=== PATIENT | female | born 1945 | race Caucasian/White ===

== ENCOUNTER → 2016-07-09 | Outpatient (CLI) | payer MEDICARE, MEDICAID ==
[2016-07-09 07:05] LABS: ALT 41 U/L (9-52); AST 28 U/L (14-36); Alkaline Phosphatase 75 U/L (38-126); Anion Gap 10 mmol/L; Blood Urea Nitrogen 20 mg/dL (7-17); Calcium 9.8 mg/dL (8.4-10.2); Carbon Dioxide 29 mmol/L (22-30); Chloride 101 mmol/L (98-107); Cholesterol 188 mg/dL (<200); Glucose 167 mg/dL (74-99); HDL Cholesterol 63 mg/dL (40-60); Non-African American GFR(MDRD) >60 (>60 ml/min/1.73 sqM); Potassium 4.4 mmol/L (3.5-5.1); Sodium 140 mmol/L (137-145); Total Bilirubin 1.4 mg/dL (0.2-1.3); Total Protein 7.2 g/dL (6.3-8.2); Triglycerides 125 mg/dL (<150)
== END | disposition home or self-care (01) ==
LOC: LABWHC1 06:33
PROVIDERS: ATTEND Internal Medicine Endocrinology, Diabetes & Metabolism
DX: E11.65 Type 2 diabetes mellitus with hyperglycemia (principal)
CPT/HCPCS: 36415; 80053; 80061; 82043

== ENCOUNTER → 2016-10-06 | Outpatient (CLI) | payer MEDICARE, MEDICAID ==
--- NOTE | 2016-10-08 13:04 | MM ---
Reason for exam: screening (asymptomatic). Last mammogram was performed 1 year ago. History: Patient is postmenopausal and has history of other cancer at age 65. Family history of breast cancer in sister at age 80, breast cancer in cousin, and breast cancer in cousin at age 40. Took estrogen for 15 years. Took progesterone for 15 years. Physical Findings: A clinical breast exam by your physician is recommended on an annual basis and results should be correlated with mammographic findings. MG 3D Screening Mammo W/Cad Bilateral CC and MLO view(s) were taken. Prior study comparison: October 06, 2015, bilateral MG 3d screening mammo w/cad. October 02, 2014, bilateral MG screening mammo w CAD. The breast tissue is almost entirely fat. There is no discrete abnormality including area of concern. No significant changes when compared with prior studies. ASSESSMENT: Negative, BI-RAD 1 RECOMMENDATION: Routine screening mammogram of both breasts in 1 year.
== END | disposition home or self-care (01) ==
LOC: RADMAMWWP 07:56
PROVIDERS: ATTEND Obstetrics & Gynecology
DX: Z12.31 Encounter for screening mammogram for malignant neoplasm of breast (principal); Z80.3 Family history of malignant neoplasm of breast
CPT/HCPCS: 77063; G0202

== ENCOUNTER → 2016-12-06 | Outpatient (CLI) | payer MEDICARE, MEDICAID ==
--- NOTE | 2016-12-06 20:08 | MR ---
EXAMINATION TYPE: MR cervical spine wo con DATE OF EXAM: 12/06/2016 COMPARISON: NONE HISTORY: Neck pain, headaches TECHNIQUE: Multiplanar, multisequence images of the cervical spine were acquired. C2-C3: There is posterior spondylosis and uncovertebral joint hypertrophy. Neural foramina patent. No Canal stenosis. No disc herniation. C3-C4: Degenerative disc disease and facet arthropathy with uncovertebral joint hypertrophy. Mild kristin ateral foraminal encroachment. No canal stenosis or focal herniation. C4-C5: Central left paracentral disc protrusion with uncovertebral joint hypertrophy and facet arthro casie. Mild effacement of thecal sac and canal stenosis. Mild left-sided foraminal encroachment. C5-C6: Severe degenerative disc disease with broad-based central disc protrusion or herniation greate r laterally to the right suggestive of a lateral disc herniation severe right-sided foraminal encroac hment. Mild to moderate left foraminal encroachment and moderate to severe canal stenosis. C6-C7: Mild degenerative disc disease with no disc herniation or canal stenosis. No foraminal encroac hment. Mild facet arthropathy. C7-T1: No evidence for degenerative disc disease. No disc bulge/herniation or protrusion. No Canal stenosis. Foramina are patent bilaterally. Cervical segments are intact. There is normal alignment. Cervical spinal cord is of normal signal. Craniovertebral junction relationships are within normal limits. Subcentimeter left thyroid nodule noted. Incidental note made of a left-sided nerve root sleeve diverticulum at C7-T1. 1.4 cm right par otid nodule seen. IMPRESSION: 1. Severe degenerative disc disease C5-C6 with broad-based central disc herniation extending laterall y the right. Moderate to severe canal stenosis and severe right-sided foraminal encroachment due to d isc herniation extending laterally to the right. 2. Central left paracentral disc protrusion or small herniation C4-C5 with canal stenosis and mild le ft foraminal encroachment. 3. Multilevel degenerative disc disease. 4. There is a 1.4 cm right parotid nodule. Recommend ultrasound the right parotid gland.
== END | disposition home or self-care (01) ==
LOC: RADMRIMAIN 18:28
PROVIDERS: ATTEND Physical Medicine & Rehabilitation
DX: M48.06 Spinal stenosis, lumbar region (principal); M99.73 Connective tissue and disc stenosis of intervertebral foramina of lumbar region; M50.222 Other cervical disc displacement at C5-C6 level; K11.8 Other diseases of salivary glands
CPT/HCPCS: 72141

== ENCOUNTER → 2017-01-11 | Outpatient (CLI) | payer MEDICARE, MEDICAID ==
--- NOTE | 2017-01-11 15:20 | US ---
EXAMINATION TYPE: US thyroid st tissue head/neck DATE OF EXAM: 01/11/2017 COMPARISON: NONE CLINICAL HISTORY: R22.1 Parotid mass. Right neck palpable lump x 15 years Right neck inferior to ear palpable area: 1.4 x 0.8 x 1.4cm complex vascular mass Left neck inferior to ear for comparison: appears wnl IMPRESSION: Complex vascular lesion noted at the site of clinical concern. Contrast-enhanced CT is r ecommended for further evaluation. Malignancy not excluded.
== END | disposition home or self-care (01) ==
LOC: RADUSWWP 14:06
PROVIDERS: ATTEND Family Medicine
DX: I99.8 Other disorder of circulatory system (principal); R22.1 Localized swelling, mass and lump, neck
CPT/HCPCS: 76536

== ENCOUNTER → 2017-01-26 | Outpatient (CLI) | payer MEDICARE, MEDICAID ==
[2017-01-26 11:48] LABS: Blood Urea Nitrogen 21 mg/dL (7-17); Non-African American GFR(MDRD) >60 (>60 ml/min/1.73 sqM)
--- NOTE | 2017-01-26 12:34 | CT ---
EXAMINATION TYPE: CT soft tissue neck w con DATE OF EXAM: 01/26/2017 HISTORY: Patient complains of right side parotid mass/Warthin Cyst just below ear (marked by bb) x15 years. COMPARISON: Neck ultrasound January 11, 2017. MRI cervical spine December 06, 2016. CT DLP: 287.7 mGycm. Automated Exposure Control for Dose Reduction was Utilized. TECHNIQUE: CT scan of the neck is performed with IV Contrast, patient injected with 100 mL of Omnipa que 300, axial images are obtained, coronal and sagittal reformatted images are reviewed. FINDINGS: A metallic BB is placed at level of palpable abnormality in the right neck on axial image 5 0. There is streak artifact from multiple cavitary fillings and root canal procedures in the maxillar y and mandibular teeth bilaterally making evaluation at this level suboptimal. Just superior to BB th ere is heterogeneous enhancing solid mass along superficial anterior inferior aspect of right parotid gland measuring 1.0 x 1.0 cm on axial image 51 x 1.3 cm in craniocaudal dimension on sagittal image 23. Lesion corresponds to ultrasound abnormality. Visualized portion of the lesion is fairly isointen se to remainder parotid gland on MRI. Submandibular glands are symmetric and felt unremarkable. There are scattered small subcentimeter hypodense and calcified nodules throughout the thyroid gland bilaterally. No suspicious greater than 1 cm neck adenopathy is seen. There is mild calcified plaque at right carotid bulb. There is more moderate to severe calcified plaq ue at left carotid bulb without significant focal stenosis clearly seen. Spine is straightened with moderate disc space narrowing as well as endplate sclerosis and mild to mo derate spurring at right C5-C6 level. Posterior spur disc complex effaces anterior thecal sac at this level. IMPRESSION: There is 1.3 cm heterogeneous enhancing solid lesion anterior superficial right parotid g land confirm likely reflecting neoplasm could reflect known Warthin tumor, other etiologies are not e xcluded.
== END | disposition home or self-care (01) ==
LOC: RADCTMAIN 10:35
PROVIDERS: ATTEND Family Medicine
DX: K11.9 Disease of salivary gland, unspecified (principal); E11.9 Type 2 diabetes mellitus without complications
CPT/HCPCS: 82565; 84520; 70491; 36415; Q9967

== ENCOUNTER → 2017-02-07 | Outpatient (CLI) | payer MEDICARE, MEDICAID ==
--- NOTE | 2017-02-07 15:17 | US ---
EXAMINATION TYPE: US thyroid st tissue head/neck DATE OF EXAM: 02/07/2017 COMPARISON: CT neck CLINICAL HISTORY: E04.2 Multinodular goiter. GLAND SIZE: Right Lobe: 3.9 x 1.3 x 1.1 cm Overall Parenchyma: heterogenous Left Lobe: 4.2 x 1.3 x 1.1 cm Overall Parenchyma: heterogeneous Isthmus Thickness: 0.3 cm NODULES RIGHT: # of nodules measured on right: 2 of multiple 1. 0.8 X 0.6 x 0.5 cm hypoechoic largest mixed nodule at the lower pole with well-defined margins. This nodule is wider than tall and shows no intranodular vascularity. Prior size: no prior thyroid US 2. 0.3 X 0.4 x 0.1 cm echogenic calcified nodule at the mid pole with not well-defined margins. Thi s nodule is wider than tall and shows no intranodular vascularity. LEFT: # of nodules measured on left: 2 largest of multiple 1. 1.7 X 1.3 x 0.9 cm hypoechoic mixed nodule at the upper pole with poorly defined margins; presen t with microcalcifications. This nodule is wider than tall and shows intranodular vascularity. 2. 1.1 X 1.2 x 0.9 cm hypoechoic mixed nodule at the lower pole with well-defined margins. This nod ule is wider than tall and shows no intranodular vascularity. ISTHMUS: # of nodules measured in the isthmus: 0 IMPRESSION: Multiple bilateral thyroid nodules the largest on the left measuring up to 1.7 cm. This is suspicious with microcalcifications and warrants fine-needle aspiration. Consideration could also be given to p ercutaneous fine-needle aspiration of the lower pole thyroid nodule measuring 1.1 cm. Surveillance is recommended for the remaining thyroid nodules.
== END ==
LOC: RADUSWWP 13:17
PROVIDERS: ATTEND Internal Medicine Endocrinology, Diabetes & Metabolism
DX: E04.2 Nontoxic multinodular goiter (principal)
CPT/HCPCS: 76536

== ENCOUNTER → 2017-02-08 | Outpatient (CLI) | payer MEDICARE, MEDICAID ==
[2017-02-08 07:43] LABS: Appearance,Urine Cloudy (Clear); Bacteria,Urine Rare /hpf; Bilirubin,Urine Negative (Negative); Glucose,Urine (UA) Negative (Negative); Ketones,Urine Negative (Negative); Leukocyte Esterase,Urine Large (Negative); Mucus,Urine Rare /hpf; Nitrite,Urine Negative (Negative); Particle Count 1401; Protein,Urine Negative (Negative); RBC,Urine 2 /hpf (0-5); Specific Gravity,Urine 1.015 (1.001-1.035); Squamous Epithelial Cell,Urine 1 /hpf (0-4); UA Billing (MACRO vs. MICRO) MICRO; Urobilinogen,Urine <2.0 mg/dL (<2.0); WBC,Urine 71 /hpf (0-5)
[2017-02-08 08:10] LABS: CHCM 34.2; HCT 43.4 % (34.0-46.0); HDW 2.64; HGB 14.4 gm/dL (11.4-16.0); MCH 28.3 pg (25.0-35.0); MCHC 33.2 g/dL (31.0-37.0); MCV 85.1 fL (80.0-100.0); RBC 5.09 m/uL (3.80-5.40); RDW 14.3 % (11.5-15.5); WBC 6.5 k/uL (3.8-10.6)
[2017-02-08 08:31] LABS: ALT 30 U/L (9-52); AST 22 U/L (14-36); Alkaline Phosphatase 77 U/L (38-126); Anion Gap 6 mmol/L; Blood Urea Nitrogen 17 mg/dL (7-17); Calcium 9.3 mg/dL (8.4-10.2); Carbon Dioxide 32 mmol/L (22-30); Chloride 101 mmol/L (98-107); Cholesterol 197 mg/dL (<200); Glucose 124 mg/dL (74-99); HDL Cholesterol 60 mg/dL (40-60); Non-African American GFR(MDRD) >60 (>60 ml/min/1.73 sqM); Potassium 3.8 mmol/L (3.5-5.1); Sodium 139 mmol/L (137-145); Total Bilirubin 0.8 mg/dL (0.2-1.3); Total Protein 6.6 g/dL (6.3-8.2)
[2017-02-08 14:19] LABS: Urine Creatinine 144.9 mg/dL
== END | disposition home or self-care (01) ==
LOC: LABWHC1 06:43
PROVIDERS: ATTEND Internal Medicine Interventional Cardiology
DX: E55.9 Vitamin D deficiency, unspecified (principal); E03.9 Hypothyroidism, unspecified; E78.5 Hyperlipidemia, unspecified; I10 Essential (primary) hypertension; E11.65 Type 2 diabetes mellitus with hyperglycemia; E04.2 Nontoxic multinodular goiter
CPT/HCPCS: 36415; 80053; 80061; 81001; 82043; 82306; 82570; 84439; 84443; 85027; 87086

== ENCOUNTER 2017-03-21 12:21 | Day surgery (SDC) | payer MEDICARE, MEDICAID ==
[2017-03-21 12:53] VITALS: RESP 14; TEMP 98.4
[2017-03-21 13:49] VITALS: BP 124/62; PULSE 57
--- NOTE | 2017-03-21 15:04 | US ---
EXAMINATION TYPE: US FNA thyroid DATE OF EXAM: 03/21/2017 COMPARISON: NONE HISTORY: Thyroid nodule. Maximal barrier technique was utilized. After informed consent, skin overlying the lower pole left-s ided lesion was localized with ultrasound and the overlying skin prepped and draped. Ultrasound was u tilized using sterile technique. Lidocaine was used for local anesthesia. 4 passes with a 25-gauge ne edle were made into the nodule and aspirated specimen was submitted to cytology. Following the proce dure hemostasis achieved. No immediate complication. The patient discharged in stable condition. IMPRESSION: STATUS POST ULTRASOUND GUIDED FINE NEEDLE ASPIRATION OF LOWER POLE LEFT THYROID NODULE, P ATHOLOGY IS PENDING. THIS PROCEDURE WAS PERFORMED BY THE UNDERSIGNED.
--- NOTE | 2017-03-21 15:05 | US ---
EXAMINATION TYPE: US FNA thyroid DATE OF EXAM: 03/21/2017 COMPARISON: NONE HISTORY: Thyroid nodule. Maximal barrier technique was utilized. After informed consent, skin overlying the upper pole left t hyroid lesion was localized with ultrasound and the overlying skin prepped and draped. Ultrasound was utilized using sterile technique. Lidocaine was used for local anesthesia. For passes with a 25-gaug e needle were made into the nodule and aspirated specimen was submitted to cytology. Following the p rocedure hemostasis achieved. No immediate complication. The patient discharged in stable condition . IMPRESSION: STATUS POST ULTRASOUND GUIDED FINE NEEDLE ASPIRATION OF UPPER POLE LEFT THYROID NODULE, P ATHOLOGY IS PENDING. THIS PROCEDURE WAS PERFORMED BY THE UNDERSIGNED.
== END 2017-03-21 13:55 | disposition home or self-care (01) ==
LOC: RADPROMAIN 12:21
PROVIDERS: ATTEND Family Medicine
DX: E04.1 Nontoxic single thyroid nodule (principal)
CPT/HCPCS: 10022; 76942; 88173; 88305

== ENCOUNTER → 2017-05-19 | Outpatient (CLI) | payer MEDICARE, MEDICAID ==
--- NOTE | 2017-05-19 12:00 | CT ---
EXAMINATION TYPE: CT abdomen pelvis wo con DATE OF EXAM: 05/19/2017 HISTORY: Abd pain and gross hematuria. Renal protocol. Prior on 11.12.05 and prior report. Scanned by: LJ and CS. CT DLP: 941.2 mGycm. Automated Exposure Control for Dose Reduction was Utilized. TECHNIQUE: CT scan of the abdomen and pelvis is performed without oral or IV contrast. COMPARISON: NONE FINDINGS: Within the limitations of a non-contrast study, the following observations are made. LUNG BASES: No significant abnormality is appreciated. LIVER/GB: Cholecystectomy clips are noted. Common bile duct measures 10-12 mm perhaps minimally enlar ged near janice hepatis. It measures closer to 6 to 8 mm near duodenal ampulla No intrahepatic ductal dilatation is seen. Finding likely within normal limits after cholecystectomy PANCREAS: There is nonspecific 4 mm hypodense focus in the mid to distal pancreatic body on axial sanam ge 43, too small to further characterize favor small cystic lesion. SPLEEN: There is 1.4 cm splenule in inferior splenic hilum on coronal image 41. ADRENALS: No significant abnormality is seen. KIDNEYS: No renal stones or hydronephrosis is evident bilaterally. There are scattered pelvic phlebol iths. Bladder is poorly distended and thus suboptimally evaluated. No suspicious mass, calculus, or w all thickening is clearly seen. Evaluation is noted suboptimal due to streak artifact from hip prosth esis. BOWEL: Evaluation bowel is suboptimal secondary to lack of enteric contrast. There is no suspicious s mall or large bowel dilatation seen. There are sigmoid colonic diverticulosis identified without conv incing CT evidence for acute diverticulitis. Appendix is unremarkable from base of cecum which is sli ghtly low lying in the right pelvis. GENITAL ORGANS: Uterus is surgically absent. LYMPH NODES: There is borderline right perirectal/perianal lymph node measuring 11 x 10 mm on axial i mage 145. OSSEOUS STRUCTURES: Metallic artifact right hip arthroplasty is seen, this causes streak artifact rdz iting evaluation of pelvic structures. There is moderate joint space loss and mild to moderate acetab ular spurring in the left hip. There is moderate multilevel spurring and disc space narrowing most pr ominent L4-L5 level. There is multilevel facet arthropathy in the lumbar spine. OTHER: There is fairly moderate calcified aftereffect change of the distal abdominal aorta extending into iliac branch vessels IMPRESSION: 1. No significant finding is seen to account for patient's symptoms of hematuria. 2. Sigmoid colonic diverticulosis and borderline right perirectal/perianal lymph node noted.
== END | disposition home or self-care (01) ==
LOC: RADCTMAIN 11:03
PROVIDERS: ATTEND Urology
DX: K57.30 Diverticulosis of large intestine without perforation or abscess without bleeding (principal); R59.0 Localized enlarged lymph nodes; R31.0 Gross hematuria
CPT/HCPCS: 71250; 74176

== ENCOUNTER → 2017-05-19 | Outpatient (CLI) | payer MEDICARE, MEDICAID ==
--- NOTE | 2017-05-19 11:53 | CT ---
EXAMINATION TYPE: CT chest wo con DATE OF EXAM: 05/19/2017 COMPARISON: NONE HISTORY: Chest pain. No prior. CT DLP: 695.4 mGycm. Automated Exposure Control for Dose Reduction was Utilized. TECHNIQUE: CT scan of the thorax is performed without IV contrast. FINDINGS: LUNGS: The lungs are grossly clear, there is no concerning parenchymal mass or nodule identified. T here is no pleural effusion or pneumothorax seen. The tracheobronchial tree is patent. MEDIASTINUM: Lack of IV contrast is noted to limit evaluation for mediastinal and especially hilar ad enopathy. There are no definitive greater than 1 cm hilar or mediastinal lymph nodes. No cardiomega ly or pericardial effusion is seen. Thyroid gland is overall small in size which correlates with thyr oid ultrasound February 07. Ascending aorta measures up to 3.6 cm diameter on axial image 27. There is mild calcified plaque in the visualized aorta. Adjacent main pulmonary artery measures just under 3 cm in diameter. Right pulmonary artery measures 2.3 cm in diameter. There is moderate coronary carroll ry calcification which is noted marker for coronary artery disease. OTHER: Cholecystectomy clips are present. Common bile duct measures 12 mm which is mildly dilated aft er cholecystectomy. No suspicious intrahepatic ductal dilatation is seen. There is prominent 1.6 cm s plenule in the anterior inferior splenic hilum on axial image 65. There is moderate multilevel spurri ng in the thoracolumbar spine. Slight scoliotic curvature is present on coronal images. IMPRESSION: No significant acute or chronic pulmonary process.
== END | disposition home or self-care (01) ==
LOC: RADCTMAIN 11:06
DX: R07.89 Other chest pain (principal)
CPT/HCPCS: 71250

== ENCOUNTER → 2017-05-26 | Outpatient (CLI) | payer MEDICARE, MEDICAID ==
[2017-05-26 09:54] LABS: ALT 38 U/L (9-52); AST 25 U/L (14-36); Alkaline Phosphatase 67 U/L (38-126); Anion Gap 5 mmol/L; Blood Urea Nitrogen 14 mg/dL (7-17); Calcium 9.8 mg/dL (8.4-10.2); Carbon Dioxide 33 mmol/L (22-30); Chloride 99 mmol/L (98-107); Cholesterol 153 mg/dL (<200); Creatine Kinase 66 U/L (30-135); Glucose 130 mg/dL (74-99); HDL Cholesterol 59 mg/dL (40-60); Non-African American GFR(MDRD) >60 (>60 ml/min/1.73 sqM); Potassium 4.6 mmol/L (3.5-5.1); Sodium 137 mmol/L (137-145); Total Protein 6.7 g/dL (6.3-8.2)
[2017-05-26 16:13] LABS: Urine Creatinine 142.8 mg/dL
== END | disposition home or self-care (01) ==
LOC: LAB 09:03
PROVIDERS: ATTEND Internal Medicine Interventional Cardiology
DX: E78.2 Mixed hyperlipidemia (principal); E11.65 Type 2 diabetes mellitus with hyperglycemia
CPT/HCPCS: 80053; 80061; 82043; 82550; 82570; 84443

== ENCOUNTER → 2017-10-04 | Outpatient (CLI) | payer MEDICARE, MEDICAID ==
[2017-10-04 08:41] LABS: ALT 23 U/L (9-52); AST 21 U/L (14-36); Albumin 4.2 g/dL (3.5-5.0); Alkaline Phosphatase 97 U/L (38-126); Anion Gap 10 mmol/L; Blood Urea Nitrogen 20 mg/dL (7-17); Calcium 10.2 mg/dL (8.4-10.2); Carbon Dioxide 33 mmol/L (22-30); Chloride 100 mmol/L (98-107); Cholesterol 198 mg/dL (<200); Glucose 196 mg/dL (74-99); HDL Cholesterol 67 mg/dL (40-60); LDL Cholesterol,Calculated 117 mg/dL (0-99); Potassium 4.9 mmol/L (3.5-5.1); Sodium 143 mmol/L (137-145); Total Bilirubin 0.9 mg/dL (0.2-1.3); Triglycerides 72 mg/dL (<150)
[2017-10-04 17:17] LABS: Hepatitis C IgG Antibody Non-Reactive (Non-Reactive)
[2017-10-04 17:36] LABS: Dog Dander IgE <0.10 kU/L
== END | disposition home or self-care (01) ==
LOC: LABWHC1 07:37
PROVIDERS: ATTEND Internal Medicine Interventional Cardiology
DX: J45.909 Unspecified asthma, uncomplicated (principal); R05 Cough; E78.2 Mixed hyperlipidemia; Z13.9 Encounter for screening, unspecified
CPT/HCPCS: 36415; 80053; 80061; 86003; 86803

== ENCOUNTER → 2017-10-04 | Day surgery (SDC) | payer MEDICARE, MEDICAID ==
[2017-09-30 13:47] VITALS: BMI 30.2
[~2017-10-04] MED LIST: LACTATED RINGERS 1,000 ML IV SCH; LIDOCAINE 1% 20 ML VIAL (10MG/ML) FOR IV START INTRADERMA ONE; LIDOCAINE 1% INJ 10MG/ML (20 ML MDV) ONE; PROPOFOL 10 MG/ML 20 ML VIAL IV ONE; fentaNYL (PF) 50 MCG/ML 2 ML AMP ONE
[2017-10-04 09:02] LABS: Glucose,Whole Blood 162 mg/dL (75-99)
[2017-10-04 09:15] VITALS: RESP 16; TEMP 98.2
[2017-10-04 09:49] VITALS: PULSE 53
--- NOTE | 2017-10-04 09:53 | P.PCN ---
Date of Procedure: 10/04/17 Procedure(s) Performed: Procedure: Esophagogastroduodenoscopy and biopsy. Preoperative diagnosis: Nausea or vomiting and epigastric pain. Postoperative diagnosis: 1. Very small sliding hiatal hernia with no obvious esophagitis or complicated reflux disease. 2. Mild antral gastritis. 3. Multiple biopsies obtained from the duodenum, antrum and esophagus. Preparation and sedation: Was provided by anesthesia. Brief clinical history: The patient is a 72-year-old female who has been troubled with abdominal bloating, nausea, vomiting and epigastric pain. There is no dysphagia, odynophagia, bleeding or Weight loss. The patient has followed in our practice for symptoms of irritable bowel and she gets regular colonoscopies because of family history of colon cancer. Her last EGD was in 2015. Last colonoscopy in 2013. This evaluation is to assess for esophagitis, complicated reflux disease or other pathology. Procedure: With the patient on her left lateral decubitus position and after informed consent and adequate sedation, I passed the Olympus-GIF 160 video upper endoscope through the cricopharyngeus down the esophagus. GE junction was around 40-41 cm from the incisors and there was a very small sliding hiatal hernia. The esophagus did not show any definite esophagitis. There were no strictures or Palacios's esophagus. The endoscope was then passed into the stomach which was insufflated with air and inspected in detail including the retroflex view in the cardia. There was some mottling and erythema in the antrum and minimal friability consistent with mild gastritis but there were no ulcers or erosions. Pyloric channel, duodenal bulb, post bulbar area and descending duodenum appeared essentially within normal limits. Because of her symptoms I obtained biopsies from the esophagus, antrum and duodenum taken before the endoscope was withdrawn. Disposition: The patient tolerated the procedure well. Plan: The patient was reassured. Will await pathology results. Further plans will be made based on her course and biopsy results.
[2017-10-04 09:58] VITALS: BP 1135/58
== END ==
LOC: ORWHC2ENDO 07:56
DX: K29.50 Unspecified chronic gastritis without bleeding (principal); K44.9 Diaphragmatic hernia without obstruction or gangrene; K20.9 Esophagitis, unspecified; K58.9 Irritable bowel syndrome, unspecified; Z80.0 Family history of malignant neoplasm of digestive organs; J45.909 Unspecified asthma, uncomplicated; I10 Essential (primary) hypertension; E11.9 Type 2 diabetes mellitus without complications; E78.5 Hyperlipidemia, unspecified; M19.90 Unspecified osteoarthritis, unspecified site; Z96.641 Presence of right artificial hip joint; Z79.4 Long term (current) use of insulin; Z79.51 Long term (current) use of inhaled steroids; Z79.899 Other long term (current) drug therapy; Z88.6 Allergy status to analgesic agent; Z88.1 Allergy status to other antibiotic agents; Z91.041 Radiographic dye allergy status; Z88.0 Allergy status to penicillin; Z91.013 Allergy to seafood; Z91.048 Other nonmedicinal substance allergy status
CPT/HCPCS: 88305; 43239; J2001; J3010; J2704

== ENCOUNTER 2017-10-19 07:00 | Day surgery (SDC) | payer MEDICAID, MEDICARE ==
[2017-10-13 13:18] VITALS: BMI 29.5
[~2017-10-19 07:00] MED LIST changes: +DEXAMETHASONE SOD PHOSPHATE 10 MG/ML 1 ML VIAL IV ONE; -LIDOCAINE 1% 20 ML VIAL (10MG/ML) FOR IV START INTRADERMA ONE; +LIDOCAINE 1% 20 ML VIAL (10MG/ML) FOR IV START INTRADERMA PRN; -LIDOCAINE 1% INJ 10MG/ML (20 ML MDV) ONE; -PROPOFOL 10 MG/ML 20 ML VIAL IV ONE; +TETRACAINE 0.5% OPHTH (PF) DROPS 4 ML BTL OP NR; -fentaNYL (PF) 50 MCG/ML 2 ML AMP ONE
[2017-10-19 07:14] VITALS: RESP 16; TEMP 97.6
[2017-10-19] MEDS: PHENYLEPHRINE 2.5% OPHTH DRP 2ML OP NR ×3 (07:25→07:37)
[2017-10-19] MEDS: CYCLOPENTOLATE 1% OPHTH SOLN 2 ML BTL OP NR ×3 (07:28→07:41)
[2017-10-19 07:34] LABS: Glucose,Whole Blood 147 mg/dL (75-99)
[2017-10-19] MEDS ORDERED: HYALURONATE SODIUM INTRAOCULAR 1 EACH SYRINGE (12MG/ML) INTRAOCULA ONE ×2 (07:58→08:12)
[2017-10-19] MEDS ORDERED: BALANCED SALT IRRIG SOLN COMB2 15 ML IRRIG.SOLN IRRIGATION ONE ×2 (07:58→08:12)
[2017-10-19] MEDS: TIMOLOL 0.5% OPHTH DROPS 5 ML BTL OP NR ×2 (07:59→08:32)
[2017-10-19] MEDS ORDERED: LIDOCAINE 1% (PF) 10MG/ML VIAL SQ ONE ×2 (07:59→08:12)
[2017-10-19] MEDS ORDERED: MOXIFLOXACIN HCL 0.5% DROPS 3 ML BTL LEFT EYE ONE ×2 (08:00→08:32)
[2017-10-19] MEDS ORDERED: ATROPINE OPHTH SOLN 1% 5ML BTL LEFT EYE ONE (08:00)
[2017-10-19] MEDS ORDERED: EPINEPHrine (PF) 0.3 ML in BALANCED SALT IRRIG SOLN COMB2 500 ML IRRIGATION ONE ×6 (08:01)
[2017-10-19] MEDS ORDERED: MIDAZOLAM 2 MG/2 ML VIAL ONE (08:02)
[2017-10-19] MEDS ORDERED: fentaNYL (PF) 50 MCG/ML 2 ML AMP ONE (08:02)
--- NOTE | 2017-10-19 08:37 | P.OP ---
Date of Procedure: 10/19/17 Preoperative Diagnosis: NS & CS Postoperative Diagnosis: same Procedure(s) Performed: PIOL, OS Implants: [id number] 20.75 Anesthesia: MAC Surgeon: Denis Boss Estimated Blood Loss (ml): 0 Pathology: none sent Condition: stable Disposition: same day Indications for Procedure: blurry vision Operative Findings: No complications
[2017-10-19 08:56] VITALS: BP 129/83; PULSE 58
--- NOTE | 2017-10-19 21:43 | OP ---
OPERATIVE REPORT DATE OF SURGERY: 10/19/17 PREOPERATIVE DIAGNOSES:: Nuclear sclerosis and cortical sclerosis. POSTOPERATIVE DIAGNOSES:: Nuclear sclerosis and cortical sclerosis. OPERATION: Phacoemulsification of cataract and Crystalens implant of the left eye. SURGEON: Dr. Denis Boss. NARRATIVE:: After obtaining the appropriate consent, the patient was brought to the operating room. There the patient was placed under cardiac monitoring, prepped and draped in the usual sterile manner. The patient was approached from the left temporal side. The 5.5 mm Glenn ring inked in gentian claudine was placed centrally on the cornea. At the 11 o'clock position, a 1.1 mm keratome was used to create a paracentesis port. Through this opening, 1% Xylocaine MPF 50/50 mix with balanced salt solution was injected into the anterior chamber. This was followed by stabilization of the anterior chamber with Amvisc viscoelastic. At the 9 o'clock position, a 2.75 mm hamlet keratome was used to create a self-scaling corneal flap incision in a Langerman fashion. Through this opening, a cystotome was introduced to begin a continuous tear capsulorrhexis which was completed using the Utrata forceps. Care was taken to ensure that the capsulorrhexis was at least the size of the iesha on the anterior cornea. Hydrodissection and hydrodelineation of the lens was accomplished with balanced salt solution. Phacoemulsification of the lens utilizing phaco chop was accomplished in 12.25 seconds at 9% power. Addition Xylocaine MPF was instilled into the anterior chamber. This was followed by removal of the remaining cortex under irrigation and aspiration along with careful polishing of the posterior capsule in a capsule vacuum mode. Additional Amvisc viscoelastic was then used to stabilize the capsular bag, and the Bausch and Lomb Crystalens AO 1 UV 20.75 diopters Crystalens intraocular lens was injected into the capsular bag without difficult. The lens was rotated 270 degrees so that the haptics resided at the 6 and 12 o'clock positions, and all remaining viscoelastic was then removed from within the capsular bag and around the anterior chamber. The eye was brought to normal intraocular pressure through the paracentesis port along with slight hydration of the incision sites. Watertight integrity was confirmed using a fluorescein strip. The patient then received 2 drops of 0.5% timolol followed by 2 drops of Vigamox and 2 drops of 1% atropine. The patient was then lightly patched and shielded in the usual manner. There was no complications from the procedure. The patient tolerated the procedure well and was returned to outpatient recovery in good condition. SUSANNE / DANIELITO: [id number] / MTDD
== END 2017-10-19 09:14 | disposition home or self-care (01) ==
LOC: OR 07:00
PROVIDERS: ATTEND Ophthalmology
DX: H25.12 Age-related nuclear cataract, left eye (principal); H25.012 Cortical age-related cataract, left eye; H04.123 Dry eye syndrome of bilateral lacrimal glands; H52.4 Presbyopia; H52.03 Hypermetropia, bilateral; H00.026 Hordeolum internum left eye, unspecified eyelid; H00.023 Hordeolum internum right eye, unspecified eyelid; I10 Essential (primary) hypertension; E11.9 Type 2 diabetes mellitus without complications; H91.90 Unspecified hearing loss, unspecified ear; J45.909 Unspecified asthma, uncomplicated; E78.5 Hyperlipidemia, unspecified; J44.9 Chronic obstructive pulmonary disease, unspecified; M54.9 Dorsalgia, unspecified; M25.561 Pain in right knee; K21.9 Gastro-esophageal reflux disease without esophagitis; K58.9 Irritable bowel syndrome, unspecified; Z96.649 Presence of unspecified artificial hip joint; Z96.652 Presence of left artificial knee joint; Z79.4 Long term (current) use of insulin; Z79.52 Long term (current) use of systemic steroids; Z79.51 Long term (current) use of inhaled steroids; Z79.899 Other long term (current) drug therapy; Z88.1 Allergy status to other antibiotic agents; Z88.0 Allergy status to penicillin; Z88.8 Allergy status to other drugs, medicaments and biological substances; Z91.09 Other allergy status, other than to drugs and biological substances; Z87.891 Personal history of nicotine dependence; Z91.041 Radiographic dye allergy status; Z91.048 Other nonmedicinal substance allergy status
CPT/HCPCS: 66984; V2632; V2788; J2250; J0171; J3010; J2001

== ENCOUNTER 2017-11-09 06:49 | Day surgery (SDC) | payer MEDICAID, MEDICARE ==
[2017-11-03 15:50] VITALS: BMI 30.2
[~2017-11-09 06:49] MED LIST changes: -DEXAMETHASONE SOD PHOSPHATE 10 MG/ML 1 ML VIAL IV ONE; +MIDAZOLAM 2 MG/2 ML VIAL IV PRN; -TETRACAINE 0.5% OPHTH (PF) DROPS 4 ML BTL OP NR; +TETRACAINE 0.5% OPHTH (PF) DROPS 4 ML BTL OP ONE; +TIMOLOL 0.5% OPHTH DROPS 5 ML BTL OP ONE
[2017-11-09 07:12] VITALS: TEMP 97
[2017-11-09] MEDS: CYCLOPENTOLATE 1% OPHTH SOLN 2 ML BTL OP ONE ×3 (07:12→07:38)
[2017-11-09] MEDS: PHENYLEPHRINE 2.5% OPHTH DRP 2ML OP NR ×3 (07:22→07:41)
[2017-11-09 07:28] LABS: Glucose,Whole Blood 137 mg/dL (75-99)
[2017-11-09] MEDS ORDERED: LIDOCAINE 1% (PF) 10MG/ML VIAL SQ ONE (09:38)
[2017-11-09] MEDS ORDERED: HYALURONATE SODIUM INTRAOCULAR 1 EACH SYRINGE (12MG/ML) INTRAOCULA ONE (09:38)
[2017-11-09] MEDS ORDERED: BALANCED SALT IRRIG SOLN COMB2 15 ML IRRIG.SOLN IRRIGATION ONE (09:38)
[2017-11-09] MEDS ORDERED: fentaNYL (PF) 50 MCG/ML 2 ML AMP ONE (09:40)
[2017-11-09] MEDS ORDERED: LACTATED RINGERS 1,000 ML IV ONE (09:40)
[2017-11-09] MEDS ORDERED: MIDAZOLAM 2 MG/2 ML VIAL ONE (09:40)
[2017-11-09] MEDS ORDERED: EPINEPHrine (PF) 0.3 ML in BALANCED SALT IRRIG SOLN COMB2 500 ML IRRIGATION ONE (09:47)
[2017-11-09] MEDS ORDERED: MOXIFLOXACIN HCL 0.5% DROPS 3 ML BTL RIGHT EYE ONE (09:48)
[2017-11-09] MEDS ORDERED: ATROPINE OPHTH SOLN 1% 5ML BTL RIGHT EYE ONE (10:15)
--- NOTE | 2017-11-09 10:17 | P.OP ---
Date of Procedure: 11/09/17 Preoperative Diagnosis: NS & CS Postoperative Diagnosis: same Procedure(s) Performed: PIOL OD Implants: AO1UV 20.75 Anesthesia: MAC Surgeon: Denis Boss Estimated Blood Loss (ml): 0 Pathology: none sent Condition: stable Disposition: same day Indications for Procedure: blurry vision Operative Findings: No complications
[2017-11-09 10:35] VITALS: BP 137/77; PULSE 59; RESP 18
--- NOTE | 2017-11-09 19:50 | OP ---
OPERATIVE REPORT DATE OF SURGERY: 09 November 2017 PROCEDURE: Phacoemulsification of cataract and intraocular lens implant of the right eye. PREOPERATIVE DIAGNOSIS:: Nuclear sclerosis and cortical sclerosis. POSTOPERATIVE DIAGNOSIS:: Nuclear sclerosis and cortical sclerosis. NARRATIVE:: After obtaining the appropriate consent, the patient was brought to the operating room. There the patient was placed under cardiac monitoring, prepped and draped in the usual sterile manner. The patient was approached from the right temporal side. The mm Glenn ring inked in gentian claudine was placed centrally on the cornea. At the 11 o'clock position, a 1.1 mm keratome was used to create a paracentesis port. Through this opening, 1% Xylocaine MPF 50/50 mix with balanced salt solution was injected into the anterior chamber. This was followed by stabilization of the anterior chamber with Amvisc viscoelastic. At the 9 o'clock position, a 2.75 mm hamlet keratome was used to create a self-scaling corneal flap incision in a Langerman fashion. Through this opening, a cystotome was introduced to begin a continuous tear capsulorrhexis which was completed using the Utrata forceps. Care was taken to ensure that the capsulorrhexis was at least the size of the iesha on the anterior cornea. Hydrodissection and hydrodelineation of the lens was accomplished with balanced salt solution. Phacoemulsification of the lens utilizing phaco chop was accomplished in 11.49 seconds at 10% power. Addition Xylocaine MPF was instilled into the anterior chamber. This was followed by removal of the remaining cortex under irrigation and aspiration along with careful polishing of the posterior capsule in a capsule vacuum mode. Additional Amvisc viscoelastic was then used to stabilize the capsular bag, and the Bausch and Lomb Crystalens AO1UV 20.75 diopter intraocular lens was injected into the capsular bag without difficult. The lens was rotated 270 degrees so that the haptics resided at the 6 and 12 o'clock positions, and all remaining viscoelastic was then removed from within the capsular bag and around the anterior chamber. The eye was brought to normal intraocular pressure through the paracentesis port along with slight hydration of the incision sites. Watertight integrity was confirmed using a fluorescein strip. The patient then received 2 drops of 0.5% timolol followed by 2 drops of Vigamox and 2 drops of 1% atropine. The patient was then lightly patched and shielded in the usual manner. There was no complications from the procedure. The patient tolerated the procedure well and was returned to outpatient recovery in good condition. MMMIGDALIA / GREGN: [id number] /
== END 2017-11-09 10:50 | disposition home or self-care (01) ==
LOC: OR 06:49
PROVIDERS: ATTEND Ophthalmology
DX: E11.36 Type 2 diabetes mellitus with diabetic cataract (principal); Z79.4 Long term (current) use of insulin; H04.123 Dry eye syndrome of bilateral lacrimal glands; H52.203 Unspecified astigmatism, bilateral; H52.4 Presbyopia; H52.03 Hypermetropia, bilateral; H00.023 Hordeolum internum right eye, unspecified eyelid; H00.026 Hordeolum internum left eye, unspecified eyelid; Z96.1 Presence of intraocular lens; I10 Essential (primary) hypertension; Z87.891 Personal history of nicotine dependence; K21.9 Gastro-esophageal reflux disease without esophagitis; Z79.52 Long term (current) use of systemic steroids; Z79.899 Other long term (current) drug therapy; Z88.1 Allergy status to other antibiotic agents; Z88.0 Allergy status to penicillin; Z88.8 Allergy status to other drugs, medicaments and biological substances; Z91.048 Other nonmedicinal substance allergy status; Z91.041 Radiographic dye allergy status
CPT/HCPCS: 66984; V2632; V2788; J2250; J0171; J3010; J2001

== ENCOUNTER → 2017-11-18 | Outpatient (CLI) | payer MEDICARE, MEDICAID ==
--- NOTE | 2017-11-18 14:45 | BD ---
EXAMINATION TYPE: Axial Bone Density DATE OF EXAM: 11/18/2017 COMPARISON: 10/04/2013 CLINICAL HISTORY: Height: 67.5 IN Weight: 212 LBS FRAX RISK QUESTIONS: Family History (Parent hip fracture): YES FATHER History of Fracture in Adulthood: YES LT TIB /FIB AGE 51; LT FOREARM AGE 57 Secondary Osteoporosis: RISK FACTORS HISTORY OF: Surgery to Hip(right): YES When: AGE 62 Active: MODERATE Postmenopausal woman: AGE 51 Take estrogen and/or progesterone medications: NOT NOW How long: AGE 50-60 MEDICATIONS: Additional Medications: VIT D, ATENOLOL, PREVASTATIN, WATER PILL FOR VEINS, GLIPIZIDE, DIABETES MEDS, LOMOTIL, EXAM MEASUREMENTS: Bone mineral densitometry was performed using the 24/7 Card System. Bone mineral density as measured about the Lumbar spine is: ----- L1-L4(G/cm2): 1.462 T Score Values are as follows: ----- L2: 2.3 ----- L3: 4.0 ----- L4: 2.3 ----- L1-L4: 2.4 Bone mineral density has: Increased 5.7% since study of: 10/14/2013 PT HAD RT HIP REPLACEMENT AGE 62 Bone mineral density about the L hip (g/cm2): 0.827 T Score values are as follows: -----L Neck: -1.5 -----L Total: -1.6 Bone mineral density has: Decreased -4.4% since study of: 10/14/2013 IMPRESSION: Osteopenia (T Score between -2.5 and -1). There is slightly increased risk of fracture and the patient may be considered for treatment. Re-Screen 2-5 years. NOTE: T-SCORE=SD OF THE YOUNG ADULT MEAN.
--- NOTE | 2017-11-22 07:59 | MM ---
Reason for exam: screening (asymptomatic). Last mammogram was performed 1 year and 1 month ago. History: Patient is postmenopausal and has history of other cancer at age 65. Family history of breast cancer in sister at age 80, breast cancer in cousin, and breast cancer in cousin at age 40. Took estrogen for 15 years. Took progesterone for 15 years. Physical Findings: A clinical breast exam by your physician is recommended on an annual basis and results should be correlated with mammographic findings. MG 3D Screening Mammo W/Cad Bilateral CC and MLO view(s) were taken. Prior study comparison: October 06, 2016, bilateral MG 3d screening mammo w/cad. October 06, 2015, bilateral MG 3d screening mammo w/cad. The breast tissue is almost entirely fat. No significant changes when compared with prior studies. ASSESSMENT: Negative, BI-RAD 1 RECOMMENDATION: Routine screening mammogram of both breasts in 1 year.
== END | disposition home or self-care (01) ==
LOC: RADMAMWWP 12:36
PROVIDERS: ATTEND Obstetrics & Gynecology
DX: Z12.31 Encounter for screening mammogram for malignant neoplasm of breast (principal); M89.9 Disorder of bone, unspecified; M85.80 Other specified disorders of bone density and structure, unspecified site; Z80.3 Family history of malignant neoplasm of breast
CPT/HCPCS: 77063; 77067; 77080

== ENCOUNTER → 2017-11-23 | Outpatient (CLI) | payer MEDICARE, MEDICAID | END | disposition home or self-care (01) | LOC: LABPAT 13:51 | PROVIDERS: ATTEND Orthopaedic Surgery | DX: Z01.812 Encounter for preprocedural laboratory examination (principal) | CPT/HCPCS: 87070 ==

== ENCOUNTER → 2017-11-23 | Outpatient (CLI) | payer MEDICARE, MEDICAID ==
[2017-11-23 14:38] LABS: Basophils % (A) 1 %; Eosinophils # (A) 0.2 k/uL (0-0.7); Eosinophils % (A) 2 %; HCT 40.4 % (34.0-46.0); HGB 13.5 gm/dL (11.4-16.0); Lymphocytes # (A) 1.7 k/uL (1.0-4.8); Lymphocytes % (A) 25 %; MCH 28.9 pg (25.0-35.0); MCHC 33.3 g/dL (31.0-37.0); MCV 86.9 fL (80.0-100.0); Mean Platelet Volume 6.9; Monocytes # (A) 0.4 k/uL (0-1.0); Monocytes % (A) 5 %; Neutrophils # (A) 4.2 k/uL (1.3-7.7); Neutrophils % (A) 65 %; Platelet Count 294 k/uL (150-450); RBC 4.65 m/uL (3.80-5.40); RDW 13.8 % (11.5-15.5); WBC 6.6 k/uL (3.8-10.6)
[2017-11-23 14:44] LABS: INR 1.1 (<1.2); Prothrombin Time 10.4 sec (9.0-12.0)
[2017-11-23 14:55] LABS: Calcium 9.5 mg/dL (8.4-10.2); Potassium 4.9 mmol/L (3.5-5.1)
== END | disposition home or self-care (01) ==
LOC: LABWHC1 13:49
PROVIDERS: ATTEND Nurse Practitioner Acute Care
DX: M25.561 Pain in right knee (principal)
CPT/HCPCS: 36415; 80048; 85025; 85610

== ENCOUNTER → 2017-12-12 | Outpatient (CLI) | payer MEDICAID, MEDICARE | END | disposition home or self-care (01) | LOC: LABPAT 09:01 | PROVIDERS: ATTEND Orthopaedic Surgery | DX: Z01.818 Encounter for other preprocedural examination (principal) | CPT/HCPCS: 93005 ==

== ENCOUNTER 2017-12-19 07:30 | Inpatient (IN) | payer MEDICAID, MEDICARE ==
[2017-12-09 15:51] VITALS: BMI 31.4
--- NOTE | 2017-12-18 13:19 | HP ---
HISTORY AND PHYSICAL REASON FOR ADMISSION: Surgery scheduled 12/19/2017. Cayla Felix is a 72-year-old patient seen with symptomatic right knee osteoarthritis. We discussed treatment options. She elected to proceed with right total knee arthroplasty. Consent regarding procedure was obtained. Medical clearance was provided by Dr. Guerrero. PAST MEDICAL HISTORY: Hyper tension, gkh-ravjwcl-kwokbepoi diabetes, hyperlipidemia. PAST SURGICAL HISTORY: Right total hip arthroplasty, hysterectomy, abdominoplasty. DAILY MEDICATIONS: Pravastatin, metoprolol. ALLERGIES: PENICILLIN, AVELOX, IODINE. SOCIAL HISTORY: Patient denies tobacco use. PHYSICAL EXAMINATION: Evaluation of the right knee range of motion is -3/4 95 degrees. Lateral tenderness, crepitus, medial lateral and patellofemoral compartments with range of motion. Pain with patellofemoral compression. Genu valgum deformity. Distal neurovascular exam intact. Painless rotation hip. RADIOGRAPHS: Right knee revealed severe lateral, moderate medial patellofemoral compartment osteoarthritis. IMPRESSION: 1. Right knee osteoarthritis. 2. Hypertension. 3. Hyperlipidemia. 4. Jgt-bymvpoo-dcfrtabqj diabetes. PLAN: Right total knee arthroplasty. Surgery scheduled for 12/19/2017. MMODL / IJN: [id number] /
[~2017-12-19 07:30] MED LIST changes: +ACETAMINOPHEN TAB 500 MG TAB PO ONE; +DEXAMETHASONE SOD PHOSPHATE 10 MG/ML 1 ML VIAL IV ONE; +MELOXICAM 7.5 MG TAB PO ONE; +ONDANSETRON 4 MG/2 ML VIAL IVP ONE; +ROPIVACAINE 1,100 MG, SODIUM CHLORIDE 0.9% 330 ML MISCELLANE PRN; -TETRACAINE 0.5% OPHTH (PF) DROPS 4 ML BTL OP ONE; -TIMOLOL 0.5% OPHTH DROPS 5 ML BTL OP ONE; +TRANEXAMIC ACID 1,000 MG in SODIUM CHLORIDE 0.9% 50 ML IVPB ONE; +ceFAZolin IN SWFI 2 GM/20 ML SYRINGE IVP ONE; +fentaNYL (PF) 50 MCG/ML 2 ML AMP IV PRN
[2017-12-19 08:14] LABS: Glucose,Whole Blood 170 mg/dL (75-99)
[2017-12-19] MEDS ORDERED: MIDAZOLAM 2 MG/2 ML VIAL ONE ×2 (08:15→10:00)
[2017-12-19] MEDS ORDERED: ONDANSETRON 4 MG/2 ML VIAL ONE (08:15)
[2017-12-19] MEDS ORDERED: MIDAZOLAM 2 MG/2 ML VIAL IV ONE (08:40)
[2017-12-19] MEDS ORDERED: TRANEXAMIC ACID 1,000 MG/10 ML VIAL ONE (10:00)
[2017-12-19] MEDS ORDERED: fentaNYL (PF) 50 MCG/ML 2 ML AMP ONE (10:00)
[2017-12-19] MEDS ORDERED: SODIUM CHLORIDE 0.9% 100 ML BAG ONE (10:00)
[2017-12-19] MEDS ORDERED: ePHEDrine SULFATE/0.9% NACL/PF 50 MG/5 ML SYRINGE IV ONE (10:00)
[2017-12-19] MEDS ORDERED: PROPOFOL 10 MG/ML 20 ML VIAL IV ONE (10:00)
--- NOTE | 2017-12-19 10:18 | P.ONQ ---
Anesthesiology Proc Note - PNB - Peripheral Nerve Block Performed Right Adductor Canal Infusion Time Out Performed: Yes Procedure Start Time: 08:40 Specifically requested for management of pain by DrJessica: Braden Benson Sedation Type: Sedate with meaningful contact maintained Preparation: Sterile Prep Position: Supine Catheter: Indwelling Needle Types: Other (see comment) (Pajunk) Needle Size: 100mm (4") Needle Gauge: 21 Technique: Ultrasound Injectate: 0.5% Ropivacaine (see comment for volume) (20cc) Blood Aspirated: No Pain Paresthesia on Injection Noted: No
[2017-12-19] MEDS ORDERED: ROPIVACAINE 246.25 MG, EPINEPHrine 0.5 MG, KETOROLAC 30 MG, cloNIDine HCL/PF 80 MCG, WA... MISCELLANE ONE ×5 (10:20)
[2017-12-19] MEDS ORDERED: ceFAZolin 3,000 MG in SODIUM CHLORIDE 0.9% IRRIGATIO 3,000 ML IRRIGATION ONE (10:35)
[2017-12-19] MEDS ORDERED: LACTATED RINGERS 1,000 ML IV ONE (11:45)
--- NOTE | 2017-12-19 12:03 | P.OP ---
Date of Procedure: 12/19/17 Preoperative Diagnosis: Right knee osteoarthritis Postoperative Diagnosis: Right knee osteoarthritis Procedure(s) Performed: Right total knee arthroplasty Implants: 1. Microport evolution MP size 5 right cemented femoral component 2. Microport evolution MP size 5 right cemented keeled tibial baseplate 3. Microport evolution size 5 right CS 12 mm polyethylene tibial insert 4. Microport advance 38 mm all polyethylene cemented patella Anesthesia: regional (Abductor canal catheter), local, spinal Surgeon: Braden Benson Tableman #1: Jeremiah Adorno Estimated Blood Loss (ml): 50 Pathology: other (Bone) Condition: stable Disposition: PACU Indications for Procedure: 72-year-old patient seen with symptomatic right knee osteoarthritis. After having treatment options discussed, she elected to proceed with total knee arthroplasty. Operative Findings: see description of procedure Description of Procedure: Patient was taken to the operative suite. Patient underwent a spinal anesthetic by the department of anesthesia. Patient was given preoperative IV intake antibiotics and TXA. A well-padded tourniquet was placed about the right lower extremity. The lower extremity was then prepped and draped in the normal sterile orthopedic fashion. The extremity was elevated, a tourniquet was insufflated to 300. A standard anterior incision was made sharply through skin. Dissection was taken down through the subcutaneous soft tissues down to the extensor mechanism. A medial arthrotomy was performed, patella was everted and knee was flexed. There was advanced osteoarthritis noted. A proximal tibial cutting guide was positioned. Proximal tibial cut was made. A distal intramedullary femoral cutting guide was positioned, distal femoral cut made. We placed the appropriate sizing guide and selected the appropriate size. A distal 4-in-1 femoral cutting block was positioned, distal femoral cuts were made. We now placed a trial femoral component into position, along with an appropriate size tibial tray and insert. We now took the knee through range of motion and had full extension good flexion and good overall soft tissue balance noted. The patella was everted and a flush cut made with patellar quad tendon. We templated the patella, appropriate drill holes were made. An appropriate trial patella was positioned, knee was taken through full range of motion with the patella tracking very nicely. The trial patella was removed. Drill holes were made through the femoral component. All trial components were removed after marking off the appropriate rotation of the tibia. Retractors were now positioned along the proximal tibia. An appropriate keel punch was made with the appropriate size tibial guide. At this point appropriate size implants were chosen and opened. The joint was irrigated copiously with pulse lavage mechanical irrigation. The deep soft tissues were infiltrated local analgesic. We mixed antibiotic methylmethacrylate. Once the methyl methacrylate was ready, the tibial component was cemented into place removing any excess methylmethacrylate. The femoral component was cemented into place removing the removing any excess methylmethacrylate. We then inserted the appropriate size polyethylene tibial insert. We made sure that it was locked into position. We took the knee into full extension, and then back in a flexion making sure we had removed any excess methylmethacrylate. The patellar component was then cemented down and secured with clamp. Excess methylmethacrylate removed. We kept the knee in full extension, patellar clamp in position until methylmethacrylate had hardened. Once it had hardened the patellar clamp was removed. The knee was taken through full range of motion. The patella tracked nicely. There was good soft tissue balancing. The tourniquet was now released. Additional hemostasis was achieved via electrocautery. A second gram of TXA was given. The wound was irrigated with pulse lavage mechanical irrigation. The superficial soft tissues were infiltrated local analgesic. The extensor mechanism was repaired with Vicryl. We checked the repair with range of motion and it was stable. The subcutaneous soft tissues were repaired with Vicryl in layers. The skin was approximated with pernio/Dermabond. Sterile dressings were applied followed by loose web roll and Arnold bandage. The patient was transferred to a bed, and taken to recovery in stable and satisfactory condition. Olivier DESAI assisted with the procedure.
[2017-12-19] MEDS ORDERED: HYDROmorphone 1 MG/ML 1 ML SYRINGE IVP PRN ×3 (12:05)
[2017-12-19] MEDS ORDERED: ONDANSETRON 4 MG/2 ML VIAL IVP PRN (12:05)
[2017-12-19] MEDS ORDERED: NALOXONE 0.4 MG/ML 1 ML VIAL IV PRN (12:05)
[2017-12-19] MEDS ORDERED: HYDROcodone/APAP 7.5-325MG 1 EACH TAB PO PRN (12:05)
[2017-12-19 12:26] LABS: Glucose,Whole Blood 173 mg/dL (75-99)
--- NOTE | 2017-12-19 12:28 | XR ---
EXAMINATION TYPE: XR knee limited RT DATE OF EXAM: 12/19/2017 COMPARISON: None HISTORY: Right knee prosthesis placement. TECHNIQUE: 2 view right knee FINDINGS: Tibial and femoral components are present. Surgical skin jerman are present. Postsurgical changes are within the knee joint space. No acute fractures are evident. IMPRESSION: 1. No acute fractures post right knee replacement.
[2017-12-19] MEDS: HYDROmorphone 0.5 MG/0.5 ML SYRINGE IVP ONE ×2 (13:04→13:12)
[2017-12-19] MEDS: HYDROcodone/APAP 7.5-325MG 1 EACH TAB PO PRN ×2 (13:30→19:32)
[2017-12-19] MEDS: traMADol 50 MG TAB PO SCH ×3 (14:18→20:47)
[2017-12-19] MEDS: LACTATED RINGERS 1,000 ML IV SCH ×2 (14:19→23:13)
[2017-12-19] MEDS ORDERED: LORATADINE 10 MG TAB PO PRN (16:35)
[2017-12-19] MEDS ORDERED: ALBUTEROL NEBULIZED 2.5 MG/3 ML INHALATION PRN (16:35)
[2017-12-19] MEDS: ceFAZolin IN SWFI 2 GM/20 ML SYRINGE IVP SCH ×2 (16:43→23:12)
[2017-12-19 17:00] LABS: Glucose,Whole Blood 219 mg/dL (75-99)
[2017-12-19] MEDS: INSULIN ASPART 100 UNIT/ML 1 ML 10 ML VIAL SQ SCH ×2 (17:22→20:55)
--- NOTE | 2017-12-19 18:19 | CONS ---
CONSULTATION REASON FOR CONSULTATION: Advice regarding diabetes mellitus and other medical illnesses requested by Dr. Benson. HISTORY OF PRESENT ILLNESS: This 72-year-old woman with a past medical history of asthma, diabetes, hypertension, hyperlipidemia, DJD, was admitted after right total knee arthroplasty by Dr. Benson. Patient complains of knee pain. No chest pain. No palpitations. No fever. No headache. No loss of consciousness. Sugars 173. PAST MEDICAL HISTORY: History of asthma, history of diabetes type 2, hypertension, hyperlipidemia, history of DJD, history of cholecystectomy. MEDICATIONS: Prior to admission include home medications are: 1. Glipizide 2.5 mg p.o. b.i.d. 2. Moduretic 2.5 mg q.a.m. 3. Zantac 150 mg p.o. b.i.d. 4. Systane 1 drop both eyes q.h.s. 5. Pravachol 10 mg q.4h p.r.n. 6. Zofran 8 mg Q b.i.d. p.r.n. 7. Lantus 12 units subcu q.a.m. 8. Lomotil 2 tablets p.o. q.h.s. 9. Vitamin D 3000 daily. 10.Cetirizine 10 mg daily p.r.n. 11.Tenormin 25 mg q.a.m. 12.Ventolin HFA 1-2 puffs q.6h p.r.n. 13.Tylenol Extra Strength p.r.n. ALLERGIES: IODINATED CONTRAST DYE, LISINOPRIL, AVELOX, PENICILLIN, SHELLFISH, CELEBREX. FAMILY HISTORY: History of cancer, leukemia. SOCIAL HISTORY: Previous history of smoking. No history of current smoking, alcohol intake. REVIEW OF SYSTEMS: ENT: No diminished hearing or vision. CARDIOVASCULAR: No angina or palpitations. Respirations: No cough. GI as mentioned. : No dysuria. central nervous system: No focal deficits. Allergy/Immunology: No asthma or hayfever. Musculoskeletal: As mentioned earlier. Hematology/Oncology : No history of anemia. Endocrine: No history of diabetes or hypothyroidism. CONSTITUTIONAL: As mentioned earlier. DERMATOLOGY: Negative. RHEUMATOLOGY: Negative. PSYCHIATRY: As mentioned earlier. PHYSICAL EXAMINATION: GENERAL: The patient is alert and oriented times three. VITAL SIGNS: Pulse 70, blood pressure 140/80, respiration 20, temp is normal. Pulse ox 95% on room air. HEENT: Conjunctivae normal. Oral mucosa moist. Neck is no jugular venous distention. No carotid bruit. No lymph node enlargement. Cardiovascular: S1-S2, no S3, no S4. RESPIRATORY: Breath sounds diminished in the bases. No rhonchi and no crackles. ABDOMEN: Soft, nontender. No mass palpable. Legs: Status post right knee arthroplasty. NERVOUS SYSTEM: Higher functions as mentioned earlier. Moves all four limbs. No focal deficits. LYMPHATICS: No lymph nodes palpable in the neck, axillae or groin. SKIN: No ulcer, rash or bleeding. LABS: Which are done previously in the computer sugars are noted. Cholesterol 117. ASSESSMENT: 1. Status post right total knee arthroplasty. 2. Diabetes type 2. 3. Asthma. 4. Hypertension. 5. Hyperlipidemia. 6. Degenerative joint disease. 7. History of skin cancer. 8. History of irritable bowel syndrome. 9. History of hernia surgery. 10.Remote history of nicotine dependence. RECOMMENDATIONS AND DISCUSSION: This 72-year-old woman who presented with multiple complex medical issues, at this time, I recommend to continue current medications, management and symptomatic treatment. I would recommend resume the home medication. Accu-Cheks a.c. and at bedtime and continue to monitor. DVT prophylaxis. Incentive spirometry. Patient may be asked to follow up with primary physician closely after discharge. Thank you Dr. Benson for letting us participate in the care of this patient. See orders for details. MMODL / IJN: [id number] / CU[facility]
[2017-12-19] MEDS: ARTIFICIAL TEARS-HYPROMELLOSE DROPS 15 ML BTL BOTH EYES SCH ×2 (19:33→20:49)
[2017-12-19] MEDS: DIPHENOX-ATROP 2.5-0.025 MG 1 EACH TAB PO SCH ×2 (19:33→20:49)
[2017-12-19] MEDS: FAMOTIDINE 20 MG TAB PO SCH (20:47)
[2017-12-19 20:54] LABS: Glucose,Whole Blood 291 mg/dL (75-99)
[2017-12-19] MEDS ORDERED: SENNOSIDES-DOCUSATE SODIUM 1 EACH TAB PO SCH (21:00)
[2017-12-20] MEDS: HYDROcodone/APAP 7.5-325MG 1 EACH TAB PO PRN ×3 (01:30→13:51)
[2017-12-20 02:31] VITALS: PULSE 61
[2017-12-20 07:19] LABS: Basophils % (A) 0 %; Eosinophils # (A) 0.1 k/uL (0-0.7); Eosinophils % (A) 1 %; HCT 37.1 % (34.0-46.0); HGB 12.4 gm/dL (11.4-16.0); Lymphocytes # (A) 1.5 k/uL (1.0-4.8); Lymphocytes % (A) 13 %; MCH 28.6 pg (25.0-35.0); MCHC 33.4 g/dL (31.0-37.0); MCV 85.5 fL (80.0-100.0); Mean Platelet Volume 7.6; Monocytes # (A) 0.8 k/uL (0-1.0); Monocytes % (A) 7 %; Neutrophils # (A) 8.8 k/uL (1.3-7.7); Neutrophils % (A) 78 %; Platelet Count 237 k/uL (150-450); RBC 4.34 m/uL (3.80-5.40); RDW 14.1 % (11.5-15.5); WBC 11.4 k/uL (3.8-10.6)
[2017-12-20 07:22] LABS: Glucose,Whole Blood 136 mg/dL (75-99)
[2017-12-20] MEDS: INSULIN ASPART 100 UNIT/ML 1 ML 10 ML VIAL SQ SCH ×2 (07:36→11:54)
[2017-12-20 07:46] VITALS: BP 124/69; RESP 17; TEMP 98.6
[2017-12-20] MEDS: DIPHENOX-ATROP 2.5-0.025 MG 1 EACH TAB PO SCH (08:55)
[2017-12-20] MEDS: ARTIFICIAL TEARS-HYPROMELLOSE DROPS 15 ML BTL BOTH EYES SCH (08:55)
[2017-12-20] MEDS: traMADol 50 MG TAB PO SCH ×2 (08:56→11:54)
[2017-12-20] MEDS: FAMOTIDINE 20 MG TAB PO SCH (08:56)
[2017-12-20] MEDS ORDERED: FAMOTIDINE 20 MG TAB PO SCH (09:00)
[2017-12-20] MEDS ORDERED: INSULIN DETEMIR 100 UNIT/ML 10 ML VIAL SQ SCH (09:00)
[2017-12-20] MEDS ORDERED: aMILoride-HCTZ 5-50 mg 1 EACH TAB PO SCH (09:00)
[2017-12-20] MEDS ORDERED: MELOXICAM 7.5 MG TAB PO SCH (09:00)
[2017-12-20] MEDS ORDERED: ATENOLOL 25 MG TAB PO SCH (09:00)
[2017-12-20] MEDS ORDERED: PRAVASTATIN SODIUM 20 MG TAB PO SCH (09:00)
[2017-12-20] MEDS ORDERED: ENOXAPARIN 30 MG/0.3 ML SYRINGE SQ SCH (09:00)
[2017-12-20] MEDS ORDERED: CHOLECALCIFEROL 1,000 UNIT TAB PO SCH (09:00)
--- NOTE | 2017-12-20 11:07 | P.PN ---
Progress Note - Text Anesthesia POD 1. Patient is status post right TKR under spinal anesthesia with a right adductor canal catheter placed for postoperative pain relief. With ropivacaine 0.2% running at 10 cc's per hour, the patient's VAS is (1, 3). Catheter site is clean dry and intact.
[2017-12-20 11:16] LABS: Glucose,Whole Blood 197 mg/dL (75-99)
--- NOTE | 2017-12-20 11:33 | PN ---
PROGRESS NOTE DATE OF SERVICE: 12/20/2017 INTERVAL HISTORY: This 72-year-old woman who was admitted after right total knee arthroplasty is improving significantly. No chest pain. No palpitations. No fever. PHYSICAL EXAMINATION: On exam, alert and oriented x3. Pulse 61, blood pressure 124/69, respiration 17, temperature 98.6, pulse ox 95% on room air. EYES: Conjunctivae normal. NECK: No jugular venous distention. CARDIOVASCULAR: S1 and S2 muffled. RESPIRATORY: Breath sounds diminished at the bases. No rhonchi, no crackles. Abdomen is soft, nontender. LEGS: Status post right knee arthroplasty. NERVOUS SYSTEM: No focal deficits. LABS: WBC 11.4. Glucose 136. ASSESSMENT: 1. Status post right total knee arthroplasty. 2. Diabetes mellitus type 2. 3. Asthma. 4. Hypertension. 5. Hyperlipidemia. 6. Degenerative joint disease. 7. History of skin cancer. 8. History of irritable bowel syndrome. 9. History of hernia surgery. 10.Remote history of nicotine dependence. RECOMMENDATIONS AND DISCUSSION: Recommend to continue current medications. Continued monitoring and symptomatic treatment. Otherwise at this time I recommend resume the home medications. Monitor closely with the primary physician in the outpatient setting. The rest of the recommendations per Orthopedic Surgery. Further recommendations to follow. MMODL / IJN: [id number] /
[2017-12-20 11:50] LABS: Hemoglobin A1C 7.3 % (4.0-6.0)
--- NOTE | 2017-12-20 13:20 | P.PN ---
Subjective Progress Note Date: 12/20/17 Principal diagnosis: Status post right total knee arthroplasty Patient seen today resting in her hospital bed, she appears comfortable. She denies any chest pain, shortness of breath, fever chills. Pain is well- controlled at this time. She's done well with ambulatory instructions. Objective - Vital Signs Vital signs: Vital Signs Temp 98.6 F 12/20/17 07:45 Pulse 61 12/20/17 07:45 Resp 17 12/20/17 07:45 BP 124/69 12/20/17 07:45 Pulse Ox 95 12/20/17 07:45 Intake & Output 12/19/17 12/20/17 12/20/17 18:59 06:59 18:59 Intake Total 1101 480 Output Total 50 Balance 1051 480 Intake: IV 1101 Intake, IV Titration 480 Amount Lactated Ringers 1,000 ml 240 @ 0 mls/hr IV .STK-MED ONE Rx#:[id number] Lactated Ringers 1,000 ml 240 @ 80 mls/hr IV .[id number] TYRON Rx#:[id number] Output: Estimated Blood Loss 50 Other: # Voids 1 - Exam Right lower extremity: Incision is clean, dry, and intact. The prineo tape is in good condition. There is minimal soft tissue swelling and ecchymosis surrounding the medial and lateral aspects of the incision. Calf is soft, no tenderness with palpation. Plantar flexion, dorsiflexion, EHL, FHL are intact. Sensory exam to light touch throughout the extremity is intact, dorsal pedis pulses 2+. - Labs CBC & Chem 7: 12/20/17 07:04 Labs: Abnormal Lab Results - Last 24 Hours (Table) 12/19/17 12/19/17 12/20/17 Range/Units 16:57 20:51 07:04 WBC 11.4 H (3.8-10.6) k/uL Neutrophils # 8.8 H (1.3-7.7) k/uL POC Glucose (mg/dL) 219 H 291 H (75-99) mg/dL 12/20/17 12/20/17 Range/Units 07:05 11:14 WBC (3.8-10.6) k/uL Neutrophils # (1.3-7.7) k/uL POC Glucose (mg/dL) 136 H 197 H (75-99) mg/dL Assessment and Plan Plan: Assessment: 1. Postop day 1 status post right total knee arthroplasty Plan: Pain control, we'll discharge home on oral medication GI and DVT prophylaxis, aspirin 325 mg twice a day for 1 month Wound care instructions discussed Home physical therapy and nursing after discharge Medical recommendations Discharge planning: Patient will be discharged home today Time with Patient: Less than 30
--- NOTE | 2017-12-20 13:25 | P.DS ---
Providers Date of admission: 12/19/17 10:11 Expected date of discharge: 12/20/17 Attending physician: Braden Benson Consults: 12/19/17 12:05 Consult Physician Routine Consulting Provider: Tom Guerrero Consult Reason/Comments: Medical management Do you want consulting provider notified?: Yes 12/19/17 13:27 Consult Physician Routine Consulting Provider: Paige Matos Consult Reason/Comments: medical managment Do you want consulting provider notified?: Yes Primary care physician: Stated None Hospital Course: Date of admission: 12/19/2017 Date of discharge: 12/20/2017 Admission diagnosis: Status post right total knee arthroplasty Discharge diagnosis: Same Attending physician: Dr. Benson Surgical procedures: Right total knee arthroplasty Brief history: Patient is a 72-year-old female with a history of primary right knee osteoarthritis. At this point patient has failed conservative treatment measures and has opted to proceed with a elective right total knee arthroplasty. Hospital course: Details of patient's surgery can be found in operative report. Patient tolerated the procedure well and was subsequently transported to orthopedic floor. Patient's orthopeidc and medical care was provided daily. Patient had daily laboratory tests performed for evaluation of overall blood counts. Patient had daily physical therapy to include strengthening range of motion as well as education with walker ambulation. Patient had daily CPM usage as part of their physical therapy program. Patient was treated with Lovenox for their postoperative DVT prophylaxis during their inpatient stay. Patient was noted to have a relatively uneventful postoperative course. Patient reported satisfactory pain control with oral pain medications by postoperative day 0. Patient showed satisfactory progress with physical therapy. Patient moved steadily through the program and had no difficulty meeting the goals by postoperative day 1. Given patient's otherwise satisfactory course and having met physical therapy goals, plan is to discharge patient home on postoperative day 1. Discharge condition/disposition: Patient will be discharged home in stable condition. Discharge medications: Instructions are given on resumption of patient's normal daily medications per primary care recommendation, in addition patient will be prescribed Newton 7.5 mg/325 mg, tramadol 50 mg, aspirin 325 mg Discharge instructions: 1. Wound care and infection precautions, keep incision dry and covered while showering, no lotions, creams, moisturizers. No soaking, tubs, pools, hottubs. Do not scrub over the incision. 2. Weight-bear as tolerated with walker / cane until follow-up. 3. Ice and elevate when necessary. Do not exceed 20 minutes per hour with ice pack. 4. Utilize compression sleeve until seen at first follow up appointment. 5. Visiting nursing care. 6. Home physical therapy including home CPM. 7. Pain meds and anticoagulants per prescription. 8. Pain medication has potential to cause constipation. Increase oral fluid and fiber intake. Contact primary care provider if you have not had a bowel movement within 48 hours after discharge 9. No anti-inflammatory medication until discussed at first post operative visit, this including Motrin, Aleve, Mobic, Diclofenac 10. Follow up in office at 2 weeks postop with Olivier Adorno PA-C 11. Follow up with your primary care doctor 7-10 days after discharge. 12. Contact [facility] with any questions, . Procedures: Right total knee arthroplasty Patient Condition at Discharge: Good Plan - Discharge Summary Discharge Rx Participant: Yes New Discharge Prescriptions: New Aspirin 325 mg PO BID #60 tab HYDROcodone/APAP 7.5-325MG [Newton 7.5] 1 - 2 each PO Q6HR PRN #56 tab PRN Reason: Pain traMADol HCl [Ultram] 50 mg PO Q6H PRN #28 tab PRN Reason: Pain No Action Diphenoxylate HCl/Atropine [Lomotil] 2 tab PO QID aMILoride-HCTZ 5-50 mg [Moduretic 5-50] 0.5 tab PO QAM Cetirizine HCl 10 mg PO DAILY PRN PRN Reason: Allergy Symptoms Insulin Glargine [Lantus] 12 unit SQ QAM Cholecalciferol (Vitamin D3) [Vitamin D3] 1,000 unit PO DAILY Atenolol [Tenormin] 25 mg PO QAM glipiZIDE [Glucotrol] 2.5 mg PO BID Pravastatin Sodium [Pravachol] 10 mg PO Q48H Albuterol Inhaler [Ventolin Hfa Inhaler] 1 - 2 puff INHALATION RT-Q6H PRN PRN Reason: Dyspnea Ranitidine HCl [Zantac] 150 mg PO BID Acetaminophen [Tylenol Extra Strength] 1,000 mg PO TID PRN PRN Reason: Pain Ondansetron [Zofran] 8 mg PO Q12H PRN PRN Reason: Nausea Propylene Glycol/Peg 400/Pf [Systane 0.3-0.4% Eye Drops] 1 dropper BOTH EYES QID Discharge Medication List Diphenoxylate HCl/Atropine [Lomotil] 2 tab PO QID 10/09/13 [History] aMILoride-HCTZ 5-50 mg [Moduretic 5-50] 0.5 tab PO QAM 10/09/13 [History] Cetirizine HCl 10 mg PO DAILY PRN 08/12/15 [History] Insulin Glargine [Lantus] 12 unit SQ QAM 03/07/17 [History] Cholecalciferol (Vitamin D3) [Vitamin D3] 1,000 unit PO DAILY 03/21/17 [History] Atenolol [Tenormin] 25 mg PO QAM 09/30/17 [History] glipiZIDE [Glucotrol] 2.5 mg PO BID 09/30/17 [History] Pravastatin Sodium [Pravachol] 10 mg PO Q48H 10/13/17 [History] Acetaminophen [Tylenol Extra Strength] 1,000 mg PO TID PRN 11/03/17 [History] Albuterol Inhaler [Ventolin Hfa Inhaler] 1 - 2 puff INHALATION RT-Q6H PRN [History] Ondansetron [Zofran] 8 mg PO Q12H PRN 11/03/17 [History] Ranitidine HCl [Zantac] 150 mg PO BID 11/03/17 [History] Propylene Glycol/Peg 400/Pf [Systane 0.3-0.4% Eye Drops] 1 dropper BOTH EYES QID 12/19/17 [History] Aspirin 325 mg PO BID #60 tab 12/20/17 [Rx] HYDROcodone/APAP 7.5-325MG [Newton 7.5] 1 - 2 each PO Q6HR PRN #56 tab 12/20/17 [ Rx] traMADol HCl [Ultram] 50 mg PO Q6H PRN #28 tab 12/20/17 [Rx] Follow up Appointment(s)/Referral(s): Tom Guerrero DO [STAFF PHYSICIAN] - 1 Week (office will call with the appointment time) Jeremiah Adorno PAC [PHYSICIAN ELECTRICAL DISCHARGE MACHINE OPERATOR] - 08/08/18 3:20 pm [facility] Visiting Nurse, [NON-STAFF] - Patient Instructions/Handouts: Knee Replacement (DC) Activity/Diet/Wound Care/Special Instructions: Orthopedic Discharge Instructions: 1. Wound care and infection precautions, keep incision dry and covered while showering, no lotions, creams, moisturizers. No soaking, pools, hot tubs. Do not scrub over incision. 2. Weight-bear as tolerated with walker / cane until follow-up. 3. Ice and elevate when necessary. Do not exceed 20 minutes per hour with ice pack. 4. Utilize compression sleeve until seen at first follow up appointment. 5. Visiting nursing care. 6. Home physical therapy including home CPM. 7. Pain meds and anticoagulants per prescription. 8. Pain medication has potential to cause constipation. Increase oral fluid and fiber intake. Contact primary care provider if you have not had a bowel movement within 48 hours after discharge. 9. No anti-inflammatory medication until discussed at first post operative visit, this including Motrin, Aleve, Mobic, Diclofenac. 10. Follow up in office at 2 weeks postop with Olivier Adorno PA-C 11. Follow up with your primary care doctor 7-10 days after discharge. 12. Contact [facility] with any questions, 13. [facility] - [phone] - will deliver to bedside before discharge. Discharge Disposition: HOME WITH HOME HEALTH SERVICES
== END 2017-12-20 15:02 | disposition home health service (06) | DRG 470 ==
LOC: 2ORMAIN 10:11 → 3SUR 12:41
PROVIDERS: ADMIT Orthopaedic Surgery; ATTEND Orthopaedic Surgery
PROC: 0SRC0J9 Replacement of Right Knee Joint with Synthetic Substitute, Cemented, Open Approach (ICD-10-PCS; principal; 2017-12-19 09:45)
DX: M17.11 Unilateral primary osteoarthritis, right knee (principal); E11.9 Type 2 diabetes mellitus without complications; E78.5 Hyperlipidemia, unspecified; I10 Essential (primary) hypertension; J45.909 Unspecified asthma, uncomplicated; K58.9 Irritable bowel syndrome, unspecified; Z79.84 Long term (current) use of oral hypoglycemic drugs; Z80.6 Family history of leukemia; Z85.828 Personal history of other malignant neoplasm of skin; Z87.891 Personal history of nicotine dependence; Z90.49 Acquired absence of other specified parts of digestive tract; Z90.710 Acquired absence of both cervix and uterus; Z96.641 Presence of right artificial hip joint; Z79.899 Other long term (current) drug therapy; M19.90 Unspecified osteoarthritis, unspecified site; Z88.8 Allergy status to other drugs, medicaments and biological substances; Z88.1 Allergy status to other antibiotic agents; Z91.041 Radiographic dye allergy status; Z88.0 Allergy status to penicillin; Z91.013 Allergy to seafood
CPT/HCPCS: 83036; 85025; 88300

== ENCOUNTER → 2018-05-10 | Outpatient (CLI) | payer MEDICARE, MEDICAID ==
[2018-05-10 08:40] LABS: HCT 44.4 % (34.0-46.0); HGB 14.5 gm/dL (11.4-16.0); MCH 27.5 pg (25.0-35.0); MCHC 32.5 g/dL (31.0-37.0); MCV 84.7 fL (80.0-100.0); Mean Platelet Volume 7.2; Platelet Count 305 k/uL (150-450); RBC 5.25 m/uL (3.80-5.40); RDW 13.8 % (11.5-15.5); WBC 8.2 k/uL (3.8-10.6)
[2018-05-10 18:04] LABS: Albumin 4.2 g/dL (3.80-4.90); Anion Gap 6.7 mmol/L (4.00-12.00); Calcium 9.8 mg/dL (8.7-10.3); Carbon Dioxide 32.3 mmol/L (21.6-31.8); Globulin 2.1 g/dL (2.1-3.7); LDL Cholesterol,Calculated 100.4 mg/dL (0.0-131.0); Total Bilirubin 0.8 mg/dL (0.3-1.2); Total Protein 6.3 g/dL (6.2-8.2); VLDL Calculation 18.6 mg/dL (5.00-40.00)
[2018-05-10 18:12] LABS: T4, Free (Free Thyroxine) 0.9 ng/dL (0.80-1.80)
== END | disposition home or self-care (01) ==
LOC: LABWHC1 07:26
PROVIDERS: ATTEND Nurse Practitioner Adult Health
DX: E03.9 Hypothyroidism, unspecified (principal); E78.5 Hyperlipidemia, unspecified; I10 Essential (primary) hypertension; E11.9 Type 2 diabetes mellitus without complications; E78.2 Mixed hyperlipidemia
CPT/HCPCS: 36415; 80053; 80061; 82043; 82570; 84439; 84443; 85027

== ENCOUNTER 2018-10-03 06:58 | Day surgery (SDC) | payer MEDICARE, MEDICAID ==
[2018-10-02 08:45] VITALS: BMI 31.4
[~2018-10-03 06:58] MED LIST changes: -ACETAMINOPHEN TAB 500 MG TAB PO ONE; -DEXAMETHASONE SOD PHOSPHATE 10 MG/ML 1 ML VIAL IV ONE; -LIDOCAINE 1% 20 ML VIAL (10MG/ML) FOR IV START INTRADERMA PRN; -MELOXICAM 7.5 MG TAB PO ONE; -MIDAZOLAM 2 MG/2 ML VIAL IV PRN; -ONDANSETRON 4 MG/2 ML VIAL IVP ONE; -ROPIVACAINE 1,100 MG, SODIUM CHLORIDE 0.9% 330 ML MISCELLANE PRN; -TRANEXAMIC ACID 1,000 MG in SODIUM CHLORIDE 0.9% 50 ML IVPB ONE; -ceFAZolin IN SWFI 2 GM/20 ML SYRINGE IVP ONE; -fentaNYL (PF) 50 MCG/ML 2 ML AMP IV PRN
[2018-10-03 07:27] VITALS: TEMP 99.2
[2018-10-03 07:31] LABS: Glucose,Whole Blood 141 mg/dL (75-99)
[2018-10-03] MEDS ORDERED: PROPOFOL 10 MG/ML 20 ML VIAL IV ONE (07:50)
[2018-10-03] MEDS ORDERED: LIDOCAINE 1% INJ 10MG/ML (20 ML MDV) ONE (07:50)
[2018-10-03] MEDS ORDERED: GLYCOPYRROLATE 0.2 MG/ML 2 ML VIAL ONE (07:50)
[2018-10-03 08:32] LABS: Glucose,Whole Blood 157 mg/dL (75-99)
[2018-10-03 09:02] VITALS: BP 146/65; PULSE 55; RESP 18
--- NOTE | 2018-10-03 09:04 | P.PCN ---
Date of Procedure: 10/03/18 Procedure(s) Performed: Procedures: 1. Esophagogastroduodenoscopy and biopsy. 2. Total colonoscopy. Preoperative diagnosis: Family history of colon cancer, change in bowel habits, history of irritable bowel syndrome nausea and vomiting. Postoperative diagnosis: 1. Small sliding hiatal hernia with no obvious esophagitis or Complicated reflux disease. 2. Mild antral gastritis. 3. Multiple biopsies obtained from the duodenum, antrum and esophagus. 4. Colonoscopy reveals diverticulosis with no evidence of acute diverticulitis, strictures, polyps or cancer. Preparation: HalfLytely prep. Sedation: Was provided by anesthesia. Brief clinical history: The patient is a 73-year-old female with family history of colon cancer and history of irritable bowel syndrome with ongoing symptoms of abdominal pains intermittent diarrhea as well as nausea and vomiting that waxes and wanes with dietary measures and treatments. This evaluation is scheduled because she was due for colonoscopy and to assess for any upper GI pathology. Procedure: With the patient on her left lateral decubitus position and after informed consent and adequate sedation, I passed the Olympus-GIF H190 video upper endoscope through the cricopharyngeus down the esophagus. GE junction was around 41 cm from the incisors and there was a small sliding hiatal hernia but no obvious esophagitis or complicated reflux disease. The endoscope was then passed into the stomach which was insufflated with air and inspected in detail including the retroflex view in the cardia. There was some mottling and erythema in the antrum but no ulcers or erosions. Pyloric channel, duodenal bulb, post bulbar area and descending duodenum appeared within normal limits. I obtained multiple biopsies from the duodenum, antrum and esophagus then the endoscope was withdrawn and I then proceeded to perform the colonoscopy. Perianal area did not show any fissures or fistulas. There were no masses felt on digital rectal examination. The Olympus CFH 190L video colonoscope was then inserted in the rectum in the usual fashion and advanced to the cecum. There were multiple diverticular orifices seen scattered in the sigmoid and few on the right side and around the hepatic flexure with no evidence of acute diverticulitis or strictures. The mucosa appeared healthy. No polyps or tumors were seen. I retroflexed the endoscope in the rectum before the endoscope was withdrawn. The patient tolerated the procedure well. Plan: The patient was reassured. She will continue on the current regimen including antispasmodics and acid suppressive therapy. We discussed dietary measures. She will follow with you as planned and I will plan a repeat colonoscopy in 5 years. Other plans based on her course and biopsy results.
== END 2018-10-03 09:25 | disposition home or self-care (01) ==
LOC: ORWHC2ENDO 06:58
DX: K29.50 Unspecified chronic gastritis without bleeding (principal); K44.9 Diaphragmatic hernia without obstruction or gangrene; K57.90 Diverticulosis of intestine, part unspecified, without perforation or abscess without bleeding; Z80.0 Family history of malignant neoplasm of digestive organs; K58.9 Irritable bowel syndrome, unspecified; I10 Essential (primary) hypertension; E78.5 Hyperlipidemia, unspecified; Z88.0 Allergy status to penicillin; Z88.8 Allergy status to other drugs, medicaments and biological substances; Z91.041 Radiographic dye allergy status; J45.909 Unspecified asthma, uncomplicated; Z85.828 Personal history of other malignant neoplasm of skin; E11.9 Type 2 diabetes mellitus without complications; K21.9 Gastro-esophageal reflux disease without esophagitis; Z79.899 Other long term (current) drug therapy; Z79.4 Long term (current) use of insulin
CPT/HCPCS: 88305; 45378; 43239; J2001; J2704

== ENCOUNTER → 2018-10-25 | Outpatient (CLI) | payer MEDICARE, MEDICAID ==
[2018-10-25 16:41] LABS: Albumin 4.3 g/dL (3.80-4.90); Albumin/Globulin Ratio 1.87 (1.60-3.17); Anion Gap 7.4 mmol/L (4.00-12.00); Carbon Dioxide 29.6 mmol/L (21.6-31.8); Globulin 2.3 g/dL (1.6-3.3); LDL Cholesterol,Calculated 94.8 mg/dL (0.0-131.0); Potassium 4.7 mmol/L (3.5-5.5); Total Bilirubin 0.7 mg/dL (0.2-1.2); Total Protein 6.6 g/dL (6.2-8.2); VLDL Calculation 18.2 mg/dL (5.00-40.00)
== END | disposition home or self-care (01) ==
LOC: LABWHC1 09:56
PROVIDERS: ATTEND Internal Medicine Interventional Cardiology
DX: E11.65 Type 2 diabetes mellitus with hyperglycemia (principal); E78.2 Mixed hyperlipidemia
CPT/HCPCS: 36415; 80053; 80061; 82043; 82570; 84443

== ENCOUNTER → 2018-11-03 | Outpatient (CLI) | payer MEDICARE, MEDICAID ==
[2018-11-03 16:08] LABS: Anion Gap 9.3 mmol/L (4.00-12.00); Calcium 9.8 mg/dL (8.7-10.3); Carbon Dioxide 28.7 mmol/L (21.6-31.8); Potassium 4.4 mmol/L (3.5-5.5)
== END ==
LOC: LABWHC1 10:44
PROVIDERS: ATTEND Family Medicine
DX: R94.4 Abnormal results of kidney function studies (principal)
CPT/HCPCS: 36415; 80048

== ENCOUNTER → 2018-11-15 | Outpatient (CLI) | payer MEDICARE, MEDICAID ==
[2018-11-15 09:10] LABS: Basophils % (A) 1 %; Eosinophils # (A) 0.3 k/uL (0-0.7); Eosinophils % (A) 5 %; HGB 13.1 gm/dL (11.4-16.0); Lymphocytes # (A) 1.6 k/uL (1.0-4.8); Lymphocytes % (A) 26 %; MCH 26.7 pg (25.0-35.0); MCHC 31.2 g/dL (31.0-37.0); MCV 85.3 fL (80.0-100.0); Mean Platelet Volume 7.3; Monocytes # (A) 0.4 k/uL (0-1.0); Monocytes % (A) 6 %; Neutrophils # (A) 3.7 k/uL (1.3-7.7); Neutrophils % (A) 60 %; Platelet Count 309 k/uL (150-450); RBC 4.92 m/uL (3.80-5.40); RDW 14.5 % (11.5-15.5); WBC 6.1 k/uL (3.8-10.6)
[2018-11-15 16:53] LABS: Amylase 35 U/L (23-121); Lipase 44 U/L (14-63)
== END | disposition home or self-care (01) ==
LOC: LABWHC1 08:07
PROVIDERS: ATTEND Family Medicine
DX: R11.2 Nausea with vomiting, unspecified (principal)
CPT/HCPCS: 36415; 82150; 83690; 85025

== ENCOUNTER → 2018-11-16 | Outpatient (CLI) | payer MEDICARE, MEDICAID | END | disposition home or self-care (01) | LOC: LABWHC1 10:09 | PROVIDERS: ATTEND Family Medicine | DX: R14.0 Abdominal distension (gaseous) (principal) | CPT/HCPCS: 82656 ==

== ENCOUNTER → 2018-11-24 | Outpatient (CLI) | payer MEDICARE, MEDICAID ==
--- NOTE | 2018-11-27 09:42 | MM ---
Reason for exam: screening (asymptomatic). Last mammogram was performed 1 year ago. History: Patient is postmenopausal and has history of other cancer at age 65. Family history of breast cancer in sister at age 80, breast cancer in cousin, and breast cancer in cousin at age 40. Took estrogen for 15 years. Took progesterone for 15 years. Physical Findings: A clinical breast exam by your physician is recommended on an annual basis and results should be correlated with mammographic findings. MG 3D Screening Mammo W/Cad Bilateral CC and MLO view(s) were taken. Prior study comparison: November 18, 2017, bilateral MG 3d screening mammo w/cad. October 06, 2016, bilateral MG 3d screening mammo w/cad. There are scattered fibroglandular densities. Benign appearing bilateral calcifications. No suspicious abnormality. No significant changes when compared with prior studies. ASSESSMENT: Benign, BI-RAD 2 RECOMMENDATION: Routine screening mammogram of both breasts in 1 year.
== END | disposition home or self-care (01) ==
LOC: RADMAMWWP 15:02
PROVIDERS: ATTEND Obstetrics & Gynecology
DX: Z12.31 Encounter for screening mammogram for malignant neoplasm of breast (principal); Z80.3 Family history of malignant neoplasm of breast
CPT/HCPCS: 77063; 77067

== ENCOUNTER → 2019-01-05 | Outpatient (CLI) | payer MEDICARE, MEDICAID ==
--- NOTE | 2019-01-05 13:33 | US ---
EXAMINATION TYPE: US thyroid st tissue head/neck DATE OF EXAM: 01/05/2019 COMPARISON: US 02/07/2017 CLINICAL HISTORY: E04.2 MULTINODULAR GOITER. GLAND SIZE: Right Lobe: 4.3 x 1.2 x 1.3 cm Overall Parenchyma: heterogenous Left Lobe: 4.3 x 0.9 x 1.1 cm Overall Parenchyma: heterogeneous Isthmus Thickness: 0.2 cm NODULES RIGHT: # of nodules measured on right: 1 1. 0.8 X 0.6 x 0.9 cm hypoechoic mixed nodule at the lower pole with well-defined margins; . This nodule is wider than tall and shows intranodular vascularity. Prior size: 0.8 x 0.5 x 0.6 cm LEFT: # of nodules measured on left: 2 1. 1.0 X 0.7 x 0.9 cm isoechoic solid nodule at the lower pole with well-defined margins; . This n odule is wider than tall and shows intranodular vascularity. Prior size: 1.1 x 0.9 x 1.2 cm 2. 1.4 X 0.9 x 1.0 cm isoechoic solid nodule at the mid pole with poorly defined margins; . This no dule is wider than tall and shows intranodular vascularity. Prior size: 1.7 x 0.8 x 1.2 cm ISTHMUS: # of nodules measured in the isthmus: 0 Bilateral neck scanned, no evidence of lymphadenopathy. Nodules as described. IMPRESSION: Overall stable bilateral thyroid nodules.
--- NOTE | 2019-01-05 13:41 | XR ---
EXAMINATION TYPE: XR humerus RT DATE OF EXAM: 01/05/2019 CLINICAL HISTORY: Right humerus pain. TECHNIQUE: Two views of the right humerus are obtained. COMPARISON: None. FINDINGS: Demineralization is present. There is no acute fracture or dislocation seen in the right h umerus. Mild to moderate narrowing right glenohumeral joint with mild spurring is present. Elbow join t is maintained. No suspicious focal lytic or destructive lesion. The overlying soft tissue appears within normal limits. IMPRESSION: As above.
== END | disposition home or self-care (01) ==
LOC: RADUSWWP 12:30
PROVIDERS: ATTEND Internal Medicine Endocrinology, Diabetes & Metabolism
DX: E04.2 Nontoxic multinodular goiter (principal); M13.811 Other specified arthritis, right shoulder; M75.81 Other shoulder lesions, right shoulder
CPT/HCPCS: 76536

== ENCOUNTER → 2019-02-09 | Outpatient (CLI) | payer MEDICARE, MEDICAID ==
--- NOTE | 2019-02-09 09:06 | MR ---
EXAMINATION TYPE: MR shoulder RT wo con DATE OF EXAM: 02/09/2019 COMPARISON: Outside right shoulder x-ray January 26, 2019 HISTORY: Pain in right shoulder per order. Pain with reduced movement for 2 months per patient. TECHNIQUE: Multiplanar, multisequence imaging of the right shoulder is performed without contrast. FINDINGS: Rotator Cuff: Increased signal distal supraspinatus and infraspinatus tendons without discrete retrac zac tear. Subscapularis tendon is intact. Rotator cuff muscle bulk is preserved. Acromioclavicular Joint: Moderate narrowing and capsular hypertrophy. No significant spurring. Distal acromion morphology unremarkable. Glenohumeral Joint: Moderate narrowing most prominent inferiorly where there is spurring from the inf erior medial humeral head. Moderate glenohumeral joint effusion. Labrum: The superior labrum shows increased signal, degenerative tear is suspected in patient of this age. Biceps Tendon: The long head of biceps is in normal location within bicipital groove. Prominent surro unding fluid is seen. There is a 7 mm oval low intensity lesion within the tendon sheath correlate wi th x-ray calcification or ossification coronal image 13. Bone marrow signal: Some tiny subchondral cystic change at level of the acromioclavicular joint noted . Other: Increased fluid subdeltoid/subacromial bursa. IMPRESSION: 1. Moderate to borderline severe glenohumeral and acromioclavicular joint degenerative changes as det dulce above. 2. Tendinopathy distal supraspinatus and infraspinatus tendons without discrete tear. 3. There is 7 mm ossific loose body suspected within bicipital tendon sheath along course of the extr acapsular portion of long head of biceps tendon. Probable adjacent tenosynovitis. 4. Mild subdeltoid/subacromial bursitis.
== END | disposition home or self-care (01) ==
LOC: RADMRIMAIN 07:24
PROVIDERS: ATTEND Orthopaedic Surgery
DX: M19.011 Primary osteoarthritis, right shoulder (principal); M67.813 Other specified disorders of tendon, right shoulder; M75.51 Bursitis of right shoulder

== ENCOUNTER → 2019-03-21 | Outpatient (CLI) | payer MEDICARE, MEDICAID ==
[2019-03-21 15:54] LABS: African American GFR (CKD) 65.2 (60.0-200.0); Albumin 4.2 g/dL (3.80-4.90); Albumin/Globulin Ratio 1.83 (1.60-3.17); Anion Gap 11.3 mmol/L (4.00-12.00); Carbon Dioxide 28.7 mmol/L (21.6-31.8); Chol/HDL Ratio 3.07; Globulin 2.3 g/dL (1.6-3.3); LDL Cholesterol,Calculated 103.6 mg/dL (0.0-131.0); Potassium 4.8 mmol/L (3.5-5.5); Total Bilirubin 0.9 mg/dL (0.2-1.2); Total Protein 6.5 g/dL (6.2-8.2); VLDL Calculation 20.4 mg/dL (5.00-40.00)
== END ==
LOC: LABWHC1 09:27
PROVIDERS: ATTEND Internal Medicine Endocrinology, Diabetes & Metabolism
DX: E11.65 Type 2 diabetes mellitus with hyperglycemia (principal)
CPT/HCPCS: 36415; 80053; 80061; 82043; 82570; 84443

== ENCOUNTER 2019-04-18 17:19 | Inpatient (IN) | payer MEDICARE, MEDICAID ==
[2019-04-18] MEDS ORDERED: SODIUM CHLORIDE 0.9% 1,000 ML IV STA (17:46)
[2019-04-18 18:16] LABS: Basophils # (A) 0.2 k/uL (0-0.2); Basophils % (A) 2 %; Eosinophils # (A) 0.3 k/uL (0-0.7); Eosinophils % (A) 4 %; HCT 40.6 % (34.0-46.0); HGB 13.4 gm/dL (11.4-16.0); Lymphocytes # (A) 1.8 k/uL (1.0-4.8); Lymphocytes % (A) 22 %; MCH 28.1 pg (25.0-35.0); MCHC 33.1 g/dL (31.0-37.0); MCV 84.9 fL (80.0-100.0); Mean Platelet Volume 7.2; Monocytes # (A) 0.5 k/uL (0-1.0); Monocytes % (A) 7 %; Neutrophils # (A) 5.1 k/uL (1.3-7.7); Neutrophils % (A) 63 %; Platelet Count 273 k/uL (150-450); RBC 4.78 m/uL (3.80-5.40); RDW 12.7 % (11.5-15.5); WBC 8.1 k/uL (3.8-10.6)
[2019-04-18 18:26] LABS: Albumin 4.2 g/dL (3.5-5.0); Calcium 9.7 mg/dL (8.4-10.2); Total Bilirubin 1.2 mg/dL (0.2-1.3); Total Protein 7.4 g/dL (6.3-8.2)
[2019-04-18 18:28] LABS: Potassium 4.1 mmol/L (3.5-5.1)
[2019-04-18 18:31] LABS: INR 0.9 (<1.2); Prothrombin Time 9.8 sec (9.0-12.0)
--- NOTE | 2019-04-18 18:38 | ED ---
Abdominal Pain HPI - General Chief Complaint: Abdominal Pain Stated Complaint: diverticulitis Time Seen by Provider: 04/18/19 17:28 Source: patient, RN notes reviewed Mode of arrival: ambulatory Limitations: no limitations - History of Present Illness Initial Comments: 73-year-old female presents emergency Department chief complaint left-sided abdominal pain. She states has been present for last few days with increasing diarrhea. She states she's never had abdominal pain like this in the past associated with her diarrhea Patient states that the pain was quite severe. Patient states that she did have an MRI yesterday of her hip and had an incide ntal finding of diverticulitis. He states that her last colonoscopy she did have known diverticulosis. She denies any rectal bleeding. Denies any dysuria, hematuria. Denies any fevers or chills. - Related Data Home Medications Medication Instructions Recorded Confirmed Diphenoxylate HCl/Atropine 4 tab PO DAILY 10/09/13 10/03/18 [Lomotil] aMILoride-HCTZ 5-50 mg [Moduretic 0.5 tab PO QAM 10/09/13 10/03/18 5-50] Insulin Glargine [Lantus] 12 - 14 unit SQ QAM 03/07/17 10/03/18 Atenolol [Tenormin] 25 mg PO QAM 09/30/17 10/03/18 glipiZIDE [Glucotrol] 5 mg PO AC-BID 09/30/17 10/03/18 Ondansetron [Zofran] 4 mg SL Q12H PRN 11/03/17 10/03/18 Acetaminophen [Tylenol Arthritis] 650 mg PO Q6H PRN 10/02/18 10/03/18 Ascorbic Acid [Vitamin C] 1,000 mg PO DAILY 10/02/18 10/03/18 Ezetimibe [Zetia] 5 mg PO DAILY 10/02/18 10/03/18 Hyoscyamine Sulfate [Hyoscyamine 0.125 mg SL Q4H PRN 10/02/18 10/03/18 Sulfate SL] Loratadine [Claritin] 10 mg PO DAILY PRN 10/02/18 10/03/18 cycloSPORINE [Restasis] 1 applicator BOTH EYES BID 10/02/18 10/03/18 Allergies Allergy/AdvReac Type Severity Reaction Status Date / Time adhesive Allergy Rash/Hives Verified 10/02/18 08:19 Iodinated Contrast Media Allergy Anaphylaxis Verified 10/02/18 08:19 [Iodinated Contrast Media - IV Dye] iodine Allergy Anaphylaxis Verified 10/02/18 08:19 lisinopril Allergy tongue Verified 10/02/18 08:19 swelling moxifloxacin HCl Allergy Rash/Hives Verified 10/02/18 08:19 [From Avelox] Penicillins Allergy Rash/Hives Verified 10/02/18 08:19 shellfish derived Allergy Rash/Hives Verified 10/02/18 08:19 celecoxib [From Celebrex] AdvReac Nausea & Verified 10/02/18 08:19 Vomiting Review of Systems ROS Statement: Those systems with pertinent positive or pertinent negative responses have been documented in the HPI. ROS Other: All systems not noted in ROS Statement are negative. Past Medical History Past Medical History: Asthma, Cancer, Diabetes Mellitus, Hyperlipidemia, Hyp ertension, Osteoarthritis (OA), Skin Disorder Additional Past Medical History / Comment(s): Skin CA, IBS, HX BLEEDING ULCERS. Hx of benign thyroid nodules, rt knee pain awaiting replacement. ABD PAIN, VOMITING 6-8 MONTHS. Diverticulitis History of Any Multi-Drug Resistant Organisms: None Reported Past Surgical History: Cholecystectomy, Hernia Repair, Hysterectomy, Joint Replacement, Tonsillectomy Additional Past Surgical History / Comment(s): ABDOMINOPLASTY. SINUS. RIGHT HIP, BETSY KNEES REPLACED, thyroid nodule bx, EGD, COLONOSCOPIES. BETSY cataracts w/ lens implants Past Anesthesia/Blood Transfusion Reactions: Motion Sickness Past Psychological History: No Psychological Hx Reported Smoking Status: Former smoker Past Alcohol Use History: None Reported Past Drug Use History: None Reported - Past Family History Mother Family Medical History: Cancer Additional Family Medical History / Comment(s): leukemia Brother(s) Family Medical History: Cancer, Deep Vein Thrombosis (DVT) Additional Family Medical History / Comment(s): colon and skin ca Sister(s) Family Medical History: Cancer Additional Family Medical History / Comment(s): breast General Exam Limitations: no limitations General appearance: alert, in no apparent distress Head exam: Present: atraumatic, normocephalic, normal inspection Eye exam: Present: normal appearance, PERRL, EOMI. Absent: scleral icterus, conjunctival injection, periorbital swelling ENT exam: Present: normal exam, normal oropharynx, mucous membranes moist Neck exam: Present: normal inspection, full ROM. Absent: tenderness, meningismus, lymphadenopathy Respiratory exam: Present: normal lung sounds bilaterally. Absent: respiratory distress, wheezes, rales, rhonchi, stridor Cardiovascular Exam: Present: regular rate, normal rhythm, normal heart sounds. Absent: systolic murmur, diastolic murmur, rubs, gallop, clicks GI/Abdominal exam: Present: soft, tenderness (Moderate left-sided abdominal pain), normal bowel sounds. Absent: distended, guarding, rebound, rigid Back exam: Absent: CVA tenderness (R), CVA tenderness (L) Neurological exam: Present: alert, oriented X3 Skin exam: Present: warm, dry, intact, normal color. Absent: rash Course Vital Signs 04/18/19 04/18/19 17:24 18:37 Temperature 99.2 F Pulse Rate 74 63 Respiratory 18 18 Rate Blood Pressure 158/79 129/75 O2 Sat by Pulse 94 L 96 Oximetry Medical Decision Making - Medical Decision Making MRI is been obtained, patient is moderately tender in the left lower quadrant symptoms are consistent with diverticulitis. Patient will be admitted for IV antibiotics, bowel rest - Lab Data Result diagrams: 04/18/19 18:00 04/18/19 18:00 Lab Results 04/18/19 04/18/19 04/18/19 Range/Units 18:00 18:00 18:00 WBC 8.1 (3.8-10.6) k/uL RBC 4.78 (3.80-5.40) m/uL Hgb 13.4 (11.4-16.0) gm/dL Hct 40.6 (34.0-46.0) % MCV 84.9 (80.0-100.0) fL MCH 28.1 (25.0-35.0) pg MCHC 33.1 (31.0-37.0) g/dL RDW 12.7 (11.5-15.5) % Plt Count 273 (150-450) k/uL Neutrophils % 63 % Lymphocytes % 22 % Monocytes % 7 % Eosinophils % 4 % Basophils % 2 % Neutrophils # 5.1 (1.3-7.7) k/uL Lymphocytes # 1.8 (1.0-4.8) k/uL Monocytes # 0.5 (0-1.0) k/uL Eosinophils # 0.3 (0-0.7) k/uL Basophils # 0.2 (0-0.2) k/uL PT (9.0-12.0) sec INR (<1.2) APTT (22.0-30.0) sec Sodium 138 (137-145) mmol/L Potassium 4.1 (3.5-5.1) mmol/L Chloride 103 (98-107) mmol/L Carbon Dioxide 26 (22-30) mmol/L Anion Gap 9 mmol/L BUN 23 H (7-17) mg/dL Creatinine 0.94 (0.52-1.04) mg/dL Est GFR (CKD-EPI)AfAm 70 (>60 ml/min/1.73 sqM) Est GFR (CKD-EPI)NonAf 61 (>60 ml/min/1.73 sqM) Glucose 139 H (74-99) mg/dL Plasma Lactic Acid Tolu 1.3 (0.7-2.0) mmol/L Calcium 9.7 (8.4-10.2) mg/dL Total Bilirubin 1.2 (0.2-1.3) mg/dL AST 32 (14-36) U/L ALT 26 (9-52) U/L Alkaline Phosphatase 78 (38-126) U/L Total Protein 7.4 (6.3-8.2) g/dL Albumin 4.2 (3.5-5.0) g/dL Amylase 33 (30-110) U/L Lipase 105 (23-300) U/L Urine Color Urine Appearance (Clear) Urine pH (5.0-8.0) Ur Specific [place] (1.001-1.035) Urine Protein (Negative) Urine Glucose (UA) (Negative) Urine Ketones (Negative) Urine Blood (Negative) Urine Nitrite (Negative) Urine Bilirubin (Negative) Urine Urobilinogen (<2.0) mg/dL Ur Leukocyte Esterase (Negative) Urine WBC (0-5) /hpf Hyaline Casts (0-2) /lpf Urine Mucus (None) /hpf 04/18/19 04/18/19 Range/Units 18:00 18:00 WBC (3.8-10.6) k/uL RBC (3.80-5.40) m/uL Hgb (11.4-16.0) gm/dL Hct (34.0-46.0) % MCV (80.0-100.0) fL MCH (25.0-35.0) pg MCHC (31.0-37.0) g/dL RDW (11.5-15.5) % Plt Count (150-450) k/uL Neutrophils % % Lymphocytes % % Monocytes % % Eosinophils % % Basophils % % Neutrophils # (1.3-7.7) k/uL Lymphocytes # (1.0-4.8) k/uL Monocytes # (0-1.0) k/uL Eosinophils # (0-0.7) k/uL Basophils # (0-0.2) k/uL PT 9.8 (9.0-12.0) sec INR 0.9 (<1.2) APTT 21.4 L (22.0-30.0) sec Sodium (137-145) mmol/L Potassium (3.5-5.1) mmol/L Chloride (98-107) mmol/L Carbon Dioxide (22-30) mmol/L Anion Gap mmol/L BUN (7-17) mg/dL Creatinine (0.52-1.04) mg/dL Est GFR (CKD-EPI)AfAm (>60 ml/min/1.73 sqM) Est GFR (CKD-EPI)NonAf (>60 ml/min/1.73 sqM) Glucose (74-99) mg/dL Plasma Lactic Acid Tolu (0.7-2.0) mmol/L Calcium (8.4-10.2) mg/dL Total Bilirubin (0.2-1.3) mg/dL AST (14-36) U/L ALT (9-52) U/L Alkaline Phosphatase (38-126) U/L Total Protein (6.3-8.2) g/dL Albumin (3.5-5.0) g/dL Amylase (30-110) U/L Lipase (23-300) U/L Urine Color Yellow Urine Appearance Clear (Clear) Urine pH 6.0 (5.0-8.0) Ur Specific [place] 1.011 (1.001-1.035) Urine Protein Negative (Negative) Urine Glucose (UA) Negative (Negative) Urine Ketones Negative (Negative) Urine Blood Negative (Negative) Urine Nitrite Negative (Negative) Urine Bilirubin Negative (Negative) Urine Urobilinogen <2.0 (<2.0) mg/dL Ur Leukocyte Esterase Trace H (Negative) Urine WBC 1 (0-5) /hpf Hyaline Casts 7 H (0-2) /lpf Urine Mucus Rare H (None) /hpf Disposition Clinical Impression: Diverticulitis Disposition: ADMITTED IP TO THIS HOSP Condition: Stable Referrals: Tom Guerrero DO [Primary Care Provider] - 1-2 days
[2019-04-18 18:42] LABS: Partial Thromboplastin Time 21.4 sec (22.0-30.0)
[2019-04-18 19:00] LABS: Appearance,Urine Clear (Clear); Bilirubin,Urine Negative (Negative); Blood,Urine Negative (Negative); Color,Urine Yellow; Glucose,Urine (UA) Negative (Negative); Hyaline Casts,Urine 7 /lpf (0-2); Ketones,Urine Negative (Negative); Leukocyte Esterase,Urine Trace (Negative); Mucus,Urine Rare /hpf; Nitrite,Urine Negative (Negative); Protein,Urine Negative (Negative); Specific Gravity,Urine 1.011 (1.001-1.035); Urobilinogen,Urine <2.0 mg/dL (<2.0)
[2019-04-18] MEDS ORDERED: metroNIDAZOLE-NS PMX 500 MG in SALINE 1 100ML.BAG IVPB STA (19:05)
[2019-04-18] MEDS ORDERED: HYDROcodone/APAP 5-325MG 1 EACH TAB PO PRN (19:06)
[2019-04-18] MEDS ORDERED: ONDANSETRON 4 MG/2 ML VIAL IVP PRN (19:06)
[2019-04-18] MEDS ORDERED: NALOXONE 0.4 MG/ML 1 ML VIAL IV PRN (19:06)
[2019-04-18] MEDS: SODIUM CHLORIDE 0.9% 1,000 ML IV SCH (19:23)
[2019-04-18 20:00] VITALS: BMI 32.1
[2019-04-19] MEDS: metroNIDAZOLE-NS PMX 500 MG in SALINE 1 100ML.BAG IVPB SCH ×3 (04:58→20:27)
[2019-04-19 07:35] LABS: Glucose,Whole Blood 94 mg/dL (75-99)
[2019-04-19] MEDS: ACETAMINOPHEN TAB 325 MG TAB PO PRN ×2 (09:02→20:26)
[2019-04-19] MEDS ORDERED: ALBUTEROL NEBULIZED 2.5 MG/3 ML INHALATION PRN (10:41)
[2019-04-19] MEDS ORDERED: NON FORMULARY DRUG (Acetaminophen [Tylenol Arthritis] 650 MG) PO PRN (10:41)
[2019-04-19] MEDS ORDERED: MELOXICAM 7.5 MG TAB PO PRN (10:41)
[2019-04-19] MEDS ORDERED: HYOSCYAMINE SULFATE 0.125 MG TAB PO PRN (10:41)
[2019-04-19] MEDS: ASCORBIC ACID 500 MG TAB PO SCH (11:08)
[2019-04-19] MEDS: SODIUM CHLORIDE 0.9% 1,000 ML IV SCH (11:09)
[2019-04-19] MEDS: DIPHENOX-ATROP 2.5-0.025 MG 1 EACH TAB PO SCH ×2 (11:09→11:54)
[2019-04-19 11:13] LABS: Glucose,Whole Blood 99 mg/dL (75-99)
[2019-04-19] MEDS: cycloSPORINE 0.05% OPHTH 0.4 ML DROPERETTE BOTH EYES SCH (11:54)
[2019-04-19] MEDS: aMILoride-HCTZ 5-50 mg 1 EACH TAB PO SCH (11:54)
[2019-04-19] MEDS: ATENOLOL 25 MG TAB PO SCH (11:54)
[2019-04-19] MEDS: ENOXAPARIN 40 MG/0.4 ML SYRINGE SQ SCH (11:55)
[2019-04-19] MEDS: CEFEPIME 2 GM in SODIUM CHLORIDE 0.9% 100 ML IVPB SCH ×2 (11:55→23:29)
[2019-04-19] MEDS: EZETIMIBE 10 MG TAB PO SCH (11:55)
[2019-04-19] MEDS: INSULIN ASPART (NovoLOG) 100 UNIT/ML VIAL SQ SCH ×3 (11:56→20:22)
[2019-04-19 17:04] LABS: Glucose,Whole Blood 100 mg/dL (75-99)
--- NOTE | 2019-04-19 19:42 | P.HPIM ---
History of Present Illness H&P Date: 04/19/19 Chief Complaint: Abdominal pain History of presenting complaint: This is a very pleasant 73-year-old patient of Dr. Guerrero. Chronic stable medical conditions include asthma, diabetes mellitus type 2, hypertension, hyperlipidemia, primary osteoarthritis irritable bowel syndrome. In September of this year she did have her age and he and a colonoscopic by Dr. Annie GARCIA. That sh owed some gastritis and diverticulosis. Patient has underlying irritable bowel syndrome and some transient abdominal cramping and diarrhea. Patient for last 3-4 days. Having increasing abdominal pain sometimes doubling over. Also been having diarrhea possibly times a day. And having abdominal cramping. No obvious fever but having chills. The same time patient had a having right hip pain and did have an MRI done ordered by Dr. De Dios from [facility] system. Patient has a prosthesis that has been wearing down. And apparently cobalt chromium is leaking from the joint into the blood system. Patient was sent in for the same. After results were sent to his family doctor Dr. Guerrero. Patient was started on IV Flagyl in the ER and put on clear liquids. Patient's at the bedside. Review of systems: GEN.: Tired EYES: None HEENT: None NECK: None RESPIRATORY: None CARDIOVASCULAR: None GASTROINTESTINAL: None GENITOURINARY: None MUSCULOSKELETAL: Joint pains LYMPHATICS: None HEMATOLOGICAL: None PSYCHIATRY: None NEUROLOGICAL: None Social history: Smoked half a pack a day for 20 years stopped in 1988. Does not drink alcohol. . Physical examination: VITAL SIGNS: 99.2, 64, 18, 158-79, 94% room air GENERAL: [BMI 32.4, sitting up not in distress. EYES: Pupils equal. Conjunctiva normal. HEENT: External appearance of nose and ears normal, oral cavity grossly normal. NECK: JVD not raised; masses not palpable. HEART: First and second heart sounds are normal; no edema. LUNGS: Respiratory rate normal; clear to auscultation. ABDOMEN: Soft, lower abdominal tenderness, no guarding or rigidity, bowel sounds present, liver spleen not palpable, no masses palpable. PSYCH: Alert and oriented x3; mood and affect normal. NEUROLOGICAL: Cranial nerves grossly intact; no facial asymmetry, power and sensation grossly intact. LYMPHATICS: No lymph nodes palpable in the axilla and neck MUSCULAR schedule: Evidence of OA especially in the hands INVESTIGATIONS, reviewed in the clinical context: MRI result reveals acute diverticulitis. No evidence of abscess reported White count 8.1 hemoglobin 10.4 pressure 4.1 creatinine 0.94 Assessment: -Acute sigmoid diverticulitis, with no evidence of fever or white count, symptomatic -Chronic irritable bowel syndrome -Avid is mellitus type II on oral hypoglycemic -Hyperlipidemia -Essential hypertension -Primary osteoarthritis -Bearing area of right hip prosthesis off cobalt and chromium being worked up by Dr. De Dios at [facility] Plan: Care was discussed in detail the patient and question of also. Patient started on clear liquid diet. Patient is on IV Flagyl will also had IV cefe pime. Other medications are to continue. GI has been consulted. Hoping patient admitted been past but tomorrow morning. Depending how she does. Past Medical History Past Medical History: Asthma, Cancer, Diabetes Mellitus, Hyperlipidemia, Hypertension, Osteoarthritis (OA), Skin Disorder Additional Past Medical History / Comment(s): Skin CA, IBS, HX BLEEDING ULCERS. Hx of benign thyroid nodules, IBS, Diverticulitis History of Any Multi-Drug Resistant Organisms: None Reported Past Surgical History: Cholecystectomy, Hernia Repair, Hysterectomy, Joint Replacement, Tonsillectomy Additional Past Surgical History / Comment(s): ABDOMINOPLASTY. SINUS surgery. RIGHT HIP replaced 2010, BETSY KNEES REPLACED (left 2012, right 2017), thyroid nodule bx, EGD, COLONOSCOPIES. BETSY cataracts w/ lens implants Past Anesthesia/Blood Transfusion Reactions: Motion Sickness Past Psychological History: No Psychological Hx Reported Smoking Status: Former smoker Past Alcohol Use History: None Reported Additional Past Alcohol Use History / Comment(s): quit approx 1988, smoked 1/2ppd, for approx 20yrs Past Drug Use History: None Reported - Past Family History Mother Family Medical History: Cancer Additional Family Medical History / Comment(s): leukemia Brother(s) Family Medical History: Cancer, Coronary Artery Disease (CAD), Deep Vein Thrombosis (DVT) Additional Family Medical History / Comment(s): colon and skin ca Sister(s) Family Medical History: Cancer Additional Family Medical History / Comment(s): breast Father Family Medical History: Myocardial Infarction (NM) Medications and Allergies Home Medications Medication Instructions Recorded Confirmed Type Diphenoxylate HCl/Atropine 4 tab PO DAILY 10/09/13 04/18/19 History [Lomotil] aMILoride-HCTZ 5-50 mg [Moduretic 0.5 tab PO DAILY 10/09/13 04/18/19 History 5-50] Atenolol [Tenormin] 25 mg PO DAILY 09/30/17 04/18/19 History glipiZIDE [Glucotrol] See Protocol PO AC-BID 09/30/17 04/18/19 History Acetaminophen [Tylenol Arthritis] 650 mg PO Q6H PRN 10/02/18 04/18/19 History Ascorbic Acid [Vitamin C] 1,000 mg PO DAILY 10/02/18 04/18/19 History Ezetimibe [Zetia] 10 mg PO DAILY 10/02/18 04/18/19 History Hyoscyamine Sulfate [Hyoscyamine 0.125 mg SL Q4H PRN 10/02/18 04/18/19 History Sulfate SL] Loratadine [Claritin] 10 mg PO DAILY PRN 10/02/18 04/18/19 History cycloSPORINE [Restasis] 1 drop BOTH EYES DAILY 10/02/18 04/18/19 History Albuterol Sulfate [Proair Hfa] 2 puff INHALATION RT-Q4H PRN 04/18/19 04/18/19 History Exenatide Microspheres [Bydureon 2 mg SQ TU 04/18/19 04/18/19 History Pen] Fluticasone Nasal [facility] [Flonase 2 sprays EA NOSTRIL DAILY PRN 04/18/19 04/18/19 History Nasal [facility]] Fluticasone/Vilanterol [Breo 1 puff INHALATION RT-DAILY 04/18/19 04/18/19 History Ellipta 200-25 Mcg INH] Insulin Glargine,Hum.rec.anlog See Protocol SQ DAILY 04/18/19 04/18/19 History [Lantus Solostar] Meloxicam [Mobic] 15 mg PO DAILY PRN 04/18/19 04/18/19 History Montelukast [Singulair] 10 mg PO HS 04/18/19 04/18/19 History Ondansetron Odt [Zofran Odt] 4 mg PO Q12HR PRN 04/18/19 04/18/19 History Allergies Allergy/AdvReac Type Severity Reaction Status Date / Time adhesive Allergy Rash/Hives Verified 04/18/19 19:57 Iodinated Contrast Media Allergy Anaphylaxis Verified 04/18/19 19:57 [Iodinated Contrast Media - IV Dye] iodine Allergy Anaphylaxis Verified 04/18/19 19:57 lisinopril Allergy Anaphylaxis Verified 04/18/19 19:57 moxifloxacin HCl Allergy Rash/Hives Verified 04/18/19 19:57 [From Avelox] Penicillins Allergy Rash/Hives Verified 04/18/19 19:57 shellfish derived Allergy Anaphylaxis Verified 04/18/19 19:57 celecoxib [From Celebrex] AdvReac Nausea & Verified 04/18/19 19:57 Vomiting Physical Exam Vitals: Vital Signs Temp Pulse Pulse Resp BP BP Pulse Ox 04/19/19 09:15 14 04/19/19 07:29 97.0 F L 63 16 124/62 94 L 04/19/19 05:06 97.9 F 62 18 117/56 95 04/18/19 22:58 98.0 F 64 16 146/71 97 04/18/19 18:37 63 18 129/75 96 04/18/19 17:24 99.2 F 74 18 158/79 94 L Intake and Output 04/18/19 04/19/19 04/19/19 22:59 06:59 14:59 Other: Voiding Method Toilet # Voids 1 1 Weight 96.615 kg Results CBC & Chem 7: 04/18/19 18:00 04/18/19 18:00 Labs: Abnormal Lab Results - Last 24 Hours (Table) 04/18/19 04/18/19 04/18/19 Range/Units 18:00 18:00 18:00 APTT 21.4 L (22.0-30.0) sec BUN 23 H (7-17) mg/dL Glucose 139 H (74-99) mg/dL Ur Leukocyte Esterase Trace H (Negative) Hyaline Casts 7 H (0-2) /lpf Urine Mucus Rare H (None) /hpf Thrombosis Risk Factor Assmnt - Choose All That Apply Any of the Below Risk Factors Present?: Yes Each Factor Represents 1 point: Obesity (BMI >25) Other Risk Factors: Yes Each Risk Factor Represents 2 Points: Age 61-74 years Each Risk Factor Represents 3 Points: Family history of DVT/PE Other congenital or acquired thrombophilia - If yes, enter type in comment: No Thrombosis Risk Factor Assessment Total Risk Factor Score: 6 Thrombosis Risk Factor Assessment Level: High Risk
[2019-04-19 20:02] LABS: Glucose,Whole Blood 103 mg/dL (75-99)
[2019-04-19] MEDS: MONTELUKAST 10 MG TAB PO SCH (20:27)
--- NOTE | 2019-04-19 21:01 | CONS ---
CONSULTATION DATE OF DICTATION: 04/19/2019 REASON FOR CONSULTATION: Acute sigmoid diverticulitis. HISTORY OF PRESENT ILLNESS: The patient is a 73-year-old pleasant white female who came into the emergency room complaining of left lower quadrant abdominal pain that started about 5 days ago. She had also noticed increasing diarrhea for the same duration. The patient was diagnosed with irritable bowel syndrome in the past and she gets intermittent episodes of diarrhea and lower abdominal cramping on and off for the last several years' duration. She did have an MRI of the right hip done at [facility] 2 days ago and the MRI showed changes in the sigmoid colon consistent with acute sigmoid diverticulitis. She was then advised to go to the emergency room and subsequently was admitted to the hospital. She is at present on IV antibiotics and doing much better. She still has some pain in the left lower quadrant area. She never had these symptoms in the past. She did have an EGD and colonoscopy done by Dr. Ramirez in September of 2018 that showed mild gastritis and sigmoid diverticulosis. She presently denies any rectal bleeding. PAST MEDICAL HISTORY: Her past medical history is significant for: 1. Irritable bowel syndrome. 2. Hypertension. 3. Diabetes mellitus. 4. Hypercholesteremia. MEDICATIONS: Medications at home include: 1. Restasis. 2. Claritin. 3. Hyoscyamine. 4. Zetia. 5. Vitamin C. 6. Tylenol Arthritis. 7. Glucotrol. 8. Tenormin. 9. Lantus. 10.Lomotil. 11.Moduretic. 12.Zofran. ALLERGIES: 1. IODINE. 2. LISINOPRIL. 3. AVELOX. 4. PENICILLIN. 5. SHELLFISH. 6. CELEBREX. PAST SURGICAL HISTORY: 1. EGD and colonoscopy in September of this year. 2. Abdominoplasty. 3. Sinus surgery. 4. Bilateral knee replacement. 5. Bilateral cataract surgery. SOCIAL HISTORY: No smoking. No alcohol use. FAMILY HISTORY: Mother had leukemia. Father had DVT. Brother had colon cancer. REVIEW OF SYSTEMS: CARDIOPULMONARY: No chest pain or shortness of breath. GENITOURINARY: No dysuria or hematuria. MUSCULOSKELETAL: Right hip pain. NEUROLOGY: Unremarkable. PSYCHIATRIC: Unremarkable. ENT/VISION: Unremarkable. CONSTITUTIONAL: No recent weight loss. No fever, chills, night sweats. HEMATOLOGY: Unremarkable. ENDOCRINE: Unremarkable. PHYSICAL EXAMINATION: Blood pressure 137/80, pulse rate 70, temperature 97.5. HEENT examination unremarkable. Conjunctivae pink. Sclerae anicteric. Oral cavity no lesions. NECK: No JVD or lymph node enlargement. CHEST: Clear to auscultation. HEART: Regular rate and rhythm. ABDOMEN: Soft. Bowel sounds are positive. There was tenderness in the left lower quadrant area. No rebound or rigidity. Bowel sounds are present. EXTREMITIES: No pedal edema. SKIN: No rashes. NEUROLOGIC: Alert and oriented x3. No focal deficits. LABS: Labs done today show WBC is 8.1, hemoglobin 13.4, platelets normal. PT/INR normal. Basic metabolic panel is within normal limits. IMPRESSION: 1. This is a lady who has been having left lower quadrant abdominal pain associated with diarrhea for the last 4 days' duration. She had routine MRI of the right hip done 2 days ago that showed evidence of sigmoid diverticulitis. The patient was hence admitted to the hospital with IV antibiotics, presently on metronidazole and cefepime, and her symptoms are gradually improving. Last colonoscopy in September of [address] Ramirez showed sigmoid diverticulosis. 2. History of diabetes mellitus and hypertension. 3. Right hip pain; considering hip replacement. RECOMMENDATIONS: 1. Continue with a clear liquid diet. 2. Continue with broad-spectrum antibiotics. 3. Tomorrow if her symptoms are improving, we can advance diet as tolerated and hopefully she can be discharged home in 1 to 2 days with outpatient followup in 2 to 3 weeks. Thank you for this consultation. MMODL / IJN: [id number] /
[2019-04-20] MEDS: LORATADINE 10 MG TAB PO PRN (03:48)
[2019-04-20] MEDS: metroNIDAZOLE-NS PMX 500 MG in SALINE 1 100ML.BAG IVPB SCH ×3 (03:48→20:41)
[2019-04-20] MEDS: SODIUM CHLORIDE 0.9% 1,000 ML IV SCH ×2 (03:49→12:45)
[2019-04-20 06:53] LABS: Glucose,Whole Blood 101 mg/dL (75-99)
[2019-04-20] MEDS: INSULIN ASPART (NovoLOG) 100 UNIT/ML VIAL SQ SCH ×4 (08:16→20:42)
[2019-04-20] MEDS: aMILoride-HCTZ 5-50 mg 1 EACH TAB PO SCH (08:34)
[2019-04-20] MEDS: cycloSPORINE 0.05% OPHTH 0.4 ML DROPERETTE BOTH EYES SCH (08:34)
[2019-04-20] MEDS: ASCORBIC ACID 500 MG TAB PO SCH (08:34)
[2019-04-20] MEDS: ATENOLOL 25 MG TAB PO SCH (08:34)
[2019-04-20] MEDS: EZETIMIBE 10 MG TAB PO SCH (08:35)
[2019-04-20] MEDS: ENOXAPARIN 40 MG/0.4 ML SYRINGE SQ SCH (08:35)
[2019-04-20] MEDS: DIPHENOX-ATROP 2.5-0.025 MG 1 EACH TAB PO SCH (08:35)
[2019-04-20 11:08] LABS: Glucose,Whole Blood 112 mg/dL (75-99)
[2019-04-20] MEDS: CEFEPIME 2 GM in SODIUM CHLORIDE 0.9% 100 ML IVPB SCH (13:38)
--- NOTE | 2019-04-20 16:23 | PN ---
PROGRESS NOTE DATE OF DICTATION: 04/20/2019 This patient is a 73-year-old pleasant white female admitted to the hospital with acute sigmoid diverticulitis. She is presently on antibiotics with cefepime and Flagyl and doing much better. The abdominal pain has significantly improved. She had 3 loose bowel movements. No bleeding. No nausea or vomiting. No fever, chills, night sweats. PHYSICAL EXAMINATION: She appears comfortable. No apparent distress. VITAL SIGNS: Stable. Blood pressure 114/58, pulse rate 69, temperature 98. HEENT examination unremarkable. Conjunctivae pink. Sclerae anicteric. Oral cavity no lesions. NECK: No JVD or lymph node enlargement. CHEST: Clear to auscultation. HEART: Regular rate and rhythm. ABDOMEN: Soft. Very minimal tenderness in the left lower quadrant area. EXTREMITIES: No pedal edema. SKIN: No rashes. NEUROLOGIC: Alert and oriented x3. No focal deficits. LABS: No labs were done from today. IMPRESSION: Acute sigmoid diverticulitis, on antibiotics with cefepime and metronidazole, and her symptoms are significantly improved. Abdominal pain is almost resolved. Patient doing better. RECOMMENDATIONS: 1. Continue with IV antibiotics. 2. Advance to a low-fiber diet. 3. If her symptoms continue to improve, she can be switched to oral antibiotics tomorrow and can be discharged home with outpatient followup in 2 weeks. Thank you for this consultation. MMCHRISTINAL / GREGN: [id number] /
[2019-04-20 17:07] LABS: Glucose,Whole Blood 120 mg/dL (75-99)
[2019-04-20 20:01] LABS: Glucose,Whole Blood 140 mg/dL (75-99)
[2019-04-20] MEDS: MONTELUKAST 10 MG TAB PO SCH (20:41)
--- NOTE | 2019-04-20 20:50 | P.PN ---
Progress Note - Text Progress Note Date: 04/20/19 Chief Complaint: Abdominal pain History of presenting complaint: This is a very pleasant 73-year-old patient of Dr. Guerrero. Chronic stable medical conditions include asthma, diabetes mellitus type 2, hypertension, hyperlipidemia, primary osteoarthritis irritable bowel syndrome. In September of this year she did have her age and he and a colonoscopic by Dr. [facility]. That showed some gastritis and diverticulosis. Patient has underlying irritable bowel syndrome and some transient abdominal cramping and diarrhea. Patient for last 3-4 days. Having increasing abdominal pain sometimes doubling over. Also been having diarrhea possibly times a day. And having abdominal cramping. No obvious fever but having chills. The same time patient had a having right hip pain and did have an MRI done ordered by Dr. De Dios from [facility]. Patient has a prosthesis that has been wearing down. And apparently cobalt chromium is leaking from the joint into the blood system. Patient was sent in for the same. After results were sent to his family doctor Dr. Guerrero. Patient was started on IV Flagyl in the ER and put on clear liquids. Patient's at the bedside. Admitted with acute diverticulitis with no fever or white count. Today-feeling better. Did tolerate a liquid diet. Abdominal pain is better. No fever no chills. Had a couple of loose stools. Up to the bathroom. Feels better. Pain much improved. Review of systems: Was done for constitutional, cardiovascular, GI, pulmonary. relevant finding as above Active Medications Acetaminophen (Tylenol Tab) 650 mg PO Q6HR PRN PRN Reason: Mild Pain or Fever > 100.5 Last Admin: 04/19/19 20:26 Dose: 650 mg Documented by: Hydrocodone Bitart/Acetaminophen ([place] 5-325) 1 each PO Q4HR PRN PRN Reason: Severe Pain Last Admin: 04/18/19 19:28 Dose: 1 each Documented by: Albuterol Sulfate (Ventolin Nebulized) 2.5 mg INHALATION RT-Q4H PRN PRN Reason: Shortness Of Breath Amiloride/HCTZ (Moduretic 5-50) 0.5 each PO DAILY [facility] Last Admin: 04/20/19 08:34 Dose: 0.5 each Documented by: Ascorbic Acid (Vitamin C) 1,000 mg PO DAILY [facility] Last Admin: 04/20/19 08:34 Dose: 1,000 mg Documented by: Atenolol (Tenormin) 25 mg PO DAILY [facility] Last Admin: 04/20/19 08:34 Dose: 25 mg Documented by: Budesonide/Formoterol Fumarate (Symbicort 160-4.5 Mcg Inhaler) 2 puff INHALATION RT-BID [facility] Cyclosporine (Restasis 0.05% Ophth Soln) 1 drops BOTH EYES DAILY [facility] Last Admin: 04/20/19 08:34 Dose: 1 drops Documented by: Diphenoxylate HCl/Atropine (Lomotil) 4 each PO DAILY [facility] Last Admin: 04/20/19 08:35 Dose: 4 each Documented by: Ezetimibe (Zetia) 10 mg PO DAILY [facility] Last Admin: 04/20/19 08:35 Dose: 10 mg Documented by: Enoxaparin Sodium (Lovenox) 40 mg SQ DAILY [facility] Last Admin: 04/20/19 08:35 Dose: 40 mg Documented by: Hyoscyamine (Levsin) 0.125 mg PO Q4H PRN PRN Reason: ABD PAIN Metronidazole 500 mg/ IV (Solution) 100 mls @ 100 mls/hr IVPB Q8H [facility] Last Admin: 04/20/19 20:41 Dose: 100 mls/hr Documented by: Sodium Chloride (Saline 0.9%) 1,000 mls @ 75 mls/hr IV .[id number] [facility] Last Admin: 04/20/19 12:45 Dose: Not Given Documented by: Cefepime HCl 2 gm/ Sodium (Chloride) 100 mls @ 200 mls/hr IVPB Q12H [facility] Last Admin: 04/20/19 13:38 Dose: 200 mls/hr Documented by: Insulin Aspart (Novolog) 0 unit SQ ACHS [facility]; Protocol Last Admin: 04/20/19 20:42 Dose: Not Given Documented by: Loratadine (Claritin) 10 mg PO DAILY PRN PRN Reason: ALLERGIES Last Admin: 04/20/19 03:48 Dose: 10 mg Documented by: Meloxicam (Mobic) 15 mg PO DAILY PRN PRN Reason: Moderate Pain Montelukast Sodium (Singulair) 10 mg PO HS [facility] Last Admin: 04/20/19 20:41 Dose: 10 mg Documented by: Naloxone HCl (Narcan) 0.2 mg IV Q2M PRN PRN Reason: Opioid Reversal Non-Formulary Medication (Exenatide Microspheres [Bydureon Pen]) 2 mg SQ TU TYRON Ondansetron HCl (Zofran) 4 mg IVP Q8HR PRN PRN Reason: Nausea And Vomiting Physical examination: VITAL SIGNS: 97.9, 72, 16, 140/66, 97% room air GENERAL: Sitting upon a chair, more comfortable EYES: Pupils equal. Conjunctiva normal. HEENT: External appearance of nose and ears normal, oral cavity grossly normal. NECK: JVD not raised; masses not palpable. HEART: First and second heart sounds are normal; no edema. LUNGS: Respiratory rate normal; clear to auscultation. ABDOMEN: Soft, minimal abdominal tenderness, no guarding or rigidity, bowel sounds present, liver spleen not palpable, no masses palpable. PSYCH: Alert and oriented x3; mood and affect normal. MUSCULAR schedule: Evidence of OA especially in the hands INVESTIGATIONS, reviewed in the clinical context: Accu-Cheks noted Previous testing MRI result reveals acute diverticulitis. No evidence of abscess reported White count 8.1 hemoglobin 10.4 pressure 4.1 creatinine 0.94 Assessment: -Acute sigmoid diverticulitis, with no evidence of fever or white count, symptomatic, clinically improving -Chronic irritable bowel syndrome -Avid is mellitus type II on oral hypoglycemic -Hyperlipidemia -Essential hypertension -Primary osteoarthritis -Bearing area of right hip prosthesis off cobalt and chromium being worked up by Dr. De Dios at [facility] Plan: Keep patient on IV cefepime and IV Flagyl for another 24 hours. Seen by GI. Advance to a low fiber diet tonight. If tolerated. 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 Care was discussed with the patient. Questions were answered.
[2019-04-20 21:42] VITALS: RESP 16
[2019-04-20] MEDS ORDERED: SYMBICORT 160-4.5 MCG INHALER INHALATION SCH (23:11)
[2019-04-21] MEDS: SYMBICORT 160-4.5 MCG INHALER INHALATION SCH (00:13)
[2019-04-21] MEDS: CEFEPIME 2 GM in SODIUM CHLORIDE 0.9% 100 ML IVPB SCH (00:14)
[2019-04-21] MEDS: ACETAMINOPHEN TAB 325 MG TAB PO PRN (00:19)
[2019-04-21] MEDS: SODIUM CHLORIDE 0.9% 1,000 ML IV SCH ×2 (01:24→06:29)
[2019-04-21] MEDS: metroNIDAZOLE-NS PMX 500 MG in SALINE 1 100ML.BAG IVPB SCH (03:33)
[2019-04-21] MEDS: LORATADINE 10 MG TAB PO PRN (03:33)
[2019-04-21 06:54] LABS: Glucose,Whole Blood 114 mg/dL (75-99)
[2019-04-21] MEDS: INSULIN ASPART (NovoLOG) 100 UNIT/ML VIAL SQ SCH (07:19)
[2019-04-21 07:42] LABS: Basophils % (A) 0 %; Eosinophils # (A) 0.5 k/uL (0-0.7); Eosinophils % (A) 8 %; HGB 12.8 gm/dL (11.4-16.0); Lymphocytes # (A) 1.6 k/uL (1.0-4.8); Lymphocytes % (A) 26 %; MCH 29.5 pg (25.0-35.0); MCHC 34.5 g/dL (31.0-37.0); MCV 85.4 fL (80.0-100.0); Mean Platelet Volume 6.2; Monocytes # (A) 0.4 k/uL (0-1.0); Monocytes % (A) 6 %; Neutrophils # (A) 3.4 k/uL (1.3-7.7); Neutrophils % (A) 57 %; Platelet Count 278 k/uL (150-450); RBC 4.33 m/uL (3.80-5.40); RDW 12.5 % (11.5-15.5)
[2019-04-21 07:46] VITALS: BP 111/79; PULSE 69; TEMP 97.4
[2019-04-21 07:54] LABS: Calcium 9.4 mg/dL (8.4-10.2); Potassium 4.4 mmol/L (3.5-5.1)
[2019-04-21] MEDS: ENOXAPARIN 40 MG/0.4 ML SYRINGE SQ SCH (08:22)
[2019-04-21] MEDS: aMILoride-HCTZ 5-50 mg 1 EACH TAB PO SCH (08:22)
[2019-04-21] MEDS: cycloSPORINE 0.05% OPHTH 0.4 ML DROPERETTE BOTH EYES SCH (08:22)
[2019-04-21] MEDS: EZETIMIBE 10 MG TAB PO SCH (08:23)
[2019-04-21] MEDS: ATENOLOL 25 MG TAB PO SCH (08:23)
[2019-04-21] MEDS: DIPHENOX-ATROP 2.5-0.025 MG 1 EACH TAB PO SCH (08:23)
[2019-04-21] MEDS: ASCORBIC ACID 500 MG TAB PO SCH (08:23)
--- NOTE | 2019-04-21 10:58 | PN ---
PROGRESS NOTE DATE OF SERVICE: 04/21/2019 Patient is a 73-year-old pleasant white female admitted to the hospital with acute sigmoid diverticulitis. She presented with left lower abdominal pain of 4 days' duration. She is on IV antibiotics and she is doing much better. Abdominal pain has resolved. She had 6 loose watery bowel movements today. She has a history of irritable bowel syndrome and has intermittent diarrhea and takes Lomotil 2 tablets 4 times daily. She denies any rectal bleeding. PHYSICAL EXAMINATION: She appears comfortable, in no apparent distress. VITAL SIGNS: Stable. Blood pressure is 132/86, pulse rate is 66 per minute and afebrile. HEENT: Unremarkable. Conjunctivae are pink. Sclerae nonicteric. Oral cavity no lesions. NECK: No JVD or lymph node enlargement. CHEST: Clear to auscultation. HEART: Regular rate and rhythm. ABDOMEN: Soft, bowel sounds are positive. No organomegaly. It was nontender. EXTREMITIES: No pedal edema. SKIN: No rashes. NEURO: Alert and oriented x3. No focal deficits. LABS: WBC is 6, hemoglobin 12, platelets normal. Basic metabolic panel is within normal limits. IMPRESSION: 1. Acute sigmoid diverticulitis. On IV antibiotics day #3 doing well. Abdominal pain has resolved. 2. History of IBS/intermittent diarrhea. RECOMMENDATIONS: 1. Change antibiotics to p.o. 2. Continue the low-fiber diet. 3. She can be discharged home today with an outpatient followup in 2 weeks. Thank you for this consultation. MMODL / IJN: [id number] /
[2019-04-21 11:00] LABS: Glucose,Whole Blood 299 mg/dL (75-99)
[2019-04-24] MEDS ORDERED: NON FORMULARY DRUG (Exenatide Microspheres [Bydureon Pen] 2 MG) SQ SCH (09:00)
== END 2019-04-21 12:01 | disposition home or self-care (01) | DRG 392 ==
LOC: EC 17:19 → 3NMEDONC 19:13
PROVIDERS: ADMIT Hospitalist; ATTEND Hospitalist
DX: K57.32 Diverticulitis of large intestine without perforation or abscess without bleeding (principal); K29.70 Gastritis, unspecified, without bleeding; J45.909 Unspecified asthma, uncomplicated; I10 Essential (primary) hypertension; E78.5 Hyperlipidemia, unspecified; M19.91 Primary osteoarthritis, unspecified site; E11.9 Type 2 diabetes mellitus without complications; E78.00 Pure hypercholesterolemia, unspecified; Z96.1 Presence of intraocular lens; Z96.641 Presence of right artificial hip joint; Z96.653 Presence of artificial knee joint, bilateral; M19.90 Unspecified osteoarthritis, unspecified site; K58.9 Irritable bowel syndrome, unspecified; Z79.4 Long term (current) use of insulin; Z79.1 Long term (current) use of non-steroidal anti-inflammatories (NSAID); Z79.899 Other long term (current) drug therapy; Z80.0 Family history of malignant neoplasm of digestive organs; Z80.6 Family history of leukemia; Z82.49 Family history of ischemic heart disease and other diseases of the circulatory system; Z87.891 Personal history of nicotine dependence; Z90.710 Acquired absence of both cervix and uterus; Z79.84 Long term (current) use of oral hypoglycemic drugs; Z88.8 Allergy status to other drugs, medicaments and biological substances; Z88.1 Allergy status to other antibiotic agents; Z91.041 Radiographic dye allergy status; Z88.0 Allergy status to penicillin; Z91.013 Allergy to seafood; Z90.89 Acquired absence of other organs; Z90.49 Acquired absence of other specified parts of digestive tract; Z80.3 Family history of malignant neoplasm of breast
CPT/HCPCS: 36415; 80048; 80053; 81001; 82150; 83605; 83690; 85025; 85610; 85730; 87040; 96361; 96365; 99284

== ENCOUNTER 2019-08-23 13:19 | Day surgery (SDC) | payer MEDICARE, MEDICAID ==
[~2019-08-23 13:19] MED LIST changes: +CLINDAMYCIN 600 MG in SODIUM CHLORIDE 0.9% IRRIGATIO 250 ML IRRIGATION ONE; +CLINDAMYCIN 900 MG in DEXTROSE 5% IN WATER 50 ML IVPB ONE; -LACTATED RINGERS 1,000 ML IV SCH
[2019-08-23 14:13] LABS: Glucose,Whole Blood 257 mg/dL (75-99)
[2019-08-23] MEDS ORDERED: INSULIN ASPART (NovoLOG) 100 UNIT/ML VIAL SQ ONE (14:14)
[2019-08-23] MEDS: SODIUM CHLORIDE 0.9% 1,000 ML IV SCH ×3 (14:15→22:16)
[2019-08-23] MEDS ORDERED: fentaNYL (PF) 50 MCG/ML 2 ML AMP ONE (14:49)
[2019-08-23] MEDS ORDERED: MIDAZOLAM 2 MG/2 ML VIAL ONE (14:49)
[2019-08-23] MEDS ORDERED: PROPOFOL 10 MG/ML 20 ML VIAL IV ONE (14:49)
[2019-08-23 14:51] LABS: Basophils % (A) 0 %; Eosinophils % (A) 0 %; HCT 40.8 % (34.0-46.0); HGB 13.4 gm/dL (11.4-16.0); Lymphocytes # (A) 0.8 k/uL (1.0-4.8); Lymphocytes % (A) 8 %; MCH 28.7 pg (25.0-35.0); MCHC 32.7 g/dL (31.0-37.0); MCV 87.6 fL (80.0-100.0); Mean Platelet Volume 8.4; Monocytes # (A) 0.3 k/uL (0-1.0); Monocytes % (A) 3 %; Neutrophils # (A) 8.6 k/uL (1.3-7.7); Neutrophils % (A) 88 %; Platelet Count 304 k/uL (150-450); RBC 4.66 m/uL (3.80-5.40); RDW 13.6 % (11.5-15.5); WBC 9.8 k/uL (3.8-10.6)
[2019-08-23 14:59] LABS: African American GFR (CKD) >90 (>60 ml/min/1.73 sqM); Anion Gap 11 mmol/L; Blood Urea Nitrogen 21 mg/dL (7-17); Calcium 9.8 mg/dL (8.4-10.2); Carbon Dioxide 24 mmol/L (22-30); Chloride 99 mmol/L (98-107); Glucose 247 mg/dL (74-99); Non-African American GFR(CKD) 81 (>60 ml/min/1.73 sqM); Potassium 4.2 mmol/L (3.5-5.1); Sodium 134 mmol/L (137-145)
[2019-08-23] MEDS ORDERED: IOPAMIDOL-250 50ML BTL IV ONE (15:10)
[2019-08-23] MEDS ORDERED: LIDOCAINE 1% INJ 10MG/ML (20 ML MDV) ONE (15:27)
[2019-08-23] MEDS ORDERED: LIDOCAINE 1% INJ 10MG/ML (20 ML MDV) SQ ONE (15:33)
[2019-08-23] MEDS ORDERED: ACETAMINOPHEN IV (For NPO) 1,000 MG in EMPTY BAG 1 BAG IVPB ONE (17:36)
[2019-08-23] MEDS ORDERED: ACETAMINOPHEN TAB 325 MG TAB PO PRN (17:36)
--- NOTE | 2019-08-23 17:41 | P.PCN ---
Preoperative Diagnosis: Diagnosis Advanced heart block, Mobitz 2 AV block Right bundle branch block Symptomatic Status post biventricular pacemaker with His bundle pacing No acute complications Patient tolerated the procedure well
--- NOTE | 2019-08-23 18:09 | P.PCN ---
Preoperative Diagnosis: Increase procedure services This was a long procedure, longer than usual mostly on account of the difficulties encountered with placement of the right ventricular lead 50 the passive lead in the RV apex. Positioning in the RV apex is difficult, radiologic appearance was suboptimal and therefore this lead was removed and a screw-in lead was placed in the RVOT septum with a Mond stylet
[2019-08-23 18:15] LABS: Glucose,Whole Blood 186 mg/dL (75-99)
[2019-08-23] MEDS ORDERED: MONTELUKAST 10 MG TAB PO SCH (21:00)
--- NOTE | 2019-08-23 21:06 | PCN ---
PROCEDURE NOTE This patient is a 74-year-old female who presented with advanced AV block with development of right bundle branch block, wide QRS, heart rates in the 30s and low 40s, symptomatic with dizziness and lightheadedness. She was brought in for permanent pacemaker implantation. However, with standard dual-chamber pacing she would require 100% RV pacing, and therefore a biventricular pacemaker was recommended. Patient was brought to the EP lab in a fasting state. Written informed consent was obtained prior to the procedure. The left shoulder area was prepped and draped as per protocol. Lidocaine 1% was used for local anesthesia. A 4 cm incision was made parallel to the deltopectoral groove and carried down to the level of the pectoralis muscle. A subfascial pocket was made. Hemostasis was assured. The left axillary vein was accessed at 3 separate points, and via appropriately sized introducer sheaths, 3 venous sheaths were placed. Since she had advanced AV block /third-degree heart block, a [employer] diagnostic EP pacing catheter was placed through one of the sheaths into the right ventricle for backup pacing. This was removed once the RV lead was successfully placed. RV lead placement was the most difficult part of the procedure. Initially a tined lead was used, and despite multiple attempts at positioning in the right ventricular apex, the lead position radiographically was suboptimal, and therefore finally this lead was removed and a screw-in lead was placed in the RVOT using a Mond Stylet, septal RVOT. This was a [employer] model #5076, 58 cm in length, and serial #[id number]. Pacing impedance 912 ohms, pacing threshold 1.25 V at 0.4 milliseconds. Ten-volt test was negative. The atrial lead was a model #4574, 53 cm in length, and serial #[id number]. The P- waves were 2.3 mV, pacing impedance 760 ohms, pacing threshold 0.5 V at 0.4 milliseconds(passive lead). The lead was stable in the right atrial appendage. The Medtronic model #3830 lead, 69 cm in length, and serial #[id number] was positioned in the His bundle area, and with pacing we were able to map the His bundle and narrow QRS with normalization of the right bundle obtained. The lead was screwed in this position and screwed in deep to obtain a threshold 2.2 V, non-selective pacing of the His bundle. Thereafter, RV basal pacing was noted with an absolute loss of capture at 0.5 V at 1 millisecond. The His lead was also in excellent stable position. All 3 sheaths were then removed and the leads were secured to the underlying pectoralis muscle using 2 non-absorbable sutures. Pocket was irrigated with antibiotic solution. Leads were connected to the generator ([employer] CRPP model #W1 TR02, serial #[id number]). The leads and the generator were then placed in the subfascial pocket and the wound was closed in 3 layers and dressed per protocol. RESULT: Successful biventricular pacemaker implantation with physiologic septal pacing, narrowing of the QRS with non-selective pacing with a QRS width of about 116 milliseconds and resolution of right bundle branch block pattern with His bundle pacing. The device is being programmed to DDD mode 60-130 bpm with preferential His bundle pacing programmed. As noted above, the TVP was removed once the RV lead was successfully placed. Patient tolerated the procedure well without any acute complications. PLAN: IV antibiotics, chest x-ray and discharge home tomorrow and follow up in the device clinic in 5 days. MMODL / IJN: [id number] /
[2019-08-23 21:10] LABS: Glucose,Whole Blood 223 mg/dL (75-99)
[2019-08-23] MEDS: CLINDAMYCIN 900 MG in DEXTROSE 5% IN WATER 50 ML IVPB SCH ×2 (22:15)
[2019-08-23] MEDS: INSULIN ASPART (NovoLOG) 100 UNIT/ML VIAL SQ SCH (22:16)
[2019-08-24] MEDS: CLINDAMYCIN 900 MG in DEXTROSE 5% IN WATER 50 ML IVPB SCH ×4 (03:16→08:57)
[2019-08-24] MEDS: HYDROcodone/APAP 5-325MG 1 EACH TAB PO PRN ×2 (03:42→08:58)
[2019-08-24] MEDS: SODIUM CHLORIDE 0.9% 1,000 ML IV SCH (05:21)
[2019-08-24 06:03] LABS: Glucose,Whole Blood 132 mg/dL (75-99)
[2019-08-24] MEDS ORDERED: INSULIN DETEMIR (LEVEMIR) 100 UNIT/ML SYR SQ SCH (07:00)
--- NOTE | 2019-08-24 07:49 | XR ---
EXAMINATION TYPE: XR chest 2V DATE OF EXAM: 08/24/2019 COMPARISON: 03/11/2011 HISTORY: Lead placement check TECHNIQUE: Frontal and lateral views of the chest are obtained. FINDINGS: New 3-lead left-sided cardiac device is seen. There are 2 ventricular leads and one atrial lead are seen. No postprocedural pneumothorax identified. No pulmonary vascular congestion or pleura l effusion. No new focal consolidation. Cardiomediastinal silhouette is upper limits normal size. Mil d degenerative change of the spine. Cholecystectomy clips are seen. IMPRESSION: New multilead left-sided cardiac device without postprocedural pneumothorax nor pulmonar y vascular congestion.
[2019-08-24] MEDS: INSULIN ASPART (NovoLOG) 100 UNIT/ML VIAL SQ SCH ×2 (08:50→12:02)
[2019-08-24] MEDS ORDERED: cycloSPORINE 0.05% OPHTH 0.4 ML DROPERETTE BOTH EYES SCH (09:00)
[2019-08-24] MEDS ORDERED: SPIRONOLACTONE 25 MG TAB PO SCH (09:00)
[2019-08-24] MEDS ORDERED: glipiZIDE 5 MG TAB PO SCH (09:00)
[2019-08-24] MEDS ORDERED: EZETIMIBE 10 MG TAB PO SCH (09:00)
[2019-08-24 11:04] LABS: HCT 41.7 % (34.0-46.0); HGB 13.7 gm/dL (11.4-16.0); MCH 28.7 pg (25.0-35.0); MCHC 32.8 g/dL (31.0-37.0); MCV 87.6 fL (80.0-100.0); Mean Platelet Volume 8.1; Platelet Count 271 k/uL (150-450); RBC 4.76 m/uL (3.80-5.40); RDW 13.7 % (11.5-15.5)
[2019-08-24 11:17] LABS: African American GFR (CKD) >90 (>60 ml/min/1.73 sqM); Anion Gap 10 mmol/L; Blood Urea Nitrogen 18 mg/dL (7-17); Calcium 9.5 mg/dL (8.4-10.2); Carbon Dioxide 23 mmol/L (22-30); Chloride 103 mmol/L (98-107); Glucose 126 mg/dL (74-99); Non-African American GFR(CKD) 84 (>60 ml/min/1.73 sqM); Potassium 3.9 mmol/L (3.5-5.1); Sodium 136 mmol/L (137-145)
--- NOTE | 2019-08-24 11:19 | P.PN ---
Subjective Progress Note Date: 08/24/19 Discharge note This is a pleasant 74-year-old female who presented with advanced AV block with development of a right bundle branch block, wide QRS, heart rate in the 30s and low 40s, symptomatic with dizziness and lightheadedness. She was brought in for permanent pacemaker implantation, however with a standard dual- chamber pacing she would require 100% RV pacing and therefore underwent implan tation of a biventricular pacemaker. She was seen and examined this morning and is overall doing well. Hemodynamically stable. A chest x-ray was performed this morning which did not reveal any evidence of a pneumothorax. Telemetry shows 100% paced rhythm. The device was interrogated and is functioning appropriately. Objective - Vital Signs Vital signs: Vital Signs Temp 97.8 F 08/24/19 07:29 Pulse 61 08/24/19 07:29 Resp 16 08/24/19 08:00 BP 151/82 08/24/19 07:29 Pulse Ox 99 08/24/19 07:29 Intake & Output 08/23/19 08/24/19 08/24/19 18:59 06:59 18:59 Intake Total 606 360 10 Output Total 1530 Balance 606 -1170 10 Weight 99.4 kg 98.8 kg Intake: IV 606 10 Invasive Line 2 10 Intake, IV Titration 100 Amount Clindamycin 900 mg In 100 Dextrose 5% in Water 50 ml @ 50 mls/hr IVPB Q6H [facility] Rx#:[id number] Oral 260 Output: Urine 1530 - Exam PHYSICAL EXAMINATION: GENERAL: 74-year-old female in no acute distress at the time of my examination HEENT: Head is atraumatic, normocephalic. Pupils equal, round. Sclera anicteric. Conjunctiva are clear. Mucous membranes of the mouth are moist. Neck is supple. There is no elevated jugular venous pressure. No carotid bruit is heard. HEART EXAMINATION: Heart S1, S2 normal. No murmur or gallop heard. CHEST EXAMINATION: Lungs are clear to auscultation and precussion. No chest wall tenderness is noted on palpation or with deep breathing. Dressing over pacemaker site is clean and dry. ABDOMEN: Soft, nontender. Bowel sounds are heard. No organomegaly noted. EXTREMITIES: 2+ peripheral pulses with no evidence of peripheral edema and no calf tenderness noted. NEUROLOGIC patient is awake, alert and oriented 3 . - Labs CBC & Chem 7: 08/24/19 10:40 08/23/19 14:20 Labs: Abnormal Lab Results - Last 24 Hours (Table) 08/23/19 08/23/19 08/23/19 Range/Units 14:08 14:20 14:20 Neutrophils # 8.6 H (1.3-7.7) k/uL Lymphocytes # 0.8 L (1.0-4.8) k/uL Sodium 134 L (137-145) mmol/L BUN 21 H (7-17) mg/dL Glucose 247 H (74-99) mg/dL POC Glucose (mg/dL) 257 H (75-99) mg/dL 08/23/19 08/23/19 08/24/19 Range/Units 18:12 21:08 06:01 Neutrophils # (1.3-7.7) k/uL Lymphocytes # (1.0-4.8) k/uL Sodium (137-145) mmol/L BUN (7-17) mg/dL Glucose (74-99) mg/dL POC Glucose (mg/dL) 186 H 223 H 132 H (75-99) mg/dL Assessment and Plan Plan: Assessment and plan #1 status post implantation of a bi-V pacemaker #2 advanced AV block with development of a right bundle branch block, wide QRS, symptomatic with dizziness and lightheadedness Plan Patient may be discharged home today. She will follow-up in the device clinic and with Dr. Butterfield in the office in one week. Patient has been educated regarding care of her site as well as activity restrictions. DNP note has been reviewed, I agree with a documented findings and plan of care. Patient was seen and examined.
[2019-08-24 11:41] LABS: Glucose,Whole Blood 118 mg/dL (75-99)
[2019-08-24 12:32] VITALS: BP 132/78; PULSE 92; RESP 17; TEMP 97.6
[2019-08-24 13:08] VITALS: BMI 33.1
--- NOTE | 2019-08-24 22:31 | P.CONS ---
History of Present Illness - Reason for Consult Consult date: 08/24/19 medical management Requesting physician: Kaylen Butterfield - Chief Complaint dizzy - History of Present Illness Consultation: This is a 74-year-old patient of Dr. Guerrero. Chronic stable medical conditions include asthma, diabetes, hyperlipidemia, hypertension, osteoarthritis, irritable bowel syndrome. Patient was found to be having disease lightheadedness. No palpitation or chest pain. Also is having low heart rates. Was discovered to have a Mobitz type II AV block. Patient underwent a biventricular permanent pacemaker by Dr. Omero Klein. Postprocedure admitted for the same. No dizziness no lightheadedness now. Symptoms greatly improved. Tolerating a diet. Review of systems: GEN.: None EYES: None HEENT: None NECK: None RESPIRATORY: None CARDIOVASCULAR: [As above GASTROINTESTINAL: None GENITOURINARY: None MUSCULOSKELETAL: Joint pains LYMPHATICS: None HEMATOLOGICAL: None PSYCHIATRY: None NEUROLOGICAL: No focal symptoms Past medical history to include: Asthma, diabetes mellitus type 2, hypertension, hyperlipidemia, primary Chao arthritis, skin cancer, irritable bowel syndrome, bleeding ulcers, benign thyroid nodules, diabetes mellitus Social history: Smoked half a pack a day for about 20 years stopped in 1988. No alcohol. . Physical examination: VITAL SIGNS: 97.8, 61, 16, 151/82, 99% on room air GENERAL: BMI 33.1, sitting up, comfortable. EYES: Pupils equal. Conjunctiva normal. HEENT: External appearance of nose and ears normal, oral cavity grossly normal. NECK: JVD not raised; masses not palpable. HEART: First and second heart sounds are normal; no edema. LUNGS: Respiratory rate normal; clear to auscultation. ABDOMEN: Soft, nontender, liver spleen not palpable, no masses palpable. PSYCH: Alert and oriented x3; mood and affect normal. -MUSCULOSKELETAL: Evidence of OA NEUROLOGICAL: Cranial nerves grossly intact; no facial asymmetry, power and sensation grossly intact. LYMPHATICS: No lymph nodes palpable in the axilla and neck INVESTIGATIONS, reviewed in the clinical context: White count and hemoglobin 13.7 potassium 3.9 and creatinine 0.7 to Chest x-ray film personally reviewed by me-reports no pneumothorax Assessment: -Biventricular permanent pacemaker placed for Mobitz type II AV block symptom atic with heart rate down to 30 -Intermittent asthma -Obesity BMI 33.1 -Diabetes mellitus type 2 -Essential hypertension -Hyperlipidemia -Primary Chao arthritis -Irritable bowel syndrome - Plan: Home medications resumed. Accu-Cheks will be followed. Care was discussed with the patient. Patient is medically stable. Thank you Dr. Butterfield Past Medical History Past Medical History: Asthma, Cancer, Diabetes Mellitus, Hyperlipidemia, Hypertension, Osteoarthritis (OA), Skin Disorder Additional Past Medical History / Comment(s): Skin CA, IBS, HX BLEEDING ULCERS. Hx of benign thyroid nodules, IBS, Diverticulitis History of Any Multi-Drug Resistant Organisms: None Reported Past Surgical History: Cholecystectomy, Hernia Repair, Hysterectomy, Joint Replacement, Tonsillectomy Additional Past Surgical History / Comment(s): ABDOMINOPLASTY. SINUS surgery. RIGHT HIP replaced 2010, BETSY KNEES REPLACED (left 2012, right 2017), thyroid nodule bx, EGD, COLONOSCOPIES. BETSY cataracts w/ lens implants Past Anesthesia/Blood Transfusion Reactions: Motion Sickness Past Psychological History: No Psychological Hx Reported Smoking Status: Never smoker Past Alcohol Use History: None Reported Additional Past Alcohol Use History / Comment(s): quit approx 1988, smoked 1/2ppd, for approx 20yrs Past Drug Use History: None Reported Additional Drug Use History / Comment(s): OCC USE - Past Family History Mother Family Medical History: Cancer Additional Family Medical History / Comment(s): leukemia Brother(s) Family Medical History: Cancer, Coronary Artery Disease (CAD), Deep Vein T hrombosis (DVT) Additional Family Medical History / Comment(s): colon and skin ca Sister(s) Family Medical History: Cancer Additional Family Medical History / Comment(s): breast Father Family Medical History: Myocardial Infarction ([place]) Medications and Allergies Home Medications Medication Instructions Recorded Confirmed Type Diphenoxylate HCl/Atropine 4 tab PO DAILY 10/09/13 08/23/19 History [Lomotil] glipiZIDE [Glucotrol] 5 mg PO DAILY 09/30/17 08/23/19 History Acetaminophen [Tylenol Arthritis] 650 mg PO Q6H PRN 10/02/18 08/23/19 History Ascorbic Acid [Vitamin C] 1,000 mg PO DAILY 10/02/18 08/23/19 History Ezetimibe [Zetia] 10 mg PO DAILY 10/02/18 08/23/19 History Hyoscyamine Sulfate [Hyoscyamine 0.125 mg SL Q4H PRN 10/02/18 08/23/19 History Sulfate SL] cycloSPORINE [Restasis] 1 drop BOTH EYES DAILY 10/02/18 08/23/19 History Albuterol Sulfate [Proair Hfa] 2 puff INHALATION RT-Q4H PRN 04/18/19 08/23/19 History Montelukast [Singulair] 10 mg PO HS 04/18/19 08/23/19 History Ondansetron Odt [Zofran ODT] 4 mg PO Q12HR PRN 04/18/19 08/23/19 History Insulin Degludec [Tresiba 20 units SQ DAILY 08/23/19 08/23/19 History Flextouch U-100] aMILoride HCL 5 mg PO DAILY 08/23/19 08/23/19 History Clindamycin HCl [Cleocin] 300 mg PO ONCE #1 cap 08/24/19 Rx Allergies Allergy/AdvReac Type Severity Reaction Status Date / Time adhesive Allergy Rash/Hives Verified 04/18/19 19:57 Iodinated Contrast Media Allergy Anaphylaxis Verified 04/18/19 19:57 [Iodinated Contrast Media - IV Dye] iodine Allergy Anaphylaxis Verified 04/18/19 19:57 lisinopril Allergy Anaphylaxis Verified 04/18/19 19:57 moxifloxacin HCl Allergy Rash/Hives Verified 04/18/19 19:57 [From Avelox] Penicillins Allergy Rash/Hives Verified 04/18/19 19:57 shellfish derived Allergy Anaphylaxis Verified 04/18/19 19:57 celecoxib [From Celebrex] AdvReac Nausea & Verified 04/18/19 19:57 Vomiting Physical Exam Vitals: Vital Signs Temp Pulse Pulse Resp BP Pulse Ox 08/24/19 08:00 16 08/24/19 07:29 97.8 F 61 16 151/82 99 08/24/19 04:00 60 16 08/24/19 00:00 60 16 08/23/19 21:45 60 136/68 08/23/19 20:45 60 134/72 08/23/19 20:00 60 16 132/69 08/23/19 19:45 60 132/69 08/23/19 19:15 97.9 F 70 132/69 08/23/19 18:45 69 144/71 08/23/19 18:30 68 146/83 08/23/19 18:15 98.1 F 69 16 125/73 96 08/23/19 18:08 98.2 F 70 18 137/73 08/23/19 18:00 97.9 F 67 16 146/76 99 08/23/19 14:01 98.2 F 43 L 16 162/71 99 Intake and Output 08/23/19 08/24/19 08/24/19 22:59 06:59 14:59 Intake Total 816 100 10 Output Total 150 1380 Balance 666 -1280 10 Intake: IV 556 10 Invasive Line 2 10 Intake, IV Titration 100 Amount Clindamycin 900 mg In 100 Dextrose 5% in Water 50 ml @ 50 mls/hr IVPB Q6H [facility] Rx#:[id number] Oral 260 Output: Urine 150 1380 Other: Weight 99.4 kg 98.8 kg Results CBC & Chem 7: 08/24/19 10:40 08/24/19 10:40 Labs: Abnormal Lab Results - Last 24 Hours (Table) 08/23/19 08/23/19 08/23/19 Range/Units 14:08 14:20 14:20 Neutrophils # 8.6 H (1.3-7.7) k/uL Lymphocytes # 0.8 L (1.0-4.8) k/uL Sodium 134 L (137-145) mmol/L BUN 21 H (7-17) mg/dL Glucose 247 H (74-99) mg/dL POC Glucose (mg/dL) 257 H (75-99) mg/dL 08/23/19 08/23/19 08/24/19 Range/Units 18:12 21:08 06:01 Neutrophils # (1.3-7.7) k/uL Lymphocytes # (1.0-4.8) k/uL Sodium (137-145) mmol/L BUN (7-17) mg/dL Glucose (74-99) mg/dL POC Glucose (mg/dL) 186 H 223 H 132 H (75-99) mg/dL
== END 2019-08-24 14:49 | disposition home or self-care (01) ==
LOC: CATHEP 13:19 → 3SCARD 17:13 → CATHEP 08-24 14:49
PROVIDERS: ATTEND Internal Medicine Clinical Cardiac Electrophysiology
DX: I44.1 Atrioventricular block, second degree (principal); I45.10 Unspecified right bundle-branch block; I10 Essential (primary) hypertension; E11.9 Type 2 diabetes mellitus without complications; E66.9 Obesity, unspecified; E78.5 Hyperlipidemia, unspecified; J45.20 Mild intermittent asthma, uncomplicated; K58.9 Irritable bowel syndrome, unspecified; M19.91 Primary osteoarthritis, unspecified site; E07.9 Disorder of thyroid, unspecified; Z68.33 Body mass index [BMI] 33.0-33.9, adult; Z79.4 Long term (current) use of insulin; Z82.49 Family history of ischemic heart disease and other diseases of the circulatory system; Z88.0 Allergy status to penicillin; Z88.6 Allergy status to analgesic agent; Z88.8 Allergy status to other drugs, medicaments and biological substances; Z87.891 Personal history of nicotine dependence; Z85.828 Personal history of other malignant neoplasm of skin; Z90.49 Acquired absence of other specified parts of digestive tract; Z98.890 Other specified postprocedural states; Z87.19 Personal history of other diseases of the digestive system; Z90.710 Acquired absence of both cervix and uterus; Z90.89 Acquired absence of other organs; Z98.84 Bariatric surgery status; Z96.641 Presence of right artificial hip joint; Z96.653 Presence of artificial knee joint, bilateral; Z98.41 Cataract extraction status, right eye; Z98.42 Cataract extraction status, left eye; Z96.1 Presence of intraocular lens; Z80.3 Family history of malignant neoplasm of breast; Z80.7 Family history of other malignant neoplasms of lymphoid, hematopoietic and related tissues; Z80.0 Family history of malignant neoplasm of digestive organs; Z80.8 Family history of malignant neoplasm of other organs or systems; Z79.2 Long term (current) use of antibiotics; Z79.899 Other long term (current) drug therapy; Z91.048 Other nonmedicinal substance allergy status; Z91.041 Radiographic dye allergy status; Z91.013 Allergy to seafood; Z88.1 Allergy status to other antibiotic agents
CPT/HCPCS: 33225; 33208; 80048 ×2; 85025; 85027; 71046; C1769 ×4; C1892; C1898 ×2; C2621; J2001; J0131; Q9966

== ENCOUNTER → 2019-12-10 | Outpatient (CLI) | payer MEDICARE, MEDICAID ==
--- NOTE | 2019-12-12 10:56 | MM ---
Reason for exam: screening (asymptomatic). Last mammogram was performed 1 year ago. History: Patient is postmenopausal and has history of other cancer at age 65. Family history of breast cancer in sister at age 80, breast cancer in cousin, and breast cancer in cousin at age 40. Took estrogen for 15 years. Took progesterone for 15 years. Physical Findings: A clinical breast exam by your physician is recommended on an annual basis and results should be correlated with mammographic findings. MG 3D Screening Mammo W/Cad Bilateral CC and MLO view(s) were taken. Prior study comparison: November 24, 2018, bilateral MG 3d screening mammo w/cad. November 18, 2017, bilateral MG 3d screening mammo w/cad. There are scattered fibroglandular densities. No significant changes when compared with prior studies. ASSESSMENT: Benign, BI-RAD 2 RECOMMENDATION: Routine screening mammogram of both breasts in 1 year.
== END | disposition home or self-care (01) ==
LOC: RADMAMWWP 13:37
PROVIDERS: ATTEND Obstetrics & Gynecology
DX: Z12.31 Encounter for screening mammogram for malignant neoplasm of breast (principal); Z80.3 Family history of malignant neoplasm of breast
CPT/HCPCS: 77063; 77067

== ENCOUNTER 2020-03-03 09:37 | Observation (INO) | payer MEDICAID, MEDICARE ==
[2020-03-03] MEDS ORDERED: IPRATROPIUM-ALBUTEROL 3 ML NEB INHALATION STA ×2 (09:59→12:20)
[2020-03-03] MEDS ORDERED: NITROGLYCERIN OINT 1 INCH/GM PACKET TOPICAL STA (09:59)
--- NOTE | 2020-03-03 10:03 | ED ---
General Adult HPI - General Chief complaint: Recheck/Abnormal Lab/Rx Stated complaint: wheezing/cough/High BP Time Seen by Provider: 03/03/20 09:40 Source: patient, RN notes reviewed, old records reviewed Mode of arrival: wheelchair Limitations: no limitations - History of Present Illness Initial comments: This is a 74-year-old female presents emergency Department complaining of yesterday having a cough and some diarrhea. Patient states she's had no diarrhea today. Patient states she also had a sore throat and a sore throat is also improved but she continues to cough and feels chest tightness she does describe a little bit of left-sided chest pain. Patient states she can hear herself wheezing as well she has a history of asthma but has not had any trouble with it for years. Patient states she did try her albuterol inhaler but it didn't help today. Patient is a diabetic with high blood pressure high cholesterol. Patient denies any smoking history. Patient states she went to her primary medical care doctor's office in because for high blood pressure and chest pain they sent her into the emergency department. - Related Data Home Medications Medication Instructions Recorded Confirmed Diphenoxylate HCl/Atropine 4 tab PO DAILY 10/09/13 03/03/20 [Lomotil] Ezetimibe [Zetia] 10 mg PO DAILY 10/02/18 03/03/20 Hyoscyamine Sulfate [Hyoscyamine 0.125 mg SL Q4H PRN 10/02/18 03/03/20 Sulfate SL] Albuterol Sulfate [Proair Hfa] 2 puff INHALATION RT-Q4H PRN 04/18/19 03/03/20 Ondansetron Odt [Zofran ODT] 4 mg PO Q12HR PRN 04/18/19 03/03/20 Acetaminophen Tab [Tylenol] 500 mg PO Q8H PRN 03/03/20 03/03/20 Ibuprofen [Motrin Ib] 400 mg PO Q8H PRN 03/03/20 03/03/20 Insulin Glargine,Hum.rec.anlog 20 - 25 units SQ DAILY 03/03/20 03/03/20 [Lantus Solostar] Sertraline [Zoloft] 50 mg PO DAILY 03/03/20 03/03/20 aMILoride-HCTZ 5-50 mg [Moduretic 0.5 tab PO DAILY 03/03/20 03/03/20 5-50] cycloSPORINE 0.05% OPHTH SOLN 1 applicator BOTH EYES BID 03/03/20 03/03/20 [Restasis] glipiZIDE [Glucotrol] 5 mg PO BID PRN 03/03/20 03/03/20 Allergies Allergy/AdvReac Type Severity Reaction Status Date / Time adhesive Allergy Rash/Hives Verified 03/03/20 09:47 Iodinated Contrast Media Allergy Anaphylaxis Verified 03/03/20 09:47 [Iodinated Contrast Media - IV Dye] iodine Allergy Anaphylaxis Verified 03/03/20 09:47 lisinopril Allergy Anaphylaxis Verified 03/03/20 09:47 moxifloxacin HCl Allergy Rash/Hives Verified 03/03/20 09:47 [From Avelox] Penicillins Allergy Rash/Hives Verified 03/03/20 09:47 shellfish derived Allergy Anaphylaxis Verified 03/03/20 09:47 celecoxib [From Celebrex] AdvReac Nausea & Verified 03/03/20 09:47 Vomiting Review of Systems ROS Statement: Those systems with pertinent positive or pertinent negative responses have been documented in the HPI. ROS Other: All systems not noted in ROS Statement are negative. Past Medical History Past Medical History: Asthma, Cancer, Diabetes Mellitus, Hyperlipidemia, Hypertension, Osteoarthritis (OA), Skin Disorder Additional Past Medical History / Comment(s): Skin CA, IBS, HX BLEEDING ULCERS. Hx of benign thyroid nodules, IBS, Diverticulitis History of Any Multi-Drug Resistant Organisms: None Reported Past Surgical History: Cholecystectomy, Hernia Repair, Hysterectomy, Joint Replacement, Pacemaker, Tonsillectomy Additional Past Surgical History / Comment(s): ABDOMINOPLASTY. SINUS surgery. RIGHT HIP replaced 2010, BETSY KNEES REPLACED (left 2012, right 2018), thyroid nodule bx, EGD, COLONOSCOPIES. BETSY cataracts w/ lens implants Past Anesthesia/Blood Transfusion Reactions: Motion Sickness Past Psychological History: No Psychological Hx Reported Smoking Status: Never smoker Past Alcohol Use History: None Reported Past Drug Use History: None Reported - Past Family History Mother Family Medical History: Cancer Additional Family Medical History / Comment(s): leukemia Brother(s) Family Medical History: Cancer, Coronary Artery Disease (CAD), Deep Vein Thrombosis (DVT) Additional Family Medical History / Comment(s): colon and skin ca Sister(s) Family Medical History: Cancer Additional Family Medical History / Comment(s): breast Father Family Medical History: Myocardial Infarction ([place]) General Exam - General Exam Comments Initial Comments: GENERAL: Patient is well-developed and well-nourished. Patient is nontoxic and well- hydrated and is in mild distress. ENT: Neck is soft and supple. No significant lymphadenopathy is noted. Oropharynx is clear. Moist mucous membranes. Neck has full range of motion without eliciting any pain. EYES: The sclera were anicteric and conjunctiva were pink and moist. Extraocular movements were intact and pupils were equal round and reactive to light. Eyelids were unremarkable. PULMONARY: Unlabored respirations. Good breath sounds bilaterally. Patient has expiratory wheezing diffusely CARDIOVASCULAR: There is a regular rate and rhythm without any murmurs gallops or rubs. ABDOMEN: Soft and nontender with normal bowel sounds. SKIN: Skin is clear with no lesions or rashes and otherwise unremarkable. NEUROLOGIC: Patient is alert and oriented x3. Cranial nerves II through XII are grossly intact. Motor and sensory are also intact. Normal speech, volume and content. Symmetrical smile. MUSCULOSKELETAL: Normal extremities with adequate strength and full range of motion. LYMPHATICS: No significant lymphadenopathy is noted PSYCHIATRIC: Normal psychiatric evaluation. Limitations: no limitations Course Vital Signs 03/03/20 03/03/20 03/03/20 09:41 10:47 11:00 Temperature 98.4 F Pulse Rate 91 72 Respiratory 18 18 18 Rate Blood Pressure 162/92 164/75 156/82 O2 Sat by Pulse 96 95 Oximetry 03/03/20 03/03/20 03/03/20 11:19 11:28 12:00 Temperature Pulse Rate 68 73 73 Respiratory 18 Rate Blood Pressure 160/73 O2 Sat by Pulse 95 Oximetry Medical Decision Making - Medical Decision Making EKG shows a paced rhythm at 74 bpm MD interval is 138 QRS is 146 QT interval 470 QTC is 521 per patient's EKG shows no ST segment elevation or depression. Chest x-ray shows no acute abnormality. Patient received nitroglycerin paste and stated she did not want the aspirin because of her history of a bleeding ulcer. Patient states the Nitropaste appear to take all the discomfort in her chest away. Patient also received 2 breathing treatments because of her wheezing and she is feeling considerably better at this time. I spoke with the depression agreed to admit the patient admitted the patient I consult to cardiology. I repeated the troponin 2. I put the patient on heparin because of the unstable angina picture and I continue the heparin on the floor. - Lab Data Result diagrams: 03/03/20 11:38 03/03/20 10:49 Lab Results 03/03/20 03/03/20 03/03/20 Range/Units 10:21 10:49 10:49 WBC (3.8-10.6) k/uL RBC (3.80-5.40) m/uL Hgb (11.4-16.0) gm/dL Hct (34.0-46.0) % MCV (80.0-100.0) fL MCH (25.0-35.0) pg MCHC (31.0-37.0) g/dL RDW (11.5-15.5) % Plt Count (150-450) k/uL Neutrophils % % Lymphocytes % % Monocytes % % Eosinophils % % Basophils % % Neutrophils # (1.3-7.7) k/uL Lymphocytes # (1.0-4.8) k/uL Monocytes # (0-1.0) k/uL Eosinophils # (0-0.7) k/uL Basophils # (0-0.2) k/uL PT 10.0 (9.0-12.0) sec INR 1.0 (<1.2) APTT 22.3 (22.0-30.0) sec Sodium 135 L (137-145) mmol/L Potassium 3.7 (3.5-5.1) mmol/L Chloride 99 (98-107) mmol/L Carbon Dioxide 28 (22-30) mmol/L Anion Gap 8 mmol/L BUN 9 (7-17) mg/dL Creatinine 0.68 (0.52-1.04) mg/dL Est GFR (CKD-EPI)AfAm >90 (>60 ml/min/1.73 sqM) Est GFR (CKD-EPI)NonAf 87 (>60 ml/min/1.73 sqM) Glucose 152 H (74-99) mg/dL POC Glucose (mg/dL) (75-99) mg/dL POC Glu Primary Care Nurse Practitioner ID Calcium 9.3 (8.4-10.2) mg/dL Magnesium 1.7 (1.6-2.3) mg/dL Total Bilirubin 1.0 (0.2-1.3) mg/dL AST 30 (14-36) U/L ALT 20 (4-34) U/L Alkaline Phosphatase 107 (38-126) U/L Troponin I (0.000-0.034) ng/mL Total Protein 6.9 (6.3-8.2) g/dL Albumin 4.1 (3.5-5.0) g/dL Group A Strep Rapid Negative (Negative) 03/03/20 03/03/20 03/03/20 Range/Units 10:49 11:38 11:48 WBC 9.7 (3.8-10.6) k/uL RBC 5.20 (3.80-5.40) m/uL Hgb 14.1 (11.4-16.0) gm/dL Hct 43.7 (34.0-46.0) % MCV 84.1 (80.0-100.0) fL MCH 27.1 (25.0-35.0) pg MCHC 32.2 (31.0-37.0) g/dL RDW 13.3 (11.5-15.5) % Plt Count 301 (150-450) k/uL Neutrophils % 78 % Lymphocytes % 11 % Monocytes % 7 % Eosinophils % 3 % Basophils % 1 % Neutrophils # 7.5 (1.3-7.7) k/uL Lymphocytes # 1.0 (1.0-4.8) k/uL Monocytes # 0.6 (0-1.0) k/uL Eosinophils # 0.3 (0-0.7) k/uL Basophils # 0.0 (0-0.2) k/uL PT (9.0-12.0) sec INR (<1.2) APTT (22.0-30.0) sec Sodium (137-145) mmol/L Potassium (3.5-5.1) mmol/L Chloride (98-107) mmol/L Carbon Dioxide (22-30) mmol/L Anion Gap mmol/L BUN (7-17) mg/dL Creatinine (0.52-1.04) mg/dL Est GFR (CKD-EPI)AfAm (>60 ml/min/1.73 sqM) Est GFR (CKD-EPI)NonAf (>60 ml/min/1.73 sqM) Glucose (74-99) mg/dL POC Glucose (mg/dL) 152 H (75-99) mg/dL POC Glu Primary Care Nurse Practitioner ID Gabbie Betancourt Calcium (8.4-10.2) mg/dL Magnesium (1.6-2.3) mg/dL Total Bilirubin (0.2-1.3) mg/dL AST (14-36) U/L ALT (4-34) U/L Alkaline Phosphatase (38-126) U/L Troponin I <0.012 (0.000-0.034) ng/mL Total Protein (6.3-8.2) g/dL Albumin (3.5-5.0) g/dL Group A Strep Rapid (Negative) Critical Care Time Critical Care Time: Yes Total Critical Care Time: 35 Disposition Clinical Impression: Unstable angina, Bronchospasm, acute Disposition: ADMITTED IP TO THIS HOSP Referrals: Tom Guerrero DO [Primary Care Provider] - 1-2 days Time of Disposition: 12:41
[2020-03-03] MEDS ORDERED: hydrALAZINE HCL 20 MG/ML 1 ML VIAL IVP STA (10:28)
[2020-03-03 11:06] LABS: ALT 20 U/L (4-34); AST 30 U/L (14-36); African American GFR (CKD) >90 (>60 ml/min/1.73 sqM); Albumin 4.1 g/dL (3.5-5.0); Alkaline Phosphatase 107 U/L (38-126); Anion Gap 8 mmol/L; Blood Urea Nitrogen 9 mg/dL (7-17); Calcium 9.3 mg/dL (8.4-10.2); Carbon Dioxide 28 mmol/L (22-30); Chloride 99 mmol/L (98-107); Glucose 152 mg/dL (74-99); Magnesium 1.7 mg/dL (1.6-2.3); Non-African American GFR(CKD) 87 (>60 ml/min/1.73 sqM); Potassium 3.7 mmol/L (3.5-5.1); Sodium 135 mmol/L (137-145); Total Protein 6.9 g/dL (6.3-8.2)
[2020-03-03 11:12] LABS: Partial Thromboplastin Time 22.3 sec (22.0-30.0)
--- NOTE | 2020-03-03 11:16 | XR ---
EXAMINATION TYPE: XR chest 2V DATE OF EXAM: 03/03/2020 COMPARISON: 08/24/2019 HISTORY: Shortness of breath TECHNIQUE: Frontal and lateral views of the chest are obtained. FINDINGS: Scattered senescent parenchymal changes noted. Hyperinflation compatible with COPD. No evidence for infiltrate. No evidence for atelectasis. Heart size is stable. Mediastinal structures are stable and grossly unremarkable. No evidence for hilar prominence. Degenerative changes dorsal spine. IMPRESSION: 1. No evidence for acute pulmonary disease.
[2020-03-03 11:50] LABS: Glucose,Whole Blood 152 mg/dL (75-99)
[2020-03-03] MEDS ORDERED: methylPREDNISolone SOD SUCCI 125 MG/2 ML VIAL IV STA (12:07)
[2020-03-03 12:18] LABS: Basophils % (A) 1 %; Eosinophils # (A) 0.3 k/uL (0-0.7); Eosinophils % (A) 3 %; HCT 43.7 % (34.0-46.0); HGB 14.1 gm/dL (11.4-16.0); Lymphocytes % (A) 11 %; MCH 27.1 pg (25.0-35.0); MCHC 32.2 g/dL (31.0-37.0); MCV 84.1 fL (80.0-100.0); Mean Platelet Volume 7.8; Monocytes # (A) 0.6 k/uL (0-1.0); Monocytes % (A) 7 %; Neutrophils # (A) 7.5 k/uL (1.3-7.7); Neutrophils % (A) 78 %; Platelet Count 301 k/uL (150-450); RDW 13.3 % (11.5-15.5); WBC 9.7 k/uL (3.8-10.6)
[2020-03-03] MEDS ORDERED: ACETAMINOPHEN TAB 500 MG TAB PO STA (12:20)
[2020-03-03] MEDS ORDERED: SODIUM CHLORIDE 0.9% 500 ML 500 ML IV ONE (12:31)
[2020-03-03] MEDS ORDERED: NITROGLYCERIN SL TABS 0.4 MG TAB SUBLINGUAL PRN (12:44)
[2020-03-03] MEDS ORDERED: HEPARIN SODIUM,PORCINE 5,000 UNIT/ML 1 ML VIAL IV ONE (12:44)
[2020-03-03] MEDS ORDERED: HEPARIN SOD,PORK IN 0.45% NACL 25,000 UNIT in 0.45% NACL 1 250ML.BAG IV SCH (12:45)
[2020-03-03] MEDS ORDERED: glipiZIDE 5 MG TAB PO PRN (13:04)
[2020-03-03] MEDS ORDERED: HYOSCYAMINE SULFATE 0.125 MG TAB PO PRN (13:04)
[2020-03-03] MEDS: AZITHROMYCIN 500 MG TAB PO SCH (14:20)
[2020-03-03] MEDS: aMILoride-HCTZ 5-50 mg 1 EACH TAB PO SCH (14:20)
[2020-03-03] MEDS: SERTRALINE 50 MG TAB PO SCH (14:20)
[2020-03-03] MEDS: EZETIMIBE 10 MG TAB PO SCH (14:21)
[2020-03-03] MEDS: INSULIN DETEMIR (LEVEMIR) 100 UNIT/ML SYR SQ SCH (14:21)
[2020-03-03] MEDS: BUDESONIDE 1 MG/2 ML NEBU INHALATION SCH ×2 (15:02→19:44)
--- NOTE | 2020-03-03 15:13 | P.HPIM ---
History of Present Illness H&P Date: 03/03/20 Chief Complaint: Cough History of presenting complaint: This is a very pleasant 74-year-old patient of Dr. Guerrero. Chronic stable medical conditions include asthma, diabetes mellitus type 2, hypertension, hyperlipidemia, primary osteoarthritis irritable bowel syndrome, pacemaker. For 3 days patient started having respiratory symptoms. Slight headache, sinus congestion, cough increasing wheezing green phlegm. Also some chest tightness. To go blood pressure at home it is slightly elevated. Rundown to the local urgent care from that she was dilated ear. No fever. Tired rundown. Given breathing treatment the ER to which she felt a bit better. Review of systems: GEN.: Tired EYES: None HEENT: Congested NECK: None RESPIRATORY: As above CARDIOVASCULAR: None GASTROINTESTINAL: Chronic intermittent diarrhea GENITOURINARY: None MUSCULOSKELETAL: Joint pains LYMPHATICS: None HEMATOLOGICAL: None PSYCHIATRY: None NEUROLOGICAL: None Past medical history to include: COPD, diabetes mellitus type 2, GERD, hypertension, osteoarthritis, abdominal aortic aneurysm, third-degree heart block-pacemaker, irritable bowel syndrome, leading peptic ulcer disease, diverticulosis, skin cancer removed, Social history: Smoked half a pack a day for 20 years stopped in 1988. Does not drink alcohol. . Physical examination: VITAL SIGNS: 98.4, 91, 18, 162/92, 96% room air GENERAL: BMI 31.2, propped up in bed, tired EYES: Pupils equal. Conjunctiva normal. HEENT: External appearance of nose and ears normal, oral cavity grossly normal. NECK: JVD not raised; masses not palpable. HEART: First and second heart sounds are normal; no edema. LUNGS: Respiratory rate increased, decreased breaths on prolonged expiration and wheezing, some crackles in the left base. ABDOMEN: Soft, no tenderness, no guarding or rigidity, bowel sounds present, liver spleen not palpable, no masses palpable. PSYCH: Alert and oriented x3; mood and affect normal. NEUROLOGICAL: Cranial nerves grossly intact; no facial asymmetry, power and sensation grossly intact. LYMPHATICS: No lymph nodes palpable in the axilla and neck MUSCULAR schedule: Evidence of OA especially in the hands INVESTIGATIONS, reviewed in the clinical context: White count 9.7 hemoglobin 14.1 platelets 301 potassium 3.7 creatinine 0.68 Group A strep rapid negative EKG tracing personally reviewed by me- paced rhythm Chest x-ray film personally reviewed by me-subtle infiltrate left lower lobe Assessment: -Possible left lobe pneumonia, could be viral but,cover for gram-negative organism, POA -Acute COPD exacerbation in an ex-smoker, POA -Chronic irritable bowel syndrome -Diabetes mellitus type II on oral hypoglycemic -Hyperlipidemia -Essential hypertension -Primary osteoarthritis -Permanent pacemaker -Obesity BMI 31.2 -Malfunction of right hip prosthesis -Chest pain with cardiac risk factors Plan: Start the patient on DuoNeb, Zithromax, ceftriaxone, IV Solu-Medrol check Accu- Cheks. Home medications to be continued. Discussed with the patient. Check pro-calcitonin. Pending COVID 19 testing. 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 History of Any Multi-Drug Resistant Organisms: None Reported Past Surgical History: Cholecystectomy, Hernia Repair, Hysterectomy, Joint Replacement, Orthopedic Surgery, Pacemaker, Tonsillectomy Additional Past Surgical History / Comment(s): 08/23/19 pacemaker, R inguinal hernia repair, abdominoplasty, sinus surgery, L foot hammer toe surgery, total R hip arhtroplasty, bilateral total knee replacements, thyroid nodules, EGD colonoscopies, skin cancer removed, bilateral cataract removals/lens implants. Past Anesthesia/Blood Transfusion Reactions: Motion Sickness Additional Past Anesthesia/Blood Transfusion Reaction / Comment(s): Pt has received blood in past. Type of Cardiac Device: Permanent Pacemaker Device Placement Date:: 08/23/19 Smoking Status: Former smoker - Past Family History Mother Family Medical History: Cancer Additional Family Medical History / Comment(s): leukemia Brother(s) Family Medical History: Coronary Artery Disease (CAD) Additional Family Medical History / Comment(s): 2 brothers have CAD/pacemakers. Sister(s) Family Medical History: Cancer Additional Family Medical History / Comment(s): One sister of breast to lung cancer. Another sister from heart disease. Father Family Medical History: Myocardial Infarction (OR) Additional Family Medical History / Comment(s): Father of a OR at the age of 70 yrs. Medications and Allergies Home Medications Medication Instructions Recorded Confirmed Type Diphenoxylate HCl/Atropine 4 tab PO DAILY 10/09/13 03/03/20 History [Lomotil] Ezetimibe [Zetia] 10 mg PO DAILY 10/02/18 03/03/20 History Hyoscyamine Sulfate [Hyoscyamine 0.125 mg SL Q4H PRN 10/02/18 03/03/20 History Sulfate SL] Albuterol Sulfate [Proair Hfa] 2 puff INHALATION RT-Q4H PRN 04/18/19 03/03/20 History Ondansetron Odt [Zofran ODT] 4 mg PO Q12HR PRN 04/18/19 03/03/20 History Acetaminophen Tab [Tylenol] 500 mg PO Q8H PRN 03/03/20 03/03/20 History Ibuprofen [Motrin Ib] 400 mg PO Q8H PRN 03/03/20 03/03/20 History Insulin Glargine,Hum.rec.anlog 20 - 25 units SQ DAILY 03/03/20 03/03/20 History [Lantus Solostar] Sertraline [Zoloft] 50 mg PO DAILY 03/03/20 03/03/20 History aMILoride-HCTZ 5-50 mg [Moduretic 0.5 tab PO DAILY 03/03/20 03/03/20 History 5-50] cycloSPORINE 0.05% OPHTH SOLN 1 applicator BOTH EYES BID 03/03/20 03/03/20 History [Restasis] glipiZIDE [Glucotrol] 5 mg PO BID PRN 03/03/20 03/03/20 History Allergies Allergy/AdvReac Type Severity Reaction Status Date / Time adhesive Allergy Rash/Hives Verified 03/03/20 09:47 Iodinated Contrast Media Allergy Anaphylaxis Verified 03/03/20 09:47 [Iodinated Contrast Media - IV Dye] iodine Allergy Anaphylaxis Verified 03/03/20 09:47 lisinopril Allergy Anaphylaxis Verified 03/03/20 09:47 moxifloxacin HCl Allergy Rash/Hives Verified 10/05/20 09:47 [From Avelox] Penicillins Allergy Rash/Hives Verified 03/03/20 09:47 shellfish derived Allergy Anaphylaxis Verified 03/03/20 09:47 celecoxib [From Celebrex] AdvReac Nausea & Verified 03/03/20 09:47 Vomiting Physical Exam Vitals: Vital Signs Temp Pulse Pulse Resp BP BP Pulse Ox 03/03/20 13:55 95 03/03/20 13:51 99.6 F 83 18 174/74 96 03/03/20 13:32 98.1 F 78 18 151/76 96 03/03/20 13:23 98.1 F 78 18 151/76 96 03/03/20 12:48 84 03/03/20 12:41 78 03/03/20 12:00 73 18 160/73 95 03/03/20 11:28 73 03/03/20 11:19 68 03/03/20 11:00 72 18 156/82 95 03/03/20 10:47 18 164/75 03/03/20 09:41 98.4 F 91 18 162/92 96 Intake and Output 03/02/20 03/03/20 03/03/20 22:59 06:59 14:59 Other: Weight 92.986 kg Results CBC & Chem 7: 03/03/20 11:38 03/03/20 10:49 Labs: Abnormal Lab Results - Last 24 Hours (Table) 03/03/20 03/03/20 Range/Units 10:49 11:48 Sodium 135 L (137-145) mmol/L Glucose 152 H (74-99) mg/dL POC Glucose (mg/dL) 152 H (75-99) mg/dL Thrombosis Risk Factor Assmnt - Choose All That Apply Any of the Below Risk Factors Present?: Yes Each Factor Represents 1 point: Obesity (BMI >25) Other Risk Factors: Yes Each Risk Factor Represents 2 Points: Age 61-74 years, Malignancy Other congenital or acquired thrombophilia - If yes, enter type in comment: No Thrombosis Risk Factor Assessment Total Risk Factor Score: 5 Thrombosis Risk Factor Assessment Level: High Risk
[2020-03-03] MEDS: IPRATROPIUM-ALBUTEROL 3 ML NEB INHALATION SCH ×2 (15:19→19:44)
[2020-03-03 16:35] LABS: Glucose,Whole Blood 362 mg/dL (75-99)
[2020-03-03] MEDS: methylPREDNISolone SOD SUCCI 40 MG/ML 1 ML VIAL IV SCH ×2 (16:43→23:40)
[2020-03-03] MEDS: INSULIN ASPART (NovoLOG) 100 UNIT/ML VIAL SQ SCH ×2 (16:52→21:48)
[2020-03-03] MEDS: NITROGLYCERIN OINT 1 INCH/GM PACKET TOPICAL SCH ×2 (18:12→23:44)
[2020-03-03 18:34] LABS: Glucose,Whole Blood 372 mg/dL (75-99)
[2020-03-03] MEDS: ACETAMINOPHEN TAB 500 MG TAB PO PRN (18:40)
[2020-03-03] MEDS ORDERED: HEPARIN SODIUM,PORCINE 5,000 UNIT/ML 1 ML VIAL IV PRN (20:23)
[2020-03-03 20:56] LABS: Glucose,Whole Blood 337 mg/dL (75-99)
[2020-03-03] MEDS: cycloSPORINE 0.05% OPHTH 0.4 ML DROPERETTE BOTH EYES SCH (21:49)
[2020-03-03] MEDS: MELATONIN 3 MG TABLET PO PRN (22:35)
[2020-03-04] MEDS: NITROGLYCERIN OINT 1 INCH/GM PACKET TOPICAL SCH (02:15)
[2020-03-04] MEDS: ACETAMINOPHEN TAB 500 MG TAB PO PRN ×3 (03:31→11:40)
[2020-03-04 06:31] LABS: Glucose,Whole Blood 203 mg/dL (75-99)
[2020-03-04] MEDS: ONDANSETRON ODT 4 MG TAB PO PRN (06:31)
[2020-03-04] MEDS: IPRATROPIUM-ALBUTEROL 3 ML NEB INHALATION SCH ×4 (07:31→19:14)
[2020-03-04] MEDS: BUDESONIDE 1 MG/2 ML NEBU INHALATION SCH ×2 (07:31→19:15)
[2020-03-04 07:57] LABS: Cholesterol 168 mg/dL (<200); HDL Cholesterol 70 mg/dL (40-60); LDL Cholesterol,Calculated 84 mg/dL (0-99); Triglycerides 72 mg/dL (<150)
[2020-03-04] MEDS: EZETIMIBE 10 MG TAB PO SCH (08:00)
[2020-03-04] MEDS: cycloSPORINE 0.05% OPHTH 0.4 ML DROPERETTE BOTH EYES SCH ×2 (08:00→21:28)
[2020-03-04] MEDS: aMILoride-HCTZ 5-50 mg 1 EACH TAB PO SCH (08:00)
[2020-03-04] MEDS: methylPREDNISolone SOD SUCCI 40 MG/ML 1 ML VIAL IV SCH ×2 (08:00→21:26)
[2020-03-04] MEDS: AZITHROMYCIN 500 MG TAB PO SCH (08:00)
[2020-03-04] MEDS: INSULIN ASPART (NovoLOG) 100 UNIT/ML VIAL SQ SCH ×4 (08:01→21:26)
[2020-03-04] MEDS: SERTRALINE 50 MG TAB PO SCH (08:01)
[2020-03-04] MEDS: DIPHENOX-ATROP 2.5-0.025 MG 1 EACH TAB PO SCH (08:01)
[2020-03-04] MEDS: INSULIN DETEMIR (LEVEMIR) 100 UNIT/ML SYR SQ SCH (08:01)
[2020-03-04] MEDS ORDERED: ASPIRIN 325 MG TAB PO SCH (09:00)
--- NOTE | 2020-03-04 10:59 | P.CRDCN ---
History of Present Illness Consult date: 03/04/20 Consult reason: chest pain Chief complaint: Sinus congestion, cough History of present illness: This is a 74-year-old female who follows regularly with Dr. Butterfield in the office. She has a documented history of hypertension, diabetes, hyperlipidemia, peripheral vascular disease, family history of premature cor onary artery disease, history of nicotine dependence, asthma, osteoarthritis and irritable bowel syndrome. Patient also has a history of being diagnosed with a complete heart block for which she underwent a permanent pacemaker implantation. She presents to the hospital on this occasion with symptoms of sinus congestion, cough, mild headache, and generalized run down feeling. Patient went to the urgent care clinic, her blood pressure was elevated at that time, she was initiated on antibiotics. Patient also complained of some atypical chest discomfort in the midepigastric area. According to the patient, she also was having 2 days of diarrhea leading up to this. Cardiology consultation was requested because of the chest discomfort. Upon review of her office notes, patient had a Lexiscan stress test performed in May of this year which was normal, she also had an echocardiogram with Doppler study performed at that time which revealed a normal ejection fraction with mild aortic regurgitation. Patient states that she also received notification from [employer] of an abnormal rhythm that was sent over to the office. At the time of my examination this morning, patient denies any chest discomfort. Continues to have mild headache with sinus congestion. Chest x-ray did not reveal any evidence for acute pulmonary disease. EKG showed a ventricular paced rhythm, a sensed with un derlying normal sinus rhythm mild ST depression noted in the anterior lateral leads. Blood pressure 165/70 with a heart rate of 90, 96% on room air. White blood cell count 9.7, hemoglobin 14.1, platelet count 301. Sodium 135, potassium 3.7, BUN 9, creatinine 0.6. Magnesium 1.7. Darnell virus negative, group A strep negative. Troponins 0.012, 0.015, 0.015. 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 History of Any Multi-Drug Resistant Organisms: None Reported Past Surgical History: Cholecystectomy, Hernia Repair, Hysterectomy, Joint Replacement, Orthopedic Surgery, Pacemaker, Tonsillectomy Additional Past Surgical History / Comment(s): 08/23/19 pacemaker, R inguinal hernia repair, abdominoplasty, sinus surgery, L foot hammer toe surgery, total R hip arhtroplasty, bilateral total knee replacements, thyroid nodules, EGD colonoscopies, skin cancer removed, bilateral cataract removals/lens implants. Past Anesthesia/Blood Transfusion Reactions: Motion Sickness Additional Past Anesthesia/Blood Transfusion Reaction / Comment(s): Pt has received blood in past. Type of Cardiac Device: Permanent Pacemaker Device Placement Date:: 08/23/19 Smoking Status: Former smoker - Past Family History Mother Family Medical History: Cancer Additional Family Medical History / Comment(s): leukemia Brother(s) Family Medical History: Coronary Artery Disease (CAD) Additional Family Medical History / Comment(s): 2 brothers have CAD/pacemakers. Sister(s) Family Medical History: Cancer Additional Family Medical History / Comment(s): One sister of breast to lung cancer. Another sister from heart disease. Father Family Medical History: Myocardial Infarction (MD) Additional Family Medical History / Comment(s): Father of a MD at the age of 70 yrs. Medications and Allergies Home Medications Medication Instructions Recorded Confirmed Type Diphenoxylate HCl/Atropine 4 tab PO DAILY 10/09/13 03/03/20 History [Lomotil] Ezetimibe [Zetia] 10 mg PO DAILY 10/02/18 03/03/20 History Hyoscyamine Sulfate [Hyoscyamine 0.125 mg SL Q4H PRN 10/02/18 03/03/20 History Sulfate SL] Albuterol Sulfate [Proair Hfa] 2 puff INHALATION RT-Q4H PRN 04/18/19 03/03/20 History Ondansetron Odt [Zofran ODT] 4 mg PO Q12HR PRN 04/18/19 03/03/20 History Acetaminophen Tab [Tylenol] 500 mg PO Q8H PRN 03/03/20 03/03/20 History Ibuprofen [Motrin Ib] 400 mg PO Q8H PRN 03/03/20 03/03/20 History Insulin Glargine,Hum.rec.anlog 20 - 25 units SQ DAILY 03/03/20 03/03/20 History [Lantus Solostar] Sertraline [Zoloft] 50 mg PO DAILY 03/03/20 03/03/20 History aMILoride-HCTZ 5-50 mg [Moduretic 0.5 tab PO DAILY 03/03/20 03/03/20 History 5-50] cycloSPORINE 0.05% OPHTH SOLN 1 applicator BOTH EYES BID 03/03/20 03/03/20 History [Restasis] glipiZIDE [Glucotrol] 5 mg PO BID PRN 03/03/20 03/03/20 History Allergies Allergy/AdvReac Type Severity Reaction Status Date / Time adhesive Allergy Rash/Hives Verified 03/03/20 09:47 Iodinated Contrast Media Allergy Anaphylaxis Verified 03/03/20 09:47 [Iodinated Contrast Media - IV Dye] iodine Allergy Anaphylaxis Verified 03/03/20 09:47 lisinopril Allergy Anaphylaxis Verified 03/03/20 09:47 moxifloxacin HCl Allergy Rash/Hives Verified 03/03/20 09:47 [From Avelox] Penicillins Allergy Rash/Hives Verified 03/03/20 09:47 shellfish derived Allergy Anaphylaxis Verified 03/03/20 09:47 celecoxib [From Celebrex] AdvReac Nausea & Verified 03/03/20 09:47 Vomiting Physical Exam Vitals: Vital Signs Temp Pulse Pulse Pulse Resp BP BP 03/04/20 09:43 111 H 03/04/20 07:58 98.5 F 89 16 165/74 03/04/20 07:52 84 03/04/20 07:34 82 03/04/20 02:44 97.8 F 80 18 140/68 03/03/20 21:00 98.1 F 51 L 18 154/74 03/03/20 20:03 79 03/03/20 19:44 79 03/03/20 15:29 85 03/03/20 15:19 85 03/03/20 15:00 83 18 03/03/20 13:55 03/03/20 13:51 99.6 F 83 18 174/74 03/03/20 13:32 98.1 F 78 18 151/76 03/03/20 13:23 98.1 F 78 18 151/76 03/03/20 12:48 84 03/03/20 12:41 78 03/03/20 12:00 73 18 160/73 03/03/20 11:28 73 03/03/20 11:19 68 03/03/20 11:00 72 18 156/82 03/03/20 10:47 18 164/75 Pulse Ox Pulse Ox 03/04/20 09:43 95 03/04/20 07:58 96 03/04/20 07:52 03/04/20 07:34 03/04/20 02:44 95 03/03/20 21:00 95 03/03/20 20:03 03/03/20 19:44 03/03/20 15:29 03/03/20 15:19 95 03/03/20 15:00 03/03/20 13:55 95 03/03/20 13:51 96 03/03/20 13:32 96 03/03/20 13:23 96 03/03/20 12:48 03/03/20 12:41 03/03/20 12:00 95 03/03/20 11:28 03/03/20 11:19 03/03/20 11:00 95 03/03/20 10:47 Intake and Output 03/03/20 03/04/20 03/04/20 22:59 06:59 14:59 Other: Voiding Method Toilet Toilet # Voids 2 1 PHYSICAL EXAMINATION: GENERAL: 74-year-old female in no acute distress at the time of my examination HEENT: Head is atraumatic, normocephalic. Pupils equal, round. Sclera anicteric. Conjunctiva are clear. Mucous membranes of the mouth are moist. Neck is supple. There is no elevated jugular venous pressure. No carotid bruit is heard. HEART EXAMINATION: Heart S1-S2 systolic ejection murmur grade 2 over 4 is heard as well as a diastolic murmur CHEST EXAMINATION: Is reveal some mild scattered wheezing throughout ABDOMEN: Soft, nontender. Bowel sounds are heard. No organomegaly noted. EXTREMITIES: 2+ peripheral pulses with no evidence of peripheral edema and no calf tenderness noted. NEUROLOGIC patient is awake, alert and oriented 3 . Results 03/03/20 11:38 03/03/20 10:49 Cardiac Enzymes 03/03/20 03/03/20 03/03/20 Range/Units 10:49 10:49 13:57 AST 30 (14-36) U/L Troponin I <0.012 0.015 (0.000-0.034) ng/mL 03/03/20 Range/Units 17:34 AST (14-36) U/L Troponin I 0.015 (0.000-0.034) ng/mL Coagulation 03/03/20 03/03/20 03/04/20 Range/Units 10:49 20:31 07:09 PT 10.0 (9.0-12.0) sec APTT 22.3 45.9 H 43.7 H (22.0-30.0) sec Lipids 03/04/20 Range/Units 07:09 Triglycerides 72 (<150) mg/dL Cholesterol 168 (<200) mg/dL HDL Cholesterol 70 H (40-60) mg/dL CBC 03/03/20 Range/Units 11:38 WBC 9.7 (3.8-10.6) k/uL RBC 5.20 (3.80-5.40) m/uL Hgb 14.1 (11.4-16.0) gm/dL Hct 43.7 (34.0-46.0) % Plt Count 301 (150-450) k/uL Comprehensive Metabolic Panel 03/03/20 Range/Units 10:49 Sodium 135 L (137-145) mmol/L Potassium 3.7 (3.5-5.1) mmol/L Chloride 99 (98-107) mmol/L Carbon Dioxide 28 (22-30) mmol/L BUN 9 (7-17) mg/dL Creatinine 0.68 (0.52-1.04) mg/dL Glucose 152 H (74-99) mg/dL Calcium 9.3 (8.4-10.2) mg/dL AST 30 (14-36) U/L ALT 20 (4-34) U/L Alkaline Phosphatase 107 (38-126) U/L Total Protein 6.9 (6.3-8.2) g/dL Albumin 4.1 (3.5-5.0) g/dL Current Medications Generic Name Dose Route Start Last Admin Trade Name Freq PRN Reason Stop Dose Admin Acetaminophen 500 mg 03/03/20 13:04 03/04/20 03:31 Acetaminophen Tab 500 Mg Tab PO 500 mg Q8H PRN Administration Fever and/ or Pain Albuterol/Ipratropium 3 ml 03/03/20 16:00 03/04/20 07:31 Ipratropium-Albuterol 3 Ml Neb INHALATION 3 ml RT-QID TYRON Administration Amiloride/HCTZ 0.5 each 03/03/20 13:15 03/04/20 08:00 Amiloride-Hctz 5-50 Mg 1 Each Tab PO 0.5 each DAILY TYRON Administration Aspirin 325 mg 03/04/20 09:00 03/04/20 08:00 Aspirin 325 Mg Tab PO 325 mg DAILY YTRON Administration Azithromycin 500 mg 03/03/20 13:15 03/04/20 08:00 Azithromycin 500 Mg Tab PO 500 mg DAILY TYRON Administration Budesonide 1 mg 03/03/20 13:15 03/04/20 07:31 Budesonide 1 Mg/2 Ml Nebu INHALATION 1 mg RT-BID TYRON Administration Cyclosporine 1 drops 03/03/20 21:00 03/04/20 08:00 Cyclosporine 0.05% Ophth 0.4 Ml Droperette BOTH EYES 1 drops BID TYRON Administration Diphenoxylate HCl/Atropine 4 each 03/04/20 09:00 03/04/20 08:01 Diphenox-Atrop 2.5-0.025 Mg 1 Each Tab PO 2 each DAILY TYRON Administration Ezetimibe 10 mg 03/03/20 13:15 03/04/20 08:00 Ezetimibe 10 Mg Tab PO 10 mg DAILY TYRON Administration Glipizide 5 mg 03/03/20 13:04 Glipizide 5 Mg Tab PO BID PRN Blood Sugar - High Heparin Sodium (Porcine) 0 unit 03/03/20 20:23 Heparin Sodium,Porcine 5,000 Unit/Ml 1 Ml Vial IV PER PROTOCOL PRN Low PTT Protocol Hyoscyamine 0.125 mg 03/03/20 13:04 Hyoscyamine Sulfate 0.125 Mg Tab PO Q4H PRN ABD PAIN Heparin Sodium/Sodium Chloride 250 mls @ 9.95 mls/hr 03/03/20 12:45 03/03/20 13:21 25,000 unit/ Sodium Chloride IV 10.7 units/kg/hr .Q24H TYRON 9.95 mls/hr Administration Protocol 10.7 UNITS/KG/HR Ceftriaxone Sodium 1 gm/ 50 mls @ 100 mls/hr 03/03/20 15:15 03/04/20 07:59 Sodium Chloride IVPB 100 mls/hr Q24HR TYRON Administration Insulin Aspart 0 unit 03/03/20 17:30 03/04/20 08:01 Insulin Aspart (Novolog) 100 Unit/Ml Vial SQ 6 unit ACHS TYRON Administration Protocol Insulin Detemir 16 unit 03/03/20 14:00 03/04/20 08:01 Insulin Detemir (Levemir) 100 Unit/Ml Syr SQ 16 unit DAILY@0700 TYRON Administration Melatonin 6 mg 03/03/20 21:02 03/03/20 22:35 Melatonin 3 Mg Tablet PO 6 mg HS PRN Administration Insomnia Methylprednisolone Sodium Succinate 40 mg 03/03/20 16:00 03/04/20 08:00 Methylprednisolone Sod Succi 40 Mg/Ml 1 Ml Vial IV 40 mg Q8HR TYRON Administration Nitroglycerin 0.4 mg 03/03/20 12:44 Nitroglycerin Sl Tabs 0.4 Mg Tab SUBLINGUAL Q5M PRN Chest Pain Nitroglycerin 1 inch 03/03/20 18:00 03/04/20 02:15 Nitroglycerin Oint 1 Inch/Gm Packet TOPICAL Not Given Q6HR ON LICENSE OF [facility] Ondansetron HCl 4 mg 03/03/20 13:04 03/04/20 06:31 Ondansetron Odt 4 Mg Tab PO 4 mg Q12HR PRN Administration Nausea Sertraline HCl 50 mg 03/03/20 13:15 03/04/20 08:01 Sertraline 50 Mg Tab PO 50 mg DAILY TYRON Administration Intake and Output 03/03/20 03/04/20 03/04/20 22:59 06:59 14:59 Other: Voiding Method Toilet Toilet # Voids 2 1 03/03/20 11:38 03/03/20 10:49 EKG Interpretations (text) EKG shows a sensed V paced rhythm, underlying normal sinus rhythm with mild ST depression noted in leads V3 to 6 Assessment and Plan Plan: Assessment and plan #1 atypical chest discomfort, not suggestive of acute coronary syndrome. Troponins 0.012, 0.015, 0.015. EKG shows a normal sinus rhythm with mild ST depression noted in the anterior lateral leads. Most recent stress test was performed in May of this year, negative for any reversible ischemia #2 symptoms of sinus congestion with associated cough, possible bronchitis #3 history of permanent pacemaker implantation and July of this year for complete heart block #4 hypertension #5 diabetes #6 hyperlipidemia #7 peripheral vascular disease #8 family history of premature coronary artery disease #9 prior history of smoking #10 asthma Plan Patient had an echo performed in the office in May of this year which revealed a normal left ventricular systolic function, mild aortic regurgitation. We will repeat an echocardiogram with Doppler study this admission. Her chest pain is very atypical in nature. We will decrease the aspirin 81 mg daily. Discontinue IV heparin. Discontinue Nitropaste. Continue Zetia. We will add a small dose of beta mercy and FRANKIE inhibitor to her medication regime. Discontinue the Norvasc. On discharge we will make the patient a follow-up appointment with Dr. Butterfield in the office. DNP note has been reviewed, I agree with a documented findings and plan of care. Patient was seen and examined.
[2020-03-04] MEDS ORDERED: lisinopriL 5 MG TAB PO SCH (11:00)
[2020-03-04] MEDS: METOPROLOL SUCCINATE (ER) 25 MG TAB.ER.24H PO SCH (11:32)
[2020-03-04] MEDS: LOSARTAN-HCTZ 50-12.5 MG 1 EACH TAB PO SCH (11:41)
[2020-03-04 11:57] LABS: Glucose,Whole Blood 258 mg/dL (75-99)
[2020-03-04 13:46] VITALS: BMI 31.1
--- NOTE | 2020-03-04 14:26 | P.PN ---
Progress Note - Text Progress Note Date: 03/04/20 Chief Complaint: Cough History of presenting complaint: This is a very pleasant 74-year-old patient of Dr. Guerrero. Chronic stable medical conditions include asthma, diabetes mellitus type 2, hypertension, hyperlipidemia, primary osteoarthritis irritable bowel syndrome, pacemaker. For 3 days patient started having respiratory symptoms. Slight headache, sinus congestion, cough increasing wheezing green phlegm. Also some chest tightness. To go blood pressure at home it is slightly elevated. Rundown to the local urgent care from that she was dilated ear. No fever. Tired rundown. Given breathing treatment the ER to which she felt a bit better. Admitted with COPD exacerbation and pneumonia. Started on Zithromax and ceftriaxone steroids. Also some chest pressure for which cardiology was consulted. Today-breathing a bit better. Less shortness of breath. Decreased wheezing. Review of systems: Was done for constitutional, cardiovascular, GI, pulmonary. relevant finding as above Active Medications Acetaminophen (Acetaminophen Tab 325 Mg Tab) 650 mg PO Q6HR PRN PRN Reason: Fever and/ or Pain Albuterol/Ipratropium (Ipratropium-Albuterol 3 Ml Neb) 3 ml INHALATION RT-QID [facility] Last Admin: 03/04/20 11:22 Dose: 3 ml Documented by: Aspirin (Aspirin 81 Mg) 81 mg PO DAILY [facility] Azithromycin (Azithromycin 500 Mg Tab) 500 mg PO DAILY [facility] Last Admin: 03/04/20 08:00 Dose: 500 mg Documented by: Budesonide (Budesonide 1 Mg/2 Ml Nebu) 1 mg INHALATION RT-BID [facility] Last Admin: 03/04/20 07:31 Dose: 1 mg Documented by: Cyclosporine (Cyclosporine 0.05% Ophth 0.4 Ml Droperette) 1 drops BOTH EYES BID [facility] Last Admin: 03/04/20 08:00 Dose: 1 drops Documented by: Diphenoxylate HCl/Atropine (Diphenox-Atrop 2.5-0.025 Mg 1 Each Tab) 4 each PO DAILY [facility] Last Admin: 03/04/20 08:01 Dose: 4 each Documented by: Ezetimibe (Ezetimibe 10 Mg Tab) 10 mg PO DAILY [facility] Last Admin: 03/04/20 08:00 Dose: 10 mg Documented by: Glipizide (Glipizide 5 Mg Tab) 5 mg PO BID PRN PRN Reason: Blood Sugar - High HCTZ/Losartan Potassium (Losartan-Hctz 50-12.5 Mg 1 Each Tab) 1 each PO DAILY [facility] Last Admin: 03/04/20 11:41 Dose: 1 each Documented by: Hyoscyamine (Hyoscyamine Sulfate 0.125 Mg Tab) 0.125 mg PO Q4H PRN PRN Reason: ABD PAIN Ceftriaxone Sodium 1 gm/ (Sodium Chloride) 50 mls @ 100 mls/hr IVPB Q24HR [facility] Last Admin: 03/04/20 07:59 Dose: 100 mls/hr Documented by: Insulin Aspart (Insulin Aspart (Novolog) 100 Unit/Ml Vial) 0 unit SQ ACHS [facility]; Protocol Last Admin: 03/04/20 12:57 Dose: 8 unit Documented by: Insulin Detemir (Insulin Detemir (Levemir) 100 Unit/Ml Syr) 16 unit SQ DAILY@0700 [facility] Last Admin: 03/04/20 08:01 Dose: 16 unit Documented by: Melatonin (Melatonin 3 Mg Tablet) 6 mg PO HS PRN PRN Reason: Insomnia Last Admin: 03/03/20 22:35 Dose: 6 mg Documented by: Methylprednisolone Sodium Succinate (Methylprednisolone Sod Succi 40 Mg/Ml 1 Ml Vial) 40 mg IV Q8HR [facility] Last Admin: 03/04/20 08:00 Dose: 40 mg Documented by: Metoprolol Succinate (Metoprolol Succinate (Er) 25 Mg Tab.Er.24h) 25 mg PO DAILY [facility] Last Admin: 03/04/20 11:32 Dose: 25 mg Documented by: Nitroglycerin (Nitroglycerin Sl Tabs 0.4 Mg Tab) 0.4 mg SUBLINGUAL Q5M PRN PRN Reason: Chest Pain Ondansetron HCl (Ondansetron Odt 4 Mg Tab) 4 mg PO Q12HR PRN PRN Reason: Nausea Last Admin: 03/04/20 06:31 Dose: 4 mg Documented by: Sertraline HCl (Sertraline 50 Mg Tab) 50 mg PO DAILY [facility] Last Admin: 03/04/20 08:01 Dose: 50 mg Documented by: Physical examination: VITAL SIGNS: 98.5, 89, 16, 165/74, 96% room air GENERAL: Sitting up in bed EYES: Pupils equal. Conjunctiva normal. HEENT: External appearance of nose and ears normal, oral cavity grossly normal. NECK: JVD not raised; masses not palpable. HEART: First and second heart sounds are normal; no edema. LUNGS: Respiratory rate increased, decreased breaths on prolonged expiration . ABDOMEN: Soft, no tenderness, no guarding or rigidity, bowel sounds present, liver spleen not palpable, no masses palpable. PSYCH: Alert and oriented x3; mood and affect normal. INVESTIGATIONS, reviewed in the clinical context: LDL 70 Accu-Cheks 203, 258 Troponin I 0.015, 0.015 COVID 19 PCR-not detected Admission testing White count 9.7 hemoglobin 14.1 platelets 301 potassium 3.7 creatinine 0.68 Group A strep rapid negative EKG tracing personally reviewed by me- paced rhythm Chest x-ray film personally reviewed by me-subtle infiltrate left lower lobe Pro-calcitonin 0.05 Assessment: -Possible left lobe pneumonia, could be viral but,cover for gram-negative organism, POA -Acute COPD exacerbation in an ex-smoker, POA -Chronic irritable bowel syndrome -Diabetes mellitus type II on oral hypoglycemic -Hyperlipidemia -Essential hypertension -Primary osteoarthritis -Permanent pacemaker -Obesity BMI 31.2 -Malfunction of right hip prosthesis -Chest pain with cardiac risk factors Plan: Continue DuoNeb, Zithromax, ceftriaxone, IV Byco-Vdkbqi-[id number] check Accu- Cheks. Discussed with patient. Encouraged to be out of bed. Getting some l ower abdominal pain-nurse called me later this afternoon ,will have surgical opinion.
[2020-03-04] MEDS ORDERED: BARIUM SULFATE 450 ML ORAL.SUSP BOTTLE PO PRN (15:45)
--- NOTE | 2020-03-04 15:49 | P.GSCN ---
History of Present Illness Consult date: 03/04/20 Reason for Consult: Left lower quadrant pain History of present illness: 74-year-old female admitted to the hospital complaining of shortness of breath. Being treated for possible left-sided pneumonia. Was initially placed on IV heparin. Yesterday he said she was sitting up twisting sideways to the right and she developed sudden onset left lower quadrant pain. History of previous bad diverticulitis approximately one year ago. Denies fevers. No change in bowel habits. No appetite changes. Patient is afebrile. CBC on arrival was n ormal. Hemoglobin anatomically stable. Does not notice any bruising. Heparin has since been discontinued. Review of Systems The patient denies any acute changes in vision or hearing, no dysphagia or odynophagia, no dysuria or hematuria, no headache, no runny nose, no rectal bleeding or melena, no unexplained weight loss Past Medical History Past Medical History: Asthma, Cancer, Diabetes Mellitus, GERD/Reflux, GI Bleed, Hypertension, Osteoarthritis (OA), Skin Disorder Additional Past Medical History / Comment(s): Bronchitis, sinus problems, IDDM type II, abdominal aortic aneurysm, aortic valve insufficiency, 3rd degree heart block/vertigo/pacer, IBS, past bleeding peptic ulcer, diverticulitis, IBS, lower GI bleed, arthritis in multiple joints, skin cancer with removals, R hip prosthesis and 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 History of Any Multi-Drug Resistant Organisms: None Reported Past Surgical History: Cholecystectomy, Hernia Repair, Hysterectomy, Joint Replacement, Orthopedic Surgery, Pacemaker, Tonsillectomy Additional Past Surgical History / Comment(s): 08/23/19 pacemaker, R inguinal hernia repair, abdominoplasty, sinus surgery, L foot hammer toe surgery, total R hip arhtroplasty, bilateral total knee replacements, thyroid nodules, EGD colonoscopies, skin cancer removed, bilateral cataract removals/lens implants. Past Anesthesia/Blood Transfusion Reactions: Motion Sickness Additional Past Anesthesia/Blood Transfusion Reaction / Comm: Pt has received blood in past. Type of Cardiac Device: Permanent Pacemaker Device Placement Date:: 08/23/19 Smoking Status: Former smoker - Past Family History Mother Family Medical History: Cancer Additional Family Medical History / Comment(s): leukemia Brother(s) Family Medical History: Coronary Artery Disease (CAD) Additional Family Medical History / Comment(s): 2 brothers have CAD/pacemakers. Sister(s) Family Medical History: Cancer Additional Family Medical History / Comment(s): One sister of breast to lung cancer. Another sister from heart disease. Father Family Medical History: Myocardial Infarction ([place]) Additional Family Medical History / Comment(s): Father of a [place] at the age of 70 yrs. Medications and Allergies Home Medications Medication Instructions Recorded Confirmed Type Diphenoxylate HCl/Atropine 4 tab PO DAILY 10/09/13 03/03/20 History [Lomotil] Ezetimibe [Zetia] 10 mg PO DAILY 10/02/18 03/03/20 History Hyoscyamine Sulfate [Hyoscyamine 0.125 mg SL Q4H PRN 10/02/18 03/03/20 History Sulfate SL] Albuterol Sulfate [Proair Hfa] 2 puff INHALATION RT-Q4H PRN 04/18/19 03/03/20 History Ondansetron Odt [Zofran ODT] 4 mg PO Q12HR PRN 04/18/19 03/03/20 History Acetaminophen Tab [Tylenol] 500 mg PO Q8H PRN 03/03/20 03/03/20 History Ibuprofen [Motrin Ib] 400 mg PO Q8H PRN 03/03/20 03/03/20 History Insulin Glargine,Hum.rec.anlog 20 - 25 units SQ DAILY 03/03/20 03/03/20 History [Lantus Solostar] Sertraline [Zoloft] 50 mg PO DAILY 03/03/20 03/03/20 History aMILoride-HCTZ 5-50 mg [Moduretic 0.5 tab PO DAILY 03/03/20 03/03/20 History 5-50] cycloSPORINE 0.05% OPHTH SOLN 1 applicator BOTH EYES BID 03/03/20 03/03/20 History [Restasis] glipiZIDE [Glucotrol] 5 mg PO BID PRN 03/03/20 03/03/20 History Allergies Allergy/AdvReac Type Severity Reaction Status Date / Time adhesive Allergy Rash/Hives Verified 03/03/20 09:47 Iodinated Contrast Media Allergy Anaphylaxis Verified 03/03/20 09:47 [Iodinated Contrast Media - IV Dye] iodine Allergy Anaphylaxis Verified 03/03/20 09:47 lisinopril Allergy Anaphylaxis Verified 03/03/20 09:47 moxifloxacin HCl Allergy Rash/Hives Verified 03/03/20 09:47 [From Avelox] Penicillins Allergy Rash/Hives Verified 03/03/20 09:47 shellfish derived Allergy Anaphylaxis Verified 03/03/20 09:47 celecoxib [From Celebrex] AdvReac Nausea & Verified 03/03/20 09:47 Vomiting Surgical - Exam Vital Signs Temp Pulse Resp BP Pulse Ox 98.4 F 91 18 162/92 96 03/03/20 09:41 03/03/20 09:41 03/03/20 09:41 03/03/20 09:41 03/03/20 09:41 Physical exam: General: Well-developed, well-nourished HEENT: Normocephalic, sclerae nonicteric Abdomen: Mild left lower quadrant tenderness, no ecchymosis, no mass, nondistended Extremities: No edema Neuro: Alert and oriented Results - Labs 03/03/20 11:38 03/03/20 10:49 Abnormal Lab Results - Last 24 Hours (Table) 03/03/20 03/03/20 03/03/20 Range/Units 16:34 18:32 20:31 APTT 45.9 H (22.0-30.0) sec POC Glucose (mg/dL) 362 H 372 H (75-99) mg/dL HDL Cholesterol (40-60) mg/dL 03/03/20 03/04/20 03/04/20 Range/Units 20:54 06:29 07:09 APTT (22.0-30.0) sec POC Glucose (mg/dL) 337 H 203 H (75-99) mg/dL HDL Cholesterol 70 H (40-60) mg/dL 03/04/20 03/04/20 Range/Units 07:09 11:55 APTT 43.7 H (22.0-30.0) sec POC Glucose (mg/dL) 258 H (75-99) mg/dL HDL Cholesterol (40-60) mg/dL Microbiology - Last 24 Hours (Table) 03/03/20 10:21 Group A Strep Throat Culture - Preliminary Throat Diabetes panel 03/04/20 Range/Units 07:09 Triglycerides 72 (<150) mg/dL HDL Cholesterol 70 H (40-60) mg/dL Assessment and Plan (1) Left lower quadrant pain Narrative/Plan: 74-year-old female with acute onset left lower quadrant pain that began yester day. Suspect possible rectus hematoma. We'll order CT abdomen and pelvis at this time. Current Visit: Yes Status: Acute Code(s): R10.32 - LEFT LOWER QUADRANT PAIN SNOMED Code(s): 666258754
[2020-03-04 17:00] LABS: Glucose,Whole Blood 228 mg/dL (75-99)
--- NOTE | 2020-03-04 20:16 | CT ---
EXAMINATION TYPE: CT abdomen pelvis wo con DATE OF EXAM: 03/04/2020 HISTORY: Left lower quadrant abdominal pain. Possible rectal sheath hematoma. CT DLP: 860.6 mGycm. Automated Exposure Control for Dose Reduction was Utilized. TECHNIQUE: CT scan of the abdomen and pelvis is performed with oral but without IV contrast. COMPARISON: CT abdomen and pelvis May 19, 2017 FINDINGS: Within the limitations of a non-contrast study, the following observations are made. LUNG BASES: Heart size stable and upper limits of normal. Partial visualization of pacemaker wires on current study. Tiny anterior and inferior pericardial effusion. LIVER/GB: Cholecystectomy clips. Stable mild extrahepatic biliary dilatation up to 12 mm near the por ta hepatis coronal image 34 PANCREAS: No significant abnormality is seen. SPLEEN: No significant abnormality is seen. ADRENALS: Slight asymmetric thickening left adrenal gland. KIDNEYS: No renal stones or hydronephrosis is present bilaterally. BOWEL: Oral contrast reaches level of splenic flexure. No suspicious small or large bowel dilatation. Diverticula in the sigmoid colon with [id number]-pj-zurlojkk wall thickening. Clump of nonopacified small bowel loops seen anterior pelvis. GENITAL ORGANS: Uterus surgically absent or markedly atrophic. Scattered pelvic phleboliths. LYMPH NODES: No greater than 1cm abdominal or pelvic lymph nodes are appreciated. OSSEOUS STRUCTURES: Metallic hardware from total right hip arthroplasty causes streak artifact limiti ng evaluation of pelvic structures. Levoconvex scoliosis redemonstrated. Moderate to severe disc spac e narrowing L4-L5 level. Additional [id number] multilevel disc space narrowing and vacuum disc phenomenon throughout the thoracolumbar spine with mild to moderate multilevel anterior and lateral s purring. Slight grade 1 anterolisthesis L3 on L4. OTHER: Moderate calcified plaque distal abdominal aorta extends into branch vessels. Rectus muscles s ymmetric and felt within normal limits. IMPRESSION: Distal colonic diverticulosis, no convincing CT evidence for acute diverticulitis. No acu te rectus sheath hematoma. No suspicious new or acute findings identified.
[2020-03-04 20:32] LABS: Glucose,Whole Blood 247 mg/dL (75-99)
[2020-03-04] MEDS: MELATONIN 3 MG TABLET PO PRN (21:26)
[2020-03-04] MEDS: ACETAMINOPHEN TAB 325 MG TAB PO PRN (21:26)
[2020-03-05 06:30] LABS: Glucose,Whole Blood 226 mg/dL (75-99)
[2020-03-05] MEDS: ACETAMINOPHEN TAB 325 MG TAB PO PRN (06:30)
[2020-03-05] MEDS: ONDANSETRON ODT 4 MG TAB PO PRN (06:30)
[2020-03-05 07:32] VITALS: BP 143/74; RESP 16; TEMP 98.2
[2020-03-05] MEDS: IPRATROPIUM-ALBUTEROL 3 ML NEB INHALATION SCH ×2 (07:40→11:35)
[2020-03-05] MEDS: INSULIN ASPART (NovoLOG) 100 UNIT/ML VIAL SQ SCH (07:45)
[2020-03-05] MEDS: INSULIN DETEMIR (LEVEMIR) 100 UNIT/ML SYR SQ SCH (07:45)
[2020-03-05] MEDS: LOSARTAN-HCTZ 50-12.5 MG 1 EACH TAB PO SCH (07:46)
[2020-03-05] MEDS: EZETIMIBE 10 MG TAB PO SCH (07:46)
[2020-03-05] MEDS: SERTRALINE 50 MG TAB PO SCH (07:46)
[2020-03-05] MEDS: DIPHENOX-ATROP 2.5-0.025 MG 1 EACH TAB PO SCH (07:46)
[2020-03-05] MEDS: METOPROLOL SUCCINATE (ER) 25 MG TAB.ER.24H PO SCH (07:47)
[2020-03-05] MEDS: methylPREDNISolone SOD SUCCI 40 MG/ML 1 ML VIAL IV SCH (07:47)
[2020-03-05] MEDS: cycloSPORINE 0.05% OPHTH 0.4 ML DROPERETTE BOTH EYES SCH (07:47)
[2020-03-05] MEDS: AZITHROMYCIN 500 MG TAB PO SCH (07:47)
[2020-03-05 07:59] VITALS: PULSE 79
[2020-03-05] MEDS ORDERED: ASPIRIN 81 MG PO SCH (09:00)
--- NOTE | 2020-03-05 09:54 | P.PN ---
Subjective Progress Note Date: 03/05/20 This is a 74-year-old female who follows regularly with Dr. Butterfield in the office. She has a documented history of hypertension, diabetes, hyperlipidemia, peripheral vascular disease, family history of premature coronary artery disease, history of nicotine dependence, asthma, osteoarthritis and irritable bowel syndrome. Patient also has a history of being diagnosed with a complete heart block for which she underwent a permanent pacemaker implantation. She presents to the hospital on this occasion with symptoms of sinus congestion, cough, mild headache, and generalized run down feeling. Patient went to the urgent care clinic, her blood pressure was elevated at that time, she was initiated on antibiotics. Patient also complained of some atypical chest discomfort in the midepigastric area. According to the patient, she also was having 2 days of diarrhea leading up to this. Cardiology consultation was requested because of the chest discomfort. Upon review of her office notes, patient had a Lexiscan stress test performed in May of this year which was normal, she also had an echocardiogram with Doppler study performed at that time which revealed a normal ejection fraction with mild aortic regurgitation. Patient states that she also received notification from [employer] of an abnormal rhythm that was sent over to the office. At the time of my examination this morning, patient denies any chest discomfort. Continues to have mild headache with sinus congestion. Chest x-ray did not reveal any evidence for acute pulmonary disease. EKG showed a ventricular paced rhythm, a sensed with underlying normal sinus rhythm mild ST depression noted in the anterior lateral leads. Blood pressure 165/70 with a heart rate of 90, 96% on room air. White blood cell count 9.7, hemoglobin 14.1, platelet count 301. Sodium 135, potassium 3.7, BUN 9, creatinine 0.6. Magnesium 1.7. Darnell virus negative, group A strep negative. Troponins 0.012, 0.015, 0.015. 03/05/2020 Patient was seen and examined this morning, yesterday the patient was twisting sideways and developed a sudden onset of left lower quadrant pain, she was seen in consultation by surgical services who ordered a CT of the pelvis and abdomen to rule out the possibility of an acute rectus sheath hematoma. The CT did not reveal any evidence for acute diverticulitis, no acute rectus sheath hematoma or any suspicious new findings. Echocardiogram with Doppler study remains pending. Blood pressure 142/70 with a heart rate in the 70s, 95% on room air. Objective - Vital Signs Vital signs: Vital Signs Temp 98.2 F 03/05/20 07:29 Pulse 79 03/05/20 07:58 Resp 16 03/05/20 07:29 BP 143/74 03/05/20 07:29 Pulse Ox 95 03/05/20 07:29 Intake & Output 03/04/20 03/05/20 03/05/20 18:59 06:59 18:59 Weight 92.986 kg Other: Voiding Method Toilet Toilet # Voids 1 1 - Exam PHYSICAL EXAMINATION: GENERAL: 74-year-old female in no acute distress at the time of my examination HEENT: Head is atraumatic, normocephalic. Pupils equal, round. Sclera anicteri c. Conjunctiva are clear. Mucous membranes of the mouth are moist. Neck is supple. There is no elevated jugular venous pressure. No carotid bruit is heard. HEART EXAMINATION: Heart S1-S2 systolic ejection murmur grade 2 over 4 is heard as well as a diastolic murmur CHEST EXAMINATION: Is reveal some mild scattered wheezing throughout ABDOMEN: Soft, nontender. Bowel sounds are heard. No organomegaly noted. EXTREMITIES: 2+ peripheral pulses with no evidence of peripheral edema and no calf tenderness noted. NEUROLOGIC patient is awake, alert and oriented 3 - Labs CBC & Chem 7: 03/03/20 11:38 03/03/20 10:49 Labs: Abnormal Lab Results - Last 24 Hours (Table) 03/04/20 03/04/20 03/04/20 Range/Units 11:55 16:59 20:31 POC Glucose (mg/dL) 258 H 228 H 247 H (75-99) mg/dL 03/05/20 Range/Units 06:28 POC Glucose (mg/dL) 226 H (75-99) mg/dL Microbiology - Last 24 Hours (Table) 03/03/20 10:21 Group A Strep Throat Culture - Final Throat Assessment and Plan Plan: Assessment and plan #1 atypical chest discomfort, not suggestive of acute coronary syndrome. Troponins 0.012, 0.015, 0.015. EKG shows a normal sinus rhythm with mild ST depression noted in the anterior lateral leads. Most recent stress test was performed in May of this year, negative for any reversible ischemia #2 symptoms of sinus congestion with associated cough, possible bronchitis #3 history of permanent pacemaker implantation and July of this year for complete heart block #4 hypertension #5 diabetes #6 hyperlipidemia #7 peripheral vascular disease #8 family history of premature coronary artery disease #9 prior history of smoking #10 asthma Plan We will review the patient's echocardiogram with Doppler study, we will follow t his patient on an as-needed basis only, please don't hesitate to call with any questions. Follow-up appointment in the office as an outpatient. DNP note has been reviewed, I agree with a documented findings and plan of care. Patient was seen and examined.
[2020-03-05] MEDS: BUDESONIDE 1 MG/2 ML NEBU INHALATION SCH (11:34)
--- NOTE | 2020-03-05 11:35 | P.PN ---
<Ruthann Aldrich - Last Filed: 03/05/20 11:31> Subjective Progress Note Date: 03/05/20 CHIEF COMPLAINT: Left lower quadrant pain HISTORY OF PRESENT ILLNESS: Patient developed left lower quadrant pain after she sat up and twisted sideways. There is concerns about a possible rectus sheath hematoma due to her being on IV heparin. Computed tomography scan of the abdomen and pelvis completed showing no evidence of acute rectus sheath hematoma. There is evidence of diverticulosis no evidence of diverticulitis. Patient reports some improvement in her pain. She is scheduled for discharge home today. She is afebrile. PHYSICAL EXAM: VITAL SIGNS: Reviewed. GENERAL: Well-developed in no acute distress. HEENT: No sclera icterus. Extraocular movements grossly intact. Moist buccal mucosa. Head is atraumatic, normocephalic. ABDOMEN: Soft. Nondistended. Nontender. No ecchymosis NEUROLOGIC: Alert and oriented. Cranial nerves II through XII grossly intact. ASSESSMENT: 1. Left lower quadrant abdominal pain improving. Rectus sheath hematoma ruled out on computed tomography scan. Pain could possibly be due to a muscle strain. PLAN: -No surgical intervention planned -Patient is stable for discharge Physician Microarray Specialist note has been reviewed by physician. Signing provider agrees with the documented findings, assessment, and plan of care. Objective - Vital Signs Vital signs: Vital Signs Temp 98.2 F 03/05/20 07:29 Pulse 79 03/05/20 07:58 Resp 16 03/05/20 07:29 BP 143/74 03/05/20 07:29 Pulse Ox 95 03/05/20 07:29 Intake & Output 03/04/20 03/05/20 03/05/20 18:59 06:59 18:59 Weight 92.986 kg Other: Voiding Method Toilet Toilet # Voids 1 1 - Labs CBC & Chem 7: 03/03/20 11:38 03/03/20 10:49 Labs: Abnormal Lab Results - Last 24 Hours (Table) 03/04/20 03/04/20 03/04/20 Range/Units 11:55 16:59 20:31 POC Glucose (mg/dL) 258 H 228 H 247 H (75-99) mg/dL 03/05/20 Range/Units 06:28 POC Glucose (mg/dL) 226 H (75-99) mg/dL Microbiology - Last 24 Hours (Table) 03/03/20 10:21 Group A Strep Throat Culture - Final Throat <Alin Bhatti - Last Filed: 03/05/20 12:15> Subjective As above. CAT scan reviewed. No obvious source for the patient's discomfort seen. Possible musculoskeletal strain given the history of pain after movement and twisting. Question small amount of free fluid in the lower mid abdomen. No further anticoagulation. Patient was doing better and being discharged. Follow-up as needed. Objective - Vital Signs Vital signs: Vital Signs Temp 98.2 F 03/05/20 07:29 Pulse 79 03/05/20 07:58 Resp 16 03/05/20 07:29 BP 143/74 03/05/20 07:29 Pulse Ox 95 03/05/20 07:29 Intake & Output 03/04/20 03/05/20 03/05/20 18:59 06:59 18:59 Weight 92.986 kg Other: Voiding Method Toilet Toilet # Voids 1 1 - Labs CBC & Chem 7: 03/03/20 11:38 03/03/20 10:49 Labs: Abnormal Lab Results - Last 24 Hours (Table) 03/04/20 03/04/20 03/05/20 Range/Units 16:59 20:31 06:28 POC Glucose (mg/dL) 228 H 247 H 226 H (75-99) mg/dL Microbiology - Last 24 Hours (Table) 03/03/20 10:21 Group A Strep Throat Culture - Final Throat Assessment and Plan (1) Left lower quadrant pain Status: Acute Code(s): R10.32 - LEFT LOWER QUADRANT PAIN SNOMED Code(s): 207214198
--- NOTE | 2020-03-05 18:26 | P.DS ---
Providers Date of admission: 03/03/20 12:44 Expected date of discharge: 03/05/20 Attending physician: Roshan Hoffman Consults: 03/03/20 12:44 Consult Physician Urgent Consulting Provider: [facility] Consult Reason/Comments: Unstable angina Do you want consulting provider notified?: Yes 03/04/20 14:25 Consult Physician Routine Consulting Provider: Alin Bhatti Consult Reason/Comments: known, Abdominal pain LLQ increased when coughs or moves Do you want consulting provider notified?: Yes Primary care physician: [facility] Course: Chief Complaint: Cough History of presenting complaint: This is a very pleasant 74-year-old patient of Dr. Guerrero. Chronic stable medical conditions include asthma, diabetes mellitus type 2, hypertension, hyperlipidemia, primary osteoarthritis irritable bowel syndrome, pacemaker. For 3 days patient started having respiratory symptoms. Slight headache, sinus congestion, cough increasing wheezing green phlegm. Also some chest tightness. To go blood pressure at home it is slightly elevated. Rundown to the local urgent care from that she was dilated ear. No fever. Tired rundown. Given breathing treatment the ER to which she felt a bit better. Admitted with COPD exacerbation and pneumonia. Started on Zithromax and ceftriaxone steroids. Also some chest pressure for which cardiology was consulted.-Had a stress test in May of this year was negative for any ischemia. Cleared by cardiology. Also had left lower quadrant pain. Computed tomography scan of the abdomen was unremarkable. Possibly muscle strain. Today-doing well today. Breathing much improved. Abdominal pain much improved. Had a bowel movement. No fever no chills. Discussed with the patient. Qu estions answered. Discussion and discharge planning more than 35 minutes Consultation: Dr. Valdez from cardiology Dr. Sweet from general surgery Physical examination: VITAL SIGNS: 98.5, 89, 16, 165/74, 96% room air GENERAL: Sitting up in bed EYES: Pupils equal. Conjunctiva normal. HEENT: External appearance of nose and ears normal, oral cavity grossly normal. NECK: JVD not raised; masses not palpable. HEART: First and second heart sounds are normal; no edema. LUNGS: Respiratory rate increased, decreased breaths on prolonged expiration . ABDOMEN: Soft, no tenderness, no guarding or rigidity, bowel sounds present, liver spleen not palpable, no masses palpable. PSYCH: Alert and oriented x3; mood and affect normal. INVESTIGATIONS, reviewed in the clinical context: Computed tomography scan of the abdomen pelvis-no acute LDL 70 Accu-Cheks 203, 258 Troponin I 0.015, 0.015 COVID 19 PCR-not detected Admission testing White count 9.7 hemoglobin 14.1 platelets 301 potassium 3.7 creatinine 0.68 Group A strep rapid negative EKG tracing personally reviewed by me- paced rhythm Chest x-ray film personally reviewed by me-subtle infiltrate left lower lobe Pro-calcitonin 0.05 Assessment: -Possible left lobe pneumonia, could be viral but,cover for gram-negative organism, POA -Acute COPD exacerbation in an ex-smoker, POA -Chronic irritable bowel syndrome -Diabetes mellitus type II on oral hypoglycemic -Hyperlipidemia -Essential hypertension -Primary osteoarthritis -Permanent pacemaker -Obesity BMI 31.2 -Malfunction of right hip prosthesis -Chest pain felt to be noncardiac. Stress test was negative earlier this year. Disposition: Home Patient Condition at Discharge: Stable Plan - Discharge Summary Discharge Rx Participant: No New Discharge Prescriptions: New Aspirin 81 mg PO DAILY chew Cefuroxime [Ceftin] 250 mg PO BID 3 Days #6 tab Cefuroxime [Ceftin] 250 mg PO BID 3 Days #4 tab Losartan-Hctz 50-12.5 mg [Hyzaar 50-12.5] 1 each PO HS #30 tab Tiotropium 18 Mcg/Puff [Spiriva] 1 puff INHALATION DAILY #1 device Metoprolol Succinate (ER) [Toprol XL] 25 mg PO DAILY #30 tab.er.24h Loratadine-Pseudoeph 5-120 mg [Claritin-D 12 Hour] 1 tab PO Q12HR #6 tab Continue Diphenoxylate HCl/Atropine [Lomotil] 4 tab PO DAILY Hyoscyamine Sulfate [Hyoscyamine Sulfate SL] 0.125 mg SL Q4H PRN PRN Reason: ABD PAIN Ezetimibe [Zetia] 10 mg PO DAILY Albuterol Sulfate [Proair Hfa] 2 puff INHALATION RT-Q4H PRN PRN Reason: Shortness Of Breath Ondansetron Odt [Zofran ODT] 4 mg PO Q12HR PRN PRN Reason: Nausea Acetaminophen Tab [Tylenol] 500 mg PO Q8H PRN PRN Reason: Fever And/ Or Pain cycloSPORINE 0.05% OPHTH SOLN [Restasis] 1 applicator BOTH EYES BID glipiZIDE [Glucotrol] 5 mg PO BID PRN PRN Reason: Blood Sugar - High Sertraline [Zoloft] 50 mg PO DAILY Insulin Glargine,Hum.rec.anlog [Lantus Solostar] 20 - 25 units SQ DAILY Ibuprofen [Motrin Ib] 400 mg PO Q8H PRN PRN Reason: Fever And/ Or Pain Discontinued aMILoride-HCTZ 5-50 mg [Moduretic 5-50] 0.5 tab PO DAILY Discharge Medication List Diphenoxylate HCl/Atropine [Lomotil] 4 tab PO DAILY 10/09/13 [History] Ezetimibe [Zetia] 10 mg PO DAILY 10/02/18 [History] Hyoscyamine Sulfate [Hyoscyamine Sulfate SL] 0.125 mg SL Q4H PRN 10/02/18 [History] Albuterol Sulfate [Proair Hfa] 2 puff INHALATION RT-Q4H PRN 04/18/19 [History] Ondansetron Odt [Zofran ODT] 4 mg PO Q12HR PRN 04/18/19 [History] Acetaminophen Tab [Tylenol] 500 mg PO Q8H PRN 03/03/20 [History] Ibuprofen [Motrin Ib] 400 mg PO Q8H PRN 03/03/20 [History] Insulin Glargine,Hum.rec.anlog [Lantus Solostar] 20 - 25 units SQ DAILY 03/03/20 [History] Sertraline [Zoloft] 50 mg PO DAILY 03/03/20 [History] cycloSPORINE 0.05% SHADE CAIN [Restasis] 1 applicator BOTH EYES BID 03/03/20 [History] glipiZIDE [Glucotrol] 5 mg PO BID PRN 03/03/20 [History] Aspirin 81 mg PO DAILY chew 03/05/20 [Rx] Cefuroxime [Ceftin] 250 mg PO BID 3 Days #4 tab 03/05/20 [Rx] Cefuroxime [Ceftin] 250 mg PO BID 3 Days #6 tab 03/05/20 [Rx] Loratadine-Pseudoeph 5-120 mg [Claritin-D 12 Hour] 1 tab PO Q12HR #6 tab 10/07/20 [Rx] Losartan-Hctz 50-12.5 mg [Hyzaar 50-12.5] 1 each PO HS #30 tab 03/05/20 [Rx] Metoprolol Succinate (ER) [Toprol XL] 25 mg PO DAILY #30 tab.er.24h 03/05/20 [Rx] Tiotropium 18 Mcg/Puff [Spiriva] 1 puff INHALATION DAILY #1 device 03/05/20 [Rx] Follow up Appointment(s)/Referral(s): Tom Guerrero DO [Primary Care Provider] - 1-2 days (Doctor Yolanda office will call with date and time for appointment) Discharge Disposition: HOME SELF-CARE
--- NOTE | 2020-03-05 19:00 | ECHOF ---
Referral Reason:chest pain MEASUREMENTS -------- HEIGHT: 172.7 cm WEIGHT: 93.0 kg BP: RVIDd: 3.5 cm (< 3.3) IVSd: 1.3 cm (0.6 - 1.1) LVIDd: 4.7 cm (3.9 - 5.3) LVPWd: 1.2 cm (0.6 - 1.1) IVSs: 1.5 cm LVIDs: 3.2 cm LVPWs: 1.3 cm LA Diam: 2.9 cm (2.7 - 3.8) LAESV Index (A-L): 21.81 ml/m Ao Diam: 3.0 cm (2.0 - 3.7) AV Cusp: 1.9 cm (1.5 - 2.6) MV EXCURSION: 18.742 mm (> 18.000) MV EF SLOPE: 52 mm/s (70 - 150) EPSS: 0.3 cm MV E Jonny: 0.48 m/s MV DecT: 196 ms MV A Jonny: 1.06 m/s MV E/A Ratio: 0.45 AR PHT: 527 ms RAP: 5.00 mmHg RVSP: 33.96 mmHg FINDINGS -------- Paced rhythm. This was a technically good study. The left ventricular size is normal. Left ventricular wall thickness is normal. Overall left vent ricular systolic function is low-normal with, an EF between 50 - 55 %. The right ventricle is normal in size. The left atrial size is normal. Normal LA size by volume 22+/-6 ml/m2. The right atrial size is normal. There is mild aortic valve sclerosis. There is sxjr-tm-msautcyt aortic regurgitation. Mild mitral annular calcification present. Mild mitral regurgitation is present. Mild tricuspid regurgitation present. Right ventricular systolic pressure is normal at < 35 mmHg. There is no pulmonic regurgitation present. The aortic root size is normal. There is no pericardial effusion. CONCLUSIONS -------- 1. This was a technically good study. 2. The left ventricular size is normal. 3. Overall left ventricular systolic function is low-normal with, an EF between 50 - 55 %. 4. The right ventricle is normal in size. 5. The left atrial size is normal. 6. Normal LA size by volume 22+/-6 ml/m2. 7. The right atrial size is normal. 8. There is mild aortic valve sclerosis. 9. There is bihz-mr-pyosyrrt aortic regurgitation. 10. Mild mitral annular calcification present. 11. Mild mitral regurgitation is present. 12. Mild tricuspid regurgitation present. 13. There is no pulmonic regurgitation present. 14. The aortic root size is normal. 15. There is no pericardial effusion. [employer] DISPATCHER: Angy Baltazar RDCS
--- NOTE | 2020-03-10 16:26 | CDI ---
Date: 03.10.2020 CDS/Prescription Eyeglass Maker Name: Karen Estevez Phone: If any questions, call Dunia [facility] Paintings Restorer at [phone] Patient Name: Cayla Felix Admit Date 03.03.20 Discharge Date: 03.05.20 ATTENTION: The [facility] Coding Staff appreciate your assistance in clarifying documentation. Please respond to the clarification below the line at the bottom and electronically sign. The [facility] Coding staff will review the response and follow-up if needed. Please note: Queries are made part of the Legal Health Record. If you have any questions, please contact the Paintings Restorer. Dear Dr. Hoffman In order to code to the greatest specificity and for the greatest reimbursement I need the following information: In your Discharge Summary you have documented admitted with COPD exacerbation and pneumonia under your History of presenting complaint. Then under you assessment you have possible left lob pneumonia, could be viral And in you PN (03.04.20) you have documented admitted with COPD exacerbation and pneumonia. Started on Zithromax and ceftriaxone steriods Dr. Gonsales consult under HPI says treated for possible left sided pneumonia MARIAM AcuñaC consult under assessment and in her PN(03.05.2020) it has possible bronchitis CXR has "no evidence for acute pulmonary disease" Please clarify: ____pneumonia ____bronchitis ____do not know Thank you for your kind consideration. see-discharge summary.no further change in documentation. MTDD
== END 2020-03-05 11:35 | disposition home or self-care (01) ==
LOC: EC 09:37 → 1SOBS 12:44
PROVIDERS: ADMIT Hospitalist; ATTEND Hospitalist
DX: J44.1 Chronic obstructive pulmonary disease with (acute) exacerbation (principal); R07.89 Other chest pain; R53.83 Other fatigue; R10.32 Left lower quadrant pain; R09.81 Nasal congestion; R94.31 Abnormal electrocardiogram [ECG] [EKG]; K58.9 Irritable bowel syndrome, unspecified; T84.091A Other mechanical complication of internal left hip prosthesis, initial encounter; E11.9 Type 2 diabetes mellitus without complications; R51.9 Headache, unspecified; I10 Essential (primary) hypertension; E78.00 Pure hypercholesterolemia, unspecified; E78.5 Hyperlipidemia, unspecified; M19.90 Unspecified osteoarthritis, unspecified site; K57.30 Diverticulosis of large intestine without perforation or abscess without bleeding; E66.9 Obesity, unspecified; I44.2 Atrioventricular block, complete; I71.4 Abdominal aortic aneurysm, without rupture; K57.90 Diverticulosis of intestine, part unspecified, without perforation or abscess without bleeding; I35.1 Nonrheumatic aortic (valve) insufficiency; R79.0 Abnormal level of blood mineral; I73.9 Peripheral vascular disease, unspecified; Z20.828 Contact with and (suspected) exposure to other viral communicable diseases; Z79.899 Other long term (current) drug therapy; Z79.4 Long term (current) use of insulin; Z79.1 Long term (current) use of non-steroidal anti-inflammatories (NSAID); Z91.09 Other allergy status, other than to drugs and biological substances; Z91.041 Radiographic dye allergy status; Z91.048 Other nonmedicinal substance allergy status; Z88.8 Allergy status to other drugs, medicaments and biological substances; Z88.1 Allergy status to other antibiotic agents; Z88.0 Allergy status to penicillin; Z91.013 Allergy to seafood; Z88.6 Allergy status to analgesic agent; Z85.828 Personal history of other malignant neoplasm of skin; Z87.11 Personal history of peptic ulcer disease; Z86.39 Personal history of other endocrine, nutritional and metabolic disease; Z90.49 Acquired absence of other specified parts of digestive tract; Z87.19 Personal history of other diseases of the digestive system; Z98.890 Other specified postprocedural states; Z90.710 Acquired absence of both cervix and uterus; Z96.641 Presence of right artificial hip joint; Z96.653 Presence of artificial knee joint, bilateral; Z95.0 Presence of cardiac pacemaker; Z98.41 Cataract extraction status, right eye; Z98.42 Cataract extraction status, left eye; Z96.1 Presence of intraocular lens; Z87.891 Personal history of nicotine dependence; Z68.31 Body mass index [BMI] 31.0-31.9, adult; Z87.09 Personal history of other diseases of the respiratory system; Z87.440 Personal history of urinary (tract) infections; Z87.39 Personal history of other diseases of the musculoskeletal system and connective tissue; Z87.898 Personal history of other specified conditions; Z80.6 Family history of leukemia; Z80.0 Family history of malignant neoplasm of digestive organs; Z80.8 Family history of malignant neoplasm of other organs or systems; Z82.49 Family history of ischemic heart disease and other diseases of the circulatory system; Z80.3 Family history of malignant neoplasm of breast
CPT/HCPCS: 96366 ×3; 96367; 96376 ×4; 96361; 96365; 96375; 99285; 36415; 94640 ×5; 93005; 93306; 80061; 80053; 83735; 84484; 85025; 85610; 85730 ×3; 87081; 87430; 84145; 71046; 74176; G0378 ×3; U0003; J0360; J1644 ×2; J2920 ×3; J2930; J0696 ×3

== ENCOUNTER → 2020-04-03 | Outpatient (CLI) | payer MEDICARE ==
[2020-04-03 14:38] LABS: Urine Creatinine 100.2 mg/dL
[2020-04-03 14:42] LABS: African American GFR (CKD) 73.5 (60.0-200.0); Albumin 4.2 g/dL (3.80-4.90); Anion Gap 7.6 mmol/L (4.00-12.00); BUN/Creat Ratio 22.22 Ratio (12.00-20.00); Calcium 9.7 mg/dL (8.7-10.3); Carbon Dioxide 28.4 mmol/L (21.6-31.8); Chol/HDL Ratio 2.95; Globulin 2.1 g/dL (1.6-3.3); LDL Cholesterol,Calculated 111.4 mg/dL (0.0-131.0); Non-African American GFR(CKD) 63.4 (60.0-200.0); Total Bilirubin 0.6 mg/dL (0.3-1.2); Total Protein 6.3 g/dL (6.2-8.2); VLDL Calculation 17.6 mg/dL (5.00-40.00)
[2020-04-03 15:46] LABS: Hemoglobin A1C 7.3 % (4.0-6.0)
== END | disposition home or self-care (01) ==
LOC: LABWHC1 07:57
PROVIDERS: ATTEND Internal Medicine Interventional Cardiology
DX: E78.2 Mixed hyperlipidemia (principal); E11.65 Type 2 diabetes mellitus with hyperglycemia
CPT/HCPCS: 36415; 80053; 80061; 82043; 82570; 83036; 84443

== ENCOUNTER → 2020-04-14 | Outpatient (CLI) | payer MEDICARE ==
--- NOTE | 2020-04-14 10:45 | US ---
EXAMINATION TYPE: US thyroid st tissue head/neck DATE OF EXAM: 01/05/2019 COMPARISON: US 02/07/2017 , 01/05/2019 CLINICAL HISTORY: E04.2 MULTINODULAR GOITER. GLAND SIZE: Right Lobe: 4.1 x 0.9 x 1.3 x 1.4 cm Overall Parenchyma: heterogenous Left Lobe: 4.8 x 1.0 x 1.1 cm Overall Parenchyma: heterogeneous Isthmus Thickness: 0.2 cm NODULES RIGHT: # of nodules measured on right: 1 1. 0.9 x 0.4 x 0.6 0.6 x 0.9 cm hypoechoic mixed nodule at the lower pole with well-defined margin s . This nodule is wider than tall and shows intranodular vascularity. Prior size: 0.8 x 0.6 x 0.9 cm LEFT: # of nodules measured on left: 2 1. 1.0 x 0.9 x 1.0cm isoechoic solid nodule at the lower pole with well- defined margins; . This nodule is wider than tall and shows intranodular vascularity. Prior size:1.0 X 0.7 x 0.9 cm 2. 1.0 x 0.9 x 1.0 cm isoechoic solid nodule at the mid pole with poorly defined margins; . This nodule is wider than tall and shows intranodular vascularity. Prior size: 1.4 X 0.9 x 1.0 cm ISTHMUS: # of nodules measured in the isthmus: 0 Bilateral neck scanned, no evidence of lymphadenopathy. Nodules as described. IMPRESSION: 1. Multiple nodular thyroid is essentially similar in appearance relative to the prior exam. There is incremental reduction in size of a 1 cm left thyroid nodule which previously measured 1.4 cm 2. Correlate for thyroiditis
== END | disposition home or self-care (01) ==
LOC: RADUSWWP 10:07
PROVIDERS: ATTEND Internal Medicine Endocrinology, Diabetes & Metabolism
DX: E04.2 Nontoxic multinodular goiter (principal); E11.65 Type 2 diabetes mellitus with hyperglycemia
CPT/HCPCS: 76536

== ENCOUNTER → 2020-06-18 | Outpatient (CLI) | payer MEDICARE ==
[2020-06-18 15:54] LABS: African American GFR (CKD) 84.2 (60.0-200.0); Anion Gap 6.9 mmol/L (4.00-12.00); Carbon Dioxide 28.1 mmol/L (21.6-31.8); Non-African American GFR(CKD) 72.6 (60.0-200.0); Potassium 4.7 mmol/L (3.5-5.5)
== END | disposition home or self-care (01) ==
LOC: LABWHC1 09:41
PROVIDERS: ATTEND Internal Medicine Interventional Cardiology
DX: I10 Essential (primary) hypertension (principal)
CPT/HCPCS: 36415; 80051; 82565; 84520

== ENCOUNTER → 2020-10-13 | Outpatient (CLI) | payer MEDICARE ==
[2020-10-13 11:29] LABS: Urine Creatinine 144.4 mg/dL
[2020-10-13 11:30] LABS: Albumin 4.1 g/dL (3.80-4.90); Albumin/Globulin Ratio 1.71 (1.60-3.17); Anion Gap 5.9 mmol/L (4.00-12.00); BUN/Creat Ratio 17.78 Ratio (12.00-20.00); Calcium 9.7 mg/dL (8.7-10.3); Carbon Dioxide 31.1 mmol/L (21.6-31.8); Chol/HDL Ratio 2.96; Globulin 2.4 g/dL (1.6-3.3); Potassium 4.1 mmol/L (3.5-5.5); Total Bilirubin 0.8 mg/dL (0.2-1.2); Total Protein 6.5 g/dL (6.2-8.2)
[2020-10-13 14:13] LABS: Hemoglobin A1C 6.7 % (4.0-6.0)
== END | disposition home or self-care (01) ==
LOC: LABWHC1 07:10
PROVIDERS: ATTEND Nurse Practitioner Adult Health
DX: E11.65 Type 2 diabetes mellitus with hyperglycemia (principal); E78.2 Mixed hyperlipidemia
CPT/HCPCS: 36415; 80053; 80061; 82043; 82570; 83036; 84443

== ENCOUNTER → 2021-02-20 | Outpatient (CLI) | payer MEDICARE ==
--- NOTE | 2021-02-20 13:56 | BD ---
EXAMINATION TYPE: Axial Bone Density DATE OF EXAM: 02/20/2021 COMPARISON: NONE CLINICAL HISTORY: Height: 5 FT 8 IN Weight: 194 FRAX RISK QUESTIONS: Alcohol (3 or more units per day): NO Family History (Parent hip fracture): YES Glucocorticoids (More than 3mos): NO (Ex: prednisone, prednisolone, methylprednisolone, dexamethasone, and hydrocortisone). History of Fracture in Adulthood: YES Secondary Osteoporosis: 1. Type 1 Diabetes: NO 2. Hyperthyroidism: NO 3. Menopause before 45: NO 4. Malnutrition: NO 5. Chronic liver disease: NO Rheumatoid Arthritis: NO Current Tobacco Use: NO RISK FACTORS HISTORY OF: Surgery to Spine/Hip(right/left)/Wrist (right/left): RT HIP REPLACEMENT When: AGE 62 Family History of Osteoporosis: NO Active: YES Diet low in dairy products/other sources of calcium: NO Postmenopausal woman: AGE 51 Take estrogen and/or progesterone medications: TOOK HRT FOR APPROX 5-7 YEARS Lost more than 2 inches in height since high school: YES MEDICATIONS: Additional Medications: AMILORIDE, LIMO DIL, INSULIN, EZETIMIBE,LOSARTAN, CITROL INE, BYDUREON, REST ASIS, REPAGLINIDE, INHALER NEEDED, ONDANSETRON,HYCO SIMINE, Additional History: EXAM MEASUREMENTS: Bone mineral densitometry was performed using the [employer] System. Bone mineral density as measured about the Lumbar spine is: ----- L1-L4(G/cm2): 1.418 T Score Values are as follows: ----- L2: 2.4 ----- L3: 3.4 ----- L4: 1.6 ----- L1-L4: 2.0 Bone mineral density has: DECREASED -3.4 % since study of: 2017 Bone mineral density about the L hip (g/cm2): 0.822 T Score values are as follows: -----L Neck: -1.6 -----L Total: -1.7 Bone mineral density has: DECREASED -1.7 % since study of: 2018 IMPRESSION: Osteopenia NOTE: T-SCORE=SD OF THE YOUNG ADULT MEAN.
== END | disposition home or self-care (01) ==
LOC: RADBDWWP 12:33
PROVIDERS: ATTEND Obstetrics & Gynecology
DX: M85.852 Other specified disorders of bone density and structure, left thigh (principal)
CPT/HCPCS: 77080

== ENCOUNTER 2021-02-26 04:56 | Inpatient (IN) | payer MEDICARE ==
--- NOTE | 2021-02-26 05:21 | ED ---
Fall HPI - General Source: patient, family, RN notes reviewed, old records reviewed Mode of arrival: ambulatory Limitations: no limitations - History of Present Illness MD Complaint: fall, other (Severe right-sided abdominal pain) -: hour(s) (8) Fall From: standing When Fall Occurred: 4-6 hours [employer] TECH[employer] ARCHIT[employer] Fall Witnessed: yes, by family Place Fall Occurred: home Loss of Consciousness: none Prolonged Down Time?: no Symptoms Prior to Fall: none Location: abdomen Severity: severe Severity scale (1-10): 9 Quality: sharp Context: tripped/slipped Associated Symptoms: denies <Kyler Castaneda - Last Filed: 02/26/21 06:47> <Toni Mcgowan - Last Filed: 02/26/21 08:45> - General Chief Complaint: Fall Stated Complaint: Fall, side and back pain Time Seen by Provider: 02/26/21 05:07 - History of Present Illness Initial Comments: This is a 71-year-old female comes emergency department today after a fall. Fall from a fall in her bathroom. She lost balance that she was standing up fell backwards and onto her right side with severe right-sided rib pain and abdominal pain. Patient went to bed as his fell occurred about 10 hours prior to arrival. The pain became unbearable and worse with more abdominal pain. No diaphoresis no feelings of syncope or near syncope, no other complaints no headache chest pain shortness of breath or abdominal pain. The patient admits the fall being currently mechanical (Kyler Castaneda) - Related Data Home Medications Medication Instructions Recorded Confirmed Diphenoxylate HCl/Atropine 4 tab PO DAILY 10/09/13 03/03/20 [Lomotil] Ezetimibe [Zetia] 10 mg PO DAILY 10/02/18 03/03/20 Hyoscyamine Sulfate [Hyoscyamine 0.125 mg SL Q4H PRN 10/02/18 03/03/20 Sulfate SL] Albuterol Sulfate [Proair Hfa] 2 puff INHALATION RT-Q4H PRN 04/18/19 03/03/20 Ondansetron Odt [Zofran ODT] 4 mg PO Q12HR PRN 04/18/19 03/03/20 Acetaminophen Tab [Tylenol] 500 mg PO Q8H PRN 03/03/20 03/03/20 Ibuprofen [Motrin Ib] 400 mg PO Q8H PRN 03/03/20 03/03/20 Insulin Glargine,Hum.rec.anlog 20 - 25 units SQ DAILY 03/03/20 03/03/20 [Lantus Solostar Pen] Sertraline [Zoloft] 50 mg PO DAILY 03/03/20 03/03/20 cycloSPORINE 0.05% OPHTH SOLN 1 applicator BOTH EYES BID 03/03/20 03/03/20 [Restasis] glipiZIDE [Glucotrol] 5 mg PO BID PRN 03/03/20 03/03/20 Previous Rx's Medication Instructions Recorded Aspirin 81 mg PO DAILY chew 03/05/20 Cefuroxime [Ceftin] 250 mg PO BID 3 Days #4 tab 03/05/20 Cefuroxime [Ceftin] 250 mg PO BID 3 Days #6 tab 03/05/20 Loratadine-Pseudoeph 5-120 mg 1 tab PO Q12HR #6 tab 03/05/20 [Claritin-D 12 Hour] Losartan-Hctz 50-12.5 mg [Hyzaar 1 each PO HS #30 tab 03/05/20 50-12.5] Metoprolol Succinate (ER) [Toprol 25 mg PO DAILY #30 tab.er.24h 03/05/20 XL] Tiotropium 18 Mcg/Puff [Spiriva] 1 puff INHALATION DAILY #1 device 03/05/20 Allergies Allergy/AdvReac Type Severity Reaction Status Date / Time adhesive Allergy Rash/Hives Verified 02/26/21 05:05 Iodinated Contrast Media Allergy Anaphylaxis Verified 02/26/21 05:05 [Iodinated Contrast Media - IV Dye] iodine Allergy Anaphylaxis Verified 02/26/21 05:05 lisinopril Allergy Anaphylaxis Verified 02/26/21 05:05 moxifloxacin HCl Allergy Rash/Hives Verified 02/26/21 05:05 [From Avelox] Penicillins Allergy Rash/Hives Verified 02/26/21 05:05 shellfish derived Allergy Anaphylaxis Verified 02/26/21 05:05 celecoxib [From Celebrex] AdvReac Nausea & Verified 02/26/21 05:05 Vomiting Review of Systems ROS Other: All systems not noted in ROS Statement are negative. <Kyler Castaneda B - Last Filed: 02/26/21 06:47> ROS Other: All systems not noted in ROS Statement are negative. <Toni Mcgowan Terrell - Last Filed: 02/26/21 08:45> ROS Statement: Those systems with pertinent positive or pertinent negative responses have been documented in the HPI. 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 History of Any Multi-Drug Resistant Organisms: None Reported Past Surgical History: Cholecystectomy, Hernia Repair, Hysterectomy, Joint Replacement, Orthopedic Surgery, Pacemaker, Tonsillectomy Additional Past Surgical History / Comment(s): 08/23/19 pacemaker, R inguinal hernia repair, abdominoplasty, sinus surgery, L foot hammer toe surgery, total R hip arhtroplasty, bilateral total knee replacements, thyroid nodules, EGD colonoscopies, skin cancer removed, bilateral cataract removals/lens implants. Past Anesthesia/Blood Transfusion Reactions: Motion Sickness Additional Past Anesthesia/Blood Transfusion Reaction / Comment(s): Pt has received blood in past. Type of Cardiac Device: Permanent Pacemaker Device Placement Date:: 08/23/19 Past Psychological History: No Psychological Hx Reported Smoking Status: Former smoker Past Alcohol Use History: None Reported Past Drug Use History: None Reported - Past Family History Mother Family Medical History: Cancer Additional Family Medical History / Comment(s): leukemia Brother(s) Family Medical History: Coronary Artery Disease (CAD) Additional Family Medical History / Comment(s): 2 brothers have CAD/pacemakers. Sister(s) Family Medical History: Cancer Additional Family Medical History / Comment(s): One sister of breast to lung cancer. Another sister from heart disease. Father Family Medical History: Myocardial Infarction ([place]) Additional Family Medical History / Comment(s): Father of a [place] at the age of 70 yrs. <Kyler Castaneda - Last Filed: 02/26/21 06:47> General Exam General appearance: alert, in no apparent distress, anxious Head exam: Present: atraumatic, normocephalic, normal inspection Eye exam: Present: normal appearance, PERRL, EOMI. Absent: scleral icterus, conjunctival injection, periorbital swelling ENT exam: Present: normal exam, mucous membranes moist Neck exam: Present: normal inspection. Absent: tenderness, meningismus, lymphadenopathy Respiratory exam: Present: normal lung sounds bilaterally. Absent: respiratory distress, wheezes, rales, rhonchi, stridor Cardiovascular Exam: Present: regular rate, normal rhythm, normal heart sounds. Absent: systolic murmur, diastolic murmur, rubs, gallop, clicks GI/Abdominal exam: Present: soft, tenderness (Right-sided abdominal tenderness and right-sided rib tenderness), normal bowel sounds. Absent: distended, guarding, rebound, rigid Extremities exam: Present: normal inspection, full ROM, normal capillary refill. Absent: tenderness, pedal edema, joint swelling, calf tenderness Back exam: Present: normal inspection Neurological exam: Present: alert, oriented X3, CN II-XII intact Psychiatric exam: Present: normal affect, normal mood Skin exam: Present: warm, dry, intact, normal color. Absent: rash <Kyler Castaneda - Last Filed: 02/26/21 06:47> Course <Kyler Castaneda - Last Filed: 02/26/21 06:47> Vital Signs 02/26/21 02/26/21 02/26/21 05:07 06:44 08:11 Temperature 98.5 F 98.8 F Pulse Rate 79 71 74 Respiratory 20 20 18 Rate Blood Pressure 155/77 179/87 169/83 O2 Sat by Pulse 96 97 97 Oximetry - Reevaluation(s) Reevaluation #1: 02/26/21 06:48 Medical record is reviewed (Kyler Castaneda) Reevaluation #2: 02/26/21 06:48 Patient has adequate pain control (Kyler Castaneda) Medical Decision Making - Lab Data Result diagrams: 02/26/21 05:29 02/26/21 05:29 <Kyler Castaneda - Last Filed: 02/26/21 06:47> - Lab Data Result diagrams: 02/26/21 05:29 02/26/21 05:29 <Toni Mcgowan - Last Filed: 02/26/21 08:45> - Medical Decision Making 75-year-old female who had presented status post fall in her bathroom with right flank injury. She has pain in the area associated with inspiration. Workup was initiated by previous physician and signed out at shift change. She does have 10th and 11th minimally displaced rib fracture and hemothorax. No intra- abdominal traumatic injury. She will be observed to the trauma service covered by Dr. Romero, with internal medicine on consultation. Repeat hemoglobin has been ordered for 6 hours. She will be continued on pain medication and incentive spirometry. (Toni Mcgowan) - Lab Data Lab Results 02/26/21 02/26/21 02/26/21 Range/Units 05:29 05:29 05:29 WBC 10.4 (3.8-10.6) k/uL RBC 4.89 (3.80-5.40) m/uL Hgb 14.4 (11.4-16.0) gm/dL Hct 42.5 (34.0-46.0) % MCV 86.8 (80.0-100.0) fL MCH 29.5 (25.0-35.0) pg MCHC 34.0 (31.0-37.0) g/dL RDW 13.0 (11.5-15.5) % Plt Count 355 (150-450) k/uL MPV 7.3 Neutrophils % 77 % Lymphocytes % 12 % Monocytes % 6 % Eosinophils % 2 % Basophils % 0 % Neutrophils # 8.1 H (1.3-7.7) k/uL Lymphocytes # 1.3 (1.0-4.8) k/uL Monocytes # 0.6 (0-1.0) k/uL Eosinophils # 0.2 (0-0.7) k/uL Basophils # 0.1 (0-0.2) k/uL Sodium 131 L (137-145) mmol/L Potassium 4.0 (3.5-5.1) mmol/L Chloride 97 L (98-107) mmol/L Carbon Dioxide 25 (22-30) mmol/L Anion Gap 9 mmol/L BUN 20 H (7-17) mg/dL Creatinine 0.66 (0.52-1.04) mg/dL Est GFR (CKD-EPI)AfAm >90 (>60 ml/min/1.73 sqM) Est GFR (CKD-EPI)NonAf 87 (>60 ml/min/1.73 sqM) Glucose 175 H (74-99) mg/dL Calcium 10.2 (8.4-10.2) mg/dL Phosphorus 3.6 (2.5-4.5) mg/dL Magnesium 1.7 (1.6-2.3) mg/dL Total Bilirubin 1.3 (0.2-1.3) mg/dL AST 39 H (14-36) U/L ALT 23 (4-34) U/L Alkaline Phosphatase 99 (38-126) U/L Creatine Kinase 198 H (30-135) U/L Total Protein 7.5 (6.3-8.2) g/dL Albumin 4.5 (3.5-5.0) g/dL Urine Color Yellow Urine Appearance Clear (Clear) Urine pH 6.5 (5.0-8.0) Ur Specific [place] 1.024 (1.001-1.035) Urine Protein Trace H (Negative) Urine Glucose (UA) Negative (Negative) Urine Ketones Trace H (Negative) Urine Blood Negative (Negative) Urine Nitrite Negative (Negative) Urine Bilirubin Negative (Negative) Urine Urobilinogen <2.0 (<2.0) mg/dL Ur Leukocyte Esterase Negative (Negative) Critical Care Time Critical Care Time: Yes Total Critical Care Time: 35 <Toni Mcgowan - Last Filed: 02/26/21 08:45> Disposition <Kyler Castaneda - Last Filed: 02/26/21 06:47> Is patient prescribed a controlled substance at d/c from ED?: No Decision to Admit Reason: Admit from EC Decision Date: 02/26/21 Decision Time: 08:45 <Toni Mcgowan - Last Filed: 02/26/21 08:45> Clinical Impression: Fall, Multiple fractures of ribs, Hemothorax on right Disposition: ADMITTED IP TO THIS [facility] Condition: Stable Referrals: Tom Guerrero DO [Primary Care Provider] - 1-2 days
[2021-02-26] MEDS ORDERED: SODIUM CHLORIDE 0.9% 1,000 ML IV STA (05:26)
[2021-02-26] MEDS ORDERED: MORPHINE SULFATE 4 MG/ML SYRINGE IV STA (05:26)
[2021-02-26 05:52] LABS: Basophils # (A) 0.1 k/uL (0-0.2); Basophils % (A) 0 %; Eosinophils # (A) 0.2 k/uL (0-0.7); Eosinophils % (A) 2 %; HCT 42.5 % (34.0-46.0); HGB 14.4 gm/dL (11.4-16.0); Lymphocytes # (A) 1.3 k/uL (1.0-4.8); Lymphocytes % (A) 12 %; MCH 29.5 pg (25.0-35.0); MCV 86.8 fL (80.0-100.0); Mean Platelet Volume 7.3; Monocytes # (A) 0.6 k/uL (0-1.0); Monocytes % (A) 6 %; Neutrophils # (A) 8.1 k/uL (1.3-7.7); Neutrophils % (A) 77 %; Platelet Count 355 k/uL (150-450); RBC 4.89 m/uL (3.80-5.40); WBC 10.4 k/uL (3.8-10.6)
[2021-02-26] MEDS ORDERED: methylPREDNISolone SOD SUCCI 125 MG/2 ML VIAL IV STA (06:20)
[2021-02-26] MEDS ORDERED: diphenhydrAMINE 50 MG/ML 1 ML VIAL IVP STA (06:20)
[2021-02-26] MEDS ORDERED: FAMOTIDINE 20 MG/2 ML VIAL IV STA (06:20)
[2021-02-26 06:24] LABS: ALT 23 U/L (4-34); AST 39 U/L (14-36); African American GFR (CKD) >90 (>60 ml/min/1.73 sqM); Albumin 4.5 g/dL (3.5-5.0); Alkaline Phosphatase 99 U/L (38-126); Anion Gap 9 mmol/L; Appearance,Urine Clear (Clear); Bilirubin,Urine Negative (Negative); Blood Urea Nitrogen 20 mg/dL (7-17); Blood,Urine Negative (Negative); Calcium 10.2 mg/dL (8.4-10.2); Carbon Dioxide 25 mmol/L (22-30); Chloride 97 mmol/L (98-107); Color,Urine Yellow; Creatine Kinase 198 U/L (30-135); Glucose 175 mg/dL (74-99); Glucose,Urine (UA) Negative (Negative); Ketones,Urine Trace (Negative); Leukocyte Esterase,Urine Negative (Negative); Magnesium 1.7 mg/dL (1.6-2.3); Nitrite,Urine Negative (Negative); Non-African American GFR(CKD) 87 (>60 ml/min/1.73 sqM); PH, Urine 6.5 (5.0-8.0); Phosphorus 3.6 mg/dL (2.5-4.5); Protein,Urine Trace (Negative); Sodium 131 mmol/L (137-145); Specific Gravity,Urine 1.024 (1.001-1.035); Total Bilirubin 1.3 mg/dL (0.2-1.3); Total Protein 7.5 g/dL (6.3-8.2); Urobilinogen,Urine <2.0 mg/dL (<2.0)
[2021-02-26] MEDS ORDERED: MORPHINE SULFATE 4 MG/ML SYRINGE IVP STA (08:11)
--- NOTE | 2021-02-26 08:31 | CT ---
EXAMINATION TYPE: CT ChestAbdPelvis w con DATE OF EXAM: 02/26/2021 COMPARISON: Abdomen and pelvis 03/04/2020 HISTORY: 75-year-old female Fall, Rt side and back pain TECHNIQUE: Contiguous axial scanning of the chest, abdomen, and pelvis performed with IV Contrast, pa tient injected with 100 mL of Isovue 300. Delayed images through the kidneys were obtained. Coronal/s agittal reconstructions performed. CT DLP: 1216.8 mGycm Automated exposure control for dose reduction was used. FINDINGS: CHEST: Left anterior chest wall pacemaker generator with a right atrial and 2 right ventricular leads. Heart upper limits of normal in size without pericardial effusion. LAD coronary artery calcifications are present. Aortic root is ectatic at 3.8 cm. Ascending aorta ectatic at at 3.9 cm. No evidence for aortic dissec tion. Conventional arch vessel branching anatomy. Mild atherosclerotic arch calcifications. No thoracic lymphadenopathy. There is a small right pleural effusion with adjacent patchy opacity, likely atelectasis in the right lower lobe. Additional strandy atelectasis at the left base. Nondisplaced to minimally offset fractures of the right posterior 10th and 11th ribs. No pneumothorax. ABDOMEN: Small amount of focal fat along the anterior falciform ligament. Portal venous system is patent. Bile duct mildly dilated measuring up to 1.3 cm, unchanged, likely due to postcholecystectomy status and patient's age. Adrenal glands, kidneys, spleen, and pancreas within normal limits. Hilar splenule noted. Tiny 9 x 5 mm saccular aneurysm from the left anterolateral distal abdominal aorta. This is unchanged from 03/04/2020. Prominent scattered fluid-filled small bowel loops in the mid and lower abdomen. Normal appendix. No dilated small bowel, free fluid, or free air. PELVIS: Extensive metal artifact from the patient's right hip arthroplasty. Bladder is urine distended. There is limited distal third sigmoid colonic circumferential wall thickening, axial image 109. Associated diverticular change. Difficult to exclude mild pericolonic fat stranding. Pelvic phleboliths. Uterus appears to be surgically absent. Neither ovary is visualized. No abnormal fluid collection in the pe lvis. Prominent but nonenlarged 1.3 cm short axis left inguinal lymph node. Bones: Advanced hypertrophic facet arthropathy throughout the lumbar spine with grade 1 anterolisthesis L2-L 3 and L3-L4. Right-sided rib fractures as mentioned above. IMPRESSION: 1. NONDISPLACED TO MINIMALLY OFFSET FRACTURES OF THE RIGHT POSTERIOR 10TH AND 11TH RIBS. 2. UNDERLYING SMALL RIGHT-SIDED PLEURAL EFFUSION/HEMOTHORAX WITH ADJACENT ATELECTASIS. NO OTHER ACUTE TRAUMATIC SEQUELAE IDENTIFIED IN THE CHEST, ABDOMEN, OR PELVIS. 3. SIGMOID DIVERTICULOSIS. THERE IS MODERATE CIRCUMFERENTIAL WALL THICKENING AND POSSIBLE MILD ADJACE NT FAT STRANDING ALONG THE DISTAL SIGMOID COLON. CORRELATE FOR ANY SYMPTOMS OF ACUTE DIVERTICULITIS. DIRECT VISUALIZATION IS RECOMMENDED AFTER ANY POTENTIAL TREATMENT TO EXCLUDE THE POSSIBILITY OF COLON CANCER HERE. 4. INCIDENTAL SMALL 9 X 5 MM SACCULAR ANEURYSM FROM THE LEFT ANTEROLATERAL DISTAL ABDOMINAL AORTA. TH IS SEEMS 7 PRESENT ON 03/04/2020 WELL IN RETROSPECT.
[2021-02-26] MEDS ORDERED: NALOXONE 0.4 MG/ML 1 ML VIAL IV PRN (08:41)
[2021-02-26] MEDS ORDERED: ACETAMINOPHEN TAB 325 MG TAB PO PRN (08:41)
--- NOTE | 2021-02-26 08:43 | XR ---
EXAMINATION TYPE: XR chest 1V portable DATE OF EXAM: 02/26/2021 HISTORY: Shortness of breath. COMPARISON: None. TECHNIQUE: Single view of the chest is submitted. FINDINGS: Demonstrated are scattered senescent parenchymal change. There is patchy infiltrate right medial lung base. Correlate for pneumonia. The heart is stable. Hilar and mediastinal structures are within normal limits. Degenerative changes are seen of the dorsal spine. IMPRESSION: 1. Correlate for right lower lobe pneumonia.
[2021-02-26] MEDS ORDERED: ALBUTEROL NEBULIZED 2.5 MG/3 ML INHALATION PRN (10:19)
[2021-02-26] MEDS ORDERED: ONDANSETRON ODT 4 MG TAB PO PRN (10:19)
[2021-02-26] MEDS ORDERED: ONDANSETRON 4 MG/2 ML VIAL IVP PRN (10:50)
[2021-02-26] MEDS: SERTRALINE 50 MG TAB PO SCH (11:41)
[2021-02-26] MEDS: EZETIMIBE 10 MG TAB PO SCH (11:41)
[2021-02-26] MEDS: LOSARTAN 50 MG TAB PO SCH (11:41)
[2021-02-26] MEDS: cycloSPORINE 0.05% OPHTH 0.4 ML DROPERETTE BOTH EYES SCH ×2 (11:41→21:28)
[2021-02-26] MEDS: DIPHENOX-ATROP 2.5-0.025 MG 1 EACH TAB PO SCH ×2 (11:48→21:28)
[2021-02-26 12:34] LABS: Glucose,Whole Blood 202 mg/dL (75-99)
[2021-02-26 12:58] LABS: Basophils % (A) 0 %; Eosinophils % (A) 0 %; HCT 42.4 % (34.0-46.0); HGB 13.5 gm/dL (11.4-16.0); Lymphocytes # (A) 0.4 k/uL (1.0-4.8); Lymphocytes % (A) 5 %; MCH 28.9 pg (25.0-35.0); MCHC 31.8 g/dL (31.0-37.0); MCV 90.8 fL (80.0-100.0); Mean Platelet Volume 7.7; Monocytes # (A) 0.1 k/uL (0-1.0); Monocytes % (A) 1 %; Neutrophils # (A) 7.3 k/uL (1.3-7.7); Neutrophils % (A) 93 %; Platelet Count 352 k/uL (150-450); RBC 4.66 m/uL (3.80-5.40); RDW 12.7 % (11.5-15.5); WBC 7.8 k/uL (3.8-10.6)
[2021-02-26] MEDS: MORPHINE SULFATE 4 MG/ML SYRINGE IV PRN (14:01)
--- NOTE | 2021-02-26 14:44 | P.GSHP ---
History of Present Illness H&P Date: 02/26/21 CHIEF COMPLAINT: Fall with right-sided rib pain HISTORY OF PRESENT ILLNESS: This is a 75-year-old female who presented to the emergency room after falling in her bathroom. Patient reports that she was bent over putting medication on her legs became dizzy and lightheaded. She lost her balance and landed on the bathtub hitting her right sided of the rib cage. Patient had significant pain. Pain was uncontrolled. She also complained of right-sided abdominal pain. She reports is difficult to take in a deep breath. She presented to the hospital for further evaluation and treatment she was found to have nondisplaced fracture of the right 10th and 11th rib as well as a small right pleural effusion and/or hemothorax. Patient does take Xarelto at home. She also has complained of some mild left lower quadrant abdominal pain. There is concerns of diverticulitis on the CAT scan. She reports history of diverticulitis in the past requiring antibiotics. She does get colonoscopies every 3 years. Patient denies any fever chills or sweats. Denies any nausea or vomiting. Denies any change in bowel habits. Denies any chest pain or shortness of breath. She is afebrile. Room air satting at 97%. Patient denies any loss of consciousness. Patient denies any injury to her head. PAST MEDICAL HISTORY: Diverticulitis, IBS, asthma, diabetes mellitus, GERD, hypertension, osteoarthritis, bronchitis, abdominal aortic aneurysm, aortic valve insufficiency, third-degree heart block with pacemaker, bleeding peptic ulcer disease, skin cancer, PVD, atrial fibrillation PAST SURGICAL HISTORY: Cholecystectomy, Hernia Repair, Hysterectomy, Joint Replacement, Orthopedic Surgery, Pacemaker, Tonsillectomy, R inguinal hernia repair, abdominoplasty, sinus surgery, L foot hammer toe surgery, total R hip arhtroplasty, bilateral total knee replacements, thyroid nodules, EGD colonoscopies, skin cancer removed, bilateral cataract removals/lens implants. MEDICATIONS: See list. ALLERGIES: See list. SOCIAL HISTORY: No illicit drug use. REVIEW OF SYSTEMS: CONSTITUTIONAL: Denies fever or chills. HEENT: Denies blurred vision, vision changes, or eye pain. Denies hemoptysis CARDIOVASCULAR: Denies chest pain or pressure. RESPIRATORY: No shortness of breath. GASTROINTESTINAL: See HPI for pertinent findings HEMATOLOGIC: Denies bleeding disorders. GENITOURINARY: Denies any blood in urine or increased urinary frequency. SKIN: Denies pruitis. Denies rash. PHYSICAL EXAM: VITAL SIGNS: Reviewed GENERAL: Well-developed in no acute distress. HEENT: No sclera icterus. Extraocular movements grossly intact. Moist buccal mucosa. Head is atraumatic, normocephalic. No nasal drainage. ABDOMEN: Soft. Nondistended. Tenderness left lower quadrant NEUROLOGIC: Alert and oriented. Cranial nerves II through XII grossly intact. Chest: Patient does have bruising along the right lateral rib cage LABORATORY DATA: WBC 7.8 hemoglobin 13.5 platelets 352 sodium 131 potassium 4.0 creatinine 0.66 glucose 175 Magnesium 1.7 AST 39 ALT 23 Urinalysis negative for infection COVID-19 not detected IMAGING: Computed tomography scan of chest abdomen and pelvis shows nondisplaced to minimally offset fractures of the right posterior 10th and 11th ribs. Underlying small right-sided pleural effusion/hemothorax with adjacent atelectasis. No other acute traumatic sequelae identified in the chest, abdomen or pelvis. Sigmoid diverticulosis. There is moderate circumferential wall thickening and possible mild adjacent fat stranding along the distal sigmoid colon. Correlate for any symptoms of acute diverticulitis. Direct visualization is recommended after any potential treatment to exclude the possibility of colon cancer. Incidental small 9 x 5 mm saccular aneurysm from the left anterior lateral distal abdominal aorta. This seems present on 03/04/2020 as well in retrospect Chest x-ray correlate for right lower lobe pneumonia ASSESSMENT: 1. Trauma to ribs secondary to fall 2. 10th and 11th right rib fractures nondisplaced to minimally offset 3. Right-sided pleural effusion/hemothorax with atelectasis 4. Acute diverticulitis with left lower quadrant abdominal pain PLAN: -Continue to monitor pulse oximetry -Encouraged patient to use incentive spirometer -Consults placed for medical management and pulmonary service for hemothorax and rib fracture -Continue pain medication as needed -Hold Xarelto -Continue regular diet -GI prophylaxis Protonix and DVT prophylaxis SCDs Physician Mirror Specialist note has been reviewed by physician. Signing provider agrees with the documented findings, assessment, and plan of care. 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 History of Any Multi-Drug Resistant Organisms: None Reported Past Surgical History: Cholecystectomy, Hernia Repair, Hysterectomy, Joint Replacement, Orthopedic Surgery, Pacemaker, Tonsillectomy Additional Past Surgical History / Comment(s): 08/23/19 pacemaker, R inguinal hernia repair, abdominoplasty, sinus surgery, L foot hammer toe surgery, total R hip arhtroplasty, bilateral total knee replacements, thyroid nodules, EGD colonoscopies, skin cancer removed, bilateral cataract removals/lens implants. Past Anesthesia/Blood Transfusion Reactions: Motion Sickness Additional Past Anesthesia/Blood Transfusion Reaction / Comment(s): Pt has received blood in past. Type of Cardiac Device: Permanent Pacemaker Device Placement Date:: 08/23/19 Past Psychological History: No Psychological Hx Reported Additional Psychological History / Comment(s): Pt resides with her spouse. She uses a cane prn for long distances. She drives. Smoking Status: Former smoker Past Alcohol Use History: None Reported Additional Past Alcohol Use History / Comment(s): Pt started smoking in 1968 and quit in 1988 Past Drug Use History: None Reported Additional Drug Use History / Comment(s): OCC USE - Past Family History Mother Family Medical History: Cancer Additional Family Medical History / Comment(s): leukemia Brother(s) Family Medical History: Coronary Artery Disease (CAD) Additional Family Medical History / Comment(s): 2 brothers have CAD/pacemakers. Sister(s) Family Medical History: Cancer Additional Family Medical History / Comment(s): One sister of breast to lung cancer. Another sister from heart disease. Father Family Medical History: Myocardial Infarction (NC) Additional Family Medical History / Comment(s): Father of a NC at the age of 70 yrs. Medications and Allergies Home Medications Medication Instructions Recorded Confirmed Type Diphenoxylate HCl/Atropine 4 tab PO BID 10/09/13 02/26/21 History [Lomotil] Ezetimibe [Zetia] 10 mg PO DAILY 10/02/18 02/26/21 History Hyoscyamine Sulfate [Hyoscyamine 0.125 mg SL Q4H PRN 10/02/18 02/26/21 History Sulfate SL] Albuterol Sulfate [Proair Hfa] 2 puff INHALATION RT-Q4H PRN 04/18/19 02/26/21 History Ondansetron Odt [Zofran ODT] 4 mg PO Q12HR PRN 04/18/19 02/26/21 History Acetaminophen Tab [Tylenol] 500 mg PO Q8H PRN 03/03/20 02/26/21 History Insulin Glargine,Hum.rec.anlog 20 - 25 units SQ DAILY 03/03/20 02/26/21 History [Lantus Solostar Pen] Sertraline [Zoloft] 50 mg PO DAILY 03/03/20 02/26/21 History cycloSPORINE 0.05% OPHTH SOLN 1 drop BOTH EYES BID 03/03/20 02/26/21 History [Restasis] Exenatide Microspheres [Bydureon 2 mg SQ SA 02/26/21 02/26/21 History Bcise Auto-Injector] Losartan [Cozaar] 50 mg PO DAILY 02/26/21 02/26/21 History Rivaroxaban [Xarelto] 20 mg PO HS 02/26/21 02/26/21 History aMILoride-HCTZ 5-50 mg [Moduretic 0.5 tab PO DAILY 02/26/21 02/26/21 History 5-50] Allergies Allergy/AdvReac Type Severity Reaction Status Date / Time adhesive Allergy Rash/Hives Verified 02/26/21 10:11 Iodinated Contrast Media Allergy Anaphylaxis Verified 02/26/21 10:11 [Iodinated Contrast Media - IV Dye] iodine Allergy Anaphylaxis Verified 02/26/21 10:11 lisinopril Allergy Anaphylaxis Verified 02/26/21 10:11 moxifloxacin HCl Allergy Rash/Hives Verified 02/26/21 10:11 [From Avelox] Penicillins Allergy Rash/Hives Verified 02/26/21 10:11 shellfish derived Allergy Anaphylaxis Verified 02/26/21 10:11 celecoxib [From Celebrex] AdvReac Nausea & Verified 02/26/21 10:11 Vomiting Surgical - Exam Vital Signs Temp Pulse Resp BP Pulse Ox 98.5 F 79 20 155/77 96 02/26/21 05:07 02/26/21 05:07 02/26/21 05:07 02/26/21 05:07 02/26/21 05:07 Results - Labs 02/26/21 12:34 02/26/21 05:29 Abnormal Lab Results - Last 24 Hours (Table) 02/26/21 02/26/21 02/26/21 Range/Units 05:29 05:29 05:29 Neutrophils # 8.1 H (1.3-7.7) k/uL Lymphocytes # (1.0-4.8) k/uL Sodium 131 L (137-145) mmol/L Chloride 97 L (98-107) mmol/L BUN 20 H (7-17) mg/dL Glucose 175 H (74-99) mg/dL POC Glucose (mg/dL) (75-99) mg/dL AST 39 H (14-36) U/L Creatine Kinase 198 H (30-135) U/L Urine Protein Trace H (Negative) Urine Ketones Trace H (Negative) 02/26/21 02/26/21 Range/Units 12:33 12:34 Neutrophils # (1.3-7.7) k/uL Lymphocytes # 0.4 L (1.0-4.8) k/uL Sodium (137-145) mmol/L Chloride (98-107) mmol/L BUN (7-17) mg/dL Glucose (74-99) mg/dL POC Glucose (mg/dL) 202 H (75-99) mg/dL AST (14-36) U/L Creatine Kinase (30-135) U/L Urine Protein (Negative) Urine Ketones (Negative) Diabetes panel 02/26/21 Range/Units 05:29 Sodium 131 L (137-145) mmol/L Potassium 4.0 (3.5-5.1) mmol/L Chloride 97 L (98-107) mmol/L Carbon Dioxide 25 (22-30) mmol/L BUN 20 H (7-17) mg/dL Creatinine 0.66 (0.52-1.04) mg/dL Glucose 175 H (74-99) mg/dL Calcium 10.2 (8.4-10.2) mg/dL AST 39 H (14-36) U/L ALT 23 (4-34) U/L Alkaline Phosphatase 99 (38-126) U/L Total Protein 7.5 (6.3-8.2) g/dL Albumin 4.5 (3.5-5.0) g/dL Calcium panel 02/26/21 Range/Units 05:29 Calcium 10.2 (8.4-10.2) mg/dL Phosphorus 3.6 (2.5-4.5) mg/dL Albumin 4.5 (3.5-5.0) g/dL Pituitary panel 02/26/21 Range/Units 05:29 Sodium 131 L (137-145) mmol/L Potassium 4.0 (3.5-5.1) mmol/L Chloride 97 L (98-107) mmol/L Carbon Dioxide 25 (22-30) mmol/L BUN 20 H (7-17) mg/dL Creatinine 0.66 (0.52-1.04) mg/dL Glucose 175 H (74-99) mg/dL Calcium 10.2 (8.4-10.2) mg/dL Adrenal panel 02/26/21 Range/Units 05:29 Sodium 131 L (137-145) mmol/L Potassium 4.0 (3.5-5.1) mmol/L Chloride 97 L (98-107) mmol/L Carbon Dioxide 25 (22-30) mmol/L BUN 20 H (7-17) mg/dL Creatinine 0.66 (0.52-1.04) mg/dL Glucose 175 H (74-99) mg/dL Calcium 10.2 (8.4-10.2) mg/dL Total Bilirubin 1.3 (0.2-1.3) mg/dL AST 39 H (14-36) U/L ALT 23 (4-34) U/L Alkaline Phosphatase 99 (38-126) U/L Total Protein 7.5 (6.3-8.2) g/dL Albumin 4.5 (3.5-5.0) g/dL
[2021-02-26] MEDS: HYOSCYAMINE SULFATE 0.125 MG TAB PO PRN (15:13)
[2021-02-26] MEDS: HYDROcodone/APAP 5-325MG 1 EACH TAB PO PRN ×2 (16:02→21:29)
[2021-02-26] MEDS: PANTOPRAZOLE 40 MG TABLET PO SCH (16:02)
--- NOTE | 2021-02-26 16:20 | P.CNPUL ---
History of Present Illness Consult date: 02/26/21 Reason for consult: pleural effusion History of present illness: This is a 75-year-old female patient had a fall at home. She sustained a blunt trauma to her right sided rib cage. The patient was trying to bend over and she became dizzy and lightheaded and she essentially fell. She came in with significant right-sided chest wall pain. CAT scan of the chest was done and the patient was found to have fractures of the right 10th and 11th rib along with a small right-sided pleural effusion. Mother the patient was taken and to coagulation with Xarelto on outpatient basis. Also, the CAT scan of the abdomen showed possibility of diverticulitis. The patient is afebrile. The patient has no leukocytosis. The patient was started on a com bination of antibiotics and pulmonary consultation was requested regarding this right-sided pleural effusion. She is doing well for now. She is hemodynamically stable. She is known to have multiple medical problems and comorbidities. 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 She has also issues with atrial fibrillation and she has been maintained on Xarelto. She has previous history of peptic ulcers which is currently inactive and stable. She has an abdominal aortic aneurysm, diabetes mellitus, IBS, diverticulosis, degenerative arthritis and osteoarthritis. Her blood work show no acute abnormalities. The patient was admitted 7.8 with hemoglobin of 13.5. Platelet counts at 352. Glucose at 202. Urinalysis was negative. LFTs are normal. Electrolytes are normal. Calcium level is at 10.2. The BUN is at 20 with a creatinine of 0.6 and the sodium level of 131. Pulse ox on room air is around 97%. Pain control for now is with [place] 5/325 one tablet every 4-6 hours on a when necessary basis. She is on a combination of Levaquin and Flagyl for suspected diverticulitis. Her Xarelto has been placed on hold for now. As far as anticoagulation, the patient was taken out of Xarelto he had note that she had a remote bout of atrial fibrillation many years back and for that reason she was kept on anticoagulation. Since then, her cardiac rhythm has remained sinus. Review of Systems Constitutional: Denies chills, Denies fever Eyes: denies as per HPI, denies blurred vision, denies bulging eye, denies decreased vision, denies diplopia, denies discharge, denies dry eye, denies irritation, denies itching, denies pain, denies photophobia, denies loss of peripheral vision, denies loss of vision, denies tunnel vision/blind spots Ears: deny: decreased hearing, ear discharge, earache, tinnitus Ears, nose, mouth and throat: Reports as per HPI Breasts: absent: as per HPI, change in shape, gynecomastia, masses, nipple d ischarge, pain, skin changes, swelling Cardiovascular: Reports chest pain Respiratory: Reports as per HPI Gastrointestinal: Reports abdominal pain Genitourinary: Reports as per HPI Menstruation: Reports as per HPI Musculoskeletal: Reports as per HPI Musculoskeletal: absent: ankle pain, ankle stiffness, ankle swelling, as per HPI, elbow pain, elbow stiffness, elbow swelling, foot pain, foot stiffness, foot swelling, hand pain, hand stiffness, hand swelling, hip pain, hip stiffness, hip swelling, knee pain, knee stiffness, knee swelling, shoulder pain, shoulder stiffness, shoulder swelling, wrist pain, wrist stiffness, wrist swelling Integumentary: Reports as per HPI Neurological: Reports as per HPI Psychiatric: Reports as per HPI Endocrine: Reports as per HPI Hematologic/Lymphatic: Reports as per HPI Past Medical History Past Medical History: Asthma, Cancer, Diabetes Mellitus, GERD/Reflux, GI Bleed, Hypertension, Osteoarthritis (OA), Skin Disorder Additional Past Medical History / Comment(s): Bronchitis, sinus problems, IDDM type II, abdominal aortic aneurysm, aortic valve insufficiency, 3rd degree heart block/vertigo/pacer, IBS, past bleeding peptic ulcer, diverticulitis, IBS, lower GI bleed, arthritis in multiple joints, skin cancer with removals, R hip prosthesis and 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 History of Any Multi-Drug Resistant Organisms: None Reported Past Surgical History: Cholecystectomy, Hernia Repair, Hysterectomy, Joint Replacement, Orthopedic Surgery, Pacemaker, Tonsillectomy Additional Past Surgical History / Comment(s): 08/23/19 pacemaker, R inguinal hernia repair, abdominoplasty, sinus surgery, L foot hammer toe surgery, total R hip arhtroplasty, bilateral total knee replacements, thyroid nodules, EGD colonoscopies, skin cancer removed, bilateral cataract removals/lens implants. Past Anesthesia/Blood Transfusion Reactions: Motion Sickness Additional Past Anesthesia/Blood Transfusion Reaction / Comment(s): Pt has received blood in past. Type of Cardiac Device: Permanent Pacemaker Device Placement Date:: 08/23/19 Past Psychological History: No Psychological Hx Reported Additional Psychological History / Comment(s): Pt resides with her spouse. She uses a cane prn for long distances. She drives. Smoking Status: Former smoker Past Alcohol Use History: None Reported Additional Past Alcohol Use History / Comment(s): Pt started smoking in 1968 and quit in 1988 Past Drug Use History: None Reported Additional Drug Use History / Comment(s): OCC USE - Past Family History Mother Family Medical History: Cancer Additional Family Medical History / Comment(s): leukemia Brother(s) Family Medical History: Coronary Artery Disease (CAD) Additional Family Medical History / Comment(s): 2 brothers have CAD/pacemakers. Sister(s) Family Medical History: Cancer Additional Family Medical History / Comment(s): One sister of breast to lung cancer. Another sister from heart disease. Father Family Medical History: Myocardial Infarction (PR) Additional Family Medical History / Comment(s): Father of a PR at the age of 70 yrs. Medications and Allergies Home Medications Medication Instructions Recorded Confirmed Type Diphenoxylate HCl/Atropine 4 tab PO BID 10/09/13 02/26/21 History [Lomotil] Ezetimibe [Zetia] 10 mg PO DAILY 10/02/18 02/26/21 History Hyoscyamine Sulfate [Hyoscyamine 0.125 mg SL Q4H PRN 10/02/18 02/26/21 History Sulfate SL] Albuterol Sulfate [Proair Hfa] 2 puff INHALATION RT-Q4H PRN 04/18/19 02/26/21 History Ondansetron Odt [Zofran ODT] 4 mg PO Q12HR PRN 04/18/19 02/26/21 History Acetaminophen Tab [Tylenol] 500 mg PO Q8H PRN 03/03/20 02/26/21 History Insulin Glargine,Hum.rec.anlog 20 - 25 units SQ DAILY 03/03/20 02/26/21 History [Lantus Solostar Pen] Sertraline [Zoloft] 50 mg PO DAILY 03/03/20 02/26/21 History cycloSPORINE 0.05% OPHTH SOLN 1 drop BOTH EYES BID 03/03/20 02/26/21 History [Restasis] Exenatide Microspheres [Bydureon 2 mg SQ SA 02/26/21 02/26/21 History Bcise Auto-Injector] Losartan [Cozaar] 50 mg PO DAILY 02/26/21 02/26/21 History Rivaroxaban [Xarelto] 20 mg PO HS 02/26/21 02/26/21 History aMILoride-HCTZ 5-50 mg [Moduretic 0.5 tab PO DAILY 02/26/21 02/26/21 History 5-50] Allergies Allergy/AdvReac Type Severity Reaction Status Date / Time adhesive Allergy Rash/Hives Verified 02/26/21 10:11 Iodinated Contrast Media Allergy Anaphylaxis Verified 02/26/21 10:11 [Iodinated Contrast Media - IV Dye] iodine Allergy Anaphylaxis Verified 02/26/21 10:11 lisinopril Allergy Anaphylaxis Verified 02/26/21 10:11 moxifloxacin HCl Allergy Rash/Hives Verified 02/26/21 10:11 [From Avelox] Penicillins Allergy Rash/Hives Verified 02/26/21 10:11 shellfish derived Allergy Anaphylaxis Verified 02/26/21 10:11 celecoxib [From Celebrex] AdvReac Nausea & Verified 02/26/21 10:11 Vomiting Physical Exam Vitals: Vital Signs Temp Pulse Pulse Resp BP BP Pulse Ox 02/26/21 11:45 98.4 F 96 18 147/75 97 02/26/21 08:11 98.8 F 74 18 169/83 97 02/26/21 06:44 71 20 179/87 97 02/26/21 05:07 98.5 F 79 20 155/77 96 Intake and Output 02/26/21 02/26/21 02/26/21 06:59 14:59 22:59 Other: Weight 85.729 kg 85.729 kg Results - Laboratory Findings CBC and BMP: 02/26/21 12:34 02/26/21 05:29 Abnormal lab findings: Abnormal Labs 02/26/21 02/26/21 02/26/21 05:29 05:29 05:29 Neutrophils # 8.1 H Lymphocytes # Sodium 131 L Chloride 97 L BUN 20 H Glucose 175 H POC Glucose (mg/dL) AST 39 H Creatine Kinase 198 H Urine Protein Trace H Urine Ketones Trace H 02/26/21 02/26/21 12:33 12:34 Neutrophils # Lymphocytes # 0.4 L Sodium Chloride BUN Glucose POC Glucose (mg/dL) 202 H AST Creatine Kinase Urine Protein Urine Ketones Assessment and Plan Plan: 1 traumatic right-sided pleural effusion, questionable pneumothorax 2 traumatic right-sided rib fractures, 10 and 11 nondisplaced rib fractures 3 chest wall pain secondary to above 4 fall secondary to feeling lightheaded. It's possible the patient may have an underlying diverticulitis contributing to her subsequent lightheadedness and fall. Please refer to the CAT scan of the abdomen regarding the details of that diverticulitis 5 long-term anticoagulation with Xarelto for a bout of paroxysmal atrial fibrillation, current rhythm is sinus 6 previous history of pacemaker insertion 7 diabetes mellitus type 2 8 abdominal aortic aneurysm 9 aortic valve insufficiency 10 history of diverticulosis with irritable bowel disease and previous history of GI bleed 11 history of skin cancer Plan Cover the patient with a, Levaquin and Flagyl regarding possibility of diverticulitis Hydrate the patient with IV fluids Keep Xarelto on hold Right-sided pleural effusion fluid is small. He is small pneumothorax. No need for drainage. Repeat chest x-ray in the morning. Monitor hemoglobin and watch for any interval worsening or decompensation in her respiratory status. For now, her condition is stable. No need for thoracentesis or chest tube insertion. We'll offer this patient pain control with [place]. Outpatient medication will resume. Trauma surgeries on the case. General surgeries on the case. We'll continue to follow.
[2021-02-26] MEDS: LEVOFLOXACIN 500MG-D5W PMX 500 MG in DEXTROSE/WATER 1 100ML.BAG IVPB SCH (16:27)
--- NOTE | 2021-02-26 16:42 | P.CONS ---
History of Present Illness - Reason for Consult Consult date: 02/26/21 Medical management Requesting physician: Arik Romero - Chief Complaint Fall - History of Present Illness History of presenting complaint: This is a very pleasant 75-year-old patient of Dr. Guerrero. Chronic stable medical conditions include asthma, diabetes mellitus type 2, hypertension, hyperlipidemia, primary osteoarthritis irritable bowel syndrome, pacemaker. Patient's currently getting treated for skin cancer and using topical fluorouracil. Patient was in the bathroom and been down to put the cream on the legs. She did then rather suddenly and felt a bit lightheaded and suddenly stood up suddenly. [place] lightheaded again. Lost balance. Fell hitting the side of the bath tub on the right chest. As the pain became unbearable she decided to come in. Found to have right-sided posterior 10th and 11th ribs. Nondisplaced. No pneumothorax. Review of systems: GEN.: Tired EYES: None HEENT: None NECK: None RESPIRATORY: As above CARDIOVASCULAR: None GASTROINTESTINAL: Chronic intermittent diarrhea GENITOURINARY: None MUSCULOSKELETAL: Joint pains LYMPHATICS: None HEMATOLOGICAL: None PSYCHIATRY: None NEUROLOGICAL: None Past medical history to include: COPD, diabetes mellitus type 2, GERD, hypertension, osteoarthritis, abdominal aortic aneurysm, third-degree heart block-pacemaker, irritable bowel syndrome, leading peptic ulcer disease, diverticulosis, skin cancer removed, Social history: Smoked half a pack a day for 20 years stopped in 1988. Does not drink alcohol. . Physical examination: VITAL SIGNS: 98.8, 74, 18, 16 9 x 83, 97% room air GENERAL: BMI 28.7, sitting up in a chair, slightly uncomfortable EYES: Pupils equal. Conjunctiva normal. HEENT: External appearance of nose and ears normal, oral cavity grossly normal. NECK: JVD not raised; masses not palpable. HEART: First and second heart sounds are normal; no edema. LUNGS: Respiratory rate increased, decreased breaths ABDOMEN: Soft, no tenderness, no guarding or rigidity, bowel sounds present, liver spleen not palpable, no masses palpable. PSYCH: Alert and oriented x3; mood and affect normal. NEUROLOGICAL: Cranial nerves grossly intact; no facial asymmetry, power and sensation grossly intact. LYMPHATICS: No lymph nodes palpable in the axilla and neck MUSCULAR schedule: Evidence of OA especially in the hands INVESTIGATIONS, reviewed in the clinical context: White count 10.4 hemoglobin 14.4 latency 55 sodium 131 potassium 4 BUN 20 creatinine 0.66 Coronavirus [PCR]: Not detected Chest x-ray film personally reviewed by me-some haziness on the right base Computed tomography scan of the chest abdomen pelvis with contrast: Pacemaker generator, heart of the limit of normal, pleural effusion, some coronary artery calcification, small right pleural effusion with adjacent patchy opacities Assessment and plan: -Right posterior 10th and 11th rib fractures secondary to blunt injury following a fall -Fall likely precipitated by presyncope from suddenly bending down and then getting up. Patient advised to make movement changes slowly -Right basilar infiltrate in the region of the fracture likely pulmonary contusion and possible hemorrhage. Patient primary status is not compromised. Use incentive spirometry. -COPD in an ex-smoker DuoNeb 3 times a day -Chronic irritable bowel syndrome -Diabetes mellitus type II chronically on insulin Levemir 18 units subcu daily in the morning. Follow Accu-Cheks. Diabetic diet -Hyperlipidemia Zyrtec 10 mg daily -Essential hypertension Cozaar 50 mg a day -Paroxysmal atrial fibrillation, currently in sinus rhythm Hold off xarelto for now. -GERD Protonix 40 mg daily -Primary osteoarthritis Use pain medications as needed -Permanent pacemaker Telemetry -Malfunction of right hip prosthesis, being managed conservatively Care was discussed with the patient. Questions answered. Home medications resumed. Hold off xarelto for now. Incentive spirometry. Follow Accu-Cheks. DuoNeb. Thank you Dr. 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 History of Any Multi-Drug Resistant Organisms: None Reported Past Surgical History: Cholecystectomy, Hernia Repair, Hysterectomy, Joint R eplacement, Orthopedic Surgery, Pacemaker, Tonsillectomy Additional Past Surgical History / Comment(s): 08/23/19 pacemaker, R inguinal hernia repair, abdominoplasty, sinus surgery, L foot hammer toe surgery, total R hip arhtroplasty, bilateral total knee replacements, thyroid nodules, EGD colonoscopies, skin cancer removed, bilateral cataract removals/lens implants. Past Anesthesia/Blood Transfusion Reactions: Motion Sickness Additional Past Anesthesia/Blood Transfusion Reaction / Comm: Pt has received blood in past. Type of Cardiac Device: Permanent Pacemaker Device Placement Date:: 08/23/19 Past Psychological History: No Psychological Hx Reported Smoking Status: Former smoker Past Alcohol Use History: None Reported Past Drug Use History: None Reported - Past Family History Mother Family Medical History: Cancer Additional Family Medical History / Comment(s): leukemia Brother(s) Family Medical History: Coronary Artery Disease (CAD) Additional Family Medical History / Comment(s): 2 brothers have CAD/pacemakers. Sister(s) Family Medical History: Cancer Additional Family Medical History / Comment(s): One sister of breast to lung cancer. Another sister from heart disease. Father Family Medical History: Myocardial Infarction ([place]) Additional Family Medical History / Comment(s): Father of a MA at the age of 70 yrs. Medications and Allergies Home Medications Medication Instructions Recorded Confirmed Type Diphenoxylate HCl/Atropine 4 tab PO BID 10/09/13 02/26/21 History [Lomotil] Ezetimibe [Zetia] 10 mg PO DAILY 10/02/18 02/26/21 History Hyoscyamine Sulfate [Hyoscyamine 0.125 mg SL Q4H PRN 10/02/18 02/26/21 History Sulfate SL] Albuterol Sulfate [Proair Hfa] 2 puff INHALATION RT-Q4H PRN 04/18/19 02/26/21 History Ondansetron Odt [Zofran ODT] 4 mg PO Q12HR PRN 04/18/19 02/26/21 History Acetaminophen Tab [Tylenol] 500 mg PO Q8H PRN 03/03/20 02/26/21 History Insulin Glargine,Hum.rec.anlog 20 - 25 units SQ DAILY 03/03/20 02/26/21 History [Lantus Solostar Pen] Sertraline [Zoloft] 50 mg PO DAILY 03/03/20 02/26/21 History cycloSPORINE 0.05% OPHTH SOLN 1 drop BOTH EYES BID 10/05/20 09/30/21 History [Restasis] Exenatide Microspheres [Bydureon 2 mg SQ SA 02/26/21 02/26/21 History Bcise Auto-Injector] Losartan [Cozaar] 50 mg PO DAILY 02/26/21 02/26/21 History Rivaroxaban [Xarelto] 20 mg PO HS 02/26/21 02/26/21 History aMILoride-HCTZ 5-50 mg [Moduretic 0.5 tab PO DAILY 02/26/21 02/26/21 History 5-50] Allergies Allergy/AdvReac Type Severity Reaction Status Date / Time adhesive Allergy Rash/Hives Verified 02/26/21 10:11 Iodinated Contrast Media Allergy Anaphylaxis Verified 02/26/21 10:11 [Iodinated Contrast Media - IV Dye] iodine Allergy Anaphylaxis Verified 02/26/21 10:11 lisinopril Allergy Anaphylaxis Verified 02/26/21 10:11 moxifloxacin HCl Allergy Rash/Hives Verified 02/26/21 10:11 [From Avelox] Penicillins Allergy Rash/Hives Verified 02/26/21 10:11 shellfish derived Allergy Anaphylaxis Verified 02/26/21 10:11 celecoxib [From Celebrex] AdvReac Nausea & Verified 02/26/21 10:11 Vomiting Physical Exam Vitals: Vital Signs Temp Pulse Resp BP Pulse Ox 02/26/21 08:11 98.8 F 74 18 169/83 97 02/26/21 06:44 71 20 179/87 97 02/26/21 05:07 98.5 F 79 20 155/77 96 Intake and Output 02/25/21 02/26/21 02/26/21 22:59 06:59 14:59 Other: Weight 85.729 kg Results CBC & Chem 7: 02/26/21 12:34 02/26/21 05:29 Labs: Abnormal Lab Results - Last 24 Hours (Table) 02/26/21 02/26/21 02/26/21 Range/Units 05:29 05:29 05:29 Neutrophils # 8.1 H (1.3-7.7) k/uL Sodium 131 L (137-145) mmol/L Chloride 97 L (98-107) mmol/L BUN 20 H (7-17) mg/dL Glucose 175 H (74-99) mg/dL AST 39 H (14-36) U/L Creatine Kinase 198 H (30-135) U/L Urine Protein Trace H (Negative) Urine Ketones Trace H (Negative)
[2021-02-26] MEDS ORDERED: [UNRECOGNIZED DRUG - OTHER] PO SCH (16:45)
[2021-02-26 17:14] LABS: Glucose,Whole Blood 342 mg/dL (75-99)
[2021-02-26] MEDS: metroNIDAZOLE-NS PMX 500 MG in SALINE 1 100ML.BAG IVPB SCH (17:25)
[2021-02-26] MEDS: INSULIN ASPART (NovoLOG) 100 UNIT/ML VIAL SQ SCH ×2 (17:25→21:28)
[2021-02-26] MEDS ORDERED: INSULIN NPH 300 UNIT/3 ML VIAL SQ SCH (17:30)
[2021-02-26] MEDS ORDERED: INSULIN ASPART (NovoLOG) 100 UNIT/ML VIAL SQ SCH (17:30)
[2021-02-26] MEDS: IPRATROPIUM-ALBUTEROL 3 ML NEB INHALATION SCH ×2 (19:54)
[2021-02-26 21:06] LABS: Glucose,Whole Blood 245 mg/dL (75-99)
[2021-02-27] MEDS: metroNIDAZOLE-NS PMX 500 MG in SALINE 1 100ML.BAG IVPB SCH ×3 (00:08→17:37)
[2021-02-27] MEDS: MORPHINE SULFATE 4 MG/ML SYRINGE IV PRN ×3 (00:15→10:07)
[2021-02-27] MEDS: HYOSCYAMINE SULFATE 0.125 MG TAB PO PRN (05:12)
[2021-02-27 06:58] LABS: Glucose,Whole Blood 93 mg/dL (75-99)
[2021-02-27] MEDS: IPRATROPIUM-ALBUTEROL 3 ML NEB INHALATION SCH ×3 (07:22→23:41)
[2021-02-27] MEDS: INSULIN ASPART (NovoLOG) 100 UNIT/ML VIAL SQ SCH ×4 (07:44→20:40)
[2021-02-27] MEDS: DIPHENOX-ATROP 2.5-0.025 MG 1 EACH TAB PO SCH ×2 (07:45→20:36)
[2021-02-27] MEDS: SERTRALINE 50 MG TAB PO SCH (08:08)
[2021-02-27] MEDS: PANTOPRAZOLE 40 MG TABLET PO SCH (08:08)
[2021-02-27] MEDS: LOSARTAN 50 MG TAB PO SCH (08:08)
[2021-02-27] MEDS: HYDROcodone/APAP 5-325MG 1 EACH TAB PO PRN ×4 (08:08→20:28)
[2021-02-27] MEDS: EZETIMIBE 10 MG TAB PO SCH (08:09)
[2021-02-27] MEDS: cycloSPORINE 0.05% OPHTH 0.4 ML DROPERETTE BOTH EYES SCH ×2 (08:09→20:39)
[2021-02-27] MEDS: INSULIN DETEMIR (LEVEMIR) 100 UNIT/ML SYR SQ SCH (08:10)
[2021-02-27] MEDS ORDERED: DOCUSATE 100 MG CAP PO PRN (09:43)
[2021-02-27] MEDS: CYCLOBENZAPRINE 10 MG TAB PO PRN ×2 (10:07→17:41)
[2021-02-27 11:48] LABS: Glucose,Whole Blood 226 mg/dL (75-99)
--- NOTE | 2021-02-27 13:42 | P.PN ---
Subjective Progress Note Date: 02/27/21 CHIEF COMPLAINT: Fall with right-sided rib pain HISTORY OF PRESENT ILLNESS: Patient is complaining of pain along the right rib cage. She reports going through the night without pain medication and is hurt ing more this morning. She reports his pain with taking a deep breath. Denies shortness of breath. No new abdominal pain. She reports some improvement in her left lower quadrant abdominal pain. Denies any nausea or vomiting. Requesting muscle relaxer for her muscle spasms along the chest wall. She is having flatus. She is on room air satting at 97%. Afebrile. Patient seen by pulmonary service and medicine service. Per pulmonary service no need for thoracentesis or chest tube for patient's hemothorax. PHYSICAL EXAM: VITAL SIGNS: Reviewed. GENERAL: Well-developed in no acute distress. HEENT: No sclera icterus. Extraocular movements grossly intact. Moist buccal mucosa. Head is atraumatic, normocephalic. ABDOMEN: Soft. Nondistended. Nontender. NEUROLOGIC: Alert and oriented. Cranial nerves II through XII grossly intact. ASSESSMENT: 1. Trauma to ribs secondary to fall 2. 10th and 11th right rib fractures nondisplaced to minimally offset 3. Right-sided pleural effusion/hemothorax with atelectasis 4. Acute diverticulitis with left lower quadrant abdominal pain 4. Possible pneumonia PLAN: -Continue to monitor pulse oximetry -Encouraged patient to use incentive spirometer -Encouraged patient to ambulate -Consult physical therapy -Continue antibiotics -Check chest x-ray in a.m. -Continue pain medication as needed -Add Flexeril to help with muscle spasms and pain control -Hold Xarelto -Continue regular diet -Add Colace as needed for constipation -GI prophylaxis Protonix and DVT prophylaxis SCDs Physician [employer] Dual Rate Supervisor note has been reviewed by physician. Signing provider agrees with the documented findings, assessment, and plan of care. Objective - Vital Signs Vital signs: Vital Signs Temp 98.0 F 02/27/21 07:25 Pulse 62 02/27/21 08:00 Resp 18 02/27/21 08:00 BP 147/76 02/27/21 07:25 Pulse Ox 97 02/27/21 07:25 Intake & Output 02/26/21 02/27/21 02/27/21 18:59 06:59 18:59 Weight 85.729 kg Other: Voiding Method Toilet Toilet # Voids 3 1 - Labs CBC & Chem 7: 02/26/21 12:34 02/26/21 05:29 Labs: Abnormal Lab Results - Last 24 Hours (Table) 02/26/21 02/26/21 02/27/21 Range/Units 17:12 21:05 11:46 POC Glucose (mg/dL) 342 H 245 H 226 H (75-99) mg/dL
--- NOTE | 2021-02-27 14:30 | P.PN ---
Progress Note - Text Progress Note Date: 02/27/21 - Chief Complaint Fall History of presenting complaint: This is a very pleasant 75-year-old patient of Dr. Guerrero. Chronic stable medical conditions include asthma, diabetes mellitus type 2, hypertension, hyperlipidemia, primary osteoarthritis irritable bowel syndrome, pacemaker. Patient's currently getting treated for skin cancer and using topical fluorouracil. Patient was in the bathroom and been down to put the cream on the legs. She did then rather suddenly and felt a bit lightheaded and suddenly stood up suddenly. [place] lightheaded again. Lost balance. Fell hitting the side of the bath tub on the right chest. As the pain became unbearable she decided to come in. Found to have right-sided posterior 10th and 11th ribs. Nondisplaced. No pneumothorax. February 27: Sitting up in a chair. Pleuritic pain at the fracture site. Oral intake fair. Using incentive spirometry. No hemoptysis. Review of systems: Was done for constitutional, cardiovascular, GI, pulmonary. relevant finding as above Active Medications Acetaminophen (Acetaminophen Tab 325 Mg Tab) 650 mg PO Q6HR PRN PRN Reason: Mild Pain or Fever > 100.5 Hydrocodone Bitart/Acetaminophen (Hydrocodone/Apap 5-325mg 1 Each Tab) 1 each PO Q4HR PRN PRN Reason: Moderate Pain Last Admin: 02/27/21 12:26 Dose: 1 each Documented by: Albuterol Sulfate (Albuterol Nebulized 2.5 Mg/3 Ml) 2.5 mg INHALATION RT-Q4H PRN PRN Reason: Shortness Of Breath Albuterol/Ipratropium (Ipratropium-Albuterol 3 Ml Neb) 3 ml INHALATION TID [facility] Last Admin: 02/27/21 07:22 Dose: 3 ml Documented by: Cyclobenzaprine HCl (Cyclobenzaprine 10 Mg Tab) 10 mg PO BID PRN PRN Reason: Muscle Spasm Last Admin: 02/27/21 10:07 Dose: 10 mg Documented by: Cyclosporine (Cyclosporine 0.05% Ophth 0.4 Ml Droperette) 1 drops BOTH EYES BID [facility] Last Admin: 02/27/21 08:09 Dose: 1 drops Documented by: Diphenoxylate HCl/Atropine (Diphenox-Atrop 2.5-0.025 Mg 1 Each Tab) 4 each PO BID [facility] Last Admin: 02/27/21 07:45 Dose: Not Given Documented by: Docusate Sodium (Docusate 100 Mg Cap) 100 mg PO BID PRN PRN Reason: Constipation Ezetimibe (Ezetimibe 10 Mg Tab) 10 mg PO DAILY [facility] Last Admin: 02/27/21 08:09 Dose: 10 mg Documented by: Hyoscyamine (Hyoscyamine Sulfate 0.125 Mg Tab) 0.125 mg PO Q4H PRN PRN Reason: ABD PAIN Last Admin: 02/27/21 05:12 Dose: 0.125 mg Documented by: Levofloxacin 500 mg/ IV (Solution) 100 mls @ 100 mls/hr IVPB Q24H [facility] Last Admin: 02/26/21 16:27 Dose: 100 mls/hr Documented by: Metronidazole 500 mg/ IV (Solution) 100 mls @ 100 mls/hr IVPB Q8HR [facility] Last Admin: 02/27/21 08:09 Dose: 100 mls/hr Documented by: Insulin Aspart (Insulin Aspart (Novolog) 100 Unit/Ml Vial) 0 unit SQ [facility]; Protocol Last Admin: 02/27/21 12:27 Dose: 3 unit Documented by: Insulin Detemir (Insulin Detemir (Levemir) 100 Unit/Ml Syr) 18 unit SQ DAILY [facility] Last Admin: 02/27/21 08:10 Dose: 18 unit Documented by: Losartan Potassium (Losartan 50 Mg Tab) 50 mg PO DAILY [facility] Last Admin: 02/27/21 08:08 Dose: 50 mg Documented by: Morphine Sulfate (Morphine Sulfate 4 Mg/Ml Syringe) 4 mg IV Q4HR PRN PRN Reason: Severe Pain Last Admin: 02/27/21 10:07 Dose: 4 mg Documented by: Naloxone HCl (Naloxone 0.4 Mg/Ml 1 Ml Vial) 0.2 mg IV Q2M PRN PRN Reason: Opioid Reversal Exenatide Microspheres [ Bydureon Bcise Auto- Injector] 2 Mg/0.85 Ml Eac 2 mg SQ SA [facility] Ondansetron HCl (Ondansetron Odt 4 Mg Tab) 4 mg PO Q12HR PRN PRN Reason: Nausea Ondansetron HCl (Ondansetron 4 Mg/2 Ml Vial) 4 mg IVP Q6HR PRN PRN Reason: Nausea And Vomiting Pantoprazole Sodium (Pantoprazole 40 Mg Tablet) 40 mg PO AC-BRKFST [facility] Last Admin: 02/27/21 08:08 Dose: 40 mg Documented by: Sertraline HCl (Sertraline 50 Mg Tab) 50 mg PO DAILY [facility] Last Admin: 02/27/21 08:08 Dose: 50 mg Documented by: Past medical history to include: COPD, diabetes mellitus type 2, GERD, hypertension, osteoarthritis, abdominal aortic aneurysm, third-degree heart block-pacemaker, irritable bowel syndrome, leading peptic ulcer disease, diverticulosis, skin cancer removed, Social history: Smoked half a pack a day for 20 years stopped in 1988. Does not drink alcohol. . Physical examination: VITAL SIGNS: 97.6, 69, 17, 104/57, 95% room air GENERAL: Sitting up in a chair, awake EYES: Pupils equal. Conjunctiva normal. NECK: JVD not raised; masses not palpable. HEART: First and second heart sounds are normal; no edema. LUNGS: Respiratory rate increased, decreased breaths ABDOMEN: Soft, no tenderness, no guarding or rigidity, bowel sounds present, liver spleen not palpable, no masses palpable. PSYCH: Alert and oriented x3; mood and affect normal. MUSCULAR schedule: Evidence of OA especially in the hands INVESTIGATIONS, reviewed in the clinical context: February 27: WBC 7.8 hemoglobin 13.5 platelets 352 White count 10.4 hemoglobin 14.4 latency 55 sodium 131 potassium 4 BUN 20 creatinine 0.66 Coronavirus [PCR]: Not detected Chest x-ray film personally reviewed by me-some haziness on the right base Computed tomography scan of the chest abdomen pelvis with contrast: Pacemaker generator, heart of the limit of normal, pleural effusion, some coronary artery calcification, small right pleural effusion with adjacent patchy opacities Assessment and plan: -Right posterior 10th and 11th rib fractures secondary to blunt injury following a fall, pleuritic pain present -Fall likely precipitated by presyncope from suddenly bending down and then getting up. Patient advised to make movement changes slowly -Right basilar infiltrate in the region of the fracture likely pulmonary contusion and possible hemorrhage. Patient primary status is not compromised. Use incentive spirometry. -COPD in an ex-smoker DuoNeb 3 times a day -Chronic irritable bowel syndrome -Diabetes mellitus type II chronically on insulin Levemir 18 units subcu daily in the morning. Follow Accu-Cheks. Diabetic diet -Hyperlipidemia Zyrtec 10 mg daily -Essential hypertension Cozaar 50 mg a day -Paroxysmal atrial fibrillation, currently in sinus rhythm Hold off xarelto for now. -GERD Protonix 40 mg daily -Primary osteoarthritis Use pain medications as needed -Permanent pacemaker Telemetry -Malfunction of right hip prosthesis, being managed conservatively Care was discussed with the patient. Continue current treatment plan. Incentive spirometry. Pain control. Increase activity as tolerated. Repeat chest x-ray Thank you Dr. Romero
--- NOTE | 2021-02-27 14:54 | P.PN ---
Subjective Progress Note Date: 02/27/21 02/27/2021, the patient is ambulating in the hallway. She is calm and comfortable. Her pain is under good control. She has no major respiratory difficulties. She is on room air oxygen. She is having some GI discomfort which is probably related to diverticulitis. She did have some autoimmune earlier today. She remains on broad-spectrum antibiotics regarding the possibility of an acute diverticulitis. No nausea. No emesis. No fever. No chills. She remains on a combination of Levaquin and Flagyl regarding diverticulitis. No chest x-ray was done today. This will be repeated tomorrow. Objective - Vital Signs Vital signs: Vital Signs Temp 97.6 F 02/27/21 13:58 Pulse 69 02/27/21 13:58 Resp 17 02/27/21 13:58 BP 104/57 02/27/21 13:58 Pulse Ox 95 02/27/21 13:58 Intake & Output 02/26/21 02/27/21 02/27/21 18:59 06:59 18:59 Weight 85.729 kg Other: Voiding Method Toilet Toilet # Voids 3 1 - Exam GENERAL: Sitting up in a chair, awake EYES: Pupils equal. Conjunctiva normal. NECK: JVD not raised; masses not palpable. HEART: First and second heart sounds are normal; no edema. LUNGS: Respiratory rate increased, decreased breaths ABDOMEN: Soft, no tenderness, no guarding or rigidity, bowel sounds present, liver spleen not palpable, no masses palpable. PSYCH: Alert and oriented x3; mood and affect normal. MUSCULAR schedule: Evidence of OA especially in the hands - Labs CBC & Chem 7: 02/26/21 12:34 02/26/21 05:29 Labs: Abnormal Lab Results - Last 24 Hours (Table) 02/26/21 02/26/21 02/27/21 Range/Units 17:12 21:05 11:46 POC Glucose (mg/dL) 342 H 245 H 226 H (75-99) mg/dL Assessment and Plan Plan: 1 traumatic right-sided pleural effusion, questionable pneumothorax clinically stable 2 traumatic right-sided rib fractures, 10 and 11 nondisplaced rib fractures 3 chest wall pain secondary to above 4 fall secondary to feeling lightheaded. It's possible the patient may have an underlying diverticulitis contributing to her subsequent lightheadedness and fall. Please refer to the CAT scan of the abdomen regarding the details of that diverticulitis 5 long-term anticoagulation with Xarelto for a bout of paroxysmal atrial fibrillation, current rhythm is sinus 6 previous history of pacemaker insertion 7 diabetes mellitus type 2 8 abdominal aortic aneurysm 9 aortic valve insufficiency 10 history of diverticulosis with irritable bowel disease and previous history of GI bleed 11 history of skin cancer Plan Cover the patient with Ruth perez and Mark regarding possibility of diverticulitis Hydrate the patient with IV fluids Keep Xarelto on hold We'll repeat a chest x-ray tomorrow to evaluate the right-sided pleural effusion. I suspect things are stable. Continue using incentive spirometer. Continue ambulation. Advance diet as tolerated. We'll continue to follow. 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
[2021-02-27] MEDS: LEVOFLOXACIN 500MG-D5W PMX 500 MG in DEXTROSE/WATER 1 100ML.BAG IVPB SCH (16:16)
[2021-02-27 16:39] LABS: Glucose,Whole Blood 101 mg/dL (75-99)
[2021-02-27 20:31] LABS: Glucose,Whole Blood 119 mg/dL (75-99)
[2021-02-28] MEDS: HYDROcodone/APAP 5-325MG 1 EACH TAB PO PRN ×4 (00:29→12:30)
[2021-02-28] MEDS: metroNIDAZOLE-NS PMX 500 MG in SALINE 1 100ML.BAG IVPB SCH ×2 (00:29→08:01)
[2021-02-28 07:00] LABS: Glucose,Whole Blood 77 mg/dL (75-99)
--- NOTE | 2021-02-28 07:34 | XR ---
EXAMINATION TYPE: XR chest 2V DATE OF EXAM: 02/28/2021 COMPARISON: Chest x-ray and CT 2 days ago HISTORY: Hemothorax and pneumonia. TECHNIQUE: Frontal and lateral views of the chest are obtained. FINDINGS: There is persistent small to tiny right greater than left pleural effusions. There is left basilar scarring and/or atelectasis The cardiac silhouette size is upper limits of normal with pacem pippa. The osseous structures are demineralized. IMPRESSION: Persistent small tiny right greater than left pleural effusions. No new suspicious focal infiltrate.
[2021-02-28] MEDS: INSULIN ASPART (NovoLOG) 100 UNIT/ML VIAL SQ SCH ×2 (07:36→12:29)
[2021-02-28 07:49] LABS: HCT 35.6 % (34.0-46.0); HGB 12.2 gm/dL (11.4-16.0); MCH 30.1 pg (25.0-35.0); MCHC 34.3 g/dL (31.0-37.0); MCV 87.9 fL (80.0-100.0); Mean Platelet Volume 7.5; Platelet Count 310 k/uL (150-450); RBC 4.06 m/uL (3.80-5.40); RDW 13.3 % (11.5-15.5); WBC 7.1 k/uL (3.8-10.6)
[2021-02-28] MEDS: PANTOPRAZOLE 40 MG TABLET PO SCH (08:00)
[2021-02-28] MEDS: SERTRALINE 50 MG TAB PO SCH (08:00)
[2021-02-28] MEDS: EZETIMIBE 10 MG TAB PO SCH (08:00)
[2021-02-28] MEDS: INSULIN DETEMIR (LEVEMIR) 100 UNIT/ML SYR SQ SCH (08:00)
[2021-02-28] MEDS: LOSARTAN 50 MG TAB PO SCH (08:00)
[2021-02-28] MEDS: cycloSPORINE 0.05% OPHTH 0.4 ML DROPERETTE BOTH EYES SCH (08:00)
[2021-02-28] MEDS: DIPHENOX-ATROP 2.5-0.025 MG 1 EACH TAB PO SCH (08:01)
[2021-02-28] MEDS: IPRATROPIUM-ALBUTEROL 3 ML NEB INHALATION SCH (08:25)
[2021-02-28 08:28] VITALS: RESP 18
[2021-02-28 08:55] VITALS: BP 170/88; PULSE 69; TEMP 98.3
[2021-02-28 11:11] LABS: Glucose,Whole Blood 148 mg/dL (75-99)
--- NOTE | 2021-02-28 11:47 | P.PN ---
Subjective Progress Note Date: 02/28/21 The patient is seen today 02/28/2021 in follow-up on the regular medical floor. She is currently sitting up in a chair at the bedside. Awake and alert in no acute distress. Continue O2 saturations in the 90s on room air. She's been afebrile. White count 7.1. Hemoglobin 12.2. Glucose 148. She is continued on rhonchi dilators, Flagyl and Levaquin. Chest x-ray reveals persistent small tiny right greater than left pleural effusions. No suspicious focal infiltrates. Objective - Vital Signs Vital signs: Vital Signs Temp 98.3 F 02/28/21 08:54 Pulse 69 02/28/21 08:54 Resp 18 02/28/21 08:54 BP 170/88 02/28/21 08:54 Pulse Ox 97 02/28/21 08:54 Intake & Output 02/27/21 02/28/21 02/28/21 18:59 06:59 18:59 Intake Total 236 Balance 236 Intake: Oral 236 Other: Voiding Method Toilet Toilet Toilet # Voids 1 3 - Exam GENERAL EXAM: Alert, active, very pleasant 75 female patient, comfortable in no apparent distress. HEAD: Normocephalic. EYES: Normal reaction of pupils, equal size. NOSE: Clear with pink turbinates. THROAT: No erythema or exudates. NECK: No masses, no JVD. CHEST: No chest wall deformity. LUNGS: Equal air entry with faint crackles in the posterior bases. CVS: S1 and S2 normal with no audible murmur, regular rhythm. ABDOMEN: No hepatosplenomegaly, normal bowel sounds, no guarding or rigidity. SPINE: No scoliosis or deformity SKIN: No rashes CENTRAL NERVOUS SYSTEM: No focal deficits, tone is normal in all 4 extremities. EXTREMITIES: There is no peripheral edema. No clubbing, no cyanosis. Peripheral pulses are intact. - Labs CBC & Chem 7: 02/28/21 06:30 02/26/21 05:29 Labs: Abnormal Lab Results - Last 24 Hours (Table) 02/27/21 02/27/21 02/27/21 Range/Units 11:46 16:38 20:30 POC Glucose (mg/dL) 226 H 101 H 119 H (75-99) mg/dL 02/28/21 Range/Units 11:08 POC Glucose (mg/dL) 148 H (75-99) mg/dL Assessment and Plan Assessment: 1 traumatic right-sided pleural effusion, questionable pneumothorax clinically stable. Follow-up chest x-ray reveals no evidence of pneumothorax. Small tiny pleural effusions. 2 traumatic right-sided rib fractures, 10 and 11 nondisplaced rib fractures 3 chest wall pain secondary to above 4 fall secondary to feeling lightheaded. It's possible the patient may have an underlying diverticulitis contributing to her subsequent lightheadedness and fall. Please refer to the CAT scan of the abdomen regarding the details of that diverticulitis 5 long-term anticoagulation with Xarelto for a bout of paroxysmal atrial fibrillation, current rhythm is sinus 6 previous history of pacemaker insertion 7 diabetes mellitus type 2 8 abdominal aortic aneurysm 9 aortic valve insufficiency 10 history of diverticulosis with irritable bowel disease and previous history of GI bleed 11 history of skin cancer Plan The patient was seen and evaluated by Dr. Aguero Chest x-ray and labs reviewed Cleared for discharge from the pulmonary standpoint Complete course of antibiotics Continue to work with the incentive spirometer Follow closely with her PCP I, the cosigning physician, performed a history & physical examination of the patient. Lungs sounds faint crackles in posterior bases. Maintaining good O2 saturations in the 90s on room air. I discussed the assessment and plan of care with my nurse practitioner, Verónica Chamorro. I attest to the above note as dictated by her.
--- NOTE | 2021-02-28 12:39 | P.DS ---
Providers Date of admission: 02/26/21 08:41 Expected date of discharge: 02/28/21 Attending physician: Arik Romero Consults: 02/26/21 08:42 Consult Physician Routine Consulting Provider: Roshan Hoffman Consult Reason/Comments: Medical management Do you want consulting provider notified?: Yes 02/26/21 14:03 Consult Physician Routine Consulting Provider: Nola Aguero Consult Reason/Comments: Hemothorax, rib fracture Do you want consulting provider notified?: Yes Primary care physician: [facility] Course: This 75-year-old female who was admitted to the hospital with multiple rib fractures. Patient received supportive care. Patient Condition at Discharge: Good Plan - Discharge Summary Discharge Rx Participant: No New Discharge Prescriptions: New Docusate [Colace] 100 mg PO BID #20 cap oxyCODONE HCL [OxyIR] 5 mg PO Q6H PRN 3 Days #10 tab PRN Reason: Pain Ibuprofen [Motrin] 600 mg PO Q6HR PRN #40 tab PRN Reason: Pain Acetaminophen Tab [Tylenol] 650 mg PO Q6H #30 tab Continue Diphenoxylate HCl/Atropine [Lomotil] 4 tab PO BID Hyoscyamine Sulfate [Hyoscyamine Sulfate SL] 0.125 mg SL Q4H PRN PRN Reason: ABD PAIN Ezetimibe [Zetia] 10 mg PO DAILY Albuterol Sulfate [Proair Hfa] 2 puff INHALATION RT-Q4H PRN PRN Reason: Shortness Of Breath Ondansetron Odt [Zofran ODT] 4 mg PO Q12HR PRN PRN Reason: Nausea Acetaminophen Tab [Tylenol] 500 mg PO Q8H PRN PRN Reason: Fever And/ Or Pain cycloSPORINE 0.05% OPHTH SOLN [Restasis] 1 drop BOTH EYES BID Sertraline [Zoloft] 50 mg PO DAILY Insulin Glargine,Hum.rec.anlog [Lantus Solostar Pen] 20 - 25 units SQ DAILY Rivaroxaban [Xarelto] 20 mg PO HS Exenatide Microspheres [Bydureon Bcise Auto-Injector] 2 mg SQ SA aMILoride-HCTZ 5-50 mg [Moduretic 5-50] 0.5 tab PO DAILY Losartan [Cozaar] 50 mg PO DAILY Discharge Medication List Diphenoxylate HCl/Atropine [Lomotil] 4 tab PO BID 10/09/13 [History] Ezetimibe [Zetia] 10 mg PO DAILY 10/02/18 [History] Hyoscyamine Sulfate [Hyoscyamine Sulfate SL] 0.125 mg SL Q4H PRN 10/02/18 [History] Albuterol Sulfate [Proair Hfa] 2 puff INHALATION RT-Q4H PRN 04/18/19 [History] Ondansetron Odt [Zofran ODT] 4 mg PO Q12HR PRN 04/18/19 [History] Acetaminophen Tab [Tylenol] 500 mg PO Q8H PRN 03/03/20 [History] Insulin Glargine,Hum.rec.anlog [Lantus Solostar Pen] 20 - 25 units SQ DAILY 03/03/20 [History] Sertraline [Zoloft] 50 mg PO DAILY 03/03/20 [History] cycloSPORINE 0.05% OPHTH SOLN [Restasis] 1 drop BOTH EYES BID 03/03/20 [History] Exenatide Microspheres [Bydureon Bcise Auto-Injector] 2 mg SQ SA 02/26/21 [History] Losartan [Cozaar] 50 mg PO DAILY 02/26/21 [History] Rivaroxaban [Xarelto] 20 mg PO HS 02/26/21 [History] aMILoride-HCTZ 5-50 mg [Moduretic 5-50] 0.5 tab PO DAILY 02/26/21 [History] Acetaminophen Tab [Tylenol] 650 mg PO Q6H #30 tab 02/28/21 [Rx] Docusate [Colace] 100 mg PO BID #20 cap 02/28/21 [Rx] Ibuprofen [Motrin] 600 mg PO Q6HR PRN #40 tab 02/28/21 [Rx] oxyCODONE HCL [OxyIR] 5 mg PO Q6H PRN 3 Days #10 tab 02/28/21 [Rx] Follow up Appointment(s)/Referral(s): Tom Guerrero DO [Primary Care Provider] - 1-2 days Arik Romero MD [STAFF PHYSICIAN] - 1 Week Discharge Disposition: HOME SELF-CARE
--- NOTE | 2021-02-28 18:28 | P.PN ---
Progress Note - Text Progress Note Date: 02/28/21 - Chief Complaint Fall History of presenting complaint: This is a very pleasant 75-year-old patient of Dr. Guerrero. Chronic stable medical conditions include asthma, diabetes mellitus type 2, hypertension, hyperlipidemia, primary osteoarthritis irritable bowel syndrome, pacemaker. Patient's currently getting treated for skin cancer and using topical fluorouracil. Patient was in the bathroom and been down to put the cream on the legs. She did then rather suddenly and felt a bit lightheaded and suddenly stood up suddenly. [place] lightheaded again. Lost balance. Fell hitting the side of the bath tub on the right chest. As the pain became unbearable she decided to come in. Found to have right-sided posterior 10th and 11th ribs. Nondisplaced. No pneumothorax. February 27: Sitting up in a chair. Pleuritic pain at the fracture site. Oral intake fair. Using incentive spirometry. No hemoptysis. February 28: Sitting on chair. Breathing better. Using incentive spirometry. Much improved pleuritic pain. Oral intake.. Discussed with the patient. Review of systems: Was done for constitutional, cardiovascular, GI, pulmonary. relevant finding as above Current medications reviewed in today's electronic records Past medical history to include: COPD, diabetes mellitus type 2, GERD, hypertension, osteoarthritis, abdominal aortic aneurysm, third-degree heart block-pacemaker, irritable bowel syndrome, leading peptic ulcer disease, diverticulosis, skin cancer removed, Social history: Smoked half a pack a day for 20 years stopped in 1988. Does not drink alcohol. . Physical examination: VITAL SIGNS: 98.3, 69, 18, 170/88, 97% room air GENERAL: Sitting up in a chair, comfortable EYES: Pupils equal. Conjunctiva normal. NECK: JVD not raised; masses not palpable. HEART: First and second heart sounds are normal; no edema. LUNGS: Respiratory rate increased, decreased breath sounds ABDOMEN: Soft, no tenderness, no guarding or rigidity, bowel sounds present, liver spleen not palpable, no masses palpable. PSYCH: Alert and oriented x3; mood and affect normal. MUSCULAR schedule: Evidence of OA especially in the hands INVESTIGATIONS, reviewed in the clinical context: February 28: WBC 7.1 hemoglobin 12.2 February 27: WBC 7.8 hemoglobin 13.5 platelets 352 White count 10.4 hemoglobin 14.4 latency 55 sodium 131 potassium 4 BUN 20 creatinine 0.66 Coronavirus [PCR]: Not detected Chest x-ray film personally reviewed by me-some haziness on the right base Computed tomography scan of the chest abdomen pelvis with contrast: Pacemaker generator, heart of the limit of normal, pleural effusion, some coronary artery calcification, small right pleural effusion with adjacent patchy opacities Assessment and plan: -Right posterior 10th and 11th rib fractures secondary to blunt injury following a fall, pleuritic pain present -Fall likely precipitated by presyncope from suddenly bending down and then getting up. Patient advised to make movement changes slowly -Right basilar infiltrate in the region of the fracture likely pulmonary con tusion and possible hemorrhage. Patient pulmonary status is not compromised. Use incentive spirometry. -COPD in an ex-smoker DuoNeb 3 times a day -Chronic irritable bowel syndrome -Diabetes mellitus type II chronically on insulin Levemir Follow Accu-Cheks. Diabetic diet -Hyperlipidemia Zyrtec 10 mg daily -Essential hypertension Cozaar 50 mg a day -Paroxysmal atrial fibrillation, currently in sinus rhythm Resume xarelto -GERD Protonix 40 mg daily -Primary osteoarthritis Use pain medications as needed -Permanent pacemaker Telemetry -Malfunction of right hip prosthesis, being managed conservatively Care was discussed with the patient. Continue current treatment plan. Follow with PCP when discharged Thank you Dr. Romero
== END 2021-02-28 14:28 | disposition home or self-care (01) | DRG 183 ==
LOC: EC 04:56 → 5NMEDONC 08:41 → 4SSUR 12:38
PROVIDERS: ADMIT Surgery; ATTEND Surgery
DX: S22.41XA Multiple fractures of ribs, right side, initial encounter for closed fracture (principal); S27.1XXA Traumatic hemothorax, initial encounter; I44.2 Atrioventricular block, complete; J90 Pleural effusion, not elsewhere classified; J98.11 Atelectasis; K57.92 Diverticulitis of intestine, part unspecified, without perforation or abscess without bleeding; S27.329A Contusion of lung, unspecified, initial encounter; C44.90 Unspecified malignant neoplasm of skin, unspecified; E11.51 Type 2 diabetes mellitus with diabetic peripheral angiopathy without gangrene; E78.5 Hyperlipidemia, unspecified; I10 Essential (primary) hypertension; I35.1 Nonrheumatic aortic (valve) insufficiency; I48.0 Paroxysmal atrial fibrillation; I71.4 Abdominal aortic aneurysm, without rupture; J44.9 Chronic obstructive pulmonary disease, unspecified; K21.9 Gastro-esophageal reflux disease without esophagitis; K58.9 Irritable bowel syndrome, unspecified; M19.91 Primary osteoarthritis, unspecified site; W01.0XXA Fall on same level from slipping, tripping and stumbling without subsequent striking against object, initial encounter; Z20.822 Contact with and (suspected) exposure to COVID-19; Y92.002 Bathroom of unspecified non-institutional (private) residence as the place of occurrence of the external cause; Z79.01 Long term (current) use of anticoagulants; Z79.4 Long term (current) use of insulin; Z79.82 Long term (current) use of aspirin; Z79.899 Other long term (current) drug therapy; Z80.1 Family history of malignant neoplasm of trachea, bronchus and lung; Z80.6 Family history of leukemia; Z82.49 Family history of ischemic heart disease and other diseases of the circulatory system; Z87.11 Personal history of peptic ulcer disease; Z87.891 Personal history of nicotine dependence; Z90.710 Acquired absence of both cervix and uterus; Z95.0 Presence of cardiac pacemaker; Z96.1 Presence of intraocular lens; Z96.641 Presence of right artificial hip joint; Z96.653 Presence of artificial knee joint, bilateral; Z88.8 Allergy status to other drugs, medicaments and biological substances; Z91.041 Radiographic dye allergy status
CPT/HCPCS: 36415; 71045; 71046; 71260; 74177; 80053; 81003; 82550; 83735; 84100; 85025; 85027; 87635; 94640; 96374; 96375; 96376; 99291

== ENCOUNTER → 2021-04-14 | Outpatient (CLI) | payer MEDICARE ==
--- NOTE | 2021-04-16 13:40 | MM ---
Reason for exam: screening (asymptomatic). Last mammogram was performed 1 year and 4 months ago. History: Patient is postmenopausal and has history of other cancer at age 65. Family history of breast cancer in sister at age 80, breast cancer in cousin, and breast cancer in cousin at age 40. Excisional biopsy of the left breast. Took estrogen for 15 years. Took progesterone for 15 years. Physical Findings: A clinical breast exam by your physician is recommended on an annual basis and results should be correlated with mammographic findings. MG 3D Screening Mammo W/Cad Bilateral CC and MLO view(s) were taken. Prior study comparison: December 10, 2019, bilateral MG 3d screening mammo w/cad. November 24, 2018, bilateral MG 3d screening mammo w/cad. There are scattered fibroglandular densities. Generator device over the left pectoralis. No significant changes when compared with prior studies. ASSESSMENT: Negative, BI-RAD 1 RECOMMENDATION: Routine screening mammogram of both breasts in 1 year.
== END | disposition home or self-care (01) ==
LOC: RADMAMWWP 11:11
PROVIDERS: ATTEND Obstetrics & Gynecology
DX: Z12.31 Encounter for screening mammogram for malignant neoplasm of breast (principal); Z78.0 Asymptomatic menopausal state; Z80.3 Family history of malignant neoplasm of breast
CPT/HCPCS: 77063; 77067

== ENCOUNTER → 2021-04-30 | Outpatient (CLI) | payer MEDICARE ==
[2021-04-30 12:19] LABS: ALT 19 U/L (8-44); AST 24 U/L (13-35); African American GFR (CKD) 84.2 (60.0-200.0); BUN/Creat Ratio 22.63 Ratio (12.00-20.00); Blood Urea Nitrogen 18.1 mg/dL (9.0-27.0); Calcium 9.8 mg/dL (8.7-10.3); Carbon Dioxide 21.6 mmol/L (20.0-27.5); Chloride 102 mmol/L (96-109); Chol/HDL Ratio 3.01 Ratio; Glucose 157 mg/dL (70-110); LDL Cholesterol,Calculated 112.9 mg/dL (0.0-131.0); Non-African American GFR(CKD) 72.6 (60.0-200.0); Potassium 4.6 mmol/L (3.5-5.5); Sodium 137 mmol/L (135-145); VLDL Calculation 16.74 mg/dL (5.00-40.00)
[2021-04-30 12:48] LABS: Microalbumin Creatinine Ratio <30 mg/g Creat (0-30)
[2021-04-30 12:55] LABS: HCT 42.9 % (37.2-46.3); HGB 13.9 g/dL (12.0-15.0); MCH 28.6 pg (27.0-32.0); MCHC 32.4 g/dL (32.0-37.0); MCV 88.3 fL (80.0-97.0); Mean Platelet Volume 10.4 fL (9.5-12.2); Platelet Count 347 X 10*3/uL (140-440); RBC 4.86 X 10*6/uL (4.10-5.20); RDW 12.9 % (11.5-14.5); WBC 6.99 X 10*3/uL (4.50-10.00)
== END | disposition home or self-care (01) ==
LOC: LABWHC1 07:13
PROVIDERS: ATTEND Family Medicine
DX: I10 Essential (primary) hypertension (principal); E78.5 Hyperlipidemia, unspecified; E11.9 Type 2 diabetes mellitus without complications; E03.9 Hypothyroidism, unspecified
CPT/HCPCS: 36415; 80048; 80061; 82043; 82570; 83036; 84439; 84443; 84450; 84460; 84481; 85027

== ENCOUNTER → 2021-05-07 | Outpatient (CLI) | payer MEDICARE ==
[2021-05-07 16:35] LABS: T4, Free (Free Thyroxine) 0.78 ng/dL (0.800-1.800)
== END | disposition home or self-care (01) ==
LOC: LABWHC1 09:00
PROVIDERS: ATTEND Family Medicine
DX: E03.9 Hypothyroidism, unspecified (principal)
CPT/HCPCS: 36415; 84439; 84443

== ENCOUNTER → 2021-12-21 | Outpatient (CLI) | payer MEDICARE ==
--- NOTE | 2021-12-21 17:18 | CT ---
EXAMINATION TYPE: CT abdomen pelvis w con CT DLP: 1162.5 mGycm, Automated exposure control for dose reduction was used. DATE OF EXAM: 12/21/2021 5:03 PM COMPARISON: CT chest and pelvis 02/26/2021. CLINICAL INDICATION:Female, 76 years old with history of R10.19 ABDOMEN PAIN; abdominal pain / discom fort. TECHNIQUE: Axial CT of the abdomen and pelvis . Sagittal and coronal reformats were created on a [employer] workstation. Patient was premedicated. Contrast used:100 mL of Isovue 300 with IV Contrast, Oral contrast used: with Oral Contrast FINDINGS: LOWER CHEST: Stable right middle lobe pulmonary nodule measuring average 4 mm. Streaky atelectasis ch anges within the right lung base. Moderate to severe coronary artery atherosclerosis. There is cardia c conduction leads partially visualized. The aorta is mildly dilated up to 4.0 cm. ABDOMEN LIVER: Unremarkable GALLBLADDER AND BILE DUCTS: Gallbladder is surgically absent with mild intrahepatic and extra hepatic biliary dilatation likely physiologic and a postcholecystectomy change. No evidence of choledocholit hiasis. PANCREAS: Unremarkable. SPLEEN: Unremarkable. ADRENAL GLANDS: Unremarkable. KIDNEYS AND URETERS: No evidence of hydronephrosis or renal calculus. The ureters are unremarkable. PELVIS BLADDER: Incompletely distended but grossly unremarkable. REPRODUCTIVE: Unremarkable. ABDOMEN & PELVIS STOMACH AND BOWEL: Layering oral contrast is seen within the distal esophagus. Multiple colonic diver ticula are seen throughout the sigmoid colon. Thickened appearance of the sigmoid colon as seen on pr ior. No evidence of bowel obstruction. Appendix is normal PERITONEUM: No evidence of pneumoperitoneum or free fluid. VASCULATURE: No evidence of aortic aneurysm, prior small saccular aneurysm is not definitively visual ized. The left renal vein is compressed against the SMA as it crosses the aorta. There is dilation o f the left renal vein. MUSCULOSKELETAL: No acute osseous abnormalities, there is right hip prosthesis. Hardware appears inta ct. No evidence of periprosthetic fracture. Multilevel disc degeneration changes throughout the spine . The demonstration of remote rib 9, 10 and 11 fractures on the right. LYMPH NODES: Redemonstration of prominent perisigmoid lymph node measuring 5 mm in short axis. SOFT TISSUE/ABDOMINAL WALL: Fat filled umbilical hernia measuring 0.8 cm at the neck. IMPRESSION: 1. Sigmoid colon diverticulosis with mild inflammation suggesting diverticulitis. Adjacent prominent lymph node is again seen. There remains thickening of the sigmoid colon wall direct visualization is recommended if not recently performed to rule out underlying malignancy. 2. Oral contrast within the distal esophagus correlate for gastroesophageal reflux and/or esophageal dysmotility. 3. Moderate to severe coronary artery atherosclerosis.
== END | disposition home or self-care (01) ==
LOC: RADCTMAIN 14:52
PROVIDERS: ATTEND Internal Medicine Gastroenterology
DX: K57.30 Diverticulosis of large intestine without perforation or abscess without bleeding (principal); K63.89 Other specified diseases of intestine; I25.10 Atherosclerotic heart disease of native coronary artery without angina pectoris
CPT/HCPCS: 82565; 84520; 74177; 36415; Q9967

== ENCOUNTER → 2022-04-16 | Outpatient (CLI) | payer MEDICARE ==
--- NOTE | 2022-04-19 10:49 | MM ---
Reason for Exam: Screening (asymptomatic). Last screening mammogram was performed 12 month(s) ago. Patient History: Menarche at age 14. First Full-Term at age 21. Hysterectomy at age 60. Postmenopausal. Other cancer, age 65. Estrogen for 15 years until age 61. Progesterone for 15 years until age 61. Excisional Biopsy on the Left side. Maternal cousin had breast cancer, age 35. Maternal cousin had breast cancer, age 40. Sister had breast cancer, age 80. Risk Values: Beatriz 5 year model risk: 4.0%. NCI Lifetime model risk: 8.5%. Prior Study Comparison: 11/24/2018 Bilateral Screening Mammogram, [facility]. 12/10/2019 Bilateral Screening Mammogram, [facility]. 04/14/2021 Bilateral Screening Mammogram, [facility]. Tissue Density: The breast tissue is almost entirely fat. Findings: Analyzed By CAD. There is no suspicious group of microcalcifications or new suspicious mass in either breast. Overall Assessment: Negative, BI-RAD 1 Management: Screening Mammogram of both breasts in 1 year. A clinical breast exam by your physician is recommended on an annual basis and results should be correlated with mammographic findings. [facility] will attempt to contact patient to return for supplemental views and ultrasound if indicated. Electronically signed and approved by: Toni Elias DO
== END | disposition home or self-care (01) ==
LOC: RADMAMWWP 10:19
PROVIDERS: ATTEND Obstetrics & Gynecology
DX: Z12.31 Encounter for screening mammogram for malignant neoplasm of breast (principal); Z78.0 Asymptomatic menopausal state; Z80.3 Family history of malignant neoplasm of breast
CPT/HCPCS: 77063; 77067

== ENCOUNTER → 2022-05-28 | Outpatient (CLI) | payer MEDICARE ==
[2022-05-28 10:04] LABS: Prothrombin Time 10.7 sec (9.0-12.0)
[2022-05-28 10:05] LABS: Partial Thromboplastin Time 24.8 sec (22.0-30.0)
[2022-05-28 10:22] LABS: Appearance,Urine Clear (Clear); Bilirubin,Urine Negative (Negative); Blood,Urine Negative (Negative); Color,Urine Yellow; Glucose,Urine (UA) Negative (Negative); Ketones,Urine Negative (Negative); Leukocyte Esterase,Urine Trace (Negative); Mucus,Urine Few /hpf; Nitrite,Urine Negative (Negative); PH, Urine 6.5 (5.0-8.0); Protein,Urine 1+ (Negative); Specific Gravity,Urine 1.025 (1.001-1.035); Squamous Epithelial Cell,Urine <1 /hpf (0-4); WBC,Urine 2 /hpf (0-5)
[2022-05-28 18:40] LABS: ALT 17 U/L (8-44); AST 23 U/L (13-35); African American GFR (CKD) 65.6 (60.0-200.0); Albumin 4.6 g/dL (3.8-4.9); Albumin/Globulin Ratio 1.66 (1.60-3.17); Alkaline Phosphatase 102 U/L (41-126); BUN/Creat Ratio 11.42 Ratio (12.00-20.00); Blood Urea Nitrogen 11.1 mg/dL (9.0-27.0); Calcium 10.4 mg/dL (8.7-10.3); Carbon Dioxide 19.2 mmol/L (20.0-27.5); Chloride 101 mmol/L (96-109); Globulin 2.8 g/dL (1.6-3.3); Glucose 191 mg/dL (70-110); LDL Cholesterol,Calculated 127.4 mg/dL (0.0-131.0); Non-African American GFR(CKD) 56.6 (60.0-200.0); Potassium 4.8 mmol/L (3.5-5.5); Sodium 138 mmol/L (135-145); Total Protein 7.4 g/dL (6.2-8.2); VLDL Calculation 19.68 mg/dL (5.00-40.00)
[2022-05-29 17:59] LABS: HCT 46.3 % (37.2-46.3); HGB 14.9 g/dL (12.0-15.0); MCH 28.7 pg (27.0-32.0); MCHC 32.2 g/dL (32.0-37.0); MCV 89.2 fL (80.0-97.0); Mean Platelet Volume 11.4 fL (9.5-12.2); NRBC Per 100 WBC 0 /100 WBCS (0.0-0.0); Platelet Count 399 X 10*3/uL (140-440); RBC 5.19 X 10*6/uL (4.10-5.20); RDW 13.2 % (11.5-14.5); WBC 9.07 X 10*3/uL (4.50-10.00)
== END | disposition home or self-care (01) ==
LOC: LABWHC1 08:51
PROVIDERS: ATTEND Internal Medicine Endocrinology, Diabetes & Metabolism
DX: Z01.812 Encounter for preprocedural laboratory examination (principal); I10 Essential (primary) hypertension; E78.2 Mixed hyperlipidemia; E11.65 Type 2 diabetes mellitus with hyperglycemia
CPT/HCPCS: 36415; 80053; 80061; 81001; 82043; 82306; 82570; 83036; 84443; 85027; 85610; 85730

== ENCOUNTER → 2022-06-15 | Outpatient (CLI) | payer MEDICARE | END | disposition home or self-care (01) | LOC: LABPAT 09:29 | PROVIDERS: ATTEND Orthopaedic Surgery | DX: Z01.812 Encounter for preprocedural laboratory examination (principal); Z22.322 Carrier or suspected carrier of Methicillin resistant Staphylococcus aureus; M16.12 Unilateral primary osteoarthritis, left hip | CPT/HCPCS: 87070 ==

== ENCOUNTER 2022-06-21 07:40 | Observation (INO) | payer MEDICARE ==
[~2022-06-21 07:40] MED LIST changes: +ACETAMINOPHEN TAB 500 MG TAB PO PRN; -CLINDAMYCIN 600 MG in SODIUM CHLORIDE 0.9% IRRIGATIO 250 ML IRRIGATION ONE; -CLINDAMYCIN 900 MG in DEXTROSE 5% IN WATER 50 ML IVPB ONE; +MELOXICAM 7.5 MG TAB PO PRN; +TRANEXAMIC ACID IN NACL,ISO-OS 1,000 MG in SALINE 1 100ML.BAG IVPB PRN
--- NOTE | 2022-06-21 08:00 | HP ---
HISTORY AND PHYSICAL DATE OF SURGERY: 06/21/2022. HISTORY OF PRESENT ILLNESS: Cayla Felix is a 77-year-old patient seen with symptomatic left hip osteoarthritis. We discussed options for treatment. She elected to proceed with direct anterior left total hip arthroplasty. Consent was obtained. Medical clearance was provided to Dr. Guerrero. Cardiac clearance by Dr. Butterfield. PAST MEDICAL HISTORY: Gastroesophageal reflux disease, [id number] diabetes. PAST SURGICAL HISTORY: Right total hip arthroplasty, bilateral total knee replacement, pacemaker insertion. DAILY MEDICATIONS: 1. Amlodipine. 2. Lomotil. 3. Losartan. 4. Tramadol. ALLERGIES: Penicillin, iodine, lisinopril. SOCIAL HISTORY: She denies tobacco use. PHYSICAL EXAMINATION: Evaluation of left hip, she has diffuse tenderness about the hip for limited range of motion with severe pain. Positive hip impingement sign. Straight-leg raise negative. Her distal neurovascular exam is intact. RADIOGRAPHS: Radiographs of the left hip revealed severe osteoarthritic changes. IMPRESSION: 1. Left hip osteoarthritis. 2. Hypertension. 3. Hyperlipidemia. 4. Insulin-dependent diabetes. PLAN: Direct anterior left total hip arthroplasty. MMODL / IJN: [id number] /
[2022-06-21] MEDS ORDERED: HYDROmorphone 0.5 MG/0.5 ML SYRINGE IVP PRN ×3 (08:05→11:25)
[2022-06-21] MEDS ORDERED: ONDANSETRON 4 MG/2 ML VIAL IVP PRN ×2 (08:05→11:25)
[2022-06-21] MEDS ORDERED: LIDOCAINE 1% (10MG/ML) FOR IV START INTRADERMA PRN (08:05)
[2022-06-21] MEDS ORDERED: DEXAMETHASONE SOD PHOSPHATE 4 MG/ML 1 ML VIAL IV ONE (08:05)
[2022-06-21] MEDS: LACTATED RINGERS 1,000 ML IV SCH (08:30)
[2022-06-21 08:40] LABS: Glucose,Whole Blood 163 mg/dL (70-110)
[2022-06-21] MEDS ORDERED: MIDAZOLAM 2 MG/2 ML VIAL IV ONE (09:00)
[2022-06-21] MEDS ORDERED: SCOPOLAMINE 1 MG/72 HR PATCH TRANSDERM ONE (09:16)
--- NOTE | 2022-06-21 09:21 | P.ANPRN ---
Procedure Note - Anesthesia - Nerve Block Performed Left Wily Single Date of Procedure: 06/21/22 Procedure Start Time: 09:05 Procedure Stop Time: 09:10 Location of Patient: PreOp Indication: Acute Post-Operative Pain Specifically requested for management of pain by DrJessica: Braden Benson Sedation Type: Sedate with meaningful contact maintained Preparation: Sterile Prep Position: Supine Needle Types: Pajunk Needle Gauge: 20 Ultrasound used to visualize needle placement: Yes Ultrasound used to observe medication spread: Yes Injectate: 0.5% Ropivacaine (see comment for volume) (30) Blood Aspirated: No Pain Paresthesia on Injection Noted: No Resistance on Injection: Normal Image Stored and Saved: Yes Events: Uneventful and Well Tolerated
[2022-06-21] MEDS ORDERED: ROPIVACAINE 5 MG/ML 30 ML VIAL ONE (09:54)
[2022-06-21] MEDS ORDERED: MIDAZOLAM 2 MG/2 ML VIAL ONE (09:54)
[2022-06-21] MEDS ORDERED: TRANEXAMIC ACID IN NACL,ISO-OS 1,000 MG/100 ML BAG ONE (09:54)
[2022-06-21] MEDS ORDERED: PROPOFOL 10 MG/ML 20 ML VIAL IV ONE (09:54)
[2022-06-21] MEDS ORDERED: ePHEDrine 50 MG/ML 1 ML VIAL ONE (09:54)
[2022-06-21] MEDS ORDERED: ALBUMIN HUMAN 5% (25gm) 500 ML VIAL IVPB ONE (09:54)
[2022-06-21] MEDS ORDERED: fentaNYL (PF) 50 MCG/ML 2 ML AMP ONE (09:54)
[2022-06-21] MEDS ORDERED: PHENYLEPHRINE-0.9% NACL SYG 1,000 MCG/10 ML SYRINGE ONE (09:54)
[2022-06-21] MEDS ORDERED: ceFAZolin 1,000 MG in SODIUM CHLORIDE 0.9% 1,000 ML IRRIGATION ONE (10:31)
[2022-06-21] MEDS ORDERED: LACTATED RINGERS 1,000 ML IV ONE (10:48)
[2022-06-21] MEDS ORDERED: NALOXONE 0.4 MG/ML 1 ML VIAL IV PRN (11:25)
--- NOTE | 2022-06-21 11:25 | P.OP ---
Date of Procedure: 06/21/22 Preoperative Diagnosis: Left hip osteoarthritis Postoperative Diagnosis: Left hip osteoarthritis Procedure(s) Performed: Direct anterior left total hip arthroplasty Implants: 1. Depuy Corail 135 standard collar size 14 press-fit femoral stem 2. Depuy pinnacle 52 mm press-fit acetabular shell 3. Depuy pinnacle neutral polyethylene acetabular liner 36 mm ID 52 mm OD 4. Depuy Biolox delta ceramic femoral head +1.5 36 mm Anesthesia: spinal Surgeon: Braden Benson Sharepoint Manager #1: Jeremiah Adorno Estimated Blood Loss (ml): 125 Pathology: other (Femoral head) Condition: stable Disposition: PACU Indications for Procedure: 77-year-old patient seen with symptomatic left hip osteoarthritis. After treatment options were discussed with her, she elected to proceed with direct anterior left total hip arthroplasty. Operative Findings: See description of procedure Description of Procedure: The patient was taken to the operative suite. Patient underwent a spinal anesthetic by the department of anesthesia. Patient was then transferred to the [place] table. Patient was given preoperative IV antibiotics and TXA. Both lower extremities were placed in standard leg spars. The hip was then prepped and draped in the normal sterile orthopedic fashion. A standard anterior incision was made beginning 3 cm lateral and 1 cm distal to the ASIS extending 10 cm. Dissection was then carried down through the subcutaneous soft tissues down to the fascia overlying the tensor fascia ruma. An incision was now made through the fascia. Careful dissection was taken down exposing the tensor fascia ruma muscle. A Cobra retractor was now placed along the medial femoral neck and a second one along the lateral femoral neck. The venous circumflex vessels were now identified, cauterized and clipped. We identified the anterior hip capsule. An incision was made through the hip capsule along the lateral border. I performed a partial anterior capsulectomy. Retractors were now placed around the femoral neck itself. A femoral neck cut was now made with a sagittal saw. It was completed with an osteotome at the lateral neck area. The femoral head was now removed without difficulty. The extremity was now rotated to 60 of external rotation. It was locked in position. Residual labrum was now debrided out. Serial reaming was performed of the acetabulum while Olivier DESAI assisted holding an anterior retractor for exposure. Once we reached the appropriate size and a trial was position and fit nicely. The appropriate size was now chosen opened and made available. It was introduced into the acetabulum without difficulty. The C-arm/fluoroscopy was now brought into the operative field. We made sure we had a true AP pelvic view. We now under direct C-arm/fl uoroscopy introduced into the acetabular component with appropriate version and inclination. I held the cup in appropriate position well Olivier DESAI used a mallet to seat the acetabular component. I noted the component now to be well seated and stable. Acetabular cup introduce her was removed. The C-arm was pulled back. An appropriate liner was introduced and clicked into position. It was felt to be stable. At this point retractors were removed. The extremity was now placed into 140 external rotation with no traction. The leg was now dropped to the ground and adducted. Appropriate retractors were now positioned along the proximal femur. We also placed our femoral look into position. Additional capsular releasing was performed to gain access to the proximal femur. We now used a box osteotome. A canal finder was now utilized. Serial broaching was now performed with the assistance of Olivier DESAI tapping the broaches down with a mallet while held the broach in appropriate rotation and position. This was done until we reached the appropriate size with good overall rotational stability. Appropriate calcar planing was performed. A trial head/neck was placed into position. The hip was now reduced. The C- arm/fluoroscopy was brought back into the operative field. I obtained AP pelvis was demonstrated adequate leg length alignment. The trial components appeared adequately positioned and sized. The C-arm/fluoroscopy was pulled back. Retractors were repositioned and the hip was dislocated. The leg was again taken down to the ground and adducted. Appropriate retractors were repositioned as well as the femoral hook. All trial components were removed. The femoral implant was opened along with the femoral head. The femoral implant was introduced on the appropriate handle into our pre-broached area. I held the component position while Olivier DESAI used a mallet to seat the femoral component. The femoral component was now noted to be well seated and stable.. The femoral head was introduced with good positioning and fixation noted. Retractors were now removed. The hip was now reduced. There appeared be good positioning of the hip confirmed on intraoperative fluoroscopy. Spot films were obtained to document this. A second gram of TXA was given. Bipolar cautery had been utilized intermittently through the procedure for hemostasis. The wound was irrigated copiously with pulse lavage mechanical irrigation. The fascia was repaired with Vicryl suture. The subcutaneous soft tissues were repaired in layers with Vicryl suture. The skin was approximated with pernio/Dermabond. Sterile dressings were applied. Patient was then awakened, transferred to a bed and taken to recovery in stable condition. Olivier DESAI assisted with the complex procedure.
--- NOTE | 2022-06-21 11:28 | XR ---
Intraoperative/procedural fluoroscopic services were provided for left hip arthroplasty. Hardware serafin ears intact with appropriate alignment. Total fluoroscopy time is 14 seconds with a total of 1 submit zac image to PACS. Please see the operative note for further details.
[2022-06-21 12:06] LABS: Glucose,Whole Blood 167 mg/dL (70-110)
[2022-06-21] MEDS: HYDROcodone/APAP 5-325MG 1 EACH TAB PO PRN ×2 (13:24→23:22)
[2022-06-21] MEDS ORDERED: INSULIN REGULAR 100 UNIT/ML VIAL (IM/SQ) SQ PRN (13:36)
[2022-06-21] MEDS ORDERED: HYOSCYAMINE SULFATE 0.125 MG TAB PO PRN (13:36)
[2022-06-21] MEDS ORDERED: ALBUTEROL NEBULIZED 2.5 MG/3 ML INHALATION PRN (13:36)
[2022-06-21] MEDS ORDERED: DEXTROSE 50% SYRINGE 50 ML IVP PRN ×2 (13:37)
[2022-06-21] MEDS: HYDROmorphone 0.5 MG/0.5 ML SYRINGE IVP PRN (15:15)
[2022-06-21 16:51] LABS: Glucose,Whole Blood 287 mg/dL (70-110)
[2022-06-21] MEDS: INSULIN ASPART (NovoLOG) 100 UNIT/ML VIAL SQ SCH (17:22)
--- NOTE | 2022-06-21 17:40 | P.CONS ---
History of Present Illness - Reason for Consult Consult date: 06/21/22 Medical management Requesting physician: Braden Benson - Chief Complaint Hip surgery - History of Present Illness This is a pleasant 77-year-old patient who follows with Dr. Guerrero. Chronic stable medical conditions include asthma, diabetes, GERD, hypertension, prostatitis, aortic valve insufficiency, pacemaker, IBS,. Patient is accompanied by her at the bedside. Patient earlier underwent anterior left total hip arthroplasty. Dr. Callahan. Postprocedure pain is controlled. No nausea vomiting. No chest pain or shortness of breath. Review of systems: GEN.: None EYES: None HEENT: None NECK: None RESPIRATORY: None CARDIOVASCULAR: None GASTROINTESTINAL: None GENITOURINARY: None MUSCULOSKELETAL: Joint pains LYMPHATICS: None HEMATOLOGICAL: None PSYCHIATRY: None NEUROLOGICAL: None Past medical history to include: Asthma, diabetes, GERD, hypertension, Chao arthritis, abdominal aortic aneurysm, aortic valve insufficiency, third-degree AV block with pacemaker, IBS, bleeding peptic ulcer, diverticulitis skin cancer Social history: Patient smoked for 20 years stopped in 1988. No alcohol. . Physical examination: VITAL SIGNS: 98.6, 78, 17, 1 or 2.46, 99% room air GENERAL: BMI 29.4, reclining in bed comfortable EYES: Pupils equal. Conjunctiva normal. HEENT: External appearance of nose and ears normal, oral cavity grossly normal. NECK: JVD not raised; masses not palpable. HEART: First and second heart sounds are normal; no edema. LUNGS: Respiratory rate normal; clear to auscultation. ABDOMEN: Soft, nontender, liver spleen not palpable, no masses palpable. PSYCH: Alert and oriented x3; mood and affect normal. MUSCULOSKELETAL:No Clubbing/cyanosis;muscles-grossly intact. OA. NEUROLOGICAL: Cranial nerves grossly intact; no facial asymmetry, power and sensation grossly intact. LYMPHATICS: No lymph nodes palpable in the axilla and neck INVESTIGATIONS, reviewed in the clinical context: Labs from 05/28/2022: WBC 9.0 hemoglobin 14.9 platelets 399 potassium 4.8 BUN 11.1 creatinine 1.0 HbA1c 7.1 Assessment plan: -Left anterior total hip arthroplasty, per Dr. Callahan on 06/21/2022. Pain control. Lovenox for DVT prophylaxis. Follow surgical orders -Intermittent asthma Pro-air when necessary -Essential hypertension Blood pressure currently is running of the lower side. Estimated blood loss was 125 mL. Hold off Moduretic. IV fluids -Diabetes mellitus type 2 Follow Accu-Cheks.bydueron. Lantus 18 units subcu in the morning. Sliding scale. -Hyperlipidemia Zetia -Primary osteoarthritis Pain medications as needed Resume home medications. Cutback dose of Lantus. Hold off diuretics. Repeat CBC in the morning. Follow Accu-Cheks. Care was discussed the patient has been at the bedside. Question answered. Thank you Dr. Callahan Past Medical History Past Medical History: Asthma, Cancer, Diabetes Mellitus, GERD/Reflux, GI Bleed, Hypertension, Osteoarthritis (OA), Skin Disorder Additional Past Medical History / Comment(s): thickening of colon on CT, nausea, hx Bronchitis, sinus problems, IDDM type II, abdominal aortic aneurysm, aortic valve insufficiency, 3rd degree heart block/vertigo/pacer, IBS, past bleeding peptic ulcer, diverticulitis, IBS, lower GI bleed, arthritis in multiple joints, skin cancer with removals, R hip prosthesis and 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 History of Any Multi-Drug Resistant Organisms: None Reported Past Surgical History: Cholecystectomy, Hernia Repair, Hysterectomy, Joint Replacement, Orthopedic Surgery, Pacemaker, Tonsillectomy Additional Past Surgical History / Comment(s): 08/23/19 pacemaker, R inguinal hernia repair, abdominoplasty, sinus surgery, L foot hammer toe surgery, total R hip arhtroplasty, bilateral total knee replacements, thyroid nodules, EGD colonoscopies, skin cancer removed, bilateral cataract removals/lens implants. Past Anesthesia/Blood Transfusion Reactions: Motion Sickness Additional Past Anesthesia/Blood Transfusion Reaction / Comm: RECEIVED TRANSFUSIONS POST RIGHT ARTHROPLASTY (DATE UNKN). Type of Cardiac Device: Permanent Pacemaker Device Placement Date:: 08/23/19 Past Psychological History: No Psychological Hx Reported Additional Psychological History / Comment(s): walking stick for HIKING , NOT DAILY USE Smoking Status: Former smoker Past Alcohol Use History: None Reported Additional Past Alcohol Use History / Comment(s): Pt started smoking in 1968 and quit in 1988 Past Drug Use History: None Reported - Past Family History Mother Family Medical History: Cancer Additional Family Medical History / Comment(s): leukemia. maternal grandmother colon CA Brother(s) Family Medical History: Coronary Artery Disease (CAD) Additional Family Medical History / Comment(s): 2 brothers have CAD/pacemakers. ,1 brother had colon CA Sister(s) Family Medical History: Cancer Additional Family Medical History / Comment(s): One sister of breast to lung cancer. Another sister from heart disease. Father Family Medical History: Myocardial Infarction (SC) Additional Family Medical History / Comment(s): Father of a SC at the age of 70 yrs Medications and Allergies Home Medications Medication Instructions Recorded Confirmed Type Diphenoxylate HCl/Atropine 5 tab PO QAM 10/09/13 06/16/22 History [Lomotil] Ezetimibe [Zetia] 10 mg PO QAM 10/02/18 06/16/22 History Hyoscyamine Sulfate [Hyoscyamine 0.125 mg SL Q4H PRN 10/02/18 06/16/22 History Sulfate SL] Albuterol Sulfate [Proair Hfa] 2 puff INHALATION RT-Q4H PRN 04/18/19 06/16/22 History Ondansetron Odt [Zofran ODT] 4 mg PO Q12HR PRN 04/18/19 06/16/22 History Insulin Glargine,Hum.rec.anlog 25 units SQ QAM 03/03/20 06/16/22 History [Lantus Solostar Pen] Exenatide Microspheres [Bydureon 2 mg SQ SA 02/26/21 06/16/22 History Bcise Auto-Injector] Losartan [Cozaar] 50 mg PO QAM 02/26/21 06/16/22 History aMILoride-HCTZ 5-50 mg [Moduretic 0.25 tab PO QAM 02/26/21 06/16/22 History 5-50] Cholecalciferol [Vitamin D3 (25 50 mcg PO DAILY 03/05/22 06/16/22 History Mcg = 1000 Iu)] Insulin Regular, Human [Novolin R 3 units SQ AC-TID PRN 06/16/22 06/16/22 History Flexpen] Allergies Allergy/AdvReac Type Severity Reaction Status Date / Time adhesive Allergy Rash/Hives Verified 06/21/22 08:08 Iodinated Contrast Media Allergy Anaphylaxis Verified 06/21/22 08:08 [Iodinated Contrast Media - IV Dye] iodine Allergy Anaphylaxis Verified 06/21/22 08:08 lisinopril Allergy Anaphylaxis Verified 06/21/22 08:08 moxifloxacin HCl Allergy Rash/Hives Verified 06/21/22 08:08 [From Avelox] Penicillins Allergy Rash/Hives Verified 06/21/22 08:08 shellfish derived Allergy Anaphylaxis Verified 06/21/22 08:08 celecoxib [From Celebrex] AdvReac Nausea & Verified 06/21/22 08:08 Vomiting Physical Exam Vitals: Vital Signs Temp Pulse Pulse Pulse Resp BP BP 06/21/22 17:28 71 06/21/22 16:40 86 100/56 06/21/22 16:36 94 76/47 06/21/22 16:00 82 122/69 06/21/22 15:45 84 120/74 06/21/22 15:30 84 123/76 06/21/22 15:15 86 109/56 06/21/22 15:00 78 109/70 06/21/22 14:45 84 125/65 06/21/22 14:30 82 139/86 06/21/22 14:15 76 108/73 06/21/22 14:00 97.7 F 63 18 138/77 06/21/22 13:15 97.5 F L 06/21/22 12:45 74 17 108/54 06/21/22 12:30 78 17 102/46 06/21/22 12:15 74 13 101/48 06/21/22 12:00 75 16 98/49 06/21/22 11:44 98.6 F 83 18 83/41 06/21/22 09:12 70 16 151/72 06/21/22 08:16 98.4 F 90 16 169/80 BP Pulse Ox 06/21/22 17:28 115/71 06/21/22 16:40 06/21/22 16:36 06/21/22 16:00 06/21/22 15:45 06/21/22 15:30 06/21/22 15:15 06/21/22 15:00 06/21/22 14:45 06/21/22 14:30 06/21/22 14:15 06/21/22 14:00 100 06/21/22 13:15 06/21/22 12:45 97 06/21/22 12:30 99 06/21/22 12:15 97 06/21/22 12:00 98 06/21/22 11:44 98 06/21/22 09:12 100 06/21/22 08:16 98 Intake and Output 06/21/22 06/21/22 06/21/22 06:59 14:59 22:59 Intake Total 1551 Output Total 125 200 Balance 1426 -200 Intake: IV 1551 Output: Urine 200 Estimated Blood Loss 125 Other: Weight 88.9 kg Results Labs: Abnormal Lab Results - Last 24 Hours (Table) 06/21/22 06/21/22 06/21/22 Range/Units 08:29 12:05 16:50 POC Glucose (mg/dL) 163 H 167 H 287 H (70-110) mg/dL
[2022-06-21] MEDS: HYDROcodone/APAP 7.5-325MG 1 EACH TAB PO PRN (18:47)
[2022-06-21 20:11] LABS: Glucose,Whole Blood 298 mg/dL (70-110)
[2022-06-21] MEDS: SENNOSIDES-DOCUSATE SODIUM 1 EACH TAB PO SCH (20:46)
[2022-06-22] MEDS: LACTATED RINGERS 1,000 ML IV SCH ×3 (02:24→22:50)
[2022-06-22 02:33] LABS: Glucose,Whole Blood 325 mg/dL (70-110)
[2022-06-22 05:43] LABS: Basophils % (A) 0 %; Eosinophils # (A) 0.1 k/uL (0-0.7); Eosinophils % (A) 1 %; HCT 29.6 % (34.0-46.0); HGB 9.7 gm/dL (11.4-16.0); Lymphocytes # (A) 1.1 k/uL (1.0-4.8); Lymphocytes % (A) 13 %; MCH 28.5 pg (25.0-35.0); MCHC 32.8 g/dL (31.0-37.0); MCV 86.8 fL (80.0-100.0); Mean Platelet Volume 8.3; Monocytes # (A) 0.7 k/uL (0-1.0); Monocytes % (A) 8 %; Neutrophils # (A) 6.6 k/uL (1.3-7.7); Neutrophils % (A) 77 %; Platelet Count 217 k/uL (150-450); RBC 3.41 m/uL (3.80-5.40); RDW 13.2 % (11.5-15.5); WBC 8.6 k/uL (3.8-10.6)
[2022-06-22 06:12] LABS: Glucose,Whole Blood 269 mg/dL (70-110)
[2022-06-22] MEDS: INSULIN ASPART (NovoLOG) 100 UNIT/ML VIAL SQ SCH ×3 (06:36→16:59)
[2022-06-22] MEDS: HYDROcodone/APAP 5-325MG 1 EACH TAB PO PRN ×2 (06:58→19:46)
[2022-06-22] MEDS ORDERED: INSULIN DETEMIR (LEVEMIR) 100 UNIT/ML SYR SQ SCH (07:00)
[2022-06-22] MEDS: ENOXAPARIN 40 MG/0.4 ML SYRINGE SQ SCH (07:49)
[2022-06-22] MEDS: FAMOTIDINE 20 MG TAB PO SCH (07:50)
[2022-06-22] MEDS: CHOLECALCIFEROL 25 MCG (1000 IU) TABLET PO SCH (07:50)
[2022-06-22] MEDS: EZETIMIBE 10 MG TAB PO SCH (07:51)
[2022-06-22] MEDS: LOSARTAN 50 MG TAB PO SCH (07:52)
[2022-06-22] MEDS ORDERED: hydroCHLOROthiazide 25 MG TAB PO SCH (09:00)
[2022-06-22] MEDS ORDERED: SPIRONOLACTONE 25 MG TAB PO SCH (09:00)
[2022-06-22] MEDS: HYDROmorphone 0.5 MG/0.5 ML SYRINGE IVP PRN ×2 (10:02→17:16)
--- NOTE | 2022-06-22 11:12 | P.PN ---
Subjective Progress Note Date: 06/22/22 Principal diagnosis: Status post direct anterior left total hip arthroplasty Patient was examined today at bedside, she is resting in her hospital bed. I was able to discuss physical therapy and nursing about the patient prior to examining her. Apparently when she has physical therapy she had a lot of nausea and lightheadedness. Her blood sugars have been a little bit altered today along with her blood pressure. She states he does have some generalized discomfort when moving. She denies headaches, lightheadedness, chest pain or shortness of breath at this time. Objective - Vital Signs Vital signs: Vital Signs Temp 98.7 F 06/22/22 06:53 Pulse 56 L 06/22/22 06:53 Resp 18 06/22/22 06:53 BP 113/53 06/22/22 06:53 Pulse Ox 96 06/22/22 06:53 FiO2 Intake & Output 06/21/22 06/22/22 06/22/22 18:59 06:59 18:59 Intake Total 1551 Output Total 325 100 Balance 1226 -100 Weight 88.9 kg Intake: IV 1551 Output: Urine 200 100 Estimated Blood Loss 125 Other: Voiding Method Toilet # Voids 3 1 - Exam Left lower extremity: Incision is clean, dry, and intact. The foam dressing is in good condition. There is minimal soft tissue swelling and ecchymosis surrounding the medial and lateral aspects of the incision. Calf is soft, no tenderness with palpation. Plantar flexion, dorsiflexion, EHL, FHL are intact. Sensory exam to light touch throughout the extremity is intact, dorsal pedis pulses 2+. - Labs CBC & Chem 7: 06/22/22 04:56 Labs: Abnormal Lab Results - Last 24 Hours (Table) 06/21/22 06/21/22 06/21/22 Range/Units 12:05 16:50 20:10 RBC (3.80-5.40) m/uL Hgb (11.4-16.0) gm/dL Hct (34.0-46.0) % POC Glucose (mg/dL) 167 H 287 H 298 H (70-110) mg/dL 06/22/22 06/22/22 06/22/22 Range/Units 02:31 04:56 06:10 RBC 3.41 L (3.80-5.40) m/uL Hgb 9.7 L (11.4-16.0) gm/dL Hct 29.6 L (34.0-46.0) % POC Glucose (mg/dL) 325 H 269 H (70-110) mg/dL Assessment and Plan Assessment: Postoperative day #1 status post direct anterior left total hip arthroplasty Plan: Pain control, continue supportive oral medications. IV pain medication as needed DVT prophylaxis, continue current medication. Patient was on Xarelto 20 mg prior to the surgery due to A. fib. We will likely resume this at her follow-up with recommendations for how long to continue to take orthopedic standpoint recommended 28 days. Continue PT/OT Encourage incentive spirometer Dressing instructions discussed with patient Medical recommendations Discharge planning: Due to patient's nausea along the lightheadedness when ambulating, I would like to keep patient one additional night for observation. Plan for discharge to home on 06/23/2022. Time with Patient: Less than 30
[2022-06-22 11:36] LABS: Glucose,Whole Blood 131 mg/dL (70-110)
[2022-06-22] MEDS: SODIUM FERRIC GLUCONAT-SUCROSE 125 MG in SODIUM CHLORIDE 0.9% 100 ML IVPB SCH (12:38)
[2022-06-22] MEDS: HYDROcodone/APAP 7.5-325MG 1 EACH TAB PO PRN (12:44)
[2022-06-22 16:44] LABS: Glucose,Whole Blood 153 mg/dL (70-110)
[2022-06-22] MEDS ORDERED: FERROUS SULFATE 325 MG TAB PO SCH (17:30)
[2022-06-22] MEDS: SENNOSIDES-DOCUSATE SODIUM 1 EACH TAB PO SCH (19:46)
--- NOTE | 2022-06-22 20:49 | P.PN ---
Progress Note - Text Progress Note Date: 06/22/22 - Chief Complaint Hip surgery Hospital course: This is a pleasant 77-year-old patient who follows with Dr. Guerrero. Chronic stable medical conditions include asthma, diabetes, GERD, hypertension, prostatitis, aortic valve insufficiency, pacemaker, IBS,. Patient is accompanied by her at the bedside. Patient earlier underwent anterior left total hip arthroplasty. Dr. Callahan. Postprocedure pain is controlled. No nausea vomiting. No chest pain or shortness of breath. June 22: Patient got dizzy lightheaded this morning. Dropped her hemoglobin. Estimated blood loss was 1 25 mL. IV Ferrlecit 2 ordered. Blood pressure in the lower side. Hold Cozaar. Discussed with patient. Active Medications Hydrocodone Bitart/Acetaminophen (Hydrocodone/Apap 5-325mg 1 Each Tab) 1 each PO Q6HR PRN PRN Reason: Pain Scale 1 to 5 Stop: 07/21/22 11:26 Last Admin: 06/22/22 19:46 Dose: 1 each Hydrocodone Bitart/Acetaminophen (Hydrocodone/Apap 7.5-325mg 1 Each Tab) 1 each PO Q6H PRN PRN Reason: Pain Scale 6 to 10 Stop: 07/21/22 11:26 Last Admin: 06/22/22 12:44 Dose: 1 each Albuterol Sulfate (Albuterol Nebulized 2.5 Mg/3 Ml) 2.5 mg INHALATION RT-Q4H PRN PRN Reason: Shortness Of Breath Cholecalciferol (Cholecalciferol 25 Mcg (1000 Iu) Tablet) 50 mcg PO DAILY [facility] Last Admin: 06/22/22 07:50 Dose: 50 mcg Dextrose/Water (Dextrose 50% Syringe 50 Ml) 25 ml IVP PER PROTOCOL PRN; Protocol PRN Reason: Hypoglycemia Dextrose/Water (Dextrose 50% Syringe 50 Ml) 50 ml IVP PER PROTOCOL PRN; Protocol PRN Reason: Hypoglycemia Ezetimibe (Ezetimibe 10 Mg Tab) 10 mg PO QAM [facility] Last Admin: 06/22/22 07:51 Dose: 10 mg Enoxaparin Sodium (Enoxaparin 40 Mg/0.4 Ml Syringe) 40 mg SQ DAILY [facility] Stop: 07/22/22 09:01 Last Admin: 06/22/22 07:49 Dose: 40 mg Famotidine (Famotidine 20 Mg Tab) 20 mg PO DAILY [facility] Stop: 07/22/22 09:01 Last Admin: 06/22/22 07:50 Dose: 20 mg Hydromorphone HCl (Hydromorphone 0.5 Mg/0.5 Ml Syringe) 0.25 mg IVP Q3HR PRN PRN Reason: Pain Scale 4 to 6 Stop: 07/21/22 11:26 Last Admin: 06/22/22 03:22 Dose: 0.25 mg Hydromorphone HCl (Hydromorphone 0.5 Mg/0.5 Ml Syringe) 0.5 mg IVP Q3HR PRN PRN Reason: Pain Scale 7 to 10 Stop: 07/21/22 11:26 Last Admin: 06/22/22 17:16 Dose: 0.5 mg Hydromorphone HCl (Hydromorphone 0.5 Mg/0.5 Ml Syringe) 0.125 mg IVP Q3HR PRN PRN Reason: Pain Scale 1 to 3 Stop: 07/21/22 11:26 Hyoscyamine (Hyoscyamine Sulfate 0.125 Mg Tab) 0.125 mg PO Q4H PRN PRN Reason: ABD PAIN Lactated Ringer's (Lactated Ringers) 1,000 mls @ 100 mls/hr IV .Q10H [facility] Stop: 07/21/22 08:06 Last Admin: 06/22/22 09:36 Dose: 100 mls/hr Ferric Sodium Gluconate 125 mg (/ Sodium Chloride) 110 mls @ 100 mls/hr IVPB DAILY [facility] Stop: 06/23/22 10:05 Last Admin: 06/22/22 12:38 Dose: 100 mls/hr Insulin Aspart (Insulin Aspart (Novolog) 100 Unit/Ml Vial) 0 unit SQ AC-TID [facility]; Protocol Last Admin: 06/22/22 16:59 Dose: 2 unit Insulin Detemir (Insulin Detemir (Levemir) 100 Unit/Ml Syr) 18 unit SQ QAM@0700 [facility] Last Admin: 06/22/22 06:36 Dose: 18 unit Insulin Human Regular (Insulin Regular 100 Unit/Ml Vial (Im/Sq)) 3 unit SQ AC- TID PRN PRN Reason: IF BS OVER 250 Lidocaine HCl (Lidocaine 1% (10mg/Ml) For Iv Start) 0.1 ml INTRADERMA PER PROTOCOL PRN PRN Reason: IV Start Stop: 07/21/22 08:06 Last Admin: 06/21/22 08:30 Dose: 0.1 ml Losartan Potassium (Losartan 50 Mg Tab) 50 mg PO QAM [facility] Last Admin: 06/22/22 07:52 Dose: Not Given Naloxone HCl (Naloxone 0.4 Mg/Ml 1 Ml Vial) 0.2 mg IV Q2M PRN PRN Reason: Opioid Reversal Stop: 07/21/22 11:26 Non-Formulary Medication (Exenatide Microspheres [Bydureon Bcise Auto-Injector]) 2 mg SQ SA TYRON Ondansetron HCl (Ondansetron 4 Mg/2 Ml Vial) 4 mg IVP DAILY PRN PRN Reason: Nausea And Vomiting Stop: 07/21/22 11:26 Senna/Docusate Sodium (Sennosides-Docusate Sodium 1 Each Tab) 2 each PO HS TYRON Stop: 07/21/22 21:01 Last Admin: 06/22/22 19:46 Dose: 2 each Past medical history to include: Asthma, diabetes, GERD, hypertension, Chao arthritis, abdominal aortic aneurysm, aortic valve insufficiency, third-degree AV block with pacemaker, IBS, bleeding peptic ulcer, diverticulitis skin cancer Social history: Patient smoked for 20 years stopped in 1988. No alcohol. . Physical examination: VITAL SIGNS: 98.7, 56, 18, 11 3 x 53, 96% room air GENERAL: Reclining in bed, tired EYES: Pupils equal. Conjunctiva normal. HEENT: External appearance of nose and ears normal, oral cavity grossly normal. NECK: JVD not raised; masses not palpable. HEART: First and second heart sounds are normal; no edema. LUNGS: Respiratory rate normal; clear to auscultation. ABDOMEN: Soft, nontender, liver spleen not palpable, no masses palpable. PSYCH: Alert and oriented x3; mood and affect normal. MUSCULOSKELETAL:No Clubbing/cyanosis;muscles-grossly intact. OA. INVESTIGATIONS, reviewed in the clinical context: June 22: White count 8.6 hemoglobin 9.7 Labs from 05/28/2022: WBC 9.0 hemoglobin 14.9 platelets 399 potassium 4.8 BUN 11.1 creatinine 1.0 HbA1c 7.1 Assessment plan: -Left anterior total hip arthroplasty, per Dr. Callahan on 06/21/2022. Pain control. Lovenox for DVT prophylaxis. Follow surgical orders -Intermittent asthma Pro-air when necessary -History of hypotension from blood loss anemia IV fluids. Hold Cozaar. -Acute postprocedure blood loss anemia expected from surgery IV Ferrlecit 2 -Essential hypertension Blood pressure currently is running of the lower side. Estimated blood loss was 125 mL. Hold off Moduretic. IV fluids -Diabetes mellitus type 2 Follow Accu-Cheks.bydueron. Lantus 22 units subcu in the morning. Sliding scale. -Hyperlipidemia Zetia -Primary osteoarthritis Pain medications as needed Hold Cozaar. IV fluids. IV Ferrlecit. Increase Lantus to 22 units in the morning Thank you Dr. Callahan
[2022-06-22 21:02] LABS: Glucose,Whole Blood 180 mg/dL (70-110)
[2022-06-23] MEDS: HYDROcodone/APAP 5-325MG 1 EACH TAB PO PRN (00:46)
[2022-06-23 06:35] LABS: Glucose,Whole Blood 139 mg/dL (70-110)
[2022-06-23] MEDS: INSULIN ASPART (NovoLOG) 100 UNIT/ML VIAL SQ SCH ×3 (06:55→16:44)
[2022-06-23] MEDS: EZETIMIBE 10 MG TAB PO SCH (08:02)
[2022-06-23] MEDS: LOSARTAN 50 MG TAB PO SCH (08:02)
[2022-06-23] MEDS: CHOLECALCIFEROL 25 MCG (1000 IU) TABLET PO SCH (08:02)
[2022-06-23] MEDS: ENOXAPARIN 40 MG/0.4 ML SYRINGE SQ SCH (08:02)
[2022-06-23] MEDS: INSULIN DETEMIR (LEVEMIR) 100 UNIT/ML SYR SQ SCH (08:02)
[2022-06-23] MEDS: FAMOTIDINE 20 MG TAB PO SCH (08:03)
[2022-06-23] MEDS: HYDROcodone/APAP 7.5-325MG 1 EACH TAB PO PRN ×2 (08:18→19:01)
[2022-06-23] MEDS: SODIUM FERRIC GLUCONAT-SUCROSE 125 MG in SODIUM CHLORIDE 0.9% 100 ML IVPB SCH (08:21)
[2022-06-23] MEDS: LACTATED RINGERS 1,000 ML IV SCH ×2 (09:12→15:50)
--- NOTE | 2022-06-23 10:12 | P.PN ---
Subjective Progress Note Date: 06/23/22 Principal diagnosis: Status post direct anterior left total hip arthroplasty Patient was examined today at bedside, she is resting in her hospital bed. Patient's pain is improved today. She states that she has continued to get some lightheadedness and ambulating. Internal medicine has also evaluated the patient, she is receiving IV iron at this time. She denies headaches, chest pain or shortness of breath at this time. Objective - Vital Signs Vital signs: Vital Signs Temp 99.1 F 06/23/22 06:51 Pulse 82 06/23/22 06:51 Resp 16 06/23/22 08:00 BP 143/71 06/23/22 06:51 Pulse Ox 95 06/23/22 06:51 FiO2 Intake & Output 06/22/22 06/23/22 06/23/22 18:59 06:59 18:59 Other: Voiding Method Toilet Toilet # Voids 4 4 # Bowel Movements 0 - Exam Left lower extremity: Incision is clean, dry, and intact. The foam dressing is in good condition. There is minimal soft tissue swelling and ecchymosis surrounding the medial and lateral aspects of the incision. Calf is soft, no tenderness with palpation. Plantar flexion, dorsiflexion, EHL, FHL are intact. Sensory exam to light touch throughout the extremity is intact, dorsal pedis pulses 2+. - Labs CBC & Chem 7: 06/22/22 04:56 Labs: Abnormal Lab Results - Last 24 Hours (Table) 06/22/22 06/22/22 06/22/22 Range/Units 11:34 16:42 21:01 POC Glucose (mg/dL) 131 H 153 H 180 H (70-110) mg/dL 06/23/22 Range/Units 06:33 POC Glucose (mg/dL) 139 H (70-110) mg/dL Assessment and Plan Assessment: Postoperative day #2 status post direct anterior left total hip arthroplasty Plan: Pain control, continue supportive oral medications. IV pain medication as needed DVT prophylaxis, continue current medication. Patient was on Xarelto 20 mg prior to the surgery due to A. fib. We will likely resume this at her follow-up with recommendations for how long to continue to take orthopedic standpoint alfreda mmended 28 days. Continue PT/OT Encourage incentive spirometer Dressing instructions discussed with patient Medical recommendations Discharge planning: Due to patient's lightheadedness with ambulation and receiving the IV iron, would like to keep patient in the hospital for 1 additional night. Time with Patient: Less than 30
[2022-06-23 11:08] LABS: Glucose,Whole Blood 261 mg/dL (70-110)
[2022-06-23] MEDS: HYDROmorphone 0.5 MG/0.5 ML SYRINGE IVP PRN (12:56)
[2022-06-23 16:44] LABS: Glucose,Whole Blood 104 mg/dL (70-110)
--- NOTE | 2022-06-23 19:35 | P.PN ---
Progress Note - Text Progress Note Date: 06/23/22 - Chief Complaint Hip surgery Hospital course: This is a pleasant 77-year-old patient who follows with Dr. Guerrero. Chronic stable medical conditions include asthma, diabetes, GERD, hypertension, prostatitis, aortic valve insufficiency, pacemaker, IBS,. Patient is accompanied by her at the bedside. Patient earlier underwent anterior left total hip arthroplasty. Dr. Callahan. Postprocedure pain is controlled. No nausea vomiting. No chest pain or shortness of breath. June 22: Patient got dizzy lightheaded this morning. Dropped her hemoglobin. Estimated blood loss was 1 25 mL. IV Ferrlecit 2 ordered. Blood pressure in the lower side. Hold Cozaar. Discussed with patient. June 23: Patient did ambulate. Less dizzy. Did eat light. Discussed with patient has been. Getting IV Ferrlecit. Active Medications Hydrocodone Bitart/Acetaminophen (Hydrocodone/Apap 5-325mg 1 Each Tab) 1 each PO Q6HR PRN PRN Reason: Pain Scale 1 to 5 Stop: 07/21/22 11:26 Last Admin: 06/23/22 00:46 Dose: 1 each Hydrocodone Bitart/Acetaminophen (Hydrocodone/Apap 7.5-325mg 1 Each Tab) 1 each PO Q6H PRN PRN Reason: Pain Scale 6 to 10 Stop: 07/21/22 11:26 Last Admin: 06/23/22 19:01 Dose: 1 each Albuterol Sulfate (Albuterol Nebulized 2.5 Mg/3 Ml) 2.5 mg INHALATION RT-Q4H PRN PRN Reason: Shortness Of Breath Cholecalciferol (Cholecalciferol 25 Mcg (1000 Iu) Tablet) 50 mcg PO DAILY [facility] Last Admin: 06/23/22 08:02 Dose: 50 mcg Dextrose/Water (Dextrose 50% Syringe 50 Ml) 25 ml IVP PER PROTOCOL PRN; Protocol PRN Reason: Hypoglycemia Dextrose/Water (Dextrose 50% Syringe 50 Ml) 50 ml IVP PER PROTOCOL PRN; Protocol PRN Reason: Hypoglycemia Ezetimibe (Ezetimibe 10 Mg Tab) 10 mg PO QAM [facility] Last Admin: 06/23/22 08:02 Dose: 10 mg Enoxaparin Sodium (Enoxaparin 40 Mg/0.4 Ml Syringe) 40 mg SQ DAILY [facility] Stop: 07/22/22 09:01 Last Admin: 06/23/22 08:02 Dose: 40 mg Famotidine (Famotidine 20 Mg Tab) 20 mg PO DAILY [facility] Stop: 07/22/22 09:01 Last Admin: 06/23/22 08:03 Dose: 20 mg Hydromorphone HCl (Hydromorphone 0.5 Mg/0.5 Ml Syringe) 0.25 mg IVP Q3HR PRN PRN Reason: Pain Scale 4 to 6 Stop: 07/21/22 11:26 Last Admin: 06/22/22 03:22 Dose: 0.25 mg Hydromorphone HCl (Hydromorphone 0.5 Mg/0.5 Ml Syringe) 0.5 mg IVP Q3HR PRN PRN Reason: Pain Scale 7 to 10 Stop: 07/21/22 11:26 Last Admin: 06/23/22 12:56 Dose: 0.5 mg Hydromorphone HCl (Hydromorphone 0.5 Mg/0.5 Ml Syringe) 0.125 mg IVP Q3HR PRN PRN Reason: Pain Scale 1 to 3 Stop: 07/21/22 11:26 Hyoscyamine (Hyoscyamine Sulfate 0.125 Mg Tab) 0.125 mg PO Q4H PRN PRN Reason: ABD PAIN Last Admin: 06/23/22 00:42 Dose: 0.125 mg Insulin Aspart (Insulin Aspart (Novolog) 100 Unit/Ml Vial) 0 unit SQ AC-TID [facility]; Protocol Last Admin: 06/23/22 16:44 Dose: Not Given Insulin Detemir (Insulin Detemir (Levemir) 100 Unit/Ml Syr) 22 unit SQ QAM@0700 [facility] Last Admin: 06/23/22 08:02 Dose: 22 unit Insulin Human Regular (Insulin Regular 100 Unit/Ml Vial (Im/Sq)) 3 unit SQ AC- TID PRN PRN Reason: IF BS OVER 250 Lidocaine HCl (Lidocaine 1% (10mg/Ml) For Iv Start) 0.1 ml INTRADERMA PER PROTOCOL PRN PRN Reason: IV Start Stop: 07/21/22 08:06 Last Admin: 06/21/22 08:30 Dose: 0.1 ml Losartan Potassium (Losartan 25 Mg Tab) 25 mg PO DAILY [facility] Naloxone HCl (Naloxone 0.4 Mg/Ml 1 Ml Vial) 0.2 mg IV Q2M PRN PRN Reason: Opioid Reversal Stop: 07/21/22 11:26 Non-Formulary Medication (Exenatide Microspheres [Bydureon Bcise Auto-Injector]) 2 mg SQ SA TYRON Ondansetron HCl (Ondansetron 4 Mg/2 Ml Vial) 4 mg IVP DAILY PRN PRN Reason: Nausea And Vomiting Stop: 07/21/22 11:26 Senna/Docusate Sodium (Sennosides-Docusate Sodium 1 Each Tab) 2 each PO HS [facility] Stop: 07/21/22 21:01 Last Admin: 06/22/22 19:46 Dose: 2 each Past medical history to include: Asthma, diabetes, GERD, hypertension, Chao arthritis, abdominal aortic aneurysm, aortic valve insufficiency, third-degree AV block with pacemaker, IBS, bleeding peptic ulcer, diverticulitis skin cancer Social history: Patient smoked for 20 years stopped in 1988. No alcohol. . Physical examination: VITAL SIGNS: 99.5, 78, 18, 147 with 72, 93% room air GENERAL: Up in a chair, feeling better EYES: Pupils equal. Conjunctiva normal. HEENT: External appearance of nose and ears normal, oral cavity grossly normal. NECK: JVD not raised; masses not palpable. HEART: First and second heart sounds are normal; no edema. LUNGS: Respiratory rate normal; clear to auscultation. ABDOMEN: Soft, nontender, liver spleen not palpable, no masses palpable. PSYCH: Alert and oriented x3; mood and affect normal. MUSCULOSKELETAL:No Clubbing/cyanosis;muscles-grossly intact. OA. INVESTIGATIONS, reviewed in the clinical context: June 22: White count 8.6 hemoglobin 9.7 Labs from 05/28/2022: WBC 9.0 hemoglobin 14.9 platelets 399 potassium 4.8 BUN 11.1 creatinine 1.0 HbA1c 7.1 Assessment plan: -Left anterior total hip arthroplasty, per Dr. Callahan on 06/21/2022. Pain control. Lovenox for DVT prophylaxis. Follow surgical orders -Intermittent asthma Pro-air when necessary -History of hypotension from blood loss anemia: Improving IV fluids. Resume Cozaar tomorrow at 25 mg -Acute postprocedure blood loss anemia expected from surgery IV Ferrlecit 2 -Essential hypertension Blood pressure currently is running of the lower side. Estimated blood loss was 125 mL. Hold off Moduretic. IV fluids -Diabetes mellitus type 2 Follow Accu-Cheks.bydueron. Lantus 22 units subcu in the morning. Sliding scale. -Hyperlipidemia Zetia -Primary osteoarthritis Pain medications as needed DC IV fluids this evening. Getting IV Ferrlecit. Resume Cozaar tomorrow [address] Thank you Dr[address] Callahan
[2022-06-23 21:07] LABS: Glucose,Whole Blood 162 mg/dL (70-110)
[2022-06-23] MEDS: SENNOSIDES-DOCUSATE SODIUM 1 EACH TAB PO SCH (22:01)
[2022-06-24 06:32] LABS: Glucose,Whole Blood 130 mg/dL (70-110)
[2022-06-24] MEDS: INSULIN ASPART (NovoLOG) 100 UNIT/ML VIAL SQ SCH ×2 (06:44→11:47)
[2022-06-24] MEDS: INSULIN DETEMIR (LEVEMIR) 100 UNIT/ML SYR SQ SCH (06:52)
[2022-06-24] MEDS: FAMOTIDINE 20 MG TAB PO SCH (08:37)
[2022-06-24] MEDS: EZETIMIBE 10 MG TAB PO SCH (08:37)
[2022-06-24] MEDS: HYDROmorphone 0.5 MG/0.5 ML SYRINGE IVP PRN (08:37)
[2022-06-24] MEDS: CHOLECALCIFEROL 25 MCG (1000 IU) TABLET PO SCH (08:38)
[2022-06-24] MEDS: ENOXAPARIN 40 MG/0.4 ML SYRINGE SQ SCH (08:38)
[2022-06-24] MEDS ORDERED: LOSARTAN 25 MG TAB PO SCH (09:00)
[2022-06-24 09:36] LABS: Basophils # (A) 0.03 X 10*3/uL (0.00-0.10); Basophils % (A) 0.4 %; Eosinophils # (A) 0.17 X 10*3/uL (0.04-0.35); HCT 29.5 % (37.2-46.3); HGB 9.6 g/dL (12.0-15.0); Immature Grans, Automated 0.5 %; Lymphocytes # (A) 1.59 X 10*3/uL (0.90-5.00); Lymphocytes % (A) 19.1 %; MCH 28.6 pg (27.0-32.0); MCHC 32.5 g/dL (32.0-37.0); MCV 87.8 fL (80.0-97.0); Mean Platelet Volume 11.2 fL (9.5-12.2); Monocytes # (A) 1.15 X 10*3/uL (0.20-1.00); Monocytes % (A) 13.8 %; NRBC Per 100 WBC 0 /100 WBCS (0.0-0.0); Neutrophils # (A) 5.33 X 10*3/uL (1.80-7.70); Neutrophils % (A) 64.2 %; Platelet Count 227 X 10*3/uL (140-440); RBC 3.36 X 10*6/uL (4.10-5.20); RDW 13.2 % (11.5-14.5); WBC 8.31 X 10*3/uL (4.50-10.00)
[2022-06-24 09:44] VITALS: BP 124/71; PULSE 75; RESP 15; TEMP 98.6
[2022-06-24] MEDS: HYDROcodone/APAP 7.5-325MG 1 EACH TAB PO PRN (09:59)
--- NOTE | 2022-06-24 10:06 | P.PN ---
Subjective Progress Note Date: 06/24/22 Principal diagnosis: Status post direct anterior left total hip arthroplasty Patient was examined today at bedside, she is resting in her hospital bed. Patient's pain has continued to improve. She denies headaches, chest pain or shortness of breath at this time. Objective - Vital Signs Vital signs: Vital Signs Temp 98.6 F 06/24/22 07:12 Pulse 75 06/24/22 07:12 Resp 15 06/24/22 07:12 BP 124/71 06/24/22 07:12 Pulse Ox 98 06/24/22 07:12 FiO2 Intake & Output 06/23/22 06/24/22 06/24/22 18:59 06:59 18:59 Other: Voiding Method Toilet Toilet # Voids 1 5 - Exam Left lower extremity: Incision is clean, dry, and intact. The foam dressing is in good condition. There is minimal soft tissue swelling and ecchymosis surrounding the medial and lateral aspects of the incision. Calf is soft, no tenderness with palpation. Plantar flexion, dorsiflexion, EHL, FHL are intact. Sensory exam to light touch throughout the extremity is intact, dorsal pedis pulses 2+. - Labs CBC & Chem 7: 06/24/22 05:48 Labs: Abnormal Lab Results - Last 24 Hours (Table) 06/23/22 06/23/22 06/24/22 Range/Units 11:08 21:05 05:48 RBC 3.36 L (4.10-5.20) X 10*6/uL Hgb 9.6 L (12.0-15.0) g/dL Hct 29.5 L (37.2-46.3) % Monocytes # 1.15 H (0.20-1.00) X 10*3/uL POC Glucose (mg/dL) 261 H 162 H (70-110) mg/dL 06/24/22 Range/Units 06:29 RBC (4.10-5.20) X 10*6/uL Hgb (12.0-15.0) g/dL Hct (37.2-46.3) % Monocytes # (0.20-1.00) X 10*3/uL POC Glucose (mg/dL) 130 H (70-110) mg/dL Assessment and Plan Assessment: Postoperative day #3 status post direct anterior left total hip arthroplasty Plan: Pain control, Lyman 7.5mg/325mg at discharge DVT prophylaxis, resume xarelto tomorrow Continue PT/OT Encourage incentive spirometer Dressing instructions discussed with patient Medical recommendations Discharge planning: stable for discharge home today Time with Patient: Less than 30
--- NOTE | 2022-06-24 10:17 | P.DS ---
Providers Date of admission: 06/22/22 09:21 Expected date of discharge: 06/24/22 Attending physician: Braden Benson Consults: 06/21/22 11:25 Consult Physician Routine Consulting Provider: Roshan Hoffman Consult Reason/Comments: Medical management Do you want consulting provider notified?: Yes Primary care physician: [facility] Hospital Course: Date of admission: 06/21/2022 Date of discharge: 06/24/2022 Admission diagnosis: s/p left direct anterior total hip arthroplasty Discharge diagnosis: same Attending physician: Dr. Benson Surgical procedures: Direct anterior left total hip arthroplasty Brief history: Patient is a 77-year-old female with a history of progressive primary left hip osteoarthritis. At this point patient has failed conservative treatment measures and has opted to proceed with a elective direct anterior left total hip arthroplasty. Hospital course: Details of patient's surgery can be found in operative report. Patient tolerated the procedure well and was subsequently transported to orthopedic floor. Patient's orthopeidc and medical care was provided daily. Patient had daily laboratory tests performed for evaluation of overall blood counts. Patient had daily physical therapy to include strengthening range of motion as well as education with walker ambulation. Patient was treated with Lovenox for their postoperative DVT prophylaxis during their inpatient stay. Patient was noted to have a relatively uneventful postoperative course. Patient reported satisfactory pain control with oral pain medications by postoperative day 0. Patient showed satisfactory progress with physical therapy. Patient moved steadily through the program and had no difficulty meeting the goals by postoperative day 3. Given patient's otherwise satisfactory course and having met physical therapy goals, plan is to discharge patient home on postoperative day 3. Discharge condition/disposition: Patient will be discharged home in stable cond ition. Discharge medications: Instructions are given on resumption of patient's normal daily medications per primary care recommendation, in addition patient will be prescribed [place] 7.5 mg/325 mg, senna S. Discharge instructions: 1. Wound care and infection precautions, keep incision dry and covered while showering, no lotions, creams, moisturizers. No soaking, tubs, pools, hottubs. Do not scrub over the incision. 2. Weight-bear as tolerated with walker / cane until follow-up. 3. Ice and elevate when necessary. Do not exceed 20 minutes per hour with ice pack. 4. Utilize compression sleeve until seen at first follow up appointment. 5. Visiting nursing care. 6. Home physical therapy. 7. Pain meds and anticoagulants per prescription. 8. Pain medication has potential to cause constipation. Increase oral fluid and fiber intake. Contact primary care provider if you have not had a bowel movement within 48 hours after discharge 9. No anti-inflammatory medication until discussed at first post operative visit, this including Motrin, Aleve, Mobic, Diclofenac. 10. Follow up in office at 2 weeks postop with Olivier Adorno PA-C/Toan Edmond 11. Follow up with your primary care doctor 7-10 days after discharge. 12. Contact [facility] with any questions, . Wound care instructions: 1. Okay to remove foam dressing on 06/28/2022 2. Ok to shower directly over incision after removal of dressing Procedures: direct anterior left total hip arthroplasty Plan - Discharge Summary Discharge Rx Participant: Yes New Discharge Prescriptions: New HYDROcodone/APAP 7.5-325MG [[place] 7.5] 1 each PO Q4HR PRN #42 tab PRN Reason: Pain Sennosides/Docusate Sodium [Senna-S 8.6-50 mg Tablet] 1 each PO DAILY PRN #21 tablet PRN Reason: Constipation No Action Diphenoxylate HCl/Atropine [Lomotil] 5 tab PO QAM Hyoscyamine Sulfate [Hyoscyamine Sulfate SL] 0.125 mg SL Q4H PRN PRN Reason: ABD PAIN Ezetimibe [Zetia] 10 mg PO QAM Albuterol Sulfate [Proair Hfa] 2 puff INHALATION RT-Q4H PRN PRN Reason: Shortness Of Breath Ondansetron Odt [Zofran ODT] 4 mg PO Q12HR PRN PRN Reason: Nausea Insulin Glargine,Hum.rec.anlog [Lantus Solostar Pen] 25 units SQ QAM Exenatide Microspheres [Bydureon Bcise Auto-Injector] 2 mg SQ SA aMILoride-HCTZ 5-50 mg [Moduretic 5-50] 0.25 tab PO QAM Cholecalciferol [Vitamin D3 (25 Mcg = 1000 Iu)] 50 mcg PO DAILY Losartan [Cozaar] 50 mg PO QAM Insulin Regular, Human [Novolin R Flexpen] 3 units SQ AC-TID PRN PRN Reason: IF BS OVER 250 Discharge Medication List Diphenoxylate HCl/Atropine [Lomotil] 5 tab PO QAM 10/09/13 [History] Ezetimibe [Zetia] 10 mg PO QAM 10/02/18 [History] Hyoscyamine Sulfate [Hyoscyamine Sulfate SL] 0.125 mg SL Q4H PRN 10/02/18 [History] Albuterol Sulfate [Proair Hfa] 2 puff INHALATION RT-Q4H PRN 04/18/19 [History] Ondansetron Odt [Zofran ODT] 4 mg PO Q12HR PRN 04/18/19 [History] Insulin Glargine,Hum.rec.anlog [Lantus Solostar Pen] 25 units SQ QAM 03/03/20 [History] Exenatide Microspheres [Bydureon Bcise Auto-Injector] 2 mg SQ SA 02/26/21 [History] Losartan [Cozaar] 50 mg PO QAM 02/26/21 [History] aMILoride-HCTZ 5-50 mg [Moduretic 5-50] 0.25 tab PO QAM 02/26/21 [History] Cholecalciferol [Vitamin D3 (25 Mcg = 1000 Iu)] 50 mcg PO DAILY 03/05/22 [History] Insulin Regular, Human [Novolin R Flexpen] 3 units SQ AC-TID PRN 06/16/22 [History] HYDROcodone/APAP 7.5-325MG [[place] 7.5] 1 each PO Q4HR PRN #42 tab 06/24/22 [Rx] Sennosides/Docusate Sodium [Senna-S 8.6-50 mg Tablet] 1 each PO DAILY PRN #21 tablet 06/24/22 [Rx] Follow up Appointment(s)/Referral(s): Tom Guerrero DO [Primary Care Provider] - 1 Week Jeremiah Adorno PAC [PHYSICIAN PERIANESTHESIA RN] - 07/07/22 3:30 pm [facility] Visiting Nurse, [NON-STAFF] - 1-2 Days ([facility] will call you to schedule your in home nursing and physical therapy visits. ) Patient Instructions/Handouts: Anterior Hip Replacement (DC) Activity/Diet/Wound Care/Special Instructions: Orthopedic Discharge Instructions: 1. Wound care and infection precautions, keep incision dry and covered while showering, no lotions, creams, moisturizers. No soaking, pools, hot tubs. Do not scrub over incision. 2. Weight-bear as tolerated with walker / cane until follow-up. 3. Ice and elevate when necessary. Do not exceed 20 minutes per hour with ice pack. 4. Utilize compression sleeve until seen at first follow up appointment. 5. Pain meds and anticoagulants per prescription. 6. Pain medication has potential to cause constipation. Increase oral fluid and fiber intake. Contact primary care provider if you have not had a bowel movement within 48 hours after discharge. 7. No anti-inflammatory medication until discussed at first post operative visit, this including Motrin, Aleve, Mobic, Diclofenac. 8. Follow up in office at 2 weeks postop with Olivier Adorno PA-C/Toan Smith PA-C 9. Follow up with your primary care doctor 7-10 days after discharge. 10. Contact [facility] with any questions, . Wound care instructions: 1. Okay to remove foam dressing as on 06/30/2022 2. Okay to shower directly over incision after removal of dressing Discharge Disposition: HOME WITH HOME HEALTH SERVICES
[2022-06-24 11:38] LABS: Glucose,Whole Blood 227 mg/dL (70-110)
--- NOTE | 2022-06-24 22:43 | P.PN ---
Progress Note - Text Progress Note Date: 06/24/22 - Chief Complaint Hip surgery Hospital course: This is a pleasant 77-year-old patient who follows with Dr. Guerrero. Chronic stable medical conditions include asthma, diabetes, GERD, hypertension, prostatitis, aortic valve insufficiency, pacemaker, IBS,. Patient is accompanied by her at the bedside. Patient earlier underwent anterior left total hip arthroplasty. Dr. Callahan. Postprocedure pain is controlled. No nausea vomiting. No chest pain or shortness of breath. June 22: Patient got dizzy lightheaded this morning. Dropped her hemoglobin. Estimated blood loss was 1 25 mL. IV Ferrlecit 2 ordered. Blood pressure in the lower side. Hold Cozaar. Discussed with patient. June 23: Patient did ambulate. Less dizzy. Did eat light. Discussed with patient has been. Getting IV Ferrlecit. June 24: Doing better. Discussed with patient and . We'll keep the Cozaar at 25 mg a day. Daily blood pressure check. Patient does take Xarelto at home that she resume. She takes at that apparently paroxysmal atrial fibrillation. Medications reviewed Past medical history to include: Asthma, diabetes, GERD, hypertension, Chao arthritis, abdominal aortic aneurysm, aortic valve insufficiency, third-degree AV block with pacemaker, IBS, bleeding peptic ulcer, diverticulitis skin cancer Social history: Patient smoked for 20 years stopped in 1988. No alcohol. . Physical examination: VITAL SIGNS: 98.6, 75, 15, 120/71, 98% room air GENERAL: Up in a chair, comfortable EYES: Pupils equal. Conjunctiva normal. HEENT: External appearance of nose and ears normal, oral cavity grossly normal. NECK: JVD not raised; masses not palpable. HEART: First and second heart sounds are normal; no edema. LUNGS: Respiratory rate normal; clear to auscultation. ABDOMEN: Soft, nontender, liver spleen not palpable, no masses palpable. PSYCH: Alert and oriented x3; mood and affect normal. MUSCULOSKELETAL:No Clubbing/cyanosis;muscles-grossly intact. OA. INVESTIGATIONS, reviewed in the clinical context: June 24: Hemoglobin 9.6 June 22: White count 8.6 hemoglobin 9.7 Labs from 05/28/2022: WBC 9.0 hemoglobin 14.9 platelets 399 potassium 4.8 BUN 11.1 creatinine 1.0 HbA1c 7.1 Assessment plan: -Left anterior total hip arthroplasty, per Dr. Callahan on 06/21/2022. Pain control. Lovenox for DVT prophylaxis. Follow surgical orders -Intermittent asthma Pro-air when necessary -History of hypotension from blood loss anemia: Improving IV fluids. Resume Cozaar tomorrow at 25 mg -Acute postprocedure blood loss anemia expected from surgery IV Ferrlecit 2 -Essential hypertension Cozaar 25 mg a day -Paroxysmal atrial fibrillation, sinus rhythm Resume Xarelto -Diabetes mellitus type 2 Follow Accu-Cheks.bydueron. Lantus 22 units subcu in the morning. Sliding scale. -Hyperlipidemia Zetia -Primary osteoarthritis Pain medications as needed Discussed with patient and . Questions answered. Thank you Dr. Callahan
[2022-06-26] MEDS ORDERED: EXENATIDE MICROSPHERES 2 MG/0.85 ML SQ SCH (09:00)
[2022-06-26] MEDS ORDERED: [UNRECOGNIZED DRUG - OTHER] SQ SCH (09:00)
== END 2022-06-24 13:15 | disposition home health service (06) ==
LOC: OR 07:40 → 4SSUR 11:17 → OR 06-22 09:21 → 4SSUR 06-22 09:21
PROVIDERS: ADMIT Orthopaedic Surgery; ATTEND Orthopaedic Surgery
DX: M16.12 Unilateral primary osteoarthritis, left hip (principal); G89.18 Other acute postprocedural pain; D62 Acute posthemorrhagic anemia; K21.9 Gastro-esophageal reflux disease without esophagitis; I10 Essential (primary) hypertension; E78.5 Hyperlipidemia, unspecified; K58.9 Irritable bowel syndrome, unspecified; I48.0 Paroxysmal atrial fibrillation; J45.20 Mild intermittent asthma, uncomplicated; I35.1 Nonrheumatic aortic (valve) insufficiency; I71.40 Abdominal aortic aneurysm, without rupture, unspecified; E11.51 Type 2 diabetes mellitus with diabetic peripheral angiopathy without gangrene; Z95.0 Presence of cardiac pacemaker; Z96.653 Presence of artificial knee joint, bilateral; Z96.641 Presence of right artificial hip joint; Z79.899 Other long term (current) drug therapy; Z88.0 Allergy status to penicillin; Z88.8 Allergy status to other drugs, medicaments and biological substances; Z79.4 Long term (current) use of insulin; Z87.891 Personal history of nicotine dependence; Z85.828 Personal history of other malignant neoplasm of skin; Z90.49 Acquired absence of other specified parts of digestive tract; Z90.710 Acquired absence of both cervix and uterus; Z98.42 Cataract extraction status, left eye; Z98.41 Cataract extraction status, right eye; Z96.1 Presence of intraocular lens; Z80.6 Family history of leukemia; Z80.0 Family history of malignant neoplasm of digestive organs; Z82.49 Family history of ischemic heart disease and other diseases of the circulatory system
CPT/HCPCS: 96376 ×3; 96365 ×2; 96372 ×2; 96375; 97116 ×2; 97161; 97535 ×2; 97165; 64447; 76942; 36430; 86900; 86901; 85025 ×2; 86850; 88300; 73501; 27130; G0378 ×3; C1776; J2250; J1100; J0690 ×3; J2405; J1650 ×3; J3010; J2916 ×2; J2795; P9045; J2370; J2704; J1170 ×4

== ENCOUNTER 2022-08-14 21:17 | Emergency (ER) | payer MEDICARE ==
[2022-08-14] MEDS ORDERED: MORPHINE SULFATE 4 MG/ML SYRINGE IM STA (21:44)
--- NOTE | 2022-08-14 21:47 | ED ---
General Adult HPI - General Chief complaint: Fall Stated complaint: fall,rib pain Time Seen by Provider: 08/14/22 21:36 Source: patient Mode of arrival: wheelchair Limitations: no limitations - History of Present Illness Initial comments: Dictation was produced using [employer] dictation software. please excuse any grammatical, word or spelling errors. Chief Complaint: 77-year-old female presents emergency part with left-sided rib pain and back pain after fall History of Present Illness: 77-year-old female she has multiple comorbidities. She states she does take anticoagulation medications. Patient tripped 2 days ago fell down 2-3 steps. She landed on her left side. Patient has been trying to tough it out at home. She states that most of her pain is localized to her left lateral chest and mid back area. She's been ambulatory for last 48 hours without any complications. Denies any head trauma. Denies any headache or neck pain. Patient's pain is sharp reproducible with deep inspiration and turning. The ROS documented in this emergency department record has been reviewed and confirmed by me. Those systems with pertinent positive or negative responses have been documented in the HPI. All other systems are other negative and/or noncontributory. PHYSICAL EXAM: General Impression: Alert and oriented x3, acute distress secondary to pain HEENT: Normocephalic atraumatic, extra-ocular movements intact, pupils equal and reactive to light bilaterally, mucous membranes moist. Cardiovascular: Heart regular rate and rhythm Chest: Able to complete full sentences, no retractions, no tachypnea, palpatory tenderness to the left lateral posterior chest Abdomen: abdomen soft, non-tender, non-distended, no organomegaly Musculoskeletal: Pulses present and equal in all extremities, no peripheral edema Motor: no focal deficits noted Neurological: CN II-XII grossly intact, no focal motor or sensory deficits noted Skin: Intact with no visualized rashes Psych: Normal affect and mood ED course: 77 presents emergency department with chest and mid back pain after fall signs upon arrival are within acceptable limits. Nursing notes and chart review was performed Was pt. sent in by a medical professional or institution (, PA, BLOOD BANK CUSTODIAN, urgent care, hospital, or assisted...) When possible be specific @ -No Did you speak to anyone other than the patient for history (EMS, parent, family, police, friend...)? What history was obtained from this source @ -No Did you review nursing and triage notes (agree or disagree)? Why? @ -I reviewed and agree with nursing and triage notes Were old charts reviewed (outside hosp., previous admission, EMS record, old EKG, old radiological studies, urgent care reports/EKG's, assisted records)? Report findings @ -No old charts were reviewed Differential Diagnosis (chest pain, altered mental status, abdominal pain women, abdominal pain men, vaginal bleeding, musculoskeletal, weakness, fever, dyspnea, syncope, headache, dizziness, GI bleed, back pain, seizure, CVA, palpatations, mental health)? @ -Differential Musculoskeletal: Muscular strain, contusion, ligament sprain, fracture, arthritis, septic arthritis, bursitis, cellulitis, muscle spasm, nerve compression, DVT, arterial occlusion, herpes zoster, electrolyte abnormality, tumor.... This is not meant to be in all inclusive list EKG interpreted by me (3pts min.). @ -None done X-rays interpreted by me (1pt min.). @ -None done CT interpreted by me (1pt min.). @ -mildly displaced left lateral sixth rib fracture. No underlying lung contusion. There does appear to be mild left atelectasis U/S interpreted by me (1pt. min.). @ -None done What testing was considered but not performed or refused? (CT, X-rays, U/S, labs)? Why? @ -None What meds were considered but not given or refused? Why? @ -None Did you discuss the management of the patient with other professionals (professionals i.e. , PA, BLOOD BANK CUSTODIAN, lab, RT, psych nurse, social media analyst, hospital recruiter, teacher, appeals officer, pillowcase cutter)? Give summary @ -No Was smoking cessation discussed for >3mins.? @ -No Was critical care preformed (if so, how long)? @ -No Were there social determinants of health that impacted care today? How? (Homelessness, low income, unemployed, alcoholism, drug addiction, transportation, low edu. Level, literacy, decrease access to med. care, usp, rehab)? @ -No Was there de-escalation of care discussed even if they declined (Discuss DNR or withdrawal of care, Hospice)? DNR status @ -No What co-morbidities impacted this encounter? (DM, HTN, Smoking, COPD, CAD, Cancer, CVA, ARF, Chemo, Hep., AIDS, mental health diagnosis, sleep apnea, morbid obesity)? @ -None Was patient admitted / discharged? Hospital course, mention meds given and route, prescriptions, significant lab abnormalities, going to OR and other pertinent info. @ -77-year-old female presents emergency department left rib pain after fall [address] shows a lateral sixth rib fracture. Patient given incentive spirometry and instructed on its use. She is given analgesics. Patient monitored in the emergency department physician feels better. Patient be discharge advised follow-up with primary doctor. Return precautions discussed. Undiagnosed new problem with uncertain prognosis? @ -No Drug Therapy requiring intensive monitoring for toxicity (Heparin, Nitro, Insulin, Cardizem)? @ -No Were any procedures done? @ -No Diagnosis/symptom? Acute, or Chronic, or Acute on Chronic? Uncomplicated (without systemic symptoms) or Complicated (systemic symptoms)? @ -1. Acute rib fracture Side effects of treatment? @ -No Exacerbation, Progression, or Severe Exacerbation? @ -No Poses a threat to life or bodily function? How? (Chest pain, USA, SD, pneumonia, PE, COPD, DKA, ARF, appy, cholecystitis, CVA, Diverticulitis, Homicidal, Suicidal, threat to staff... and all critical care pts) @ -No - Related Data Home Medications Medication Instructions Recorded Confirmed Ezetimibe [Zetia] 10 mg PO QAM 10/02/18 06/16/22 Hyoscyamine Sulfate [Hyoscyamine 0.125 mg SL Q4H PRN 10/02/18 06/16/22 Sulfate SL] Albuterol Sulfate [Proair Hfa] 2 puff INHALATION RT-Q4H PRN 04/18/19 06/16/22 Ondansetron Odt [Zofran ODT] 4 mg PO Q12HR PRN 04/18/19 06/16/22 Insulin Glargine,Hum.rec.anlog 25 units SQ QAM 03/03/20 06/16/22 [Lantus Solostar Pen] Exenatide Microspheres [Bydureon 2 mg SQ SA 02/26/21 06/16/22 Bcise Auto-Injector] aMILoride-HCTZ 5-50 mg [Moduretic 0.25 tab PO QAM 02/26/21 06/16/22 5-50] Cholecalciferol [Vitamin D3 (25 50 mcg PO DAILY 03/05/22 06/16/22 Mcg = 1000 Iu)] Insulin Regular, Human [Novolin R 3 units SQ AC-TID PRN 06/16/22 06/16/22 Flexpen] Previous Rx's Medication Instructions Recorded Cyclobenzaprine [Flexeril] 5 mg PO HS PRN #20 tab 06/24/22 HYDROcodone/APAP 7.5-325MG [Pavilion 1 each PO Q4HR PRN #42 tab 06/24/22 7.5] Losartan [Cozaar] 25 mg PO QAM #0 06/24/22 Omeprazole [PriLOSEC] 20 mg PO HS #30 cap 06/24/22 Sennosides/Docusate Sodium 1 each PO DAILY PRN #21 tablet 06/24/22 [Senna-S 8.6-50 mg Tablet] HYDROcodone/APAP 5-325MG [Pavilion 1 tab PO Q6HR PRN 3 Days #12 tab 08/15/22 5-325] Lidocaine 5% Patch [Lidoderm] 1 patch TOPICAL DAILY PRN 5 Days 08/15/22 #5 patch Allergies Allergy/AdvReac Type Severity Reaction Status Date / Time adhesive Allergy Rash/Hives Verified 08/14/22 21:28 Iodinated Contrast Media Allergy Anaphylaxis Verified 08/14/22 21:28 [Iodinated Contrast Media - IV Dye] iodine Allergy Anaphylaxis Verified 08/14/22 21:28 lisinopril Allergy Anaphylaxis Verified 08/14/22 21:28 moxifloxacin HCl Allergy Rash/Hives Verified 08/14/22 21:28 [From Avelox] Penicillins Allergy Rash/Hives Verified 08/14/22 21:28 shellfish derived Allergy Anaphylaxis Verified 08/14/22 21:28 celecoxib [From Celebrex] AdvReac Nausea & Verified 08/14/22 21:28 Vomiting Review of Systems ROS Statement: Those systems with pertinent positive or pertinent negative responses have been documented in the HPI. ROS Other: All systems not noted in ROS Statement are negative. Past Medical History Past Medical History: Asthma, Cancer, Diabetes Mellitus, GERD/Reflux, GI Bleed, Hypertension, Osteoarthritis (OA), Skin Disorder Additional Past Medical History / Comment(s): thickening of colon on CT, nausea, hx Bronchitis, sinus problems, IDDM type II, abdominal aortic aneurysm, aortic valve insufficiency, 3rd degree heart block/vertigo/pacer, IBS, past bleeding peptic ulcer, diverticulitis, IBS, lower GI bleed, arthritis in multiple joints, skin cancer with removals, R hip prosthesis and 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 History of Any Multi-Drug Resistant Organisms: None Reported Past Surgical History: Cholecystectomy, Hernia Repair, Hysterectomy, Joint Replacement, Orthopedic Surgery, Pacemaker, Tonsillectomy Additional Past Surgical History / Comment(s): 08/23/19 pacemaker, R inguinal hernia repair, abdominoplasty, sinus surgery, L foot hammer toe surgery, total R hip arhtroplasty, bilateral total knee replacements, thyroid nodules, EGD colonoscopies, skin cancer removed, bilateral cataract removals/lens implants. Past Anesthesia/Blood Transfusion Reactions: Motion Sickness Additional Past Anesthesia/Blood Transfusion Reaction / Comment(s): RECEIVED TRANSFUSIONS POST RIGHT ARTHROPLASTY (DATE UNKN). Type of Cardiac Device: Permanent Pacemaker Device Placement Date:: 08/23/19 Past Psychological History: No Psychological Hx Reported Smoking Status: Former smoker Past Alcohol Use History: None Reported Past Drug Use History: None Reported - Past Family History Mother Family Medical History: Cancer Additional Family Medical History / Comment(s): leukemia. maternal grandmother colon CA Brother(s) Family Medical History: Coronary Artery Disease (CAD) Additional Family Medical History / Comment(s): 2 brothers have CAD/pacemakers. ,1 brother had colon CA Sister(s) Family Medical History: Cancer Additional Family Medical History / Comment(s): One sister of breast to lung cancer. Another sister from heart disease. Father Family Medical History: Myocardial Infarction (SD) Additional Family Medical History / Comment(s): Father of a SD at the age of 70 yrs General Exam Limitations: no limitations Course Vital Signs 08/14/22 08/14/22 08/14/22 21:28 22:59 23:05 Temperature 98.9 F 98.3 F Pulse Rate 87 78 82 Respiratory 18 20 20 Rate Blood Pressure 161/72 162/79 177/79 O2 Sat by Pulse 96 97 99 Oximetry Disposition Clinical Impression: Rib fracture Disposition: HOME SELF-CARE Condition: Good Instructions (If sedation given, give patient instructions): Rib Fracture (ED) Prescriptions: Lidocaine 5% Patch [Lidoderm] 1 patch TOPICAL DAILY PRN 5 Days #5 patch PRN Reason: Pain HYDROcodone/APAP 5-325MG [Pavilion 5-325] 1 tab PO Q6HR PRN 3 Days #12 tab PRN Reason: Severe Pain Is patient prescribed a controlled substance at d/c from ED?: Yes If prescribed controlled substance>3 days was MAPS reviewed?: Prescribed <3 Days Referrals: None,Stated [REFERRING] - 1-2 days Time of Disposition: 00:20
--- NOTE | 2022-08-14 22:21 | CT ---
EXAMINATION TYPE: CT brain chris baez con DATE OF EXAM: 08/14/2022 COMPARISON: None HISTORY: pain after fall CT DLP: 1452.1 mGycm Automated exposure control for dose reduction was used. Images obtained of the brain and cervical spine without contrast. There is mild cerebral atrophy. There is no mass effect or midline shift. No sign of intracranial hem orrhage. The calvarium is intact. There is some mucosal thickening in the ethmoid and sphenoid maxill jaquan and frontal sinuses. Skull base is intact. There is normal aeration of the mastoid sinuses. The cervical vertebra show fairly normal alignment. There is degenerative disc space narrowing at C5- 6 with spurring of the endplates. Facet joints are intact. There is multilevel facet arthropathy. The re is no cervical paraspinal mass. IMPRESSION: Spondylotic changes in the lower cervical spine. No fracture. Mild cerebral atrophy. No acute intracranial abnormality.
--- NOTE | 2022-08-14 22:24 | CT ---
EXAMINATION TYPE: CT chest wo con DATE OF EXAM: 08/14/2022 COMPARISON: 02/26/2021 HISTORY: pain after fall CT DLP: 325.2 mGycm Automated exposure control for dose reduction was used. Images obtained from the thoracic inlet to the diaphragm with no contrast. There is some infiltrate and atelectasis left lower lobe. There is small left pleural effusion. Heart is enlarged. No pericardial effusion. There is coronary artery dense calcification. No mediastinal a denopathy. There are no hilar masses. There is a 4.3 cm aneurysm of the ascending aorta. There is some mild degenerative hypertrophic changes in the thoracic spine. No compression fracture. IMPRESSION: Cardiomegaly. Thoracic aortic aneurysm. Unchanged. Left lower lobe infiltrate and atelectasis and left pleural effusion. There is clearing of right ple ural effusion and atelectasis compared to old exam. Left lower lobe abnormalities are new compared to old exam.
[2022-08-14 23:01] VITALS: RESP 20
[2022-08-14] MEDS ORDERED: LIDOCAINE 5% PATCH TOPICAL STA (23:10)
[2022-08-14] MEDS ORDERED: oxyCODONE-APAP 10-325MG 1 EACH TAB PO STA (23:10)
[2022-08-14 23:14] VITALS: BP 177/79; TEMP 98.3
[2022-08-15] MEDS ORDERED: ACET/COD 300 MG/30 MG STARTER PACK 6 TAB BTL PO STA (00:19)
[2022-08-15 00:33] VITALS: PULSE 88
== END 2022-08-15 00:39 | disposition home or self-care (01) ==
LOC: EC 21:17
DX: S22.32XA Fracture of one rib, left side, initial encounter for closed fracture (principal); E11.36 Type 2 diabetes mellitus with diabetic cataract; E11.51 Type 2 diabetes mellitus with diabetic peripheral angiopathy without gangrene; J45.909 Unspecified asthma, uncomplicated; K21.9 Gastro-esophageal reflux disease without esophagitis; I11.9 Hypertensive heart disease without heart failure; Z79.01 Long term (current) use of anticoagulants; Z79.4 Long term (current) use of insulin; Z79.899 Other long term (current) drug therapy; Z87.891 Personal history of nicotine dependence; Z88.0 Allergy status to penicillin; Z88.6 Allergy status to analgesic agent; Z88.8 Allergy status to other drugs, medicaments and biological substances; W10.9XXA Fall (on) (from) unspecified stairs and steps, initial encounter
CPT/HCPCS: 72125; 70450; 71250; 99284; 96372; J2270

== ENCOUNTER → 2022-09-15 | Outpatient (CLI) | payer MEDICARE ==
[2022-09-16 02:12] LABS: HCT 41.5 % (37.2-46.3); HGB 12.9 g/dL (12.0-15.0); MCH 26.5 pg (27.0-32.0); MCHC 31.1 g/dL (32.0-37.0); MCV 85.4 fL (80.0-97.0); Mean Platelet Volume 11.5 fL (9.5-12.2); NRBC Per 100 WBC 0 /100 WBCS (0.0-0.0); Platelet Count 378 X 10*3/uL (140-440); RBC 4.86 X 10*6/uL (4.10-5.20); RDW 14.6 % (11.5-14.5); WBC 8.65 X 10*3/uL (4.50-10.00)
[2022-09-16 03:24] LABS: ALT 17 U/L (8-44); AST 22 U/L (13-35); African American GFR (CKD) 67.1 (60.0-200.0); Albumin 4.3 g/dL (3.8-4.9); Albumin/Globulin Ratio 1.73 (1.60-3.17); Alkaline Phosphatase 128 U/L (41-126); BUN/Creat Ratio 11.53 Ratio (12.00-20.00); Carbon Dioxide 24.8 mmol/L (20.0-27.5); Chloride 98 mmol/L (96-109); Chol/HDL Ratio 2.04 Ratio; Globulin 2.5 g/dL (1.6-3.3); Glucose 179 mg/dL (70-110); LDL Cholesterol,Calculated 57.8 mg/dL (0.0-131.0); Non-African American GFR(CKD) 57.9 (60.0-200.0); Potassium 4.6 mmol/L (3.5-5.5); Sodium 136 mmol/L (135-145); Total Protein 6.8 g/dL (6.2-8.2); VLDL Calculation 19.04 mg/dL (5.00-40.00)
== END | disposition home or self-care (01) ==
LOC: LABWHC1 15:42
PROVIDERS: ATTEND Internal Medicine Endocrinology, Diabetes & Metabolism
DX: I48.0 Paroxysmal atrial fibrillation (principal); E11.65 Type 2 diabetes mellitus with hyperglycemia; R06.02 Shortness of breath
CPT/HCPCS: 36415; 80053; 80061; 82043; 82570; 83880; 84443; 85027

== ENCOUNTER 2022-10-12 06:17 | Day surgery (SDC) | payer MEDICARE ==
[2022-10-07 16:29] VITALS: BMI 26.9
[2022-10-12] MEDS ORDERED: SODIUM CHLORIDE 0.9% 500 ML 500 ML IV ONE (06:55)
[2022-10-12 07:03] LABS: Glucose,Whole Blood 135 mg/dL (70-110)
[2022-10-12 07:05] VITALS: TEMP 98.5
[2022-10-12] MEDS ORDERED: fentaNYL (PF) 50 MCG/ML 2 ML AMP ONE (07:05)
[2022-10-12] MEDS: BENZOCAINE SPRAY 1 CAN MUCOUS MEM ONE ×2 (07:18→07:33)
[2022-10-12] MEDS ORDERED: fentaNYL (PF) 50 MCG/ML 2 ML AMP IV ONE (07:33)
[2022-10-12] MEDS ORDERED: MIDAZOLAM 2 MG/2 ML VIAL IV ONE (07:33)
[2022-10-12] MEDS ORDERED: traMADol 50 MG TAB PO PRN (07:57)
[2022-10-12] MEDS ORDERED: REPAGLINIDE 1 MG TAB PO PRN (07:57)
[2022-10-12] MEDS ORDERED: ALBUTEROL NEBULIZED 2.5 MG/3 ML INHALATION PRN (07:57)
[2022-10-12] MEDS ORDERED: INSULIN REGULAR 100 UNIT/ML VIAL (IM/SQ) SQ PRN (07:57)
[2022-10-12] MEDS ORDERED: ONDANSETRON ODT 4 MG TAB PO PRN (07:57)
[2022-10-12] MEDS ORDERED: SODIUM CHLORIDE 0.9% 1,000 ML IV SCH (08:00)
--- NOTE | 2022-10-12 08:01 | P.PCN ---
Date of Procedure: 10/12/22 Description of Procedure: Indication: Evaluation of the aortic valve Procedure Description: After explaining the procedure to the patient, it's risk and complications, blood pressure, heart rate and O2 saturation were monitored. The throat was sprayed with Cetacaine. Patient received 2 mg intravenous Versed, 50 mcg intravenous fentanyl. The probe was introduced into the esophagus without difficulty. Images were obtained. Following that, the probe was removed. There was no immediate complication. Findings: Left atrial size is normal, left atrial appendage is normal. Left ventricular size and systolic function are normal. The mitral valve is mildly thickened. The aortic valve is tricuspid. The aortic root is mildly dilated. The tricuspid and pulmonic valves are normal. Descending thoracic aorta is normal. A wire is noted in the right ventricle. No pericardial effusion was noted. Contrast bubble study revealed no shunting across the intra-atrial septum with Valsalva maneuver. Doppler: Pulse wave and color Doppler were obtained, I revealed mild mitral and tricuspid regurgitation with moderate aortic regurgitation. There was no shunting across the intra-atrial septum. Conclusion: 1. Normal left ventricle size and systolic function 2. Dilated ascending aorta with moderate aortic regurgitation and normal appearance of the aortic valve 3. Mild mitral and tricuspid regurgitation with no evidence of pulmonary hypertension 4. A wire is noted in the right ventricle 5. No shunting across the intra-atrial septum Duration of sedation 10 minutes
[2022-10-12] MEDS ORDERED: NON FORMULARY DRUG (Insulin Glargine,Hum.Rec.Anlog [Lantus Solostar Pen] 100 UNIT/ML Insul SQ SCH (09:00)
[2022-10-12 12:59] VITALS: PULSE 72
[2022-10-12 13:02] VITALS: RESP 16
[2022-10-12 13:05] VITALS: BP 116/56
[2022-10-12] MEDS ORDERED: LOSARTAN 50 MG TAB PO SCH (21:00)
[2022-10-13] MEDS ORDERED: PANTOPRAZOLE 40 MG TABLET PO SCH (07:30)
[2022-10-13] MEDS ORDERED: DAPAGLIFLOZIN PROPANEDIOL 10 MG TABLET PO SCH (09:00)
[2022-10-13] MEDS ORDERED: FUROSEMIDE 20 MG TAB PO SCH (09:00)
[2022-10-13] MEDS ORDERED: RIVAROXABAN 20 MG TAB PO SCH (09:00)
[2022-10-13] MEDS ORDERED: EZETIMIBE 10 MG TAB PO SCH (09:00)
== END 2022-10-12 08:53 | disposition home or self-care (01) ==
LOC: CATHCVL 06:17
PROVIDERS: ATTEND Internal Medicine Interventional Cardiology
DX: I08.3 Combined rheumatic disorders of mitral, aortic and tricuspid valves (principal); I48.91 Unspecified atrial fibrillation; I71.40 Abdominal aortic aneurysm, without rupture, unspecified; I10 Essential (primary) hypertension; E11.52 Type 2 diabetes mellitus with diabetic peripheral angiopathy with gangrene; I25.10 Atherosclerotic heart disease of native coronary artery without angina pectoris; E78.2 Mixed hyperlipidemia; F17.210 Nicotine dependence, cigarettes, uncomplicated; Z82.49 Family history of ischemic heart disease and other diseases of the circulatory system; Z79.01 Long term (current) use of anticoagulants; Z79.4 Long term (current) use of insulin; Z79.84 Long term (current) use of oral hypoglycemic drugs; Z79.899 Other long term (current) drug therapy
CPT/HCPCS: 93312; 93320; 93325; 99152; J2250; J3010

== ENCOUNTER → 2022-10-27 | Outpatient (CLI) | payer MEDICARE ==
[2022-10-27 14:46] LABS: HCT 39.1 % (37.2-46.3); HGB 12.3 g/dL (12.0-15.0); MCH 26.1 pg (27.0-32.0); MCHC 31.5 g/dL (32.0-37.0); Mean Platelet Volume 10.8 fL (9.5-12.2); NRBC Per 100 WBC 0 /100 WBCS (0.0-0.0); Platelet Count 368 X 10*3/uL (140-440); RBC 4.71 X 10*6/uL (4.10-5.20); RDW 15.6 % (11.5-14.5); WBC 6.16 X 10*3/uL (4.50-10.00)
[2022-10-27 15:23] LABS: African American GFR (CKD) 79.9 (60.0-200.0); Anion Gap 11.5 mmol/L (10.00-18.00); BUN/Creat Ratio 20.82 Ratio (12.00-20.00); Blood Urea Nitrogen 17.2 mg/dL (9.0-27.0); Calcium 10.1 mg/dL (8.7-10.3); Carbon Dioxide 26.2 mmol/L (20.0-27.5); Non-African American GFR(CKD) 68.9 (60.0-200.0); Potassium 4.6 mmol/L (3.5-5.5); T4, Free (Free Thyroxine) 1.02 ng/dL (0.800-1.800)
== END | disposition home or self-care (01) ==
LOC: LABWHC1 09:24
PROVIDERS: ATTEND Family Medicine
DX: I11.0 Hypertensive heart disease with heart failure (principal); I50.32 Chronic diastolic (congestive) heart failure; E03.9 Hypothyroidism, unspecified; E11.65 Type 2 diabetes mellitus with hyperglycemia; R06.09 Other forms of dyspnea
CPT/HCPCS: 36415; 80048; 83036; 83880; 84439; 84443; 84450; 84460; 84481; 85027

== ENCOUNTER → 2022-11-10 | Outpatient (CLI) | payer MEDICARE ==
--- NOTE | 2022-11-11 08:53 | US ---
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 0.7 X 0.3 x 0.7 cm, lower lateral, mixed cystic and solid, isoechoic nodule, which is wider than tall, with ill-defined margins, without echogenic foci. 2. 1.0 X 0.5 x 0.7 cm, upper medial, mixed cystic and solid, hypoechoic nodule, which is wider reyna n tall, with ill-defined margins, without echogenic foci. ISTHMUS: # of nodules measured in the isthmus: 0 Bilateral neck scanned, no evidence of lymphadenopathy. Thyroid appears diffusely heterogenous, difficult to discern nodules from overall nodularity. unable to delineate nodules visualized in 2020 IMPRESSION: Diffuse glandular heterogeneity. Correlate with thyroid function testing. Nonspecific nodularity.
== END | disposition home or self-care (01) ==
LOC: RADUSWWP 15:21
PROVIDERS: ATTEND Internal Medicine Endocrinology, Diabetes & Metabolism
DX: E04.2 Nontoxic multinodular goiter (principal)
CPT/HCPCS: 76536

== ENCOUNTER → 2022-12-10 | Outpatient (CLI) | payer MEDICARE ==
--- NOTE | 2022-12-10 13:48 | US ---
EXAMINATION TYPE: US arterial UE single level DATE OF EXAM: 12/10/2022 1:23 PM CLINICAL INDICATION: Female, 77 years old with history of I73.9; Pt states right thumb turns black an d cold to touch on/off x 2 years/ Right arm only ordered History of: Smoker: Previous, quit 40 yrs Hypertension: Yes Diabetic: Yes Hyperlipidemia: No TIA/CVA: No Previous Vascular Surgery: No CAD: No [place]: No Vascular Ulcers: No Claudication: No Gangrene: No Wrist Brachial Indices: Right: 1.0 Finger Brachial Indices: Right : 0.76 Left: 0.79 There is diminished ratio to the digits. Waveforms however appear normal triphasic. IMPRESSION: 1. No significant flow-limiting stenosis identified right upper extremity.
== END | disposition home or self-care (01) ==
LOC: RADUSWWP 12:52
PROVIDERS: ATTEND Family Medicine
DX: E11.51 Type 2 diabetes mellitus with diabetic peripheral angiopathy without gangrene (principal); I10 Essential (primary) hypertension; Z87.891 Personal history of nicotine dependence
CPT/HCPCS: 93922

== ENCOUNTER → 2023-05-26 | Outpatient (CLI) | payer MEDICARE ==
--- NOTE | 2023-05-27 13:06 | MM ---
Reason for Exam: Screening (asymptomatic). Last mammogram was performed 1 year(s) and 1 month(s) ago. Patient History: Menarche at age 14. First Full-Term at age 21. Hysterectomy at age 60. Postmenopausal. Patient has history of breast feeding. Other cancer, age 65. Estrogen for 15 years until age 61. Progesterone for 15 years until age 61. Excisional Biopsy on the Left side. Maternal cousin had breast cancer, age 35. Maternal cousin had breast cancer, age 40. Sister had breast cancer, age 80. Risk Values: Beatriz 5 year model risk: 3.9%. NCI Lifetime model risk: 7.4%. Prior Study Comparison: 10/06/2016 Bilateral Screening Mammogram, [facility]. 11/18/2017 Bilateral Screening Mammogram, [facility]. 11/24/2018 Bilateral Screening Mammogram, [facility]. 12/10/2019 Bilateral Screening Mammogram, [facility]. 04/14/2021 Bilateral Screening Mammogram, [facility]. 04/16/2022 Bilateral MG 3D screening mammo w/cad, [facility]. Tissue Density: There are scattered fibroglandular densities. Findings: Analyzed By CAD. There is no suspicious group of microcalcifications or new suspicious mass. Overall Assessment: Negative, BI-RAD 1 Management: Screening Mammogram of both breasts in [address] [facility] will attempt to contact patient to return for supplemental views and ultrasound if indicated. Patient should continue monthly self-breast exams. A clinical breast exam by your physician is recommended on an annual basis. This exam should not preclude additional follow-up of suspicious palpable abnormalities. Note on Beatriz scores and lifetime risk: 1. A Beatriz score greater than 3% is considered moderate risk. If this is the case, consider specialist referral to assess eligibility for a risk reducing agent. 2. If overall lifetime risk for the development of breast cancer is 20% or higher, the patient may qualify for future screening with alternating mammogram and breast MRI. Electronically signed and approved by: Toni Elias DO
== END | disposition home or self-care (01) ==
LOC: RADMAMWWP 13:36
PROVIDERS: ATTEND Obstetrics & Gynecology
DX: Z12.31 Encounter for screening mammogram for malignant neoplasm of breast (principal); Z78.0 Asymptomatic menopausal state; Z80.3 Family history of malignant neoplasm of breast
CPT/HCPCS: 77063; 77067

== ENCOUNTER 2023-08-18 12:23 | Inpatient (IN) | payer MEDICARE ==
[2023-08-18] MEDS: LACTATED RINGERS 1,000 ML IV ONE ×2 (00:02)
[2023-08-18] MEDS: IV FLUID CONTINUATION 1,000 ML IV ONE ×2 (10:00→22:00)
[2023-08-18 12:52] LABS: Glucose,Whole Blood 163 mg/dL (70-110)
[2023-08-18] MEDS: MORPHINE SULFATE 4 MG/ML SYRINGE IV STA ×2 (13:23→15:18)
[2023-08-18] MEDS: SODIUM CHLORIDE 0.9% 1,000 ML IV STA (13:24)
--- NOTE | 2023-08-18 13:33 | ED ---
General Adult HPI - General Chief complaint: Abdominal Pain Stated complaint: abd pain,chest pain Time Seen by Provider: 08/18/23 12:53 Source: patient, family Mode of arrival: wheelchair Limitations: no limitations - History of Present Illness Initial comments: Dictation was produced using [employer] dictation software. please excuse any grammatical, word or spelling errors. Chief Complaint: 78-year-old female 1 day of left-sided abdominal pain History of Present Illness: Patient 78-year-old female presents emergency department for approximate 1 day of left-sided abdominal pain. She does have a history of diverticulitis however she states that her symptoms seem to be a lot worse than her usual diverticulitis symptoms. She states that the pain radiates to her back. She does complain of nausea vomiting. Denies any bloody stools. No diarrhea. She does report some mild constitutional symptoms. The ROS documented in this emergency department record has been reviewed and confirmed by me. Those systems with pertinent positive or negative responses have been documented in the HPI. All other systems are other negative and/or noncontributory. - Related Data Home Medications Medication Instructions Recorded Confirmed Ezetimibe [Zetia] 10 mg PO QAM 10/02/18 10/12/22 Hyoscyamine Sulfate [Hyoscyamine 0.125 mg SL Q4H PRN 10/02/18 10/12/22 Sulfate SL] Albuterol Sulfate [Proair Hfa] 2 puff INHALATION RT-Q4H PRN 04/18/19 10/07/22 Ondansetron Odt [Zofran ODT] 4 mg PO Q12HR PRN 04/18/19 10/12/22 Insulin Glargine,Hum.rec.anlog 25 units SQ QAM 03/03/20 10/12/22 [Lantus Solostar Pen] Cholecalciferol [Vitamin D3 (25 50 mcg PO DAILY 03/05/22 10/12/22 Mcg = 1000 Iu)] Insulin Regular, Human [NovoLIN R 3 units SQ AC-TID PRN 06/16/22 10/12/22 Flexpen] Diphenoxylate HCl/Atropine 6 tab PO DAILY 10/07/22 10/12/22 [Lomotil 2.5-0.025 mg Tablet] Furosemide [Lasix] 20 mg PO DAILY 10/07/22 10/12/22 Losartan [Cozaar] 50 mg PO BID 10/07/22 10/12/22 Repaglinide 1 mg PO DAILY PRN 10/07/22 10/12/22 Rivaroxaban [Xarelto] 20 mg PO QAM 10/07/22 10/12/22 traMADol HCL 50 mg PO BID PRN 10/07/22 10/12/22 Dapagliflozin Propanediol [Farxiga] 10 mg PO DAILY 10/12/22 10/12/22 Omeprazole [PriLOSEC] 20 mg PO DAILY 10/12/22 10/12/22 Previous Rx's Medication Instructions Recorded Lidocaine 5% Patch [Lidoderm] 1 patch TOPICAL DAILY PRN 5 Days 08/15/22 #5 patch Allergies Allergy/AdvReac Type Severity Reaction Status Date / Time adhesive Allergy Rash/Hives Verified 10/07/22 16:07 Iodinated Contrast Media Allergy Anaphylaxis Verified 10/07/22 16:07 [Iodinated Contrast Media - IV Dye] lisinopril Allergy Anaphylaxis Verified 10/07/22 16:07 moxifloxacin HCl Allergy Rash/Hives Verified 10/07/22 16:07 [From Avelox] Penicillins Allergy Rash/Hives Verified 10/07/22 16:07 shellfish derived Allergy Anaphylaxis Verified 10/07/22 16:07 celecoxib [From Celebrex] AdvReac Nausea & Verified 10/07/22 16:07 Vomiting Review of Systems ROS Statement: Those systems with pertinent positive or pertinent negative responses have been documented in the HPI. ROS Other: All systems not noted in ROS Statement are negative. Past Medical History Past Medical History: Asthma, Cancer, Diabetes Mellitus, GERD/Reflux, GI Bleed, Hypertension, Osteoarthritis (OA), Skin Disorder, Thyroid Disorder Additional Past Medical History / Comment(s): See Dr Butterfield's H&P. Thickening of colon on CT, nausea. Hx Bronchitis, sinus problems. 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 IBS, past bleeding peptic ulcer, diverticulitis, hx lower GI bleed. Hx skin cancer with removals. 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 Hx UTI's. Varicose veins. Thyroid nodules. History of Any Multi-Drug Resistant Organisms: None Reported Past Surgical History: Cholecystectomy, Hernia Repair, Hysterectomy, Joint Replacement, Orthopedic Surgery, Pacemaker, Tonsillectomy Additional Past Surgical History / Comment(s): 08/23/19 pacemaker, right inguinal hernia repair, abdominoplasty, sinus surgery, left foot hammer toe surgery, bilateral total hip replacements, bilateral total knee replacements, EGD colonoscopies, skin cancer removed, bilateral cataract removals/lens implants. Past Anesthesia/Blood Transfusion Reactions: Motion Sickness Additional Past Anesthesia/Blood Transfusion Reaction / Comment(s): RECEIVED TRANSFUSIONS POST RIGHT HIP ARTHROPLASTY (DATE UNKNOWN). Type of Cardiac Device: Permanent Pacemaker Device Placement Date:: 08/23/19 Past Psychological History: No Psychological Hx Reported Smoking Status: Former smoker Past Alcohol Use History: None Reported Past Drug Use History: None Reported - Past Family History Mother Family Medical History: Cancer Additional Family Medical History / Comment(s): Leukemia. Maternal Grandmother colon cancer. Brother(s) Family Medical History: Coronary Artery Disease (CAD) Additional Family Medical History / Comment(s): 2 brothers have CAD/pacemakers, 1 brother had colon cancer. Sister(s) Family Medical History: Cancer Additional Family Medical History / Comment(s): One sister of breast to lung cancer. Another sister from heart disease. Father Family Medical History: Myocardial Infarction (MO) Additional Family Medical History / Comment(s): Father of a [place] at the age of 70 yrs. General Exam - General Exam Comments Initial Comments: PHYSICAL EXAM: General Impression: Alert and oriented x3, not in acute distress HEENT: Normocephalic atraumatic, extra-ocular movements intact, pupils equal and reactive to light bilaterally, mucous membranes moist. Cardiovascular: Heart regular rate and rhythm Chest: Able to complete full sentences, no retractions, no tachypnea Abdomen: abdomen soft, no palpatory tenderness to the left abdomen, non- distended, no organomegaly Musculoskeletal: Pulses present and equal in all extremities, no peripheral edema Motor: no focal deficits noted Neurological: CN II-XII grossly intact, no focal motor or sensory deficits noted Skin: Intact with no visualized rashes Psych: Normal affect and mood Limitations: no limitations Course Vital Signs 08/18/23 12:47 Temperature 97.6 F Pulse Rate 65 Respiratory 16 Rate Blood Pressure 110/67 O2 Sat by Pulse 96 Oximetry Medical Decision Making - Medical Decision Making Was pt. sent in by a medical professional or institution (GISELLE Ly, MANAGER MATH, urgent care, hospital, or fdc...) When possible be specific @ -No Did you speak to anyone other than the patient for history (EMS, parent, family, police, friend...)? What history was obtained from this source @ -No Did you review nursing and triage notes (agree or disagree)? Why? @ -I reviewed and agree with nursing and triage notes Were old charts reviewed (outside hosp., previous admission, EMS record, old EKG, old radiological studies, urgent care reports/EKG's, fdc records)? Report findings @ -No old charts were reviewed Differential Diagnosis (chest pain, altered mental status, abdominal pain women, abdominal pain men, vaginal bleeding, musculoskeletal, weakness, fever, dyspnea, syncope, headache, dizziness, GI bleed, back pain, seizure, CVA, palpatations, mental health)? @ -Differential Abdominal Pain Women: Appendicitis, Cholecystitis, diverticulosis, ischemic bowel, pancreatitis, hepatitis, UTI, gastroenteritis, AAA, incarcerated hernia, bowel obstruction, constipation, inflammatory bowel, hepatitis, peptic ulcer disease, splenic infarction, perforated viscus, vulvitis, ovarian torsion, PID, kidney stone, placenta abruption, this is not meant to be an all-inclusive list EKG interpreted by me (3pts min.). @ -None done X-rays interpreted by me (1pt min.). @ -None done CT interpreted by me (1pt min.). @ -CT of the abdomen pelvis shows inflammatory signs and in the mesentery along with the small bowel bowel of the left abdomen U/S interpreted by me (1pt. min.). @ -None done What testing was considered but not performed or refused? (CT, X-rays, U/S, labs)? Why? @ -None What meds were considered but not given or refused? Why? @ -None Did you discuss the management of the patient with other professionals (professionals i.e. GISELLE Ly, MANAGER MATH, lab, RT, psych nurse, nephrology social worker, machine operator helper, teacher, global safety officer, high risk case manager)? Give summary @ -Case discussed with Dr. Bhatti who is agreeable for patient admission. He did request doing a CT angiography film to look at the blood vessels that perfused the dominant organs Was smoking cessation discussed for >3mins.? @ -No Was critical care preformed (if so, how long)? @ -No Were there social determinants of health that impacted care today? How? (Homelessness, low income, unemployed, alcoholism, drug addiction, transportat ion, low edu. Level, literacy, decrease access to med. care, fpc, rehab)? @ -No Was there de-escalation of care discussed even if they declined (Discuss DNR or withdrawal of care, Hospice)? DNR status @ -No What co-morbidities impacted this encounter? (DM, HTN, Smoking, COPD, CAD, Cancer, CVA, ARF, Chemo, Hep., AIDS, mental health diagnosis, sleep apnea, morbid obesity)? @ -None Was patient admitted / discharged? Hospital course, mention meds given and route, prescriptions, significant lab abnormalities, going to OR and other pertinent info. @ -78-year-old female presents emergency department for abdominal pain. Vital signs upon arrival are within acceptable limits. Laboratory evaluation obtained. Mild leukocytosis 13.1. Metabolic panel is negative. CT without contrast shows inflammatory findings in the left abdomen of the mesentery and small bowel. Case discussed with Dr. Bhatti who is going to except patient's care. He did request CT angiography of the abdomen and pelvis for suspicion of abdominal ischemia. Patient reevaluated bedside she still complaining of pain despite analgesic medications Undiagnosed new problem with uncertain prognosis? @ -No Drug Therapy requiring intensive monitoring for toxicity (Heparin, Nitro, Insulin, Cardizem)? @ -No Were any procedures done? @ -No Diagnosis/symptom? Acute, or Chronic, or Acute on Chronic? Uncomplicated (without systemic symptoms) or Complicated (systemic symptoms)? @ -Abdominal pain Side effects of treatment? @ -No Exacerbation, Progression, or Severe Exacerbation? @ -No Poses a threat to life or bodily function? How? (Chest pain, [place], [place], pneumonia, PE, COPD, DKA, ARF, appy, cholecystitis, CVA, Diverticulitis, Homicidal, Suicidal, threat to staff... and all critical care pts) @ -No - Lab Data Result diagrams: 08/18/23 13:28 08/18/23 13:28 Lab Results 08/18/23 08/18/23 08/18/23 Range/Units 12:49 13:28 13:28 WBC 13.1 H (3.8-10.6) k/uL RBC 4.88 (3.80-5.40) m/uL Hgb 12.2 (11.4-16.0) gm/dL Hct 39.6 (34.0-46.0) % MCV 81.2 (80.0-100.0) fL MCH 25.0 (25.0-35.0) pg MCHC 30.8 L (31.0-37.0) g/dL RDW 16.6 H (11.5-15.5) % Plt Count 504 H (150-450) k/uL MPV 7.5 Neutrophils % 87 % Lymphocytes % 7 % Monocytes % 5 % Eosinophils % 1 % Basophils % 0 % Neutrophils # 11.4 H (1.3-7.7) k/uL Lymphocytes # 0.9 L (1.0-4.8) k/uL Monocytes # 0.6 (0-1.0) k/uL Eosinophils # 0.1 (0-0.7) k/uL Basophils # 0.0 (0-0.2) k/uL Anisocytosis Slight Sodium 136 L (137-145) mmol/L Potassium 4.5 (3.5-5.1) mmol/L Chloride 103 (98-107) mmol/L Carbon Dioxide 26 (22-30) mmol/L Anion Gap 7 mmol/L BUN 29 H (7-17) mg/dL Creatinine 0.73 (0.52-1.04) mg/dL Est GFR (CKD-EPI)AfAm >90 (>60 ml/min/1.73 sqM) Est GFR (CKD-EPI)NonAf 80 (>60 ml/min/1.73 sqM) Glucose 186 H (74-99) mg/dL POC Glucose (mg/dL) 163 H (70-110) mg/dL POC Glu Camera Operator ID Edwin Parkinson Calcium 9.8 (8.4-10.2) mg/dL Total Bilirubin 0.6 (0.2-1.3) mg/dL AST 22 (14-36) U/L ALT 15 (4-34) U/L Alkaline Phosphatase 94 (38-126) U/L Total Protein 6.5 (6.3-8.2) g/dL Albumin 3.6 (3.5-5.0) g/dL Lipase 131 (23-300) U/L Disposition Clinical Impression: Abdominal pain Disposition: ADMITTED IP TO THIS HOSP Condition: Fair Referrals: Tom Guerrero DO [Primary Care Provider] - 1-2 days Decision Time: 15:00
[2023-08-18 13:42] LABS: Anisocytosis Slight; Basophils % (A) 0 %; Eosinophils # (A) 0.1 k/uL (0-0.7); Eosinophils % (A) 1 %; HCT 39.6 % (34.0-46.0); HGB 12.2 gm/dL (11.4-16.0); Lymphocytes # (A) 0.9 k/uL (1.0-4.8); Lymphocytes % (A) 7 %; MCHC 30.8 g/dL (31.0-37.0); MCV 81.2 fL (80.0-100.0); Mean Platelet Volume 7.5; Monocytes # (A) 0.6 k/uL (0-1.0); Monocytes % (A) 5 %; Neutrophils # (A) 11.4 k/uL (1.3-7.7); Neutrophils % (A) 87 %; Platelet Count 504 k/uL (150-450); RBC 4.88 m/uL (3.80-5.40); RDW 16.6 % (11.5-15.5); WBC 13.1 k/uL (3.8-10.6)
[2023-08-18 13:46] LABS: ALT 15 U/L (4-34); AST 22 U/L (14-36); African American GFR (CKD) >90 (>60 ml/min/1.73 sqM); Albumin 3.6 g/dL (3.5-5.0); Alkaline Phosphatase 94 U/L (38-126); Anion Gap 7 mmol/L; Blood Urea Nitrogen 29 mg/dL (7-17); Calcium 9.8 mg/dL (8.4-10.2); Carbon Dioxide 26 mmol/L (22-30); Chloride 103 mmol/L (98-107); Glucose 186 mg/dL (74-99); Lipase 131 U/L (23-300); Non-African American GFR(CKD) 80 (>60 ml/min/1.73 sqM); Potassium 4.5 mmol/L (3.5-5.1); Sodium 136 mmol/L (137-145); Total Bilirubin 0.6 mg/dL (0.2-1.3); Total Protein 6.5 g/dL (6.3-8.2)
--- NOTE | 2023-08-18 14:14 | CT ---
EXAMINATION TYPE: CT abdomen pelvis wo con DATE OF EXAM: 08/18/2023 COMPARISON: 12/21/2021 HISTORY: Left sided abdominal pain with nausea and vomiting CT DLP: 537.3 mGycm Automated exposure control for dose reduction was used. TECHNIQUE: Helical acquisition of images was performed from the lung bases through the pelvis. FINDINGS: The lung bases are clear. There is surgical absence of the gallbladder. There is no biliary ductal dilatation. There is no organomegaly involving the liver, pancreas, spleen or adrenal glands. There are no renal calcifications or hydronephrosis. The bowel loops are normal in caliber and no evidence of obstruction. The left lower quadrant of the abdomen there is a focal area marked diffuse increased signal intensity of the mesentery related to m ultiple small bowel loops consistent with mesenteric edema/inflammation. There is free fluid adjacent to the spleen, the left paracolic gutter and within the cul-de-sac. Exam is somewhat limited due to lack of bowel contrast. There is no pelvic mass or abscess. The osseous structures are intact. There are bilateral hip prostheses. IMPRESSION: Mild left-sided free intraperitoneal fluid and inflammation of the mesentery in the left lower quadra nt of the abdomen. Exam is limited due to lack of bowel contrast but the inflammatory changes appear to be related to multiple loops of small bowel in the left lower quadrant. There is no bowel obstruct ion, free intraperitoneal air or abscess.
[2023-08-18] MEDS ORDERED: NALOXONE 0.4 MG/ML 1 ML VIAL IV PRN (14:52)
--- NOTE | 2023-08-18 15:16 | P.GSHP ---
History of Present Illness H&P Date: 08/18/23 CHIEF COMPLAINT: Abdominal pain HISTORY OF PRESENT ILLNESS: This is a 78-year-old female with a known history of diverticulitis. Patient has had left lower quadrant abdominal pain x 2 weeks. Initially she thought it was a diverticulitis flareup and had been started on antibiotics by Dr. Toscano. Patient reports taking about 7 days of the antibiotics had started to feel better and then suddenly at 8:00 this morning she had severe sharp abdominal pain in the left lower abdomen a little higher than her usual diverticulitis pain. Patient had 3 episodes of emesis that were bilious in color. She has been having flatus and did have 3 normal bowel movements today. She did have some loose stools yesterday dark in color. Patient reports 65 pound weight loss. She denies any fever chills or sweats. She did report that the pain did radiate towards her back. Patient had CT scan abdomen pelvis without contrast that had reported mild left-sided free intraperitoneal fluid and inflammation of the mesentery in the left lower quadrant of the abdomen. Reports inflammatory changes appear to be related to multiple loops of small bowel in the left lower quadrant. There is no bowel obstruction, free air or abscess noted. Patient has a past surgical history of virgilio carroll in 2004, cholecystectomy, hysterectomy and hernia repair. She also has cardiac history of pacemaker. Patient reports not being on any blood thinners she stopped taking her Xarelto months ago. PAST MEDICAL HISTORY: See below PAST SURGICAL HISTORY: See below MEDICATIONS: See below ALLERGIES: See below SOCIAL HISTORY: No illicit drug use. REVIEW OF SYSTEMS: CONSTITUTIONAL: Denies fever or chills. HEENT: Denies blurred vision, vision changes, or eye pain. Denies hemoptysis CARDIOVASCULAR: Denies chest pain or pressure. RESPIRATORY: No shortness of breath. GASTROINTESTINAL: See HPI for pertinent findings HEMATOLOGIC: Denies bleeding disorders. GENITOURINARY: Denies any blood in urine or increased urinary frequency. SKIN: Denies pruitis. Denies rash. PHYSICAL EXAM: VITAL SIGNS: Reviewed GENERAL: Well-developed in no acute distress. HEENT: No sclera icterus. Extraocular movements grossly intact. Moist buccal mucosa. Head is atraumatic, normocephalic. No nasal drainage. ABDOMEN: Soft. Nondistended. Diffuse tenderness but more tender in the left lower quadrant with palpation NEUROLOGIC: Alert and oriented. Cranial nerves II through XII grossly intact. LABORATORY DATA: WBC 13.1 Hgb 12.2 platelets 504 Sodium is 136 potassium is 4.5 creatinine 0.73 LFTs normal lipase 131 IMAGING: CT scan abdomen pelvis reports mild left-sided free intraperitoneal fluid and inflammation of the mesentery in the left lower quadrant of the abdomen. Exam is limited due to lack of bowel contrast but the inflammatory changes appear to be related to multiple loops of small bowel in the left lower quadrant. There is no bowel obstruction, free intraperitoneal air or abscess. ASSESSMENT: 1. Left lower quadrant abdominal pain. CT scan reports mild left-sided free intraperitoneal fluid and inflammation of the mesentery in the left lower quadrant of the abdomen PLAN: -Further recommendations forthcoming per surgeon -CTA abdomen and pelvis with protocol for iodine allergy ordered for further evaluation of abdominal pain -Keep patient NPO -Continue IV fluids -Continue pain management Physician Early Intervention Specialist note has been reviewed by physician. Signing provider agrees with the documented findings, assessment, and plan of care. Past Medical History Past Medical History: Asthma, Cancer, Diabetes Mellitus, GERD/Reflux, GI Bleed, Hypertension, Osteoarthritis (OA), Skin Disorder, Thyroid Disorder Additional Past Medical History / Comment(s): See Dr Butterfield's H&P. Thickening of colon on CT, nausea. Hx Bronchitis, sinus problems. 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 IBS, past bleeding peptic ulcer, diverticulitis, hx lower GI bleed. Hx skin cancer with removals. 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 Hx UTI's. Varicose veins. Thyroid nodules. History of Any Multi-Drug Resistant Organisms: None Reported Past Surgical History: Cholecystectomy, Hernia Repair, Hysterectomy, Joint Replacement, Orthopedic Surgery, Pacemaker, Tonsillectomy Additional Past Surgical History / Comment(s): 08/23/19 pacemaker, right inguinal hernia repair, abdominoplasty, sinus surgery, left foot hammer toe surgery, bilateral total hip replacements, bilateral total knee replacements, EGD colonoscopies, skin cancer removed, bilateral cataract removals/lens implants. Past Anesthesia/Blood Transfusion Reactions: Motion Sickness Additional Past Anesthesia/Blood Transfusion Reaction / Comment(s): RECEIVED TRANSFUSIONS POST RIGHT HIP ARTHROPLASTY (DATE UNKNOWN). Type of Cardiac Device: Permanent Pacemaker Device Placement Date:: 08/23/19 Past Psychological History: No Psychological Hx Reported Smoking Status: Former smoker Past Alcohol Use History: None Reported Past Drug Use History: None Reported - Past Family History Mother Family Medical History: Cancer Additional Family Medical History / Comment(s): Leukemia. Maternal Grandmother colon cancer. Brother(s) Family Medical History: Coronary Artery Disease (CAD) Additional Family Medical History / Comment(s): 2 brothers have CAD/pacemakers, 1 brother had colon cancer. Sister(s) Family Medical History: Cancer Additional Family Medical History / Comment(s): One sister of breast to lung cancer. Another sister from heart disease. Father Family Medical History: Myocardial Infarction (CA) Additional Family Medical History / Comment(s): Father of a CA at the age of 70 yrs. Medications and Allergies Home Medications Medication Instructions Recorded Confirmed Type Insulin Glargine,Hum.rec.anlog 20 - 25 units SQ DAILY 03/03/20 08/18/23 History [Lantus Solostar Pen] Diphenoxylate HCl/Atropine 2 tab PO QID PRN 10/07/22 08/18/23 History [Lomotil 2.5-0.025 mg Tablet] Furosemide [Lasix] 20 mg PO DAILY 10/07/22 08/18/23 History Repaglinide 1 mg PO DAILY PRN 10/07/22 08/18/23 History Dapagliflozin Propanediol [Farxiga] 10 mg PO DAILY 10/12/22 08/18/23 History Insulin Aspart [NovoLOG Flexpen] See Protocol SQ AC-TID PRN 08/18/23 08/18/23 History Losartan [Cozaar] 25 mg PO DAILY 08/18/23 08/18/23 History Meloxicam [Mobic] 15 mg PO DAILY 08/18/23 08/18/23 History Allergies Allergy/AdvReac Type Severity Reaction Status Date / Time adhesive Allergy Rash/Hives Verified 08/18/23 15:12 Iodinated Contrast Media Allergy Anaphylaxis Verified 08/18/23 15:12 [Iodinated Contrast Media - IV Dye] lisinopril Allergy Anaphylaxis Verified 08/18/23 15:12 moxifloxacin HCl Allergy Rash/Hives Verified 08/18/23 15:12 [From Avelox] Penicillins Allergy Rash/Hives Verified 08/18/23 15:12 shellfish derived Allergy Anaphylaxis Verified 08/18/23 15:12 celecoxib [From Celebrex] AdvReac Nausea & Verified 08/18/23 15:12 Vomiting Surgical - Exam Vital Signs Temp Pulse Resp BP Pulse Ox 97.6 F 65 16 110/67 96 08/18/23 12:47 08/18/23 12:47 08/18/23 12:47 08/18/23 12:47 08/18/23 12:47 Results - Labs 08/18/23 13:28 08/18/23 13:28 Abnormal Lab Results - Last 24 Hours (Table) 08/18/23 08/18/23 08/18/23 Range/Units 12:49 13:28 13:28 WBC 13.1 H (3.8-10.6) k/uL MCHC 30.8 L (31.0-37.0) g/dL RDW 16.6 H (11.5-15.5) % Plt Count 504 H (150-450) k/uL Neutrophils # 11.4 H (1.3-7.7) k/uL Lymphocytes # 0.9 L (1.0-4.8) k/uL Sodium 136 L (137-145) mmol/L BUN 29 H (7-17) mg/dL Glucose 186 H (74-99) mg/dL POC Glucose (mg/dL) 163 H (70-110) mg/dL Diabetes panel 08/18/23 Range/Units 13:28 Sodium 136 L (137-145) mmol/L Potassium 4.5 (3.5-5.1) mmol/L Chloride 103 (98-107) mmol/L Carbon Dioxide 26 (22-30) mmol/L BUN 29 H (7-17) mg/dL Creatinine 0.73 (0.52-1.04) mg/dL Glucose 186 H (74-99) mg/dL Calcium 9.8 (8.4-10.2) mg/dL AST 22 (14-36) U/L ALT 15 (4-34) U/L Alkaline Phosphatase 94 (38-126) U/L Total Protein 6.5 (6.3-8.2) g/dL Albumin 3.6 (3.5-5.0) g/dL Calcium panel 08/18/23 Range/Units 13:28 Calcium 9.8 (8.4-10.2) mg/dL Albumin 3.6 (3.5-5.0) g/dL Pituitary panel 08/18/23 Range/Units 13:28 Sodium 136 L (137-145) mmol/L Potassium 4.5 (3.5-5.1) mmol/L Chloride 103 (98-107) mmol/L Carbon Dioxide 26 (22-30) mmol/L BUN 29 H (7-17) mg/dL Creatinine 0.73 (0.52-1.04) mg/dL Glucose 186 H (74-99) mg/dL Calcium 9.8 (8.4-10.2) mg/dL Adrenal panel 08/18/23 Range/Units 13:28 Sodium 136 L (137-145) mmol/L Potassium 4.5 (3.5-5.1) mmol/L Chloride 103 (98-107) mmol/L Carbon Dioxide 26 (22-30) mmol/L BUN 29 H (7-17) mg/dL Creatinine 0.73 (0.52-1.04) mg/dL Glucose 186 H (74-99) mg/dL Calcium 9.8 (8.4-10.2) mg/dL Total Bilirubin 0.6 (0.2-1.3) mg/dL AST 22 (14-36) U/L ALT 15 (4-34) U/L Alkaline Phosphatase 94 (38-126) U/L Total Protein 6.5 (6.3-8.2) g/dL Albumin 3.6 (3.5-5.0) g/dL
[2023-08-18] MEDS: diphenhydrAMINE 50 MG/ML 1 ML VIAL IVP STA (15:17)
[2023-08-18] MEDS: FAMOTIDINE 20 MG/2 ML VIAL IV STA (15:18)
[2023-08-18] MEDS: methylPREDNISolone SOD SUCCI 125 MG/2 ML VIAL IV STA (15:18)
[2023-08-18] MEDS: SODIUM CHLORIDE 0.9% 1,000 ML IV SCH (19:09)
[2023-08-18] MEDS: FAMOTIDINE 20 MG/2 ML VIAL IV ONE (20:11)
[2023-08-18] MEDS: diphenhydrAMINE 50 MG/ML 1 ML VIAL IVP ONE (20:11)
[2023-08-18] MEDS: methylPREDNISolone SOD SUCCI 40 MG/ML 1 ML VIAL IV ONE (20:11)
[2023-08-18] MEDS: MORPHINE SULFATE 4 MG/ML SYRINGE IV PRN (20:53)
--- NOTE | 2023-08-18 21:32 | CT ---
EXAMINATION TYPE: CT angio abdomen pelvis w con with 3-D rendering at an independent workstation DATE OF EXAM: 08/18/2023 HISTORY: acute abd pain CT DLP: 1129mGycm Automated Exposure Control for Dose Reduction was Utilized. CONTRAST: CT scan of the abdomen and pelvis is performed with IV Contrast, patient injected with 100 mL of Isovue 370. COMPARISON: Same day CT without contrast FINDINGS: LUNG BASES: No acute process. Coronary calcifications noted. Aortic valve calcifications are suspected. Aortic root at the level of the sinuses of Valsalva serafin ears dilated at 4 cm but this examination is not ECG gated. Ascending aorta measures up to 4.0 cm brittnee iber as seen. Descending aorta is tortuous and measures up to 2.8 cm caliber. LIVER: No suspicious focal lesions. BILIARY/PANCREAS: There is absence of the gallbladder with prominence of the extrahepatic biliary amari e with CBD caliber measuring 12 mm throughout its extent and with minimal prominence to the pancreati c duct in the head and body. SPLEEN: No splenomegaly or focal lesion. ADRENALS: No nodules. KIDNEYS: No acute process. BOWEL: Orally administered radiographic contrast opacifies the stomach, duodenum, and small bowel loo ps throughout the abdomen and pelvis. Several small bowel loops throughout the abdomen and pelvis are mildly dilated. The distalmost ileal loops are not dilated but transition zone is not evident; atten tion on follow-up will be useful. PERITONEAL CAVITY/EXTRAPERITONEAL SPACES: Mild/moderate peritoneal fluid is seen, more on the pelvis and abdomen. There is no pneumoperitoneum. LYMPH NODES: No greater than 1cm abdominal or pelvic lymph nodes are appreciated. OSSEOUS STRUCTURES: No aggressive focal findings. VASCULATURE: Lower chest findings as noted above. Abdominal aorta shows nonaneurysmal moderate tortuo sity and atherosclerotic intimal calcifications. Celiac trunk and SMA are widely patent, as are the b ilateral renal arteries. The IRIS is patent. Bilateral aortoiliac inflow is widely patent as are the r ight and left iliac systems, [employer], and visualized bilateral profunda/SFA. LIMITATIONS OF THE STUDY: 1. Bilateral THR provides prominent metallic beam hardening artifact throughout the pelvis, limiting visualization to a prominent degree. 2. CTA images during the arterial phase of contrast enhancement. Without portal venous phase contras t imaging there is limited sensitivity for focal visceral lesions, intraluminal filling defects, and venous pathology. IMPRESSION: 1. Findings suggest mild small bowel obstruction. Short interval follow-up oral and IV contrast CT a bdominopelvic imaging is recommended. 2. Mild/moderate peritoneal fluid. 3. Prominent biliary ductal pattern, correlation with LFTs requested. 4. Other findings as noted.
--- NOTE | 2023-08-18 22:05 | P.PN ---
Progress Note - Text Progress Note Date: 08/18/23 Patient went for repeat CAT scan angiogram this afternoon. Films reviewed. SMA is patent. Some increased free fluid now noted. Patient with narrowing of the small bowel in the left mid abdomen possibly representing internal herniation. Clinical scenario discussed in detail with the patient and her . Will proceed with diagnostic laparoscopy, possible laparotomy, possible bowel resection at this time. Risks of bleeding, infection, hernia, possible need for bowel resection and/or ostomy, leak, abscess, bowel injury, conversion to laparotomy, persistent postoperative pain. Patient understands and wishes to proceed.
[2023-08-18] MEDS: ONDANSETRON 4 MG/2 ML VIAL IVP ONE (22:12)
[2023-08-18] MEDS: INSULIN ASPART (NovoLOG) 100 UNIT/ML VIAL SQ ONE (22:12)
[2023-08-18 22:14] LABS: Glucose,Whole Blood 253 mg/dL (70-110)
[2023-08-18] MEDS ORDERED: SUCCINYLCHOLINE CHLORIDE 200 MG/10 ML VIAL IV ONE (22:18)
[2023-08-18] MEDS: SODIUM CHLORIDE 0.9% 50 ML with ceFAZolin 2,000 MG IV ONE (22:18)
[2023-08-18] MEDS ORDERED: LIDOCAINE 1% INJ 10MG/ML (20 ML MDV) ONE (22:18)
[2023-08-18] MEDS ORDERED: ROCURONIUM 10 MG/ML (5 ML VIAL) IV ONE (22:18)
[2023-08-18] MEDS ORDERED: GLYCOPYRROLATE 0.2 MG/ML 2 ML VIAL ONE (22:18)
[2023-08-18] MEDS ORDERED: ceFAZolin 1 GM/50 ML BAG (PMX) ONE (22:18)
[2023-08-18] MEDS ORDERED: PHENYLEPHRINE 10 MG/ML VIAL ONE (22:18)
[2023-08-18] MEDS ORDERED: MIDAZOLAM 2 MG/2 ML VIAL ONE (22:18)
[2023-08-18] MEDS ORDERED: PROPOFOL 10 MG/ML 20 ML VIAL IV ONE (22:18)
[2023-08-18] MEDS ORDERED: NEOSTIGMINE 1 MG/ML 10 ML VIAL ONE (22:18)
[2023-08-18] MEDS ORDERED: fentaNYL (PF) 50 MCG/ML 2 ML AMP ONE (22:18)
[2023-08-18] MEDS: BUPIVACAINE (PF) 0.25% 30 ML VIAL SQ ONE ×2 (22:40)
[2023-08-19] MEDS: LACTATED RINGERS 1,000 ML IV ONE ×2 (00:02→01:34)
--- NOTE | 2023-08-19 00:15 | P.OP ---
Date of Procedure: 08/19/23 Procedure(s) Performed: PREOPERATIVE DIAGNOSIS: Abdominal pain, bowel obstruction POSTOPERATIVE DIAGNOSIS: Small bowel obstruction secondary to internal hernia with secondary bowel ischemia PROCEDURE: Diagnostic laparoscopy, exploratory laparotomy, lysis of adhesions, small bowel resection SURGEON: Davy EBL: Terese cc ANESTHESIA: General COMPLICATIONS: None OPERATIVE PROCEDURE: Patient placed in the supine position. Patient placed under general anesthesia. Kendall catheter and gastric tube placed. Abdomen prepped and draped sterilely. 5 mm optical trocar used to enter the abdominal cavity in the right mid abdomen. 2 additional 5 mm trocars then placed in the right upper and right lower quadrant. Patient small bowel was inspected. Proximal small bowel appeared distended. As we approached the distal small bowel there appeared to be some tethering. I could not visualize with certainty the internal hernia given the dilated loops of bowel. It was decided to proceed with laparotomy. Midline incision was then made after the trocars were removed. Dissection through the subcutaneous fat and fascia took place using electrocautery. The patient had serosanguineous fluid in the abdomen. The bowel was identified at the ligament of Treitz. This was followed distally until we encountered an internal hernia in the left mid abdomen. There was a hole present in the omentum that was adherent to the proximal sigmoid colon. This hole was about nickel sized. There was 2 feet of small intestine penetrating through that defect. This was able to be reduced manually. The defect was then opened fully and no further defect was seen at that time. Unfortunately the small bowel within the hernia appeared ischemic. Most of the bowel in that internal hernia had a questionable viability. I decided to resect that section. Approximately 2 feet of small bowel was resected. The bowel was divided proximal and distal to the inflamed/ischemic segment using a linear 75 stapler. The mesentery was divided using LigaSure. A nusk-wf-ydhi anastomosis then took place. The antimesenteric portion of the staple line was excised. The linear stapler was fired on the antimesenteric border. The defect was closed transversely using a TX 60 device. The TX 60 staple line was imbricated using interrupted 3-0 GI silk Lembert sutures. The mesenteric defect was closed using a running locking 3-0 Vicryl stitch. The abdomen was then irrigated. The remainder of the abdomen was inspected. The liver appeared free of abnormalities. The patient's stomach visualized spleen and retroperitoneum appeared normal. The patient had a few wispy adhesions between the sigmoid colon and the pelvis sidewall that were lysed sharply. The mid sigmoid colon had a section where there appeared to be some chronic scarring. There was no definite neoplastic change. I can still palpate the lumen there. The patient had some harder stool present in the transverse colon and even in the ascending colon however the descending colon and proximal sigmoid colon was empty of stool. There was no colonic distention seen. Patient has a history of chronic recurrent diverticulitis. Findings in the sigmoid colon may reflect previous attacks of diverticulitis. Patient will certainly require short-term colonoscopy to evaluate this further. This process did not appear obstructive. After irrigation took place the fascia was closed using 2 separate double- stranded #1 PDS sutures. The subcutaneous tissues were closed using interrupted 2-0 Vicryl sutures. The skin was closed using jerman. The skin of the laparoscopy sites were also closed using jerman given the tightness of the skin. Sterile dressings were then applied. Nasogastric tube was left in place. Findings discussed with family in detail. DISPOSITION: Stable to recovery room
[2023-08-19] MEDS: HYDROmorphone 1 MG/ML 1 ML SYRINGE IVP PRN (01:23)
[2023-08-19] MEDS: ONDANSETRON 4 MG/2 ML VIAL IVP PRN (01:29)
[2023-08-19] MEDS: metroNIDAZOLE-NS PMX 500 MG in SALINE 1 100ML.BAG IVPB SCH (01:34)
[2023-08-19 05:35] LABS: Glucose,Whole Blood 211 mg/dL (70-110)
[2023-08-19] MEDS: KETOROLAC 15 MG/ML 1 ML VIAL IVP SCH (06:57)
[2023-08-19] MEDS: INSULIN ASPART (NovoLOG) 100 UNIT/ML VIAL SQ SCH (06:58)
[2023-08-19] MEDS: INSULIN DETEMIR (LEVEMIR) 100 UNIT/ML SYR SQ SCH (07:58)
[2023-08-19] MEDS: PANTOPRAZOLE 40 MG/10 ML VIAL IV SCH (08:11)
[2023-08-19] MEDS: HEPARIN SODIUM,PORCINE 5,000 UNIT/ML 1 ML VIAL SQ SCH (08:11)
--- NOTE | 2023-08-19 11:07 | P.PN ---
Subjective Progress Note Date: 08/19/23 Principal diagnosis: Small bowel obstruction Patient did well overnight. Her left lower abdominal pain has improved. She is now having incisional discomfort. Complaining of discomfort at the nasogastric tube site. Minimal nasogastric tube output. No flatus or bowel movement. Tmax 99. Vital signs otherwise stable. Objective - Vital Signs Vital signs: Vital Signs Temp 99.0 F 08/19/23 06:59 Pulse 98 08/19/23 06:59 Resp 18 08/19/23 06:59 BP 117/44 08/19/23 06:59 Pulse Ox 95 08/19/23 06:59 FiO2 Intake & Output 08/18/23 08/19/23 08/19/23 18:59 06:59 18:59 Intake Total 130 850 Output Total 150 Balance 130 700 Weight 65.771 kg Intake: IV 850 Intake, IV Titration 130 Amount Sodium Chloride 0.9% 1, 130 000 ml @ 130 mls/hr IV . Q7H42M [facility] Rx#:[id number] Output: Urine 100 Estimated Blood Loss 50 Other: Voiding Method Toilet Indwelling Catheter # Voids 2 - Exam Abdomen: Soft, nondistended, mild tenderness, dressing clean and dry - Labs CBC & Chem 7: 08/18/23 13:28 08/18/23 13:28 Labs: Abnormal Lab Results - Last 24 Hours (Table) 08/18/23 08/18/23 08/18/23 Range/Units 12:49 13:28 13:28 WBC 13.1 H (3.8-10.6) k/uL MCHC 30.8 L (31.0-37.0) g/dL RDW 16.6 H (11.5-15.5) % Plt Count 504 H (150-450) k/uL Neutrophils # 11.4 H (1.3-7.7) k/uL Lymphocytes # 0.9 L (1.0-4.8) k/uL Sodium 136 L (137-145) mmol/L BUN 29 H (7-17) mg/dL Glucose 186 H (74-99) mg/dL POC Glucose (mg/dL) 163 H (70-110) mg/dL 08/18/23 08/19/23 Range/Units 22:05 05:33 WBC (3.8-10.6) k/uL MCHC (31.0-37.0) g/dL RDW (11.5-15.5) % Plt Count (150-450) k/uL Neutrophils # (1.3-7.7) k/uL Lymphocytes # (1.0-4.8) k/uL Sodium (137-145) mmol/L BUN (7-17) mg/dL Glucose (74-99) mg/dL POC Glucose (mg/dL) 253 H 211 H (70-110) mg/dL Assessment and Plan (1) Small bowel obstruction Narrative/Plan: 78-year-old female doing well after exploratory laparotomy with small bowel resection for ischemic small bowel secondary to internal hernia. We discussed options of removing or keeping nasogastric tube. Certainly there is a risk of having to replace this if removed this early. She is agreeable with keeping the nasogastric tube 1 more day. If output remains minimal would consider removal of nasogastric tube tomorrow. Patient requesting we keep the Kendall catheter 1 more day. Will order Kendall catheter removal tomorrow. Check repeat labs. Continue antibiotics. Ambulate. Continue analgesics. Current Visit: Yes Status: Acute Code(s): K56.609 - UNSP INTESTNL OBST, UNSP TO PARTIAL VERSUS COMPLETE OBST SNOMED Code(s): 396351225
--- NOTE | 2023-08-19 11:28 | P.CONS ---
History of Present Illness - Reason for Consult ischemic bowel - History of Present Illness Patient pleasant 78-year-old female admitted for emergent laparoscopy laparotomy for internal hernia with ischemic bowel. Patient is presently on cefazolin which is being switched to Rocephin for better gram-negative intra-abdominal organisms and is also on metronidazole for intra-abdominal anaerobic bacteria. Patient does have leukocytosis does not have any fever. Her abdominal pain is better patient is postsurgical with an NG tube in place still draining from the NG tube does have some bowel sounds. Patient is diabetic but her blood sugars were high she also received steroids. Patient is on 20 units of Lantus along with oral medications and sliding scale all of which will be held as patient is n.p.o. and has an NG tube. Patient will be continued on sliding scale insulin. Once we start on diet patient is to be resumed on Lantus and all other oral medications with monitoring. REVIEW OF SYSTEMS: CONSTITUTIONAL: No fever, no malaise, no fatigue. HEENT: No recent visual problems or hearing problems. Denied any sore throat. CARDIOVASCULAR: No chest pain, orthopnea, PND, no palpitations, no syncope. PULMONARY: No shortness of breath, no cough, no hemoptysis. GASTROINTESTINAL: Patient had abdominal pain nausea vomiting on admission presently has an NG tube NEUROLOGICAL: No headaches, no weakness, no numbness. HEMATOLOGICAL: Denies any bleeding or petechiae. GENITOURINARY: Denies any burning micturition, frequency, or urgency. MUSCULOSKELETAL/RHEUMATOLOGICAL: Denies any joint pain, swelling, or any muscle pain. ENDOCRINE: Denies any polyuria or polydipsia. The rest of the 14-point review of systems is negative. PHYSICAL EXAMINATION: GENERAL: The patient is alert and oriented x3, not in any acute distress. Well developed, well nourished. HEENT: Pupils are round and equally reacting to light. EOMI. No scleral icterus. No conjunctival pallor. Normocephalic, atraumatic. No pharyngeal erythema. No thyromegaly. CARDIOVASCULAR: S1 and S2 present. No murmurs, rubs, or gallops. PULMONARY: Chest is clear to auscultation, no wheezing or crackles. ABDOMEN: Postsurgical packed abdomen bowel sounds are present, NG tube in place. MUSCULOSKELETAL: No joint swelling or deformity. EXTREMITIES: No cyanosis, clubbing, or pedal edema. NEUROLOGICAL: Gross neurological examination did not reveal any focal deficits. SKIN: No rashes. Assessment and plan -Internal hernia ischemic bowel: Patient is status post laparotomy bowel resection has an NG tube in place continue with Rocephin and metronidazole, patient was switched to lactated Ringer's to avoid hyperchloremic metabolic acidosis. -Type 2 diabetes mellitus management as mentioned above for now we will just use sliding scale insulin once patient is on diet can be started on her home dose of Lantus -Hypertension to prevent perioperative hypotension will hold off on lisinopril she may need it from tomorrow -Gastroesophageal reflux disease patient on Protonix DVT prophylaxis: Patient on subcutaneous insulin Past Medical History Past Medical History: Asthma, Cancer, Diabetes Mellitus, GERD/Reflux, GI Bleed, Hypertension, Osteoarthritis (OA), Skin Disorder, Thyroid Disorder Additional Past Medical History / Comment(s): See Dr Butterfield's H&P. Thickening of colon on CT, nausea. Hx Bronchitis, sinus problems. 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 IBS, past bleeding peptic ulcer, diverticulitis, hx lower GI bleed. Hx skin cancer with removals. 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 Hx UTI's. Varicose veins. Thyroid nodules. History of Any Multi-Drug Resistant Organisms: None Reported Past Surgical History: Cholecystectomy, Hernia Repair, Hysterectomy, Joint Replacement, Orthopedic Surgery, Pacemaker, Tonsillectomy Additional Past Surgical History / Comment(s): 08/23/19 pacemaker, right inguinal hernia repair, abdominoplasty, sinus surgery, left foot hammer toe surgery, bilateral total hip replacements, bilateral total knee replacements, EGD colonoscopies, skin cancer removed, bilateral cataract removals/lens implants. Past Anesthesia/Blood Transfusion Reactions: Motion Sickness Additional Past Anesthesia/Blood Transfusion Reaction / Comm: RECEIVED TRANSFUSIONS POST RIGHT HIP ARTHROPLASTY (DATE UNKNOWN). Type of Cardiac Device: Permanent Pacemaker Device Placement Date:: 08/23/19 Past Psychological History: No Psychological Hx Reported Smoking Status: Former smoker Past Alcohol Use History: None Reported Past Drug Use History: None Reported - Past Family History Mother Family Medical History: Cancer Additional Family Medical History / Comment(s): Leukemia. Maternal Grandmother colon cancer. Brother(s) Family Medical History: Coronary Artery Disease (CAD) Additional Family Medical History / Comment(s): 2 brothers have CAD/pacemakers, 1 brother had colon cancer. Sister(s) Family Medical History: Cancer Additional Family Medical History / Comment(s): One sister of breast to lung cancer. Another sister from heart disease. Father Family Medical History: Myocardial Infarction (GA) Additional Family Medical History / Comment(s): Father of a GA at the age of 70 yrs. Medications and Allergies Home Medications Medication Instructions Recorded Confirmed Type Insulin Glargine,Hum.rec.anlog 20 - 25 units SQ DAILY 03/03/20 08/18/23 History [Lantus Solostar Pen] Diphenoxylate HCl/Atropine 2 tab PO QID PRN 10/07/22 08/18/23 History [Lomotil 2.5-0.025 mg Tablet] Furosemide [Lasix] 20 mg PO DAILY 10/07/22 08/18/23 History Repaglinide 1 mg PO DAILY PRN 10/07/22 08/18/23 History Dapagliflozin Propanediol [Farxiga] 10 mg PO DAILY 10/12/22 08/18/23 History Insulin Aspart [NovoLOG Flexpen] See Protocol SQ AC-TID PRN 08/18/23 08/18/23 History Losartan [Cozaar] 25 mg PO DAILY 08/18/23 08/18/23 History Meloxicam [Mobic] 15 mg PO DAILY 08/18/23 08/18/23 History Allergies Allergy/AdvReac Type Severity Reaction Status Date / Time adhesive Allergy Rash/Hives Verified 08/18/23 15:12 Iodinated Contrast Media Allergy Anaphylaxis Verified 08/18/23 15:12 [Iodinated Contrast Media - IV Dye] lisinopril Allergy Anaphylaxis Verified 08/18/23 15:12 moxifloxacin HCl Allergy Rash/Hives Verified 08/18/23 15:12 [From Avelox] Penicillins Allergy Rash/Hives Verified 08/18/23 15:12 shellfish derived Allergy Anaphylaxis Verified 08/18/23 15:12 celecoxib [From Celebrex] AdvReac Nausea & Verified 08/18/23 15:12 Vomiting Physical Exam Vitals: Vital Signs Temp Pulse Pulse Resp BP BP Pulse Ox 08/19/23 06:59 99.0 F 98 18 117/44 95 08/19/23 03:30 126/67 99 08/19/23 03:00 132/62 100 08/19/23 02:30 149/69 83 L 08/19/23 02:27 98.1 F 100 20 157/69 96 08/19/23 02:00 148/68 94 L 08/19/23 01:30 150/63 93 L 08/19/23 01:00 169/66 93 L 08/19/23 00:34 87 16 172/65 100 08/19/23 00:19 86 14 182/74 100 08/19/23 00:04 98.0 F 87 14 175/76 99 08/18/23 20:11 99.0 F 88 20 143/71 96 08/18/23 17:49 80 18 151/79 96 08/18/23 15:46 87 18 170/86 98 08/18/23 12:47 97.6 F 65 16 110/67 96 Intake and Output 08/18/23 08/19/23 08/19/23 22:59 06:59 14:59 Intake Total 980 Output Total 150 Balance 830 Intake: IV 850 Intake, IV Titration 130 Amount Sodium Chloride 0.9% 1, 130 000 ml @ 130 mls/hr IV . Q7H42M [facility] Rx#:[id number] Output: Urine 100 Estimated Blood Loss 50 Other: Voiding Method Toilet Indwelling Catheter # Voids 2 Weight 65.771 kg Results CBC & Chem 7: 08/18/23 13:28 08/18/23 13:28 Labs: Abnormal Lab Results - Last 24 Hours (Table) 08/18/23 08/18/23 08/18/23 Range/Units 12:49 13:28 13:28 WBC 13.1 H (3.8-10.6) k/uL MCHC 30.8 L (31.0-37.0) g/dL RDW 16.6 H (11.5-15.5) % Plt Count 504 H (150-450) k/uL Neutrophils # 11.4 H (1.3-7.7) k/uL Lymphocytes # 0.9 L (1.0-4.8) k/uL Sodium 136 L (137-145) mmol/L BUN 29 H (7-17) mg/dL Glucose 186 H (74-99) mg/dL POC Glucose (mg/dL) 163 H (70-110) mg/dL 08/18/23 08/19/23 Range/Units 22:05 05:33 WBC (3.8-10.6) k/uL MCHC (31.0-37.0) g/dL RDW (11.5-15.5) % Plt Count (150-450) k/uL Neutrophils # (1.3-7.7) k/uL Lymphocytes # (1.0-4.8) k/uL Sodium (137-145) mmol/L BUN (7-17) mg/dL Glucose (74-99) mg/dL POC Glucose (mg/dL) 253 H 211 H (70-110) mg/dL
[2023-08-19 11:35] LABS: Glucose,Whole Blood 163 mg/dL (70-110)
[2023-08-19 11:48] LABS: HCT 35.3 % (37.2-46.3); HGB 10.9 g/dL (12.0-15.0); MCHC 30.9 g/dL (32.0-37.0); NRBC Per 100 WBC 0 X 10*3/uL (0.00-0.01); Platelet Count 517 X 10*3/uL (140-440); RBC 4.36 X 10*6/uL (4.10-5.20); RDW 18.2 % (11.5-14.5); WBC 28.18 X 10*3/uL (4.50-10.00)
[2023-08-19] MEDS: LACTATED RINGERS 1,000 ML IV SCH (11:54)
[2023-08-19 12:10] LABS: BUN/Creat Ratio 27.33 Ratio (12.00-20.00); Blood Urea Nitrogen 24.6 mg/dL (9.0-27.0); Calcium 9.7 mg/dL (8.7-10.3); Carbon Dioxide 23.5 mmol/L (21.6-31.8); Chloride 105 mmol/L (96-109); Glucose 221 mg/dL (70-110); Potassium 4.8 mmol/L (3.5-5.5); Sodium 139 mmol/L (135-145)
[2023-08-19 12:41] LABS: Basophils # (A) 0.03 X 10*3/uL (0.00-0.10); Basophils % (A) 0.1 %; Eosinophils # (A) 0 X 10*3/uL (0.04-0.35); Eosinophils % (A) 0 %; Lymphocytes # (A) 1.27 X 10*3/uL (0.90-5.00); Lymphocytes % (A) 4.5 %; Monocytes % (A) 5.3 %; Neutrophils # (A) 25.19 X 10*3/uL (1.80-7.70); Neutrophils % (A) 89.4 %; RBC Morphology Normal (Normal)
[2023-08-19 16:37] LABS: Glucose,Whole Blood 99 mg/dL (70-110)
[2023-08-19 16:41] VITALS: BMI 22.0
[2023-08-19 18:44] LABS: Glucose,Whole Blood 93 mg/dL (70-110)
[2023-08-19 19:40] LABS: Glucose,Whole Blood 78 mg/dL (70-110)
[2023-08-19 23:57] LABS: Glucose,Whole Blood 75 mg/dL (70-110)
[2023-08-20] MEDS: DEXTROSE 50% SYRINGE 50 ML IVP STA (00:25)
[2023-08-20] MEDS: DEXTROSE 5%-0.45% NACL 1,000 ML IV SCH (00:26)
[2023-08-20 06:50] LABS: Glucose,Whole Blood 115 mg/dL (70-110)
[2023-08-20] MEDS ORDERED: INSULIN DETEMIR (LEVEMIR) 100 UNIT/ML SYR SQ SCH (07:00)
[2023-08-20 11:39] LABS: Glucose,Whole Blood 142 mg/dL (70-110)
--- NOTE | 2023-08-20 13:10 | P.PN ---
Subjective Progress Note Date: 08/20/23 No acute events overnight. Patient states her abdominal pain is about the same compared to yesterday. No fevers or chills. No shortness of breath or chest pain. Admits to a small amount of flatus, but no bowel movement. Objective - Vital Signs Vital signs: Vital Signs Temp 98.3 F 08/20/23 07:15 Pulse 87 08/20/23 07:15 Resp 17 08/20/23 07:15 BP 177/82 08/20/23 07:15 Pulse Ox 95 08/20/23 07:15 FiO2 Intake & Output 08/19/23 08/20/23 08/20/23 18:59 06:59 18:59 Intake Total 800 Output Total 800 200 Balance 0 -200 Weight 65.771 kg Intake: Intake, IV Titration 800 Amount Lactated Ringers 1,000 ml 600 @ 75 mls/hr IV .[id number] [facility] Rx#:[id number] cefTRIAXone 2 gm In 100 Sodium Chloride 0.9% 50 ml @ 100 mls/hr IVPB Q24HR [facility] Rx#:[id number] metroNIDAZOLE-NS PMX 500 100 mg In Saline 1 100ml.bag @ 100 mls/hr IVPB Q8H [facility] Rx#:[id number] Output: Gastric Drainage 150 Urine 650 200 Uretheral (Angel) 650 Other: Voiding Method Indwelling Catheter Indwelling Catheter # Voids 1 - Exam Gen: AxO, NAD Pulm: non-labored respirations Abd: soft, mildy-tender around incisions, mildly-distended. No guarding/rebound/rigidity Incisions: C/D/I, no erythema or drainage seen. HEENT: NGT intact, producing bilious output with small amount of coffee ground output seen Angel: inact producing pale yellow UOP Extrem: no edema seen - Labs CBC & Chem 7: 08/19/23 06:56 08/19/23 06:53 Labs: Abnormal Lab Results - Last 24 Hours (Table) 08/20/23 08/20/23 Range/Units 06:49 11:38 POC Glucose (mg/dL) 115 H 142 H (70-110) mg/dL Assessment and Plan Assessment: Patient is a 78-year-old female status post small bowel resection for bowel ischemia secondary to internal hernia Plan: -Continue NGT to LIS -PPI therapy for coffee ground output -IVF hydration -Encourage ambulation -DC angel catheter -DVT/GI PPx -Await further return of bowel function Maxi Daigle MD General Surgery
--- NOTE | 2023-08-20 16:27 | XR ---
EXAMINATION TYPE: XR chest 1V portable DATE OF EXAM: 08/20/2023 COMPARISON: 02/28/2021 HISTORY: Shortness of breath TECHNIQUE: Single frontal view of the chest is obtained. FINDINGS: There is no focal air space opacity, pleural effusion, or pneumothorax seen. The cardiac silhouette size is within normal limits. Subsegmental changes right lung base. The osseous structure s are intact. A multilead cardiac device stable. NG tube seen with the tip at the level of gastric fu ndus. The sidehole is seen at the level of the distal esophagus correlate for positioning. Diffuse osteopenia and arthropathy of the shoulders. Tiny calcification or ossification in the right axilla may be related to lymph nodes or synovial chondromatosis. Surgical clips right upper quadrant. Question pleural-based calcification along the right lung base. Mild clip in the right paratracheal stripe IMPRESSION: 1. No evidence of CHF. 2. Favor right basilar atelectasis over pneumonia. 3. Right paratracheal soft tissue thickening recommend short-term follow-up PA and lateral views of t he chest.
[2023-08-20 16:51] LABS: Glucose,Whole Blood 175 mg/dL (70-110)
[2023-08-20 19:51] LABS: Glucose,Whole Blood 152 mg/dL (70-110)
--- NOTE | 2023-08-20 22:31 | PN ---
PROGRESS NOTE DATE OF SERVICE: 08/20/2023 SUBJECTIVE: This is a 78-year-old woman who was admitted with internal hernia with ischemic bowel, is being closely monitored. NG tube is in place at this time. No chest pain. No palpitation. On NG tube, she has had copious coffee-ground aspirate at this time. PHYSICAL EXAMINATION: VITAL SIGNS: Pulse 87, blood pressure 177/82, respirations 17. CHEST: Clear to auscultation. CARDIOVASCULAR: S1, S2. ABDOMEN: Soft, minimal tenderness. No guarding. No rigidity. LABS: WBC 28.8. Rest of the labs are noted. PAST MEDICAL HISTORY: Reviewed. REVIEW OF SYSTEMS: 14-point review is negative except as mentioned. CURRENT MEDICATIONS ARE: Rocephin. Rest of medications also noted. ASSESSMENT: 1. Status post small bowel resection for bowel ischemia secondary to internal hernia. 2. Elevated WBC. 3. On NG tube. 4. Anemia. 5. History of asthma. 6. Gastroesophageal reflux disease. 7. Degenerative joint disease. 8. Thickening of the colon on the CAT scan. RECOMMENDATIONS: Recommended to continue current management and continue symptomatic treatment. Otherwise, at this time, the patient is already on Rocephin. I would recommend a chest x-ray. Obtain cultures to rule out the possibly sepsis. Initiate Zosyn. Prognosis guarded because of multiple complex medical issues. See orders for details. The white count has definitely jumped from 13.1 to 28.18 today. Further recommendations to follow. MMODL / IJN: [id number] /
[2023-08-21 05:54] LABS: Glucose,Whole Blood 106 mg/dL (70-110)
[2023-08-21 07:34] LABS: Anisocytosis Slight; Basophils % (A) 0 %; Eosinophils # (A) 0.1 k/uL (0-0.7); Eosinophils % (A) 1 %; HCT 34.9 % (34.0-46.0); HGB 10.7 gm/dL (11.4-16.0); Hypochromasia Slight; Lymphocytes # (A) 1.4 k/uL (1.0-4.8); Lymphocytes % (A) 11 %; MCH 25.5 pg (25.0-35.0); MCHC 30.6 g/dL (31.0-37.0); MCV 83.2 fL (80.0-100.0); Mean Platelet Volume 7.6; Monocytes # (A) 0.7 k/uL (0-1.0); Monocytes % (A) 6 %; Neutrophils % (A) 82 %; Platelet Count 442 k/uL (150-450); RBC 4.19 m/uL (3.80-5.40); WBC 12.3 k/uL (3.8-10.6)
[2023-08-21 07:53] LABS: ALT 12 U/L (4-34); AST 20 U/L (14-36); African American GFR (CKD) >90 (>60 ml/min/1.73 sqM); Albumin 2.7 g/dL (3.5-5.0); Alkaline Phosphatase 70 U/L (38-126); Anion Gap 9 mmol/L; Blood Urea Nitrogen 28 mg/dL (7-17); Calcium 9.1 mg/dL (8.4-10.2); Carbon Dioxide 22 mmol/L (22-30); Chloride 109 mmol/L (98-107); Globulin 2.6 g/dL; Glucose 109 mg/dL (74-99); Non-African American GFR(CKD) 89 (>60 ml/min/1.73 sqM); Potassium 3.9 mmol/L (3.5-5.1); Sodium 140 mmol/L (137-145); Total Bilirubin 0.6 mg/dL (0.2-1.3); Total Protein 5.3 g/dL (6.3-8.2)
[2023-08-21] MEDS: LOSARTAN 25 MG TAB PO SCH (08:56)
[2023-08-21] MEDS: FUROSEMIDE 20 MG TAB PO SCH (08:56)
[2023-08-21 11:39] LABS: Glucose,Whole Blood 119 mg/dL (70-110)
[2023-08-21] MEDS: HYDROmorphone 0.5 MG/0.5 ML SYRINGE IVP PRN (13:39)
--- NOTE | 2023-08-21 16:05 | P.PN ---
Subjective Progress Note Date: 08/21/23 Status post exploratory laparotomy and small bowel resection for internal hernia. She is passing flatus. Discontinue NG tube. Start clear liquid diet. Incision clean dry and intact. She is ambulating. Objective - Vital Signs Vital signs: Vital Signs Temp 98.6 F 08/21/23 14:05 Pulse 87 08/21/23 14:05 Resp 16 08/21/23 14:05 BP 163/75 08/21/23 14:05 Pulse Ox 96 08/21/23 14:05 FiO2 Intake & Output 08/20/23 08/21/23 08/21/23 18:59 06:59 18:59 Output Total 450 400 Balance -450 -400 Output: Gastric Drainage 450 400 Other: Voiding Method Indwelling Catheter Indwelling Catheter # Voids 4 1 - Labs CBC & Chem 7: 08/21/23 06:26 08/21/23 06:26 Labs: Abnormal Lab Results - Last 24 Hours (Table) 08/20/23 08/20/23 08/20/23 Range/Units 16:09 16:50 19:50 WBC (3.8-10.6) k/uL Hgb (11.4-16.0) gm/dL MCHC (31.0-37.0) g/dL RDW (11.5-15.5) % Neutrophils # (1.3-7.7) k/uL Chloride (98-107) mmol/L BUN (7-17) mg/dL Glucose (74-99) mg/dL POC Glucose (mg/dL) 175 H 152 H (70-110) mg/dL Total Protein (6.3-8.2) g/dL Albumin (3.5-5.0) g/dL Procalcitonin 0.29 H (0.02-0.09) ng/mL 08/21/23 08/21/23 08/21/23 Range/Units 06:26 06:26 11:37 WBC 12.3 H (3.8-10.6) k/uL Hgb 10.7 L (11.4-16.0) gm/dL MCHC 30.6 L (31.0-37.0) g/dL RDW 17.0 H (11.5-15.5) % Neutrophils # 10.0 H (1.3-7.7) k/uL Chloride 109 H (98-107) mmol/L BUN 28 H (7-17) mg/dL Glucose 109 H (74-99) mg/dL POC Glucose (mg/dL) 119 H (70-110) mg/dL Total Protein 5.3 L (6.3-8.2) g/dL Albumin 2.7 L (3.5-5.0) g/dL Procalcitonin (0.02-0.09) ng/mL
[2023-08-21 16:38] LABS: Glucose,Whole Blood 130 mg/dL (70-110)
[2023-08-21 20:48] LABS: Glucose,Whole Blood 177 mg/dL (70-110)
--- NOTE | 2023-08-21 23:01 | PN ---
PROGRESS NOTE DATE OF SERVICE: 08/21/2023 SUBJECTIVE: This is a 78-year-old woman, who was admitted after small-bowel obstruction. She is being closely monitored. The patient has still NG tube, but the NG tube aspirate is clear at this time. Chest x-ray showed right basal atelectasis. OBJECTIVE: VITAL SIGNS: Pulse 82, blood pressure 173/80, respirations 16. CHEST: Clear to auscultation. CARDIOVASCULAR: S1, S2. ABDOMEN: Soft. NG tube in situ. LABORATORY DATA: Reviewed. ASSESSMENT: 1. Status post small bowel resection for bowel ischemia secondary to internal hernia. 2. Elevated WBC. 3. On NG tube. 4. Anemia. 5. History of asthma. 6. Gastroesophageal reflux disease. 7. Degenerative joint disease. 8. Thickening of the colon on the CAT scan. 9. Atelectasis. RECOMMENDATIONS AND DISCUSSION: I recommend to continue current management and continue symptomatic treatment. Otherwise, we will continue to monitor. The patient is on empiric antibiotics. Incentive spirometry. Further recommendations to follow. MMODL / IJN: [id number] /
[2023-08-22 06:18] LABS: Glucose,Whole Blood 145 mg/dL (70-110)
[2023-08-22 08:25] LABS: Basophils # (A) 0.04 X 10*3/uL (0.00-0.10); Basophils % (A) 0.4 %; Eosinophils # (A) 0.19 X 10*3/uL (0.04-0.35); HCT 32.3 % (37.2-46.3); Lymphocytes % (A) 13.9 %; MCH 24.9 pg (27.0-32.0); MCV 80.5 FL (80.0-97.0); Mean Platelet Volume 10.1 FL (9.5-12.2); Monocytes % (A) 8.6 %; NRBC Per 100 WBC 0 X 10*3/uL (0.00-0.01); Neutrophils % (A) 74.9 %; Platelet Count 426 X 10*3/uL (140-440); RBC 4.01 X 10*6/uL (4.10-5.20); RDW 18.3 % (11.5-14.5); WBC 9.35 X 10*3/uL (4.50-10.00)
[2023-08-22 08:44] LABS: Calcium 8.8 mg/dL (8.7-10.3); Carbon Dioxide 23.5 mmol/L (21.6-31.8); Chloride 107 mmol/L (96-109); Glucose 156 mg/dL (70-110); Potassium 4.3 mmol/L (3.5-5.5); Sodium 140 mmol/L (135-145)
[2023-08-22] MEDS: HYDROcodone/APAP 5-325MG 1 EACH TAB PO PRN (10:10)
[2023-08-22 11:22] LABS: Glucose,Whole Blood 162 mg/dL (70-110)
--- NOTE | 2023-08-22 13:19 | PN ---
PROGRESS NOTE DATE OF SERVICE: 08/22/2023 SUBJECTIVE: This is a 78-year-old woman, who was admitted with ischemic bowel, small-bowel resection, had NG tube removed. No chest pain. No palpitation. OBJECTIVE: VITAL SIGNS: Pulse is 79, blood pressure 157/74, respirations 18. CHEST: Clear to auscultation. ABDOMEN: Soft. Status post surgery. LABORATORY DATA: Reviewed. ASSESSMENT: 1. Status post small bowel resection for bowel ischemia secondary to internal hernia. 2. Elevated WBC. 3. Status post NG tube. 4. Anemia. 5. History of asthma. 6. Gastroesophageal reflux disease. 7. Degenerative joint disease. 8. Thickening of the colon on the CAT scan. 9. Atelectasis. RECOMMENDATIONS: Recommend to continue current management and continue symptomatic treatment. Repeat labs. Diet per Surgery. Continue to monitor. Further recommendations to follow. MMODL / IJN: [id number] /
--- NOTE | 2023-08-22 15:06 | P.PN ---
Subjective Progress Note Date: 08/22/23 CHIEF COMPLAINT: Abdominal pain HISTORY OF PRESENT ILLNESS: Patient postop day #3 status post diagnostic laparoscopy, exploratory laparotomy, lysis of adhesions with small bowel resection. Patient reports her pain is controlled. She did have some nausea last night this has resolved. She is having flatus. No bowel movement. Afebrile. WBC 9.35 Hgb 10 PHYSICAL EXAM: VITAL SIGNS: Reviewed. GENERAL: Well-developed in no acute distress. ABDOMEN: Soft. Nondistended. Mild tenderness at incision site. Incision site clean dry and intact NEUROLOGIC: Alert and oriented. Cranial nerves II through XII grossly intact. ASSESSMENT: 1. Small bowel obstruction secondary to internal hernia with secondary to bowel ischemia PLAN: -Continue clear liquid diet -Add Ensure clear for protein supplement -Add incentive spirometer -Patient can shower -Incisional dressing changed -Encourage patient to ambulate -Continue antibiotics -DVT prophylaxis subcu heparin Physician Phys Therapist note has been reviewed by physician. Signing provider agrees with the documented findings, assessment, and plan of care. I have personally seen and examined the patient, reviewed the DIRECT OF REAL ESTATE /PAs history, exam and MDM and agree with the assessment and plan as written. Based on total visit time, I have performed more than 50% of the visit. As above: Patient doing better today. Still with decreased appetite. Passing flatus. No nausea or vomiting currently. Continue clear liquids. Ambulate. Hopefully advance diet tomorrow. Objective - Vital Signs Vital signs: Vital Signs Temp 98.2 F 08/22/23 07:10 Pulse 82 08/22/23 07:10 Resp 17 08/22/23 07:10 BP 171/66 08/22/23 07:10 Pulse Ox 97 08/22/23 07:10 FiO2 Intake & Output 08/21/23 08/22/23 08/22/23 18:59 06:59 18:59 Intake Total 1100 900 200 Output Total 950 Balance 150 900 200 Intake: Intake, IV Titration 1100 900 200 Amount Dextrose 5%-0.45% NaCl 1, 850 900 000 ml @ 75 mls/hr IV . [id number] [facility] Rx#:[id number] cefTRIAXone 2 gm In 50 100 Sodium Chloride 0.9% 50 ml @ 100 mls/hr IVPB Q24HR [facility] Rx#:[id number] metroNIDAZOLE-NS PMX 500 200 100 mg In Saline 1 100ml.bag @ 100 mls/hr IVPB Q8H [facility] Rx#:[id number] Output: Gastric Drainage 450 Urine 500 Other: Voiding Method Indwelling Catheter # Voids 3 - Labs CBC & Chem 7: 08/22/23 04:03 08/22/23 04:03 Labs: Abnormal Lab Results - Last 24 Hours (Table) 08/21/23 08/21/23 08/22/23 Range/Units 16:36 20:47 04:03 RBC 4.01 L (4.10-5.20) X 10*6/uL Hgb 10.0 L (12.0-15.0) g/dL Hct 32.3 L (37.2-46.3) % MCH 24.9 L (27.0-32.0) pg MCHC 31.0 L (32.0-37.0) g/dL RDW 18.3 H (11.5-14.5) % Creatinine (0.6-1.5) mg/dL BUN/Creatinine Ratio (12.00-20.00) Ratio Glucose (70-110) mg/dL POC Glucose (mg/dL) 130 H 177 H (70-110) mg/dL 08/22/23 08/22/23 08/22/23 Range/Units 04:03 06:16 11:20 RBC (4.10-5.20) X 10*6/uL Hgb (12.0-15.0) g/dL Hct (37.2-46.3) % MCH (27.0-32.0) pg MCHC (32.0-37.0) g/dL RDW (11.5-14.5) % Creatinine 0.5 L (0.6-1.5) mg/dL BUN/Creatinine Ratio 36.00 H (12.00-20.00) Ratio Glucose 156 H (70-110) mg/dL POC Glucose (mg/dL) 145 H 162 H (70-110) mg/dL Microbiology - Last 24 Hours (Table) 08/20/23 16:09 Blood Culture - Preliminary Blood
[2023-08-22 16:17] LABS: Glucose,Whole Blood 274 mg/dL (70-110)
[2023-08-22 20:10] LABS: Glucose,Whole Blood 171 mg/dL (70-110)
[2023-08-22] MEDS: PANTOPRAZOLE 40 MG/10 ML VIAL IV SCH (21:04)
[2023-08-22] MEDS: METOCLOPRAMIDE 5 MG/ML 2 ML VIAL IVP PRN (21:43)
[2023-08-23] MEDS: ACETAMINOPHEN TAB 325 MG TAB PO PRN (01:02)
[2023-08-23] MEDS: hydrALAZINE HCL 20 MG/ML 1 ML VIAL IVP PRN (01:59)
[2023-08-23 05:32] LABS: Glucose,Whole Blood 156 mg/dL (70-110)
[2023-08-23 08:28] LABS: Basophils # (A) 0.03 X 10*3/uL (0.00-0.10); Basophils % (A) 0.2 %; Eosinophils # (A) 0.11 X 10*3/uL (0.04-0.35); Eosinophils % (A) 0.8 %; HCT 36.9 % (37.2-46.3); HGB 11.7 g/dL (12.0-15.0); Lymphocytes # (A) 0.89 X 10*3/uL (0.90-5.00); Lymphocytes % (A) 6.6 %; MCH 24.9 pg (27.0-32.0); MCHC 31.7 g/dL (32.0-37.0); MCV 78.7 FL (80.0-97.0); Monocytes # (A) 0.73 X 10*3/uL (0.20-1.00); Monocytes % (A) 5.5 %; NRBC Per 100 WBC 0 X 10*3/uL (0.00-0.01); Neutrophils # (A) 11.57 X 10*3/uL (1.80-7.70); Neutrophils % (A) 86.5 %; Platelet Count 511 X 10*3/uL (140-440); RBC 4.69 X 10*6/uL (4.10-5.20); RDW 18.6 % (11.5-14.5); WBC 13.39 X 10*3/uL (4.50-10.00)
[2023-08-23 08:46] LABS: Calcium 9.1 mg/dL (8.7-10.3); Carbon Dioxide 23.4 mmol/L (21.6-31.8); Chloride 103 mmol/L (96-109); Glucose 165 mg/dL (70-110); Potassium 3.7 mmol/L (3.5-5.5); Sodium 140 mmol/L (135-145)
[2023-08-23] MEDS: KETOROLAC 15 MG/ML 1 ML VIAL IVP SCH (11:15)
[2023-08-23 11:34] LABS: Glucose,Whole Blood 159 mg/dL (70-110)
--- NOTE | 2023-08-23 12:07 | XR ---
EXAMINATION TYPE: XR abdomen complete w decub DATE OF EXAM: 08/23/2023 11:04 AM CLINICAL INDICATION:Female, 78 years old with history of abdominal pain, elevated WBC; [facility] COMPARISON: None. TECHNIQUE: Two views of the abdomen were obtained. FINDINGS: Gaseous dilation of bowel throughout the abdomen measuring up to 3.8 cm. There is free air under the diaphragm on the right. Multiple surgical jerman are present. Right upper quadrant cholecy stectomy clips are present. IMPRESSION: 1. Gaseous dilation of multiple loops of bowel throughout the abdomen. Correlate for ileus. 2. Free air under the right diaphragm compatible with recent surgery in the history.
--- NOTE | 2023-08-23 12:37 | XR ---
EXAMINATION TYPE: XR chest 1V DATE OF EXAM: 08/23/2023 12:30 PM CLINICAL INDICATION:Female, 78 years old with history of tube placement; [facility] COMPARISON: Chest radiographs from 08/20/2023 TECHNIQUE: XR chest 1V Frontal view of the chest. FINDINGS: Lungs/Pleura: There is no evidence of pleural effusion, focal consolidation, or pneumothorax. Pulmonary vascularity: Unremarkable. Heart/mediastinum: Cardiomediastinal silhouette is prominent in size. Atherosclerotic calcifications are seen in the aorta. Three lead cardiac conduction device overlying the left hemithorax with lead tips projecting over the right ventricle, right atrium and coronary sinus. Musculoskeletal: No acute osseous pathology. Other findings: There remains free air under the right diaphragm. Lines/Tubes: Nasogastric tube with its distal tip and side-port projecting under the diaphragm. IMPRESSION: 1. Nasogastric tube in appropriate position. 2. There remains free air under the right diaphragm compatible with recent surgery.
--- NOTE | 2023-08-23 15:50 | P.PN ---
Subjective Progress Note Date: 08/23/23 CHIEF COMPLAINT: Abdominal pain HISTORY OF PRESENT ILLNESS: Patient postop day #4 status post diagnostic laparoscopy, exploratory laparotomy, lysis of adhesions with small bowel resection. Patient complains of increase in abdominal pain. Patient reports the pain last night became very severe she was nauseous no vomiting. She did have a bowel movement and flatus. But she feels more bloated and more pain on the left upper abdomen. She did require IV Dilaudid during the night and Zofran. Her white count has increased to 13 she has been mildly tachycardic. Afebrile. She was made n.p.o. this morning and abdominal x-ray ordered results reported gaseous dilation of multiple loops of bowel throughout the abdomen. Correlate for ileus. Free air under the diaphragm compatible with recent surgery. Patient did report that the [place] and beef broth made her feel more ill. PHYSICAL EXAM: VITAL SIGNS: Reviewed. GENERAL: Well-developed in no acute distress. ABDOMEN: Soft. Distended. Tenderness with palpation of the left side of the abdomen and left upper abdomen incision clean dry and intact NEUROLOGIC: Alert and oriented. Cranial nerves II through XII grossly intact. ASSESSMENT: 1. Small bowel obstruction secondary to internal hernia with secondary to bowel ischemia 2. Postoperative ileus PLAN: -NG tube placed for decompression -Keep patient n.p.o. -Continue pain management. Toradol added. -Discontinue [place] -Encourage patient to ambulate -Continue antibiotics -DVT prophylaxis subcu heparin Physician Director Industrial Nursing note has been reviewed by physician. Signing provider agrees with the documented findings, assessment, and plan of care. I have personally seen and examined the patient, reviewed the HONEY PRODUCER /PAs history, exam and MDM and agree with the assessment and plan as written. Based on total visit time, I have performed more than 50% of the visit. As above: Patient today was complaining of some left upper quadrant abdominal pain. She felt nauseous. No vomiting. X-rays show dilated stomach and small bowel loops. Since her x-rays earlier she is actually moved her bowels with loose stools about 4-5 times. Nasogastric tube was placed after x-ray obtained. Patient says she is having much more discomfort at the NG tube site in her abdomen. She says that her abdominal discomfort is minimal and better than it has been the last few days at this time. White blood cell count mildly elevated. X-rays showing persistent pneumoperitoneum. Exam shows mild diffuse tenderness and incisional tenderness. No peritoneal signs. Incision is clean and dry. Continue nasogastric tube to suction. Repeat labs and clinical exam tomorrow. Will follow closely. Objective - Vital Signs Vital signs: Vital Signs Temp 98.4 F 08/23/23 10:05 Pulse 106 H 08/23/23 10:05 Resp 20 08/23/23 10:05 BP 150/81 08/23/23 10:05 Pulse Ox 99 08/23/23 10:05 FiO2 Intake & Output 08/22/23 08/23/23 08/23/23 18:59 06:59 18:59 Intake Total 1350 Balance 1350 Intake: Intake, IV Titration 870 Amount Dextrose 5%-0.45% NaCl 1, 350 000 ml @ 75 mls/hr IV . [id number] [facility] Rx#:[id number] Lactated Ringers 1,000 ml 120 @ 40 mls/hr IV .Q24H [facility] Rx#:[id number] cefTRIAXone 2 gm In 200 Sodium Chloride 0.9% 50 ml @ 100 mls/hr IVPB Q24HR [facility] Rx#:[id number] metroNIDAZOLE-NS PMX 500 200 mg In Saline 1 100ml.bag @ 100 mls/hr IVPB Q8H [facility] Rx#:[id number] Oral 480 Other: # Voids 2 4 1 # Bowel Movements 1 - Labs CBC & Chem 7: 08/23/23 05:00 08/23/23 05:00 Labs: Abnormal Lab Results - Last 24 Hours (Table) 08/22/23 08/22/23 08/22/23 Range/Units 11:20 16:16 20:09 WBC (4.50-10.00) X 10*3/uL Hgb (12.0-15.0) g/dL Hct (37.2-46.3) % MCV (80.0-97.0) FL MCH (27.0-32.0) pg MCHC (32.0-37.0) g/dL RDW (11.5-14.5) % Plt Count (140-440) X 10*3/uL Immature Gran # (0.00-0.04) X 10*3/uL Neutrophils # (1.80-7.70) X 10*3/uL Lymphocytes # (0.90-5.00) X 10*3/uL Anion Gap (4.00-12.00) mmol/L Creatinine (0.6-1.5) mg/dL Glucose (70-110) mg/dL POC Glucose (mg/dL) 162 H 274 H 171 H (70-110) mg/dL 08/23/23 08/23/23 08/23/23 Range/Units 05:00 05:00 05:31 WBC 13.39 H (4.50-10.00) X 10*3/uL Hgb 11.7 L (12.0-15.0) g/dL Hct 36.9 L (37.2-46.3) % MCV 78.7 L (80.0-97.0) FL MCH 24.9 L (27.0-32.0) pg MCHC 31.7 L (32.0-37.0) g/dL RDW 18.6 H (11.5-14.5) % Plt Count 511 H (140-440) X 10*3/uL Immature Gran # 0.06 H (0.00-0.04) X 10*3/uL Neutrophils # 11.57 H (1.80-7.70) X 10*3/uL Lymphocytes # 0.89 L (0.90-5.00) X 10*3/uL Anion Gap 13.60 H (4.00-12.00) mmol/L Creatinine 0.5 L (0.6-1.5) mg/dL Glucose 165 H (70-110) mg/dL POC Glucose (mg/dL) 156 H (70-110) mg/dL Microbiology - Last 24 Hours (Table) 08/20/23 16:09 Blood Culture - Preliminary Blood
[2023-08-23] MEDS ORDERED: BENZOCAINE SPRAY 1 CAN MUCOUS MEM PRN (16:44)
[2023-08-23 16:50] LABS: Glucose,Whole Blood 151 mg/dL (70-110)
[2023-08-23] MEDS: BENZOCAINE/MENTHOL LOZENG 1 EACH LOZENGE MUCOUS MEM PRN (16:55)
[2023-08-23 20:02] LABS: Glucose,Whole Blood 155 mg/dL (70-110)
--- NOTE | 2023-08-23 20:50 | PN ---
PROGRESS NOTE DATE OF SERVICE: 08/23/2023 SUBJECTIVE: This is a 78-year-old woman, who was admitted with ischemic bowel, had NG tube reinserted. Dr. Bhatti is following the patient closely. The x-ray showed gaseous dilatation in multiple loops throughout the bowel, possibly ileus and free air under the right diaphragm after recent surgery. OBJECTIVE: VITAL SIGNS: Pulse is 105, blood pressure 158/80, respirations 18. CHEST: A few scattered rhonchi and crackles. ABDOMEN: Soft. NERVOUS SYSTEM: Nonfocal. LABORATORY DATA: WBC 13.39. ASSESSMENT: 1. Status post small bowel resection for bowel ischemia secondary to internal hernia. 2. Elevated WBC. 3. Status post NG tube. 4. Anemia. 5. History of asthma. 6. Gastroesophageal reflux disease. 7. Degenerative joint disease with thickening of the colon on the CT scan. RECOMMENDATIONS AND DISCUSSION: This is a 78-year-old woman, who presented with multiple complex medical issues, we will monitor the patient closely. Continue current medications and continue symptomatic treatment. The patient is on empiric antibiotics. White count is slightly elevated. I would recommend continue the antibiotics. Repeat labs and closely follow with Surgery. Prognosis guarded. Further recommendations to follow. MMODL / IJN: [id number] /
[2023-08-24 05:48] LABS: Glucose,Whole Blood 134 mg/dL (70-110)
[2023-08-24 08:25] LABS: Basophils # (A) 0.04 X 10*3/uL (0.00-0.10); Basophils % (A) 0.4 %; Eosinophils # (A) 0.38 X 10*3/uL (0.04-0.35); Eosinophils % (A) 3.7 %; HCT 38.9 % (37.2-46.3); HGB 12.4 g/dL (12.0-15.0); Lymphocytes # (A) 1.93 X 10*3/uL (0.90-5.00); Lymphocytes % (A) 18.8 %; MCH 25.3 pg (27.0-32.0); MCHC 31.9 g/dL (32.0-37.0); MCV 79.4 FL (80.0-97.0); Mean Platelet Volume 10.5 FL (9.5-12.2); Monocytes # (A) 0.85 X 10*3/uL (0.20-1.00); Monocytes % (A) 8.3 %; NRBC Per 100 WBC 0 X 10*3/uL (0.00-0.01); Neutrophils # (A) 7.01 X 10*3/uL (1.80-7.70); Neutrophils % (A) 68.4 %; Platelet Count 577 X 10*3/uL (140-440); RDW 18.5 % (11.5-14.5); WBC 10.25 X 10*3/uL (4.50-10.00)
[2023-08-24 08:48] LABS: ALT 12 U/L (8-44); AST 20 U/L (13-35); Albumin 3.5 g/dL (3.8-4.9); Albumin/Globulin Ratio 1.59 Ratio (1.60-3.17); Alkaline Phosphatase 61 U/L (41-126); Blood Urea Nitrogen 10.2 mg/dL (9.0-27.0); Calcium 9.7 mg/dL (8.7-10.3); Carbon Dioxide 21.9 mmol/L (21.6-31.8); Chloride 104 mmol/L (96-109); Globulin 2.2 g/dL (1.6-3.3); Glucose 147 mg/dL (70-110); Potassium 3.5 mmol/L (3.5-5.5); Sodium 140 mmol/L (135-145); Total Bilirubin 0.5 mg/dL (0.3-1.2); Total Protein 5.7 g/dL (6.2-8.2)
[2023-08-24 12:01] LABS: Glucose,Whole Blood 163 mg/dL (70-110)
[2023-08-24] MEDS: traMADol 50 MG TAB PO PRN (13:51)
--- NOTE | 2023-08-24 16:25 | P.PN ---
Subjective Progress Note Date: 08/24/23 CHIEF COMPLAINT: Abdominal pain HISTORY OF PRESENT ILLNESS: Patient postop day #5 status post diagnostic laparoscopy, exploratory laparotomy, lysis of adhesions with small bowel resection. Patient is feeling better today. NG tube did come out. The NG tube was causing her to feel very anxious. Patient is having bowel movements that are liquidy. She is having flatus. Her pain has improved significantly. She denies any nausea or vomiting. Afebrile. Mildly tachycardic. WBC is down from 13-10.25 PHYSICAL EXAM: VITAL SIGNS: Reviewed. GENERAL: Well-developed in no acute distress. ABDOMEN: Soft. Nondistended. Mild tenderness at incision site. Incision site clean dry and intact NEUROLOGIC: Alert and oriented. Cranial nerves II through XII grossly intact. ASSESSMENT: 1. Small bowel obstruction secondary to internal hernia with secondary to bowel ischemia 2. Postoperative ileus PLAN: -Start clear liquid diet -Encourage patient to ambulate -Continue pain management -Continue antibiotics -DVT prophylaxis subcu heparin Physician Mental Health Consultant note has been reviewed by physician. Signing provider agrees with the documented findings, assessment, and plan of care. Objective - Vital Signs Vital signs: Vital Signs Temp 98.6 F 08/24/23 15:45 Pulse 103 H 08/24/23 15:45 Resp 18 08/24/23 15:45 BP 149/66 08/24/23 15:45 Pulse Ox 94 L 08/24/23 15:45 FiO2 Intake & Output 08/23/23 08/24/23 08/24/23 18:59 06:59 18:59 Output Total 100 Balance -100 Weight 65.771 kg Output: Gastric Drainage 100 Other: Voiding Method Toilet Bedside Commode # Voids 1 5 # Bowel Movements 1 - Labs CBC & Chem 7: 08/24/23 05:12 08/24/23 05:12 Labs: Abnormal Lab Results - Last 24 Hours (Table) 08/23/23 08/23/23 08/24/23 Range/Units 16:49 20:01 05:12 WBC 10.25 H (4.50-10.00) X 10*3/uL MCV 79.4 L (80.0-97.0) FL MCH 25.3 L (27.0-32.0) pg MCHC 31.9 L (32.0-37.0) g/dL RDW 18.5 H (11.5-14.5) % Plt Count 577 H (140-440) X 10*3/uL Eosinophils # 0.38 H (0.04-0.35) X 10*3/uL Anion Gap (4.00-12.00) mmol/L Glucose (70-110) mg/dL POC Glucose (mg/dL) 151 H 155 H (70-110) mg/dL Total Protein (6.2-8.2) g/dL Albumin (3.8-4.9) g/dL Albumin/Globulin Ratio (1.60-3.17) Ratio 08/24/23 08/24/23 08/24/23 Range/Units 05:12 05:47 12:00 WBC (4.50-10.00) X 10*3/uL MCV (80.0-97.0) FL MCH (27.0-32.0) pg MCHC (32.0-37.0) g/dL RDW (11.5-14.5) % Plt Count (140-440) X 10*3/uL Eosinophils # (0.04-0.35) X 10*3/uL Anion Gap 14.10 H (4.00-12.00) mmol/L Glucose 147 H (70-110) mg/dL POC Glucose (mg/dL) 134 H 163 H (70-110) mg/dL Total Protein 5.7 L (6.2-8.2) g/dL Albumin 3.5 L (3.8-4.9) g/dL Albumin/Globulin Ratio 1.59 L (1.60-3.17) Ratio Microbiology - Last 24 Hours (Table) 08/20/23 16:09 Blood Culture - Preliminary Blood
[2023-08-24 16:38] LABS: Glucose,Whole Blood 143 mg/dL (70-110)
--- NOTE | 2023-08-24 17:45 | P.PN ---
Progress Note - Text Progress Note Date: 08/24/23 Hospital course: status post diagnostic laparoscopy, exploratory laparotomy, lysis of adhesions with small bowel resection. Has an NG tube August 23: NG tube was taken out last night. Patient had some loose bowel movements and flatus today. Abdomen feeling better. No nausea vomiting. No fever. at the bedside. Seen by Dr. Bhatti. Being started on clear liquid diet. Has been up to the bathroom. Active Medications Acetaminophen (Acetaminophen Tab 325 Mg Tab) 650 mg PO Q6HR PRN PRN Reason: Mild Pain or Fever > 100.5 Last Admin: 08/23/23 01:02 Dose: 650 mg Benzocaine (Benzocaine [place] 1 Can) 1 spray MUCOUS MEM QID PRN; Protocol PRN Reason: Mouth Irritation Benzocaine/Menthol (Benzocaine/Menthol Lozeng 1 Each Lozenge) 1 each MUCOUS MEM Q4HR PRN PRN Reason: Sore Throat Last Admin: 08/23/23 16:55 Dose: 1 each Heparin Sodium (Porcine) (Heparin Sodium,Porcine 5,000 Unit/Ml 1 Ml Vial) 5,000 unit SQ Q8HR [facility] Last Admin: 08/24/23 08:34 Dose: 5,000 unit Hydralazine HCl (Hydralazine Hcl 20 Mg/Ml 1 Ml Vial) 10 mg IVP Q4HR PRN PRN Reason: Blood Pressure - High Last Admin: 08/23/23 21:00 Dose: 10 mg Hydromorphone HCl (Hydromorphone 0.5 Mg/0.5 Ml Syringe) 0.5 mg IVP Q3HR PRN PRN Reason: Moderate Pain (Scale 4 to 6) Last Admin: 08/22/23 21:01 Dose: 0.5 mg Hydromorphone HCl (Hydromorphone 1 Mg/Ml 1 Ml Syringe) 1 mg IVP Q4HR PRN PRN Reason: Severe Pain (Scale 7 to 10) Last Admin: 08/23/23 07:39 Dose: 1 mg Metronidazole 500 mg/ IV (Solution) 100 mls @ 100 mls/hr IVPB Q8H [facility]; Protocol Last Admin: 08/24/23 08:42 Dose: 100 mls/hr Ceftriaxone Sodium 2 gm/ (Sodium Chloride) 50 mls @ 100 mls/hr IVPB Q24HR [facility]; Protocol Last Admin: 08/24/23 08:36 Dose: 100 mls/hr Lactated Ringer's (Lactated Ringers) 1,000 mls @ 40 mls/hr IV .Q24H [facility] Last Admin: 08/24/23 02:36 Dose: Not Given Insulin Aspart (Insulin Aspart (Novolog) 100 Unit/Ml Vial) 0 unit SQ ACHS [facility]; Protocol Last Admin: 08/24/23 13:39 Dose: Not Given Ketorolac Tromethamine (Ketorolac 15 Mg/Ml 1 Ml Vial) 15 mg IVP Q6HR [facility] Stop: 08/28/23 10:29 Last Admin: 08/24/23 13:13 Dose: Not Given Losartan Potassium (Losartan 25 Mg Tab) 25 mg PO DAILY [facility] Last Admin: 08/24/23 08:35 Dose: 25 mg Metoclopramide HCl (Metoclopramide 5 Mg/Ml 2 Ml Vial) 10 mg IVP Q6H PRN PRN Reason: Nausea And Vomiting Last Admin: 08/23/23 04:18 Dose: 10 mg Morphine Sulfate (Morphine Sulfate 4 Mg/Ml Syringe) 4 mg IV Q4HR PRN PRN Reason: Severe Pain (Scale 7 to 10) Last Admin: 08/18/23 20:53 Dose: 4 mg Naloxone HCl (Naloxone 0.4 Mg/Ml 1 Ml Vial) 0.2 mg IV Q2M PRN PRN Reason: Opioid Reversal Ondansetron HCl (Ondansetron 4 Mg/2 Ml Vial) 4 mg IVP Q6HR PRN PRN Reason: Nausea And Vomiting Last Admin: 08/24/23 10:24 Dose: 4 mg Pantoprazole Sodium (Pantoprazole 40 Mg/10 Ml Vial) 40 mg IV BID [facility] Last Admin: 08/24/23 08:33 Dose: 40 mg Tramadol HCl (Tramadol 50 Mg Tab) 100 mg PO QID PRN PRN Reason: Pain Last Admin: 08/24/23 13:51 Dose: 100 mg Past medical history to include: Asthma, diabetes, GERD, hypertension, Chao arthritis, abdominal aortic aneurysm, aortic valve insufficiency, third-degree AV block with pacemaker, IBS, bleeding peptic ulcer, diverticulitis skin cancer. Social history: Patient smoked for 20 years stopped in 1988. No alcohol. . Physical examination: VITAL SIGNS: 98.6, 103, 18, 149 x 66, 94% room air GENERAL: Reclining in bed, a bit tired EYES: Pupils equal. Conjunctiva normal. HEENT: External appearance of nose and ears normal, oral cavity grossly normal. NECK: JVD not raised; masses not palpable. HEART: First and second heart sounds are normal; no edema. LUNGS: Respiratory rate normal; clear to auscultation. ABDOMEN: Soft, minimal tenderness r, liver spleen not palpable, no masses palpable. Incision site healing well PSYCH: Alert and oriented x3; mood and affect normal. MUSCULOSKELETAL:No Clubbing/cyanosis;muscles-grossly intact. OA. INVESTIGATIONS, reviewed in the clinical context: August 23: White count 10.2 hemoglobin 12.4 platelets 577 potassium 3.5 BUN 10.2 creatinine 0.6 Assessment plan: -Acute small bowel obstruction secondary to internal hernia with secondary bowel ischemia. Small bowel resection with lysis of additions on August [address] Bhatti NG tube discontinued last night on August 22 Started on clear liquids -Possible secondary peritonitis secondary to bowel ischemia with mild to moderate peritoneal fluid initially. IV ceftriaxone and Flagyl. -Intermittent asthma Pro-air when necessary -Essential hypertension Cozaar 25 mg a day -Paroxysmal atrial fibrillation, sinus rhythm Previously on Xarelto -Diabetes mellitus type 2 Follow [email or web address]. Lantus sliding scale at home. Start Levemir 12 units in the morning -Hyperlipidemia Zetia -Primary osteoarthritis Pain medications as needed -Full code IV antibiotics. Started on clear liquids. IV fluids. 100 cc an hour. Discussed with patient . Dr. Bhatti. Increase activity. Start Levemir 12 units in the morning.
[2023-08-24] MEDS: LACTATED RINGERS 1,000 ML IV SCH (18:48)
[2023-08-24 20:03] LABS: Glucose,Whole Blood 199 mg/dL (70-110)
[2023-08-25 05:55] LABS: Glucose,Whole Blood 114 mg/dL (70-110)
[2023-08-25] MEDS: INSULIN DETEMIR (LEVEMIR) 100 UNIT/ML SYR SQ SCH (07:57)
[2023-08-25 08:37] LABS: Basophils # (A) 0.03 X 10*3/uL (0.00-0.10); Basophils % (A) 0.3 %; Eosinophils # (A) 0.42 X 10*3/uL (0.04-0.35); Eosinophils % (A) 4.7 %; HCT 32.4 % (37.2-46.3); HGB 10.3 g/dL (12.0-15.0); Lymphocytes # (A) 1.47 X 10*3/uL (0.90-5.00); Lymphocytes % (A) 16.4 %; MCHC 31.8 g/dL (32.0-37.0); MCV 78.6 FL (80.0-97.0); Mean Platelet Volume 10.1 FL (9.5-12.2); Monocytes # (A) 0.77 X 10*3/uL (0.20-1.00); Monocytes % (A) 8.6 %; NRBC Per 100 WBC 0 X 10*3/uL (0.00-0.01); Neutrophils # (A) 6.24 X 10*3/uL (1.80-7.70); Neutrophils % (A) 69.4 %; Platelet Count 425 X 10*3/uL (140-440); RBC 4.12 X 10*6/uL (4.10-5.20); RDW 18.7 % (11.5-14.5); WBC 8.98 X 10*3/uL (4.50-10.00)
[2023-08-25 11:38] LABS: Glucose,Whole Blood 183 mg/dL (70-110)
--- NOTE | 2023-08-25 16:10 | P.PN ---
Progress Note - Text Progress Note Date: 08/25/23 Hospital course: status post diagnostic laparoscopy, exploratory laparotomy, lysis of adhesions with small bowel resection. Has an NG tube August 23: NG tube was taken out last night. Patient had some loose bowel movements and flatus today. Abdomen feeling better. No nausea vomiting. No fever. at the bedside. Seen by Dr. Bhatti. Being started on clear liquid diet. Has been up to the bathroom. August 24: Patient has been ambulated up back from the bathroom. Has had no bowel movement. Abdominal pain rather well-controlled. No nausea vomiting. Seen by surgery this afternoon. Advance to a soft bland diet. Active Medications Acetaminophen (Acetaminophen Tab 325 Mg Tab) 650 mg PO Q6HR PRN PRN Reason: Mild Pain or Fever > 100.5 Last Admin: 08/23/23 01:02 Dose: 650 mg Benzocaine (Benzocaine [place] 1 Can) 1 spray MUCOUS MEM QID PRN; Protocol PRN Reason: Mouth Irritation Benzocaine/Menthol (Benzocaine/Menthol Lozeng 1 Each Lozenge) 1 each MUCOUS MEM Q4HR PRN PRN Reason: Sore Throat Last Admin: 08/23/23 16:55 Dose: 1 each Heparin Sodium (Porcine) (Heparin Sodium,Porcine 5,000 Unit/Ml 1 Ml Vial) 5,000 unit SQ Q8HR [facility] Last Admin: 08/25/23 08:06 Dose: 5,000 unit Hydralazine HCl (Hydralazine Hcl 20 Mg/Ml 1 Ml Vial) 10 mg IVP Q4HR PRN PRN Reason: Blood Pressure - High Last Admin: 08/23/23 21:00 Dose: 10 mg Hydromorphone HCl (Hydromorphone 0.5 Mg/0.5 Ml Syringe) 0.5 mg IVP Q3HR PRN PRN Reason: Moderate Pain (Scale 4 to 6) Last Admin: 08/22/23 21:01 Dose: 0.5 mg Hydromorphone HCl (Hydromorphone 1 Mg/Ml 1 Ml Syringe) 1 mg IVP Q4HR PRN PRN Reason: Severe Pain (Scale 7 to 10) Last Admin: 08/23/23 07:39 Dose: 1 mg Metronidazole 500 mg/ IV (Solution) 100 mls @ 100 mls/hr IVPB Q8H [facility]; Protocol Last Admin: 08/25/23 09:10 Dose: 100 mls/hr Ceftriaxone Sodium 2 gm/ (Sodium Chloride) 50 mls @ 100 mls/hr IVPB Q24HR [facility]; Protocol Last Admin: 08/25/23 08:06 Dose: 100 mls/hr Lactated Ringer's (Lactated Ringers) 1,000 mls @ 100 mls/hr IV .Q10H [facility] Last Admin: 08/25/23 15:02 Dose: Not Given Insulin Aspart (Insulin Aspart (Novolog) 100 Unit/Ml Vial) 0 unit SQ ACHS [facility]; Protocol Last Admin: 08/25/23 12:02 Dose: 1 unit Insulin Detemir (Insulin Detemir (Levemir) 100 Unit/Ml Syr) 12 unit SQ DAILY@0700 [facility] Last Admin: 08/25/23 07:57 Dose: Not Given Ketorolac Tromethamine (Ketorolac 15 Mg/Ml 1 Ml Vial) 15 mg IVP Q6HR [facility] Stop: 08/28/23 10:29 Last Admin: 08/25/23 12:02 Dose: 15 mg Losartan Potassium (Losartan 25 Mg Tab) 25 mg PO DAILY [facility] Last Admin: 08/25/23 08:05 Dose: 25 mg Metoclopramide HCl (Metoclopramide 5 Mg/Ml 2 Ml Vial) 10 mg IVP Q6H PRN PRN Reason: Nausea And Vomiting Last Admin: 08/23/23 04:18 Dose: 10 mg Morphine Sulfate (Morphine Sulfate 4 Mg/Ml Syringe) 4 mg IV Q4HR PRN PRN Reason: Severe Pain (Scale 7 to 10) Last Admin: 08/18/23 20:53 Dose: 4 mg Naloxone HCl (Naloxone 0.4 Mg/Ml 1 Ml Vial) 0.2 mg IV Q2M PRN PRN Reason: Opioid Reversal Ondansetron HCl (Ondansetron 4 Mg/2 Ml Vial) 4 mg IVP Q6HR PRN PRN Reason: Nausea And Vomiting Last Admin: 08/25/23 06:07 Dose: 4 mg Pantoprazole Sodium (Pantoprazole 40 Mg/10 Ml Vial) 40 mg IV BID [facility] Last Admin: 08/25/23 08:06 Dose: 40 mg Tramadol HCl (Tramadol 50 Mg Tab) 100 mg PO QID PRN PRN Reason: Pain Last Admin: 08/25/23 13:43 Dose: 100 mg Past medical history to include: Asthma, diabetes, GERD, hypertension, Chao arthritis, abdominal aortic aneurysm, aortic valve insufficiency, third-degree AV block with pacemaker, IBS, bleeding peptic ulcer, diverticulitis skin cancer. Social history: Patient smoked for 20 years stopped in 1988. No alcohol. . Physical examination: VITAL SIGNS: 97.9, 87, 16, 155 x 70, 98% room air GENERAL: Sitting up by the sofa near the window, comfortable EYES: Pupils equal. Conjunctiva normal. HEENT: External appearance of nose and ears normal, oral cavity grossly normal. NECK: JVD not raised; masses not palpable. HEART: First and second heart sounds are normal; no edema. LUNGS: Respiratory rate normal; clear to auscultation. ABDOMEN: Soft, minimal tenderness r, liver spleen not palpable, no masses palpable. Incision site. Binder PSYCH: Alert and oriented x3; mood and affect normal. MUSCULOSKELETAL:No Clubbing/cyanosis;muscles-grossly intact. OA. INVESTIGATIONS, reviewed in the clinical context: August 24: White count 8.9 hemoglobin 10.3 platelets 425 August 23: White count 10.2 hemoglobin 12.4 platelets 577 potassium 3.5 BUN 10.2 creatinine 0.6 Assessment plan: -Acute small bowel obstruction secondary to internal hernia with secondary bowel ischemia.: Improving Small bowel resection with lysis of additions on August [address] Bhatti NG tube discontinued last night on August 22 Advance to soft bland diet later today -Possible secondary peritonitis secondary to bowel ischemia with mild to modera te peritoneal fluid initially. IV ceftriaxone and Flagyl. -Intermittent asthma Pro-air when necessary -Essential hypertension Cozaar 25 mg a day -Paroxysmal atrial fibrillation, sinus rhythm Previously on Xarelto -Diabetes mellitus type 2 Follow Accu-[email or web address]. Lantus sliding scale at home. Increase Levemir 20 units in the morning -Hyperlipidemia Zetia -Primary osteoarthritis Pain medications as needed -Full code Advance to soft plan by surgery for later today. Increase Levemir to 12 units in the morning. Antibiotics to continue. Increase activity as tolerated.
[2023-08-25 16:18] LABS: Glucose,Whole Blood 151 mg/dL (70-110)
--- NOTE | 2023-08-25 16:26 | P.PN ---
Subjective Progress Note Date: 08/25/23 Principal diagnosis: Small bowel obstruction Patient doing well today. Stools are becoming less loose. She denies nausea or vomiting. Pain is well-controlled. She is hungry. She is tolerating full liquids and asking for solid foods. Objective - Vital Signs Vital signs: Vital Signs Temp 98.2 F 08/25/23 16:18 Pulse 80 08/25/23 16:18 Resp 18 08/25/23 16:18 BP 167/70 08/25/23 16:18 Pulse Ox 96 08/25/23 16:18 FiO2 Intake & Output 08/24/23 08/25/23 08/25/23 18:59 06:59 18:59 Intake Total 880 Balance 880 Intake: Intake, IV Titration 640 Amount Lactated Ringers 1,000 ml 440 @ 100 mls/hr IV .Q10H [facility] Rx#:[id number] cefTRIAXone 2 gm In 100 Sodium Chloride 0.9% 50 ml @ 100 mls/hr IVPB Q24HR [facility] Rx#:[id number] metroNIDAZOLE-NS PMX 500 100 mg In Saline 1 100ml.bag @ 100 mls/hr IVPB Q8H [facility] Rx#:[id number] Oral 240 Other: Voiding Method Toilet Bedside Commode # Voids 3 1 # Bowel Movements 2 1 - Exam Abdomen: Soft, nondistended, incision clean and dry, minimal tenderness - Labs CBC & Chem 7: 08/25/23 05:33 08/24/23 05:12 Labs: Abnormal Lab Results - Last 24 Hours (Table) 08/24/23 08/24/23 08/25/23 Range/Units 16:36 20:02 05:33 Hgb 10.3 L (12.0-15.0) g/dL Hct 32.4 L (37.2-46.3) % MCV 78.6 L (80.0-97.0) FL MCH 25.0 L (27.0-32.0) pg MCHC 31.8 L (32.0-37.0) g/dL RDW 18.7 H (11.5-14.5) % Immature Gran # 0.05 H (0.00-0.04) X 10*3/uL Eosinophils # 0.42 H (0.04-0.35) X 10*3/uL POC Glucose (mg/dL) 143 H 199 H (70-110) mg/dL 08/25/23 08/25/23 08/25/23 Range/Units 05:54 11:37 16:17 Hgb (12.0-15.0) g/dL Hct (37.2-46.3) % MCV (80.0-97.0) FL MCH (27.0-32.0) pg MCHC (32.0-37.0) g/dL RDW (11.5-14.5) % Immature Gran # (0.00-0.04) X 10*3/uL Eosinophils # (0.04-0.35) X 10*3/uL POC Glucose (mg/dL) 114 H 183 H 151 H (70-110) mg/dL Assessment and Plan (1) Small bowel obstruction Narrative/Plan: 78-year-old female doing well after recent small bowel resection for internal hernia. Advance to regular foods at this time. Plan discharge tomorrow if tolerates. Current Visit: Yes Status: Acute Code(s): K56.609 - UNSP INTESTNL OBST, UNSP TO PARTIAL VERSUS COMPLETE OBST SNOMED Code(s): 888788958
[2023-08-25 19:51] LABS: Glucose,Whole Blood 192 mg/dL (70-110)
[2023-08-25] MEDS: CALCIUM CARBONATE 500 MG CHEWABLE PO PRN (21:40)
[2023-08-26 05:41] LABS: Glucose,Whole Blood 129 mg/dL (70-110)
[2023-08-26 07:50] VITALS: BP 163/82; PULSE 85; RESP 16; TEMP 98.5
[2023-08-26] MEDS: INSULIN DETEMIR (LEVEMIR) 100 UNIT/ML SYR SQ SCH (07:55)
--- NOTE | 2023-08-26 10:15 | P.DS ---
Providers Date of admission: 08/19/23 10:38 Expected date of discharge: 08/26/23 Attending physician: Alin Bhatti Consults: 08/18/23 14:57 Consult Physician Routine Consulting Provider: Roshan Hoffman Consult Reason/Comments: medicine consult Do you want consulting provider notified?: Yes Primary care physician: Tom Guerrero - Discharge Diagnosis(es) (1) Small bowel obstruction 78-year-old female admitted for abdominal pain. Patient went to the operating room for small bowel obstruction with findings of internal hernia. Patient had ischemic section of small bowel that was resected. Postoperatively has done well. Her ileus gradually resolved. Her diet has been advanced. She is doing well today. Will plan discharge. Plan follow-up 1 week. Current Visit: Yes Status: Acute Patient Condition at Discharge: Fair Plan - Discharge Summary Discharge Rx Participant: Yes New Discharge Prescriptions: No Action Insulin Glargine,Hum.rec.anlog [Lantus Solostar Pen] 20 - 25 units SQ DAILY Repaglinide 1 mg PO DAILY PRN PRN Reason: Blood Sugar - High Diphenoxylate HCl/Atropine [Lomotil 2.5-0.025 mg Tablet] 2 tab PO QID PRN PRN Reason: Diarrhea Meloxicam [Mobic] 15 mg PO DAILY Furosemide [Lasix] 20 mg PO DAILY Dapagliflozin Propanediol [Farxiga] 10 mg PO DAILY Losartan [Cozaar] 25 mg PO DAILY Insulin Aspart [NovoLOG Flexpen] See Protocol SQ AC-TID PRN PRN Reason: Blood Sugar - High Discharge Medication List Insulin Glargine,Hum.rec.anlog [Lantus Solostar Pen] 20 - 25 units SQ DAILY 03/03/20 [History] Diphenoxylate HCl/Atropine [Lomotil 2.5-0.025 mg Tablet] 2 tab PO QID PRN 10/07/22 [History] Furosemide [Lasix] 20 mg PO DAILY 10/07/22 [History] Repaglinide 1 mg PO DAILY PRN 10/07/22 [History] Dapagliflozin Propanediol [Farxiga] 10 mg PO DAILY 10/12/22 [History] Insulin Aspart [NovoLOG Flexpen] See Protocol SQ AC-TID PRN 08/18/23 [History] Losartan [Cozaar] 25 mg PO DAILY 08/18/23 [History] Meloxicam [Mobic] 15 mg PO DAILY 08/18/23 [History] Follow up Appointment(s)/Referral(s): Alin Bhatti MD [Medical Doctor] - 1 Week Tmo Guerrero DO [Primary Care Provider] - 1-2 days
--- NOTE | 2023-08-26 13:25 | CDI ---
Documentation Clarification Form Date: 08/26/2023 12:45:21 PM From: Priyanka Romero RN CCDS Phone: [phone] Admit Date: 08/19/2023 10:38:00 AM Patient Name: Cayla Felix Visit Number: [id number] Discharge Date: ATTENTION: The Clinical Documentation Specialists (CDI) and [facility] Coding Staff appreciate your assistance in clarifying documentation. Please respond to the clarification below the line at the bottom and electronically sign. The CDI & [facility] Coding staff will review the response and follow-up if needed. Please note: Queries are made part of the Legal Health Record. If you have any questions, please contact the author of this message via ITS. Dr. Roshan Hoffman MD The Registered Dietitian assessment on 08/22 indicates this patient meets criteria for acute severe malnutrition. Based on this information and the findings below, is there an additional diagnosis that is clinically appropriate for this patient? History/Risk Factors: 78 year old female presents to the ED with abdominal pain that is worse than usual. Medical history: Diverticulitis, GERD, DM and HTN. Patient was admitted with small bowel obstruction secondary to internal hernia with bowel ischemia. 08/18 Diagnostic laparoscopy, exploratory laparotomy, lysis of adhesions and small bowel resection. Clinical Indicators: RD Consult Assessment: Current BMI: BMI 22 Hgt 5ft 8inch weight stated by patient 65.771kg Weight loss 27.216kg weight change due to poor appetite for three months. Nutrition intake is poor NPO / clear liquids x 5 days. Underfeeding, not tolerating diet. GI complication nausea. Estimated nutritional needs in Kcals: 25-30, Energy formula for estimated Nutritional needs 25-30Kcals /kg. Energy Needs [id number] Kcal Estimated protein needs: Estimated protein range 1.0-1.25 gram/kg, Estimated protein needs grams/day 66-81. Estimated fluid needs: fluid formula 1ml/Kcal, Estimated Fluid 1650- 1950mls/day. Nutrition Diagnosis: Acute Severe Malnutrition related to diminished appetite secondary to abdominal pain SBO. <50% EER> 5 days, 42% significant with loss. Goal eating 75% of estimated nutritional needs. Treatment: 08/23 Clear liquid diet; 08/24 Dysphagia level 3 soft diet. Diet education, Monitoring PO intake including supplement intake. Nutritional Assessment Supplements: Clear ensure TID Is there an additional diagnosis that is clinically appropriate for this patient? [ + ] Severe Protein-Calorie Malnutrition [ ] Other condition, please specify [ ] Unable to Determine In responding to this query, please exercise your independent professional judgment. The [facility] Coding Staff and Clinical Documentation Specialists appreciate your assistance in clarifying documentation, maintaining compliance with coding guidelines, accurately documenting patients condition and capturing severity of illness. The fact that a question is asked does not imply that any particular answer is desired or expected. Communication forms are a method of clarifying documentation and are made part of the Legal Health Record. Thank you in advance for your clarification. Last Reviewed November 2022 Reference: Using the ASPEN Guidelines, Undernutrition (Malnutrition) is characterized by at least two of the following six findings. The severity can be determined based on the criteria listed below. Malnutrition Characteristics for Moderate and Severe Malnutrition Type of Malnutrition Acute Illness or Injury Chronic Illness Degree of Malnutrition Non-severe (moderate) Malnutrition Severe Malnutrition Non-severe (moderate) Malnutrition Severe Malnutrition Energy Intake <75% for >7 days = 50% for = 5 days <75% for = 1 month =75% for = 1 month Weight Loss 1-2% in one week, 5% in 1 month, 7.5% in 3 months 2% in one week, >5% in 1 month, >7.5% in 3 months 5% in one month, 7.5% in 3 months, 10% in 6 months, 20% in 1 year >5% in one month, >7.5% in 3 months, >10% in 6 months, >20% in 1 year Body Fat Wasting Mild Moderate Mild Severe Muscle Wasting Mild Moderate Mild Severe Presence of Edema Mild Moderate to Severe Mild Severe Education Nurse Strength Not applicable Measurably Reduced Not applicable Measurably Reduced Source: Gabriela TitusV, Jerardo P, Russell G, et al. Consensus statement: Academy of Nutrition and Dietetics and [place] Society for Parenteral and Enteral Nutrition: characteristics recommended for the identification and documentation of adult malnutrition (undernutrition).JAYE Titus Parenter Enteral Nutr. 2012;36(3):275-283. (Template Last Revised: November 2022) MTDD
--- NOTE | 2023-08-26 13:55 | P.PN ---
Progress Note - Text Progress Note Date: 08/26/23 Hospital course: status post diagnostic laparoscopy, exploratory laparotomy, lysis of adhesions with small bowel resection. Has an NG tube August 23: NG tube was taken out last night. Patient had some loose bowel movements and flatus today. Abdomen feeling better. No nausea vomiting. No fever. at the bedside. Seen by Dr. Bhatti. Being started on clear liquid diet. Has been up to the bathroom. August 24: Patient has been ambulated up back from the bathroom. Has had no bowel movement. Abdominal pain rather well-controlled. No nausea vomiting. Seen by surgery this afternoon. Advance to a soft bland diet. August 25: Patient tolerating diet. Loose bowel movement. Abdominal pain stable. Overall feeling better. Care was discussed with the patient. Questions answered. Losartan increased to 50 mg nightly. Discussed with patient. Medications reviewed Past medical history to include: Asthma, diabetes, GERD, hypertension, Chao arthritis, abdominal aortic aneurysm, aortic valve insufficiency, third-degree AV block with pacemaker, IBS, bleeding peptic ulcer, diverticulitis skin cancer. Social history: Patient smoked for 20 years stopped in 1988. No alcohol. . Physical examination: VITAL SIGNS: 98.5, 85, 16, 160 Yon 82, 95% room air GENERAL: Sitting up, comfortable EYES: Pupils equal. Conjunctiva normal. HEENT: External appearance of nose and ears normal, oral cavity grossly normal. NECK: JVD not raised; masses not palpable. HEART: First and second heart sounds are normal; no edema. LUNGS: Respiratory rate normal; clear to auscultation. ABDOMEN: Soft, minimal tenderness r, liver spleen not palpable, no masses palpable. Incision site. Binder PSYCH: Alert and oriented x3; mood and affect normal. MUSCULOSKELETAL:No Clubbing/cyanosis;muscles-grossly intact. OA. INVESTIGATIONS, reviewed in the clinical context: August 24: White count 8.9 hemoglobin 10.3 platelets 425 August 23: White count 10.2 hemoglobin 12.4 platelets 577 potassium 3.5 BUN 10.2 creatinine 0.6 Assessment plan: -Acute small bowel obstruction secondary to internal hernia with secondary bowel ischemia.: Improving Small bowel resection with lysis of additions on August [address] Bhatti NG tube discontinued Tolerating soft bland diet -Possible secondary peritonitis secondary to bowel ischemia with mild to moderate peritoneal fluid initially. IV ceftriaxone and Flagyl. -Intermittent asthma Pro-air when necessary -Essential hypertension, needs better control Change Cozaar to 50 mg nightly -Paroxysmal atrial fibrillation, sinus rhythm Previously on Xarelto -Diabetes mellitus type 2 Follow Accu-[email or web address].[email or web address]. Lantus sliding scale at home. -Hyperlipidemia Zetia -Primary osteoarthritis Pain medications as needed -Full code Discussed with patient. Questions answered
== END 2023-08-26 12:46 | disposition home or self-care (01) | DRG 329 ==
LOC: EC 12:23 → 4SSUR 14:54 → OBSVTOIN 08-19 10:38
PROVIDERS: ADMIT Surgery; ATTEND Surgery
PROC: 0DN80ZZ Release Small Intestine, Open Approach (ICD-10-PCS; principal; 2023-08-19)
PROC: 0WJF4ZZ Inspection of Abdominal Wall, Percutaneous Endoscopic Approach (ICD-10-PCS; principal; 2023-08-19)
PROC: 0DB80ZZ Excision of Small Intestine, Open Approach (ICD-10-PCS; principal; 2023-08-19)
PROC: 0D9670Z Drainage of Stomach with Drainage Device, Via Natural or Artificial Opening (ICD-10-PCS; 2023-08-19)
DX: K46.1 Unspecified abdominal hernia with gangrene (principal); E43 Unspecified severe protein-calorie malnutrition; K65.8 Other peritonitis; I44.2 Atrioventricular block, complete; J98.11 Atelectasis; Z68.22 Body mass index [BMI] 22.0-22.9, adult; K58.9 Irritable bowel syndrome, unspecified; E11.9 Type 2 diabetes mellitus without complications; Z79.4 Long term (current) use of insulin; E04.1 Nontoxic single thyroid nodule; I10 Essential (primary) hypertension; K21.9 Gastro-esophageal reflux disease without esophagitis; Z87.19 Personal history of other diseases of the digestive system; D64.9 Anemia, unspecified; J45.909 Unspecified asthma, uncomplicated; M19.90 Unspecified osteoarthritis, unspecified site; I35.1 Nonrheumatic aortic (valve) insufficiency; Z95.0 Presence of cardiac pacemaker; Z85.828 Personal history of other malignant neoplasm of skin; Z87.440 Personal history of urinary (tract) infections; Z87.891 Personal history of nicotine dependence; Z96.643 Presence of artificial hip joint, bilateral; Z96.653 Presence of artificial knee joint, bilateral; Z88.0 Allergy status to penicillin; Z88.8 Allergy status to other drugs, medicaments and biological substances; Z88.1 Allergy status to other antibiotic agents; Z91.041 Radiographic dye allergy status; Z79.1 Long term (current) use of non-steroidal anti-inflammatories (NSAID); Z79.899 Other long term (current) drug therapy
CPT/HCPCS: 36415; 71045; 74021; 74174; 74176; 80048; 80053; 83605; 83690; 84145; 85025; 87040; 88307; 93005; 96374; 96375; 96376; 99285

== ENCOUNTER 2024-02-21 07:06 | Day surgery (SDC) | payer MEDICARE ==
[2024-02-16 15:38] VITALS: BMI 22.0
[2024-02-21 07:56] VITALS: RESP 16; TEMP 97.8
[2024-02-21] MEDS: LACTATED RINGERS 1,000 ML IV SCH (07:57)
[2024-02-21 08:01] LABS: Glucose,Whole Blood 108 mg/dL (70-110)
[2024-02-21] MEDS ORDERED: PROPOFOL 10 MG/ML 20 ML VIAL IV ONE (08:10)
[2024-02-21] MEDS ORDERED: LIDOCAINE 1% INJ 10MG/ML (20 ML MDV) ONE (08:10)
--- NOTE | 2024-02-21 08:14 | P.GSHP ---
History of Present Illness H&P Date: 02/21/24 Chief Complaint: Colon cancer screening 78-year-old female here for colonoscopy. Patient with family history of colon cancer in brother and grandmother. No bowel complaints. Last colonoscopy 5 years ago. No history of polyps. Past Medical History Past Medical History: Asthma, Cancer, Diabetes Mellitus, GERD/Reflux, GI Bleed, Hypertension, Osteoarthritis (OA), Skin Disorder, Thyroid Disorder Additional Past Medical History / Comment(s): See Dr Butterfield's H&P. Thickening of colon on CT, nausea. Hx Bronchitis, sinus problems. 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 IBS, past bleeding peptic ulcer, diverticulitis, hx lower GI bleed. Hx skin cancer with removals. 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 Hx UTI's. Varicose veins. Thyroid nodules. History of Any Multi-Drug Resistant Organisms: None Reported Past Surgical History: Bowel Resection, Cholecystectomy, Hernia Repair, Hysterectomy, Joint Replacement, Orthopedic Surgery, Pacemaker, Tonsillectomy Additional Past Surgical History / Comment(s): 08/23/19 pacemaker, right inguinal hernia repair, abdominoplasty, sinus surgery, left foot hammer toe surgery, bilateral total hip replacements, bilateral total knee replacements, EGD colonoscopies, skin cancer removed, bilateral cataract removals/lens implants., resection 2023, Past Anesthesia/Blood Transfusion Reactions: No Reported Reaction, Motion Sickness Additional Past Anesthesia/Blood Transfusion Reaction / Comment(s): RECEIVED TRANSFUSIONS POST RIGHT HIP ARTHROPLASTY (DATE UNKNOWN). Type of Cardiac Device: Permanent Pacemaker Device Placement Date:: 08/23/19 Smoking Status: Former smoker - Past Family History Mother Family Medical History: Cancer Additional Family Medical History / Comment(s): Leukemia. Maternal Grandmother colon cancer. Brother(s) Family Medical History: Coronary Artery Disease (CAD) Additional Family Medical History / Comment(s): 2 brothers have CAD/pacemakers, 1 brother had colon cancer. Sister(s) Family Medical History: Cancer Additional Family Medical History / Comment(s): One sister of breast to lung cancer. Another sister from heart disease. Father Family Medical History: Myocardial Infarction (WA) Additional Family Medical History / Comment(s): Father of a [place] at the age of 70 yrs. Medications and Allergies Home Medications Medication Instructions Recorded Confirmed Type Insulin Glargine,Hum.rec.anlog 20 - 25 units SQ DAILY 03/03/20 02/21/24 History [Lantus Solostar Pen] Repaglinide 1 mg PO DAILY PRN 10/07/22 02/21/24 History Dapagliflozin Propanediol [Farxiga] 10 mg PO DAILY 10/12/22 02/21/24 History Insulin Aspart [NovoLOG Flexpen] See Protocol SQ AC-TID PRN 08/18/23 02/21/24 History Ondansetron [Zofran] 4 mg PO Q8HR PRN #20 tab 08/26/23 02/21/24 Rx traMADol HCl [Ultram] 50 mg PO Q6H PRN #10 tab 08/26/23 02/21/24 Rx Furosemide [Lasix] 20 mg PO DAILY 02/16/24 02/21/24 History Allergies Allergy/AdvReac Type Severity Reaction Status Date / Time Iodinated Contrast Media Allergy Anaphylaxis Verified 02/21/24 07:36 [Iodinated Contrast Media - IV Dye] lisinopril Allergy Anaphylaxis Verified 02/21/24 07:36 moxifloxacin HCl Allergy Rash/Hives Verified 02/21/24 07:36 [From Avelox] Penicillins Allergy Rash/Hives Verified 02/21/24 07:36 shellfish derived Allergy Anaphylaxis Verified 02/21/24 07:36 celecoxib [From Celebrex] AdvReac Nausea & Verified 02/21/24 07:36 Vomiting Surgical - Exam Vital Signs Temp Pulse Resp BP Pulse Ox 97.8 F 87 16 155/75 98 02/21/24 07:55 02/21/24 07:55 02/21/24 07:55 02/21/24 07:55 02/21/24 07:55 Physical exam: General: Well-developed, well-nourished HEENT: Normocephalic, sclerae nonicteric Abdomen: Nontender, nondistended Extremities: No edema Neuro: Alert and oriented Assessment and Plan (1) Colon cancer screening Narrative/Plan: Will proceed with colonoscopy at this time. Current Visit: Yes Status: Acute Code(s): Z12.11 - ENCOUNTER FOR SCREENING FOR MALIGNANT NEOPLASM OF COLON SNOMED Code(s): 208667020
--- NOTE | 2024-02-21 08:42 | P.PCN ---
Date of Procedure: 02/21/24 Procedure(s) Performed: PREOPERATIVE DIAGNOSIS: Colon cancer screening, family history of colon cancer POSTOPERATIVE DIAGNOSIS: Diverticulosis, tortuous colon PROCEDURE: Colonoscopy ANESTHESIA: MAC SURGEON: Alin Bhatti M.D. SPECIMENS: None ENDOSCOPIC PROCEDURE: The patient was placed on the endoscopy table in the left decubitus position. The Olympus colonoscope was inserted into the anus and passed under direct visualization to the base of the cecum. The appendiceal orifice was visualized. From that point the scope was slowly withdrawn inspecting all surfaces carefully. There were no neoplastic inflammatory or polypoid lesions throughout the cecum, ascending, transverse, descending, sigmoi d and rectum. There was mild scattered diverticulosis noted. The patient's colon was quite tortuous. Digital rectal examination was normal. The patient was taken to the recovery room in stable condition per anesthesia guidelines. RECOMMENDATIONS: Resume diet. Consider repeat colonoscopy 5 years however given the patient's significant tortuosity and her age at that time may be reasonable to forego further colonoscopies despite her family history.
[2024-02-21 08:59] VITALS: BP 131/75; PULSE 67
== END 2024-02-21 09:23 | disposition home or self-care (01) ==
LOC: ORWHC2ENDO 07:06
PROVIDERS: ATTEND Surgery